=== PATIENT | male | born 1940 | race Caucasian/White ===

== ENCOUNTER 2018-03-23 16:49 | Observation (INO) | payer OTHER ==
--- OUTSIDE RECORDS SUMMARY | 2018-03-23 16:51 | XMS REPORT | Clinical Summary ---
:1940 Author Organization [facility] Address [address] [place] [address] Care Team Providers Name Role Phone Edmund Phillips MD Primary Care Provider Unavailable Allergies Active Allergy Reactions Severity Noted Date Comments Clopidogrel Itching 03/02/2017 Sulfa (Sulfonamide Antibiotics) Swelling 08/25/2017 Current Medications Prescription Sig. Disp. Refills Start Date End Date Status citalopram (CeleXA) TK 1 T PO D IN 0 07/16/2016 Active 20 MG tablet THE MORNING. furosemide (LASIX) TK 1 T PO 90 tablet 3 04/19/2017 Active 80 mg tablet MORNING NITROSTAT 0.[address] 1 tablet 90 tablet 4 04/19/2017 Active tablet (0.3 mg total) under the tongue every 5 (five) minutes as needed for chest pain. spironolactone TK 1 T PO D 90 tablet 3 04/19/2017 Active (ALDACTONE) 25 MG tablet ticagrelor Take 1 tablet 180 tablet 3 04/19/2017 Active (BRILINTA) 90 mg (90 mg total) tablet by mouth 2 (two) times a day. atorvastatin Take 1 tablet 90 tablet 3 04/19/2017 Active (LIPITOR) 80 MG (80 mg total) 8 tablet by mouth daily. insulin GLARGINE Inject 25 10 mL 8 05/04/2017 Active (LANTUS) 100 unit/mL Units under 8 injection (vial) the skin nightly. losartan (COZAAR) TK 1 T PO QD 1 08/02/2017 Active 100 MG tablet amIODarone Take 100 mg by Active (PACERONE) 200 MG mouth daily. tablet gabapentin Take 100 mg by Active (NEURONTIN) 100 mg mouth 3 capsule (three) times a day. furosemide (LASIX) TK 1 T PO 3 05/19/2016 Discontinued 80 mg tablet MORNING 7 NITROSTAT 0.3 mg SL 4 06/04/2016 Discontinued tablet 7 spironolactone TK 1 T PO D 0 01/09/2017 Discontinued (ALDACTONE) 25 MG 7 tablet aspirin 81 mg Chew 1 tablet 30 tablet 0 03/08/2017 chewable tablet (81 mg total) 7 daily for 30 days. atorvastatin Take 1 tablet 30 tablet 0 03/08/2017 (LIPITOR) 80 MG (80 mg total) 7 tablet by mouth nightly for 30 days. metFORMIN Take 1 tablet 60 tablet 0 03/08/2017 (GLUCOPHAGE) 500 mg (500 mg total) 7 tablet by mouth 2 (two) times a day with meals for 30 days. ticagrelor Take 1 tablet 60 tablet 0 03/08/2017 (BRILINTA) 90 mg (90 mg total) 7 tablet by mouth 2 (two) times a day for 30 days. insulin GLARGINE Inject 25 7.5 mL 0 03/08/2017 (LANTUS) 100 unit/mL Units under 7 injection (vial) the skin nightly for 30 days. carvedilol (COREG) Take 1 tablet 60 tablet 11 03/16/2017 Discontinued 6.25 MG tablet (6.25 mg 7 total) by mouth 2 (two) times a day. metoprolol tartrate Take 1 tablet 180 tablet 3 03/17/2017 Discontinued (LOPRESSOR) 100 mg (100 mg total) 7 tablet by mouth 2 (two) times a day. carvedilol (COREG) Take 1 tablet 180 tablet 3 04/19/2017 Discontinued 6.25 MG tablet (6.25 mg 7 total) by mouth 2 (two) times a day. metoprolol tartrate Take 1 tablet 180 tablet 3 04/19/2017 Discontinued (LOPRESSOR) 100 mg (100 mg total) 8 tablet by mouth 2 (two) times a day. carvedilol (COREG) Take 12.5 mg Discontinued 12.5 MG tablet by mouth 2 7 (two) times a day with meals. traMADol (ULTRAM) 50 Take 1 tablet 60 tablet 0 08/19/2017 mg tablet (50 mg total) 8 by mouth every 8 (eight) hours as needed for moderate pain for up to 30 days. Active Problems Problem Noted Date Bilateral carotid artery disease 10/26/2017 CAD in [place] artery 03/23/2017 ST elevation myocardial infarction involving left circumflex coronary 2016 artery NSTEMI (non-ST elevated myocardial infarction) 03/02/2017 Coronary artery disease involving mus[place]ogee coronary artery of [place] heart 02/09 without angina pectoris Diastolic congestive heart failure 02/09/2017 Carotid bruit 02/09/2017 History of coronary artery bypass graft 08/07/2016 Stented coronary artery 08/07/2016 SOB (shortness of breath) 08/07/2016 Systolic congestive heart failure 08/07/2016 Encounters Date Type Specialty Care Team Description 11/03/2017 Orders Only Cardiology Flaquito Ann MA Coronary artery disease involving muscogee coronary artery of mus[place]ogee heart without angina pectoris (Primary Dx) 11/03/2017 Telephone Cardiology Flaquito Ann MA Results (ultrasound of the carotid) 10/26/2017 Office Visit Cardiology Gabriela Enriquez MD Systolic congestive heart failure, unspecified congestive heart failure chronicity (Primary Dx); Bilateral carotid artery disease; History of coronary artery bypass graft 08/25/2017 Office Visit Internal Medicine Edmund Phillips, Chest wall pain (Primary Dx); Uncontrolled diabetes mellitus type 2 without complications, unspecified physician insulin use status; Systolic congestive heart failure, unspecified congestive heart failure chronicity; Coronary artery disease involving muscogee coronary artery of mus[place] heart without angina pectoris 08/20/2017 Telephone Family Medicine Edmund Phillips MD 08/19/2017 Lab Lab Edmund Phillips, Dizziness; Essential hypertension 08/19/2017 Office Visit Internal Medicine Edmund Phillips, Chest wall pain (Primary Dx); Arthralgia of hip, unspecified laterality; Uncontrolled diabetes mellitus type 2 without complications, unspecified senior care insulin use status; Essential hypertension; Dizziness; Systolic congestive heart failure, unspecified congestive heart failure chronicity 08/18/2017 Telephone Family Medicine Michael AbelRIKI richardson 08/17/2017 Office Visit Cardiology Gabriela Enriquez MD Systolic congestive heart failure, unspecified congestive heart failure chronicity (Primary Dx); Pain of right hip joint; Stented coronary artery; Coronary artery disease involving muscogee coronary artery of mus[place]ogee heart without angina pectoris; History of coronary artery bypass graft 05/07/2017 Orders Only Cardiology Flaquito Ann MA 05/04/2017 Refill Cardiology Flaquito Ann MA Med Refill 05/03/2017 Refill Cardiology Flaquito Ann MA Med Refill 04/27/2017 Office Visit Cardiology Gabriela Enriquez MD CAD in mus[place]ogee artery (Primary Dx); Stented coronary artery; Systolic congestive heart failure, unspecified congestive heart failure chronicity 04/19/2017 Refill Cardiology Gabriela Enriquez MD Med Refill 04/19/2017 Refill Cardiology Gabriela Enriquez MD Med Refill 03/31/2017 Telephone Cardiology Sia Guerra MA resutls 03/23/2017 Office Visit Cardiology Gabriela Enriquez MD Systolic congestive heart failure, unspecified congestive heart failure chronicity (Primary Dx); CAD in mus[place]ogee artery; Stented coronary artery; ST elevation myocardial infarction involving left circumflex coronary artery after 03/22/2017 Immunizations Name Dates Previously Given Next Due Influenza Trivalent 05/19/2017 Social History Tobacco Use Types Packs/Day Years Used Date Never Smoker Smokeless Tobacco: Never Used Sex Assigned at Date Recorded Not on file Last Filed Vital Signs Vital Sign Reading Time Taken Blood Pressure 131/67 10/26/2017 3:49 PM CDT Pulse 84 10/26/2017 3:49 PM CDT Temperature 36.8 C (98.2 F) 08/25/2017 10:42 AM [employer] Respiratory Rate 16 08/25/2017 10:42 AM [employer]IST Oxygen Saturation 97% 08/25/2017 10:42 AM [employer]IST Inhaled Oxygen Concentration - - Weight 96.2 kg (212 lb) 10/26/2017 3:49 PM CDT Height 180.3 cm (5' 11") 08/25/2017 10:42 AM [employer] Body Mass Index 29.57 10/26/2017 3:49 PM CDT Plan of Treatment Date Type Specialty Care Team Description 04/26/2018 Office Visit Cardiology Gabriela Enriquez MD [address] [place], [place] [id number] Health Maintenance Due Date Last Done Comments DIABETIC FOOT EXAM 1949 DIABETIC RETINAL EYE EXAM 1949 URINE MICROALBUMIN 1949 SHINGRIX VACCINE (#1) 1989 ZOSTER VACCINE 1999 PNEUMOCOCCAL POLYSACCHARIDE VACCINE AGE 65 AND OVER 2004 PNEUMOCOCCAL-13 2004 INFLUENZA VACCINE 02/02/2018 05/19/2017 Implants Implanted Type Area Tooling Engineer Device Expiration Model / Identifier Date Serial / Lot Stent Catheter Synergy (Otw) 3.50mm X 16mm - [id number] Coronary N/A: N/A [facility] [id number] / Implanted: Qty: 1 on 03/03/2017 by Gabriela Enriquez MD Stents INTERVENTIONAL / CARDIOLOGY Procedures Procedure Name Priority Date/Time Associated Diagnosis Comments US CAROTID DUPLEX Routine 10/28/2017 11:25 Systolic congestive Results for this BILATERAL AM CDT heart failure, procedure are in unspecified the results congestive heart section. failure chronicity Bilateral carotid artery disease XR RIBS W PA CHEST Routine 08/19/2017 3:29 Chest wall pain Results for this RIGHT PM [employer]IST procedure are in the results section. SPECIMEN STATUS REPORT Routine 08/19/2017 1:47 Results for this PM [employer]IST procedure are in the results section. HEMOGLOBIN A1C Routine 08/19/2017 1:47 Results for this PM [employer]IST procedure are in the results section. SPECIMEN STATUS REPORT Routine 08/19/2017 1:47 Results for this PM [employer]IST procedure are in the results section. BASIC METABOLIC PANEL Routine 08/19/2017 1:47 Essential Results for this PM [employer]IST hypertension procedure are in the results section. CBC WITH PLATELET AND Routine 08/19/2017 1:47 Dizziness Results for this DIFFERENTIAL PM [employer] SPECIALIST procedure are in the results section. XR HIP 2-3 VIEWS RIGHT Routine 08/17/2017 12:08 Pain of right hip Results for this PM [employer]IST joint procedure are in the results section. ECHOCARDIOGRAM 2D Routine 07/28/2017 11:02 CAD in mus[place]ogee artery Results for this COMPLETE W MMODE AM [employer] SK[employer] SPECIALIST procedure are in SPECTRAL COLOR DOPPLER the results (52827) section. US CAROTID DUPLEX Routine 03/23/2017 10:40 Coronary artery Results for this BILATERAL AM CDT disease involving procedure are in muscogee coronary the results artery of muscogee section. heart without angina pectoris Diastolic congestive heart failure, unspecified congestive heart failure chronicity after 03/22/2017 Results Pv carotid duplex (10/28/2017 11:25 AM)Only the most recent of2 resultswithin the time period is included. Narrative Performed At [facility] Carotid Artery Ultrasound Report Pat.Name:TITUS NANCE Pat.ID:[id number] .Date: 10/28/2017 Refer.MD:GABRIELA ENRIQUEZ MD Exam Time: 11:52:00 AM Study Type:Carotid DOBAge:1940,77Y Sex: MALE Sonogrphr: Tiffanie Ross RDMS, RDCS, RVT Pat. Stat.:Outpatient Room:[place] [address]: [address] Echo Event ID:[id number] Order ID:[id number] Reason for Study:Carotid artery disease Race:C SUMMARY: PHYSICAL ASSESSMENT BloodPulsesCarotid Pressure Carotid TemporalBruit Right 131/67 ++0 Left ___ ++0 CAROTID ARTERY SCAN RIGHT:There is scattered hard plaquein the common carotid artery. Colorflow is mildly disturbed. There is hard and calcified plaque noted in the bulb extending into the internal and external carotid artery.Colorflow is disturbed with elevated velocities noted in the internal carotid artery. There is monophasic antegrade flow in the vertebral artery. LEFT:There is scattered hard plaquein the common carotid artery. Colorflow is mildly disturbed.The lumen of the internal carotidis filled with mixed soft and bright echogenic material occluding the artery. PRELIMINARY FINDINGS 50- 69% stenosis in the right internal carotid artery. Occlusion of the left internal carotid artery PHYSICIAN INTERPRETATION The left internal carotid artery is occluded. 50-69% right internal carotid artery stenosis, this has changed from the previous 2017 study Carotid Findings:RightLeft Verteb.Flw AntegradeAntegrade Subclavian Biphasic Triphasic MEASUREMENTS: DOPPLER Right SCA Prox SCA Prox PSV67.5 cm/sSCA Prox EDV11.7 cm/s Right CCA Dist CCA Dist PSV52.6 cm/sCCA Dist EDV13.9 cm/s Right CCA Mid CCA Mid PSV 57.2 cm/sCCA Mid EDV 15.1 cm/s Right CCA Prox CCA Prox PSV62.2 cm/sCCA Prox EDV14.1 cm/s Right Bulb Bulb PSV32.1 cm/sBulb EDV10.6 cm/s Right ECA Prox ECA Prox PSV51.5 cm/s Right ECA ECA PSV 50.8 cm/s Right ICA Dist ICA Dist PSV 117 cm/Isaiah Dist EDV39.9 cm/s Right ICA Mid ICA Mid LVK583 cm/Isaiah Mid EDV 42.5 cm/s Right ICA Prox ICA Prox PSV 213 cm/Isaiah Prox EDV71.2 cm/s Right Vertebral Vertebral PSV 17.4 cm/s Left SCA Prox SCA Prox PSV 117 cm/s Left CCA Dist CCA Dist PSV42.7 cm/sCCA Dist EDV 0 cm/s Left CCA Mid CCA Mid PSV 50.1 cm/sCCA Mid EDV0 cm/s Left CCA Prox CCA Prox PSV56.5 cm/sCCA Prox EDV 0 cm/s Left Bulb Bulb PSV60.9 cm/sBulb EDV 0 cm/s Left ECA Prox ECA Prox PSV58.5 cm/sECA Prox EDV 0 cm/s Left Vertebral Vertebral PSV 31.8 cm/sVertebral EDV 10.6 cm/s Right ICA/CCA Ratio ICA/CCA PSV 3.72 Signed 10/29/2017 04:53 PM Gabriela Enriquez MD Procedure Note Interface, Radiology Results In - 10/29/2017 4:53 PM CDT [facility] Carotid Artery Ultrasound Report Pat.Name: TITUS NANCE Ghislaine.ID: [id number] .Date: 10/28/2017 Refer.MD: GABRIELA ENRIQUEZ MD Exam Time: 11:52:00 AM Study Type:Carotid Age: 11 1940,77Y Sex: MALE Sonogrphr: Tiffanie Ross, JOSÉ, RDCS, RVT Pat. Stat.:Outpatient Room: [facility] 4: [address] Echo Event ID:[id number] Order ID: [id number] Reason for Study:Carotid artery disease Race: C SUMMARY: PHYSICAL ASSESSMENT Blood Pulses Carotid Pressure Carotid Temporal Bruit Right 131/67 + + 0 Left ___ + + 0 CAROTID ARTERY SCAN RIGHT: There is scattered hard plaque in the common carotid artery. Colorflow is mildly disturbed. There is hard and calcified plaque noted in the bulb extending into the internal and external carotid artery. Colorflow is disturbed with elevated velocities noted in the internal carotid artery. There is monophasic antegrade flow in the vertebral artery. LEFT: There is scattered hard plaque in the common carotid artery. Colorflow is mildly disturbed. The lumen of the internal carotid is filled with mixed soft and bright echogenic material occluding the artery. PRELIMINARY FINDINGS 50- 69% stenosis in the right internal carotid artery. Occlusion of the left internal carotid artery PHYSICIAN INTERPRETATION The left internal carotid artery is occluded. 50-69% right internal carotid artery stenosis, this has changed from the previous 2017 study Carotid Findings: Right Left Verteb.Flw Antegrade Antegrade Subclavian Biphasic Triphasic MEASUREMENTS: DOPPLER Right SCA Prox SCA Prox PSV 67.5 cm/s SCA Prox EDV 11.7 cm/s Right CCA Dist CCA Dist PSV 52.6 cm/s CCA Dist EDV 13.9 cm/s Right CCA Mid CCA Mid PSV 57.2 cm/s CCA Mid EDV 15.1 cm/s Right CCA Prox CCA Prox PSV 62.2 cm/s CCA Prox EDV 14.1 cm/s Right Bulb Bulb PSV 32.1 cm/s Bulb EDV 10.6 cm/s Right ECA Prox ECA Prox PSV 51.5 cm/s Right ECA ECA PSV 50.8 cm/s Right ICA Dist ICA Dist PSV 117 cm/s ICA Dist EDV 39.9 cm/s Right ICA Mid ICA Mid PSV 146 cm/s ICA Mid EDV 42.5 cm/s Right ICA Prox ICA Prox PSV 213 cm/s ICA Prox EDV 71.2 cm/s Right Vertebral Vertebral PSV 17.4 cm/s Left SCA Prox SCA Prox PSV 117 cm/s Left CCA Dist CCA Dist PSV 42.7 cm/s CCA Dist EDV 0 cm/s Left CCA Mid CCA Mid PSV 50.1 cm/s CCA Mid EDV 0 cm/s Left CCA Prox CCA Prox PSV 56.5 cm/s CCA Prox EDV 0 cm/s Left Bulb Bulb PSV 60.9 cm/s Bulb EDV 0 cm/s Left ECA Prox ECA Prox PSV 58.5 cm/s ECA Prox EDV 0 cm/s Left Vertebral Vertebral PSV 31.8 cm/s Vertebral EDV 10.6 cm/s Right ICA/CCA Ratio ICA/CCA PSV 3.72 Signed 10/29/2017 04:53 PM Gabriela Enriquez MD Performing Organization Address City/State/Zipcode Phone Number [facility] [address] [place] [address] XR Ribs W Pa Chest Right (08/19/2017 3:29 PM) Narrative Performed At EXAMINATION:XR RIBSW PA CHEST RIGHT [facility] CLINICAL HISTORY:R07.89 Other chest pain, CHEST WALL PAIN COMPARISON:None. IMPRESSION: The lungs are clear Heart is slightly enlarged, unchanged from prior Diffuse calcified atherosclerotic vascular disease throughout the arterial structures. [facility]-[id number] Procedure Note Interface, Radiology Results Incoming - 08/19/2017 4:22 PM [employer] SPECIALIST EXAMINATION: XR RIBS W PA CHEST RIGHT CLINICAL HISTORY: R07.89 Other chest pain, CHEST WALL PAIN COMPARISON: None. IMPRESSION: The lungs are clear Heart is slightly enlarged, unchanged from prior Diffuse calcified atherosclerotic vascular disease throughout the arterial structures. [facility]-[id number] Performing Organization Address City/State/Zipcode Phone Number [facility] [address] [place] [address] Specimen Status Report (08/19/2017 1:47 PM)Only the most recent of2 resultswithin the time period is included. Specimen Status Report COMMENT [facility] Comment: Written Authorization Written Authorization No Written Authorization Received. Narrative Performed At Performed at:01 - [facility] [address], [id number] Air Hoist Operator: Ministerio Clemens MD, Phone:[phone] Performing Organization Address City/[facility] Phone Number [facility] CBC with platelet and differential (08/19/2017 1:47 PM) WBC 8.1 3.4 - 10.8 x10E3/uL [facility] RBC 4.04 (L) 4.14 - 5.80 x10E6/uL [facility] HGB 13.1 13.0 - 17.7 g/dL [facility] HCT 37.1 (L) 37.5 - 51.0 % [facility] MCV 92 79 - 97 fL [facility] MCH 32.4 26.6 - 33.0 pg [facility] MCHC 35.3 31.5 - 35.7 g/dL [facility] RDW 13.9 12.3 - 15.4 % [facility] Platelet count 151 150 - 379 x10E3/uL [facility] Neutrophils 68 Not Estab. % [facility] Lymphocytes 15 Not Estab. % [facility] Monocytes 12 Not Estab. % [facility] Eosinophils 5 Not Estab. % [facility] Basophils 0 Not Estab. % [facility] Neutrophils, absolute 5.5 1.4 - 7.0 x10E3/uL [facility] Lymphocytes, absolute 1.2 0.7 - 3.1 x10E3/uL [facility] Monocytes, absolute 0.9 0.1 - 0.9 x10E3/uL [facility] Eosinophils, absolute 0.4 0.0 - 0.4 x10E3/uL [facility] Basophils, absolute 0.0 0.0 - 0.2 x10E3/uL [facility] Immature granulocytes 0 Not Estab. % [facility] Immature grans (abs) 0.0 0.0 - 0.1 x10E3/uL [facility] Specimen Blood Narrative Performed At Performed at: [id number] Air Hoist Operator: Ministerio Clemens MD, Phone:[phone] Performing Organization Address [facility] Phone Number [facility] Hemoglobin A1c (08/19/2017 1:47 PM) Hemoglobin A1C 11.8 (H) 4.8 - 5.6 % [facility] Comment: Pre-diabetes: 5.7 - 6.4 Diabetes: >6.4 Glycemic control for adults with diabetes: <7.0 Narrative Performed At Performed at: [id number] Air Hoist Operator: Ministerio Clemens MD, Phone:[phone] Performing Organization Address [facility] Phone Number [facility] Basic metabolic panel (08/19/2017 1:47 PM) Glucose 467 (H) 65 - 99 mg/dL [facility] BUN, whole blood 36 (H) 8 - 27 mg/dL [facility] Creatinine 1.55 (H) 0.76 - 1.27 mg/dL [facility] EGFR Non-Afr. Egyptian 42 (L) >59 mL/min/1.73 [facility] EGFR 49 (L) >59 mL/min/1.73 [facility] BUN/creatinine ratio 23 10 - 24 [facility] Sodium 127 (L) 134 - 144 mmol/L [facility] Potassium 5.2 3.5 - 5.2 mmol/L [facility] Chloride 85 (L) 96 - 106 mmol/L [facility] CO2 26 18 - 29 mmol/L [facility] Calcium 9.2 8.6 - 10.2 mg/dL [facility] Specimen Blood Narrative Performed At Performed at: [id number] Air Hoist Operator: Ministerio Clemens MD, Phone:[phone] Performing Organization Address [facility] Phone Number [facility] XR Hip 2-3 View Right (08/17/2017 12:08 PM) Narrative Performed At EXAMINATION:XR HIP 2-3 VIEWS RIGHT [facility] CLINICAL HISTORY:M25.551 Pain in right hip, hip pain fall COMPARISON:none. IMPRESSION: 1.No displaced fractures or dislocations. Pelvic vascular calcifications are noted. [facility]-[id number] Procedure Note Interface, Radiology Results Incoming - 08/17/2017 2:08 PM [employer]IST EXAMINATION: XR HIP 2-3 VIEWS RIGHT CLINICAL HISTORY: M25.551 Pain in right hip, hip pain fall COMPARISON: none. IMPRESSION: 1. No displaced fractures or dislocations. Pelvic vascular calcifications are noted. [facility]-[id number] Performing Organization Address City/State/Zipcode Phone Number [facility] [address] [place] [address] Echocardiogram complete w contrast and 3D if needed (07/28/2017 11:02 AM) Narrative Performed At [facility] Echocardiography Report Pat.Name:TITUS NANCE Pat.ID:[id number] St.Date: 07/28/2017 Refer.MD:GABRIELA ENRIQUEZ MD Exam Time: 10:02:00 AM Study Type:Routine Echo Height:71inWeight: 220lb BSA: 2.2 k8WVONzt:1940,77Y Sex: MALEBP:108/65 Sonogrphr: Tiffanie Ross RDCS, RVTPat. Stat.:Outpatient Study Status:Final Echo Event ID:[id number] Order ID:[id number] Reason for Study:Coronary Artery Disease History / Clinical:CAD Aotologous Vein Bypass, Congestive Heart Failure-Systolic Procedures:2D Echo, Colorflow Doppler Race:C SUMMARY: LV EF is severely depressed. Diastolic dysfunction Grade II (Moderate): Impaired relaxation with elevated LV filling pressures. Mild to moderate mitral regurgitation. Moderate tricuspid regurgitation FINDINGS: LV: LV size is mildly enlarged. There is severe eccentric LV hypertrophy.LV EF is severely depressed. Overall wall motionis hypokinetic. Estimated EF is 25-29%. RV: RV size is enlarged. A catheter or pacemaker wire is seen in theRV. RV systolic function is depressed. LA: LA volume is moderately enlarged. RA: RA size is normal. AO: Aortic root diameter is normal. NAIN: No pericardial effusion. There is an anterior space consistentwith a prominent epicardial fat pad. AV: Mild calcification of AV leaflets. MV: Mild thickening and calcification of mitral leaflets. Mild tomoderate mitral regurgitation. Etiology of MR is secondaryto LV dysfunction and remodeling. PV: No structural PV abnormalities noted. A trace of pulmonic regurgitation. TV: No structural TV abnormalities noted. Moderate tricuspid regurgitation Mcdonald: Diastolic dysfunction Grade II (Moderate): Impaired relaxationwith elevated LV filling pressures. Other:Estimated PA systolic pressure is 31 mmHg, assuming a mean RAPof 10 mmHg. MEASUREMENTS: 2D Parasternal [place] LVOT 2.2 cmLA Ds4.7 cm LVIDd6.2 cmIndex2.8 cm/m Ao An2.5 cm LVIDs5.6 cmAo Rtd 3 cm Index1.4 cm/m LV%fs9.7 % LV Ytif965.3 g(122-174) IVSd 1.3 cmRWT0.4 LVPWd1.3 cm LA Sng Plane LA Area 26.4 cm2(8.8-23.4) LA Vol99.7 ml Index45.3 ml/m LA LngAx 5.8 cm RA Sng Plane RA Area 17.4 cm2(8.3-19.5) RA Vol47.9 ml Index21.8 ml/m RA LngAx 5.5 cm Signed 07/29/2017 02:56 PM Tano Granados M.D. Procedure Note Interface, Radiology Results In - 07/29/2017 2:56 PM [employer] SPECIALIST [facility] Echocardiography Report Pat.Name: TITUS NANCE Pat.ID: [id number] .Date: 07/28/2017 Refer.MD: GABRIELA ENRIQUEZ MD Exam Time: 10:02:00 AM Study Type:Routine Echo Height: 71in Weight: 220lb BSA: 2.2 m2 Age: 11 1940,77Y Sex: MALE BP: 108/65 Sonogrphr: Tiffanie Ross RDCS, RVT Pat. Stat.:Outpatient Study Status:Final Echo Event ID:[id number] Order ID: [id number] Reason for Study:Coronary Artery Disease History / Clinical:CAD Aotologous Vein Bypass, Congestive Heart Failure-Systolic Procedures:2D Echo, Colorflow Doppler Race: C SUMMARY: LV EF is severely depressed. Diastolic dysfunction Grade II (Moderate): Impaired relaxation with elevated LV filling pressures. Mild to moderate mitral regurgitation. Moderate tricuspid regurgitation FINDINGS: LV: LV size is mildly enlarged. There is severe eccentric LV hypertrophy. LV EF is severely depressed. Overall wall motion is hypokinetic. Estimated EF is 25-29%. RV: RV size is enlarged. A catheter or pacemaker wire is seen in the RV. RV systolic function is depressed. LA: LA volume is moderately enlarged. RA: RA size is normal. AO: Aortic root diameter is normal. NAIN: No pericardial effusion. There is an anterior space consistent with a prominent epicardial fat pad. AV: Mild calcification of AV leaflets. MV: Mild thickening and calcification of mitral leaflets. Mild to moderate mitral regurgitation. Etiology of MR is secondary to LV dysfunction and remodeling. PV: No structural PV abnormalities noted. A trace of pulmonic regurgitation. TV: No structural TV abnormalities noted. Moderate tricuspid regurgitation Mcdonald: Diastolic dysfunction Grade II (Moderate): Impaired relaxation with elevated LV filling pressures. Other: Estimated PA systolic pressure is 31 mmHg, assuming a mean RAP of 10 mmHg. MEASUREMENTS: 2D Parasternal [place] LVOT 2.2 cm LA Ds 4.7 cm LVIDd 6.2 cm Index 2.8 cm/m Ao An 2.5 cm LVIDs 5.6 cm Ao Rtd 3 cm Index 1.4 cm/m LV%fs 9.7 % LV Mass 369.3 g (122-174) IVSd 1.3 cm RWT 0.4 LVPWd 1.3 cm LA Sng Plane LA Area 26.4 cm2 (8.8-23.4) LA Vol 99.7 ml Index 45.3 ml/m LA LngAx 5.8 cm RA Sng Plane RA Area 17.4 cm2 (8.3-19.5) RA Vol 47.9 ml Index 21.8 ml/m RA LngAx 5.5 cm Signed 07/29/2017 02:56 PM Tano Granados M.D. Performing Organization Address City/State/Zipcode Phone Number [phone] [place] [address] after 03/22/2017 Insurance Payer Benefit Plan / Group Subscriber ID Type Phone Address AETNA MEDICARE AETNA MEDICARE HMO/PPO MCR xxxxxxxx HMO MEDICAID MEDICAID xxxxxxxxx Medicaid Home: [id number] [phone] [place] [phone]
[2018-03-23] MEDS ORDERED: LEVALBUTEROL 1.25 MG/3 ML NEB ONE (17:28)
[2018-03-23] MEDS ORDERED: NA CHLORIDE 0.9% 500 ML ONE (17:29)
[2018-03-23 17:47] LABS: Absolute Lymphocytes (CBC) 0.5 K/uL (0.7-4.9); Absolute Monocytes 0.7 K/uL (0.1-1.3); Absolute Neutrophil 4.3 K/uL (1.8-8.0); Basophils % 0.4 % (0-1.3); Eosinophils % 4.5 % (0-4.4); Hematocrit 37.1 % (39.6-49.0); Lymphocytes % 8.2 % (15.3-44.8); MCH 33.5 pg (27.0-35.0); MCV 96.2 fL (80-100); MPV 7.7 fL (7.6-11.3); Monocytes % 11.6 % (3.3-12.3); RBC Red Blood Cell Count 3.85 M/uL (4.33-5.43)
[2018-03-23 17:57] LABS: BUN Blood Urea Nitrogen 32 mg/dL (7-18); Bicarbonate 29 mmol/L (21-32); Glucose Level 394 mg/dL (74-106); Potassium 3.5 mmol/L (3.5-5.1); Sodium Level 134 mmol/L (136-145)
--- NOTE | 2018-03-23 18:03 | RAD REPORT ---
EXAM DESCRIPTION: RAD - Chest Single View - 03/23/2018 5:53 pm CLINICAL HISTORY: cough Chest pain. COMPARISON: Chest Single View dated 09/13/2017; Chest Single View dated 08/25/2017; Chest Single View dated 03/02/2017; Chest Single View dated 10/31/2015 FINDINGS: Portable technique limits examination quality. The lungs are grossly clear. The heart is normal in size. No displaced fractures.Dual lead pacer/ def ibrillator device noted. IMPRESSION: No acute intrathoracic process suspected.
[2018-03-23 18:31] LABS: Urine Blood TRACE (NEG); Urine Glucose 2+ (NEG); Urine Protein NEGATIVE (NEG); Urine pH 5.5 (5.0-7.0)
--- NOTE | 2018-03-23 18:40 | EDPHYS ---
Physician Documentation [facility] Name: Titus Holloway Age: 77 yrs Sex: Male : 1940 Arrival Date: 03/23/2018 Time: 16:54 Bed 18 Private MD: ED Physician Parish Tariq HPI: 03/23 17:22 This 77 yrs old Male presents to ER via EMS with complaints of General rn Weakness. 17:22 Reports generalized weakness, tried to get out of bed today and legs gave out, no LOC, rn reports lightheaded, reports has not been taking insulin for unknown reason, sleeping a lot, seen by PCP yesterday but didn't bring it up, also cough and congestion.. Onset: The symptoms/episode began/occurred today. Severity of symptoms: At their worst the symptoms were moderate in the emergency department the symptoms have improved. It is unknown whether or not the patient has had similar symptoms in the past. The patient has been recently seen by a physician:. Historical: - Allergies: 17:04 Plavix; hj 17:04 Tetanus Vaccines \T\ Toxoid; hj - Home Meds: 17:04 gabapentin 100 mg oral cap 1 caps 3 times per day [Active]; furosemide 80 mg Oral tab 1 hj tab once daily for Peripheral Edema due to Chronic Heart Failure [Active]; metoprolol tartrate 50 mg Oral tab 1 tab 2 times per day for Hypertension [Active]; furosemide 40 mg Oral tab 1 tab once daily [Active]; amiodarone 200 mg Oral tab 0.5 tab once daily [Active]; spironolactone 25 mg oral tab 1 tab once daily [Active]; citalopram 20 mg tab 1 tab once daily for Anxiety with Depression [Active]; BRILINTA 90 mg oral tab 1 tab 2 times per day [Active]; atorvastatin 40 mg oral tab 1 tab once daily [Active]; - PMHx: 17:04 COPD; Hyperlipidemia; Diabetes - IDDM; Hypertension; Pneumonia; weakness; hj - PSHx: 17:04 CABG; pacemaker; hj - Immunization history:: Adult Immunizations up to date. - Social history:: Smoking status: Patient/guardian denies using tobacco, Patient/guardian denies using alcohol. - Ebola Screening: : Patient negative for fever greater than or equal to 101.5 degrees Fahrenheit, and additional compatible Ebola Virus Disease symptoms Patient denies exposure to infectious person Patient denies travel to an Ebola-affected area in the 21 days before illness onset. - Family history:: not pertinent. - Hospitalizations: : No recent hospitalization is reported. ROS: 17:22 Constitutional: Negative for fever, chills, and weight loss, Eyes: Negative for injury, rn pain, redness, and discharge, Cardiovascular: Negative for chest pain, palpitations, and edema, Respiratory: Negative for pleuritic chest pain Abdomen/GI: Negative for abdominal pain, nausea, vomiting, diarrhea, and constipation, Back: Negative for injury and pain, MS/Extremity: Negative for injury and deformity, Skin: Negative for injury, rash, and discoloration, Neuro: Negative for headache, numbness, tingling, and seizure. Exam: 17:22 Constitutional: Overweight male, no acute distress Head/Face: Normocephalic, rn atraumatic. Eyes: Pupils equal round and reactive to light, extra-ocular motions intact. Lids and lashes normal. Conjunctiva and sclera are non-icteric and not injected. Cornea within normal limits. Periorbital areas with no swelling, redness, or edema. ENT: dry MM, no stridor Cardiovascular: Regular rate and rhythm with a normal S1 and S2. No gallops, murmurs, or rubs. Normal PMI, no JVD. No pulse deficits. Respiratory: mild tachypnea, no retractions, diminished breath sounds bilaterally Abdomen/GI: soft, non-tender Skin: Warm, dry, no evidence of cellulitis. MS/ Extremity: Pulses equal, no cyanosis. Neurovascular intact. Full, normal range of motion. Equal circumference. Neuro: Awake and alert, GCS 15, oriented to person, place, time, and situation. Cranial nerves II-XII grossly intact. Motor strength 4/5 in all extremities. Sensory grossly intact. Vital Signs: 16:57 BP 115 / 58; Pulse 61; Resp 18; Temp 97.9(TE); Pulse Ox 91% on R/A; Weight 90.72 kg; hj Height 5 ft. 11 in. (180.34 cm); Pain 0/10; 17:05 Pulse Ox 96% on 2 lpm NC; hj 18:15 BP 116 / 70; Pulse 60; Resp 18; Pulse Ox 96% on R/A; hj 18:25 BP 112 / 61; Pulse 69; Resp 18; Pulse Ox 96% on 2 lpm NC; hj 19:25 BP 129 / 94; Pulse 64; Resp 18 S; Pulse Ox 96% on 2 lpm NC; jd3 16:57 Body Mass Index 27.89 (90.72 kg, 180.34 cm) MDM: 17:05 Patient medically screened. rn 18:35 Differential Diagnosis Weakness, UTI, hyperglycemia, acute kidney injury, pneumonia, rn viral syndrome. Data reviewed: vital signs, nurses notes, lab test result(s), EKG, radiologic studies, and as a result, I will admit patient. Counseling: I had a detailed discussion with the patient and/or guardian regarding: the historical points, exam findings, and any diagnostic results supporting the discharge/admit diagnosis, lab results, radiology results, the need for further work-up and treatment in the hospital. Response to treatment: the patient's symptoms have mildly improved after treatment, and as a result, I will admit patient. Admission orders: after a detailed discussion of the patient's condition and case, the admit orders are written by me. ED course: Pt with dehydration and hyperglycemia, will obs overnight for hydration and glucose management, admitted to Dr. Huston. . 03/23 17:19 Order name: CBC with Diff 03/23 17:19 Order name: Basic Metabolic Panel 03/23 17:19 Order name: Procalcitonin 03/23 17:19 Order name: Urine Culture 03/23 17:19 Order name: Ketone, Serum 03/23 17:19 Order name: Blood Culture Adult (2) 03/23 17:42 Order name: Blood Culture [facility] 03/23 17:42 Order name: Blood Culture [facility] 03/23 17:48 Order name: Blood Culture [facility] 03/23 17:50 Order name: CBC with Automated Diff; Complete Time: 18:23 [facility] 03/23 17:57 Order name: Basic Metabolic Panel; Complete Time: 18:23 [facility] 03/23 18:07 Order name: Acetone Level; Complete Time: 18:23 [facility] 03/23 18:21 Order name: Urine Dipstick--Ancillary (enter results) 03/23 18:31 Order name: Urine Dipstick-Ancillary; Complete Time: 18:33 [facility] 03/23 17:19 Order name: IV Start; Complete Time: 17:20 rn 03/23 17:19 Order name: EKG; Complete Time: 17:45 rn 03/23 17:19 Order name: EKG - Nurse/Tech; Complete Time: 17:20 rn 03/23 17:19 Order name: XRAY Chest (1 view) rn 03/23 17:19 Order name: Urine Dipstick-Ancillary (obtain specimen); Complete Time: 18:13 rn 03/23 17:19 Order name: Glucose Level; Complete Time: 17:20 rn 03/23 18:04 Order name: RAD; Complete Time: 18:23 EDMS 03/23 18:46 Order name: Procalcitonin; Complete Time: 18:49 EDMS Administered Medications: 17:20 Drug: Xopenex 1.25 mg Route: Inhalation; 18:52 Follow up: Response: No adverse reaction; Wheezing diminished hj 17:20 Drug: NS 0.9% 500 ml Route: IV; Rate: bolus; Site: left hand; hj 18:52 Follow up: IV Status: Completed infusion 18:50 Drug: Insulin Regular Human 5 units {Co-Signature: karl (Demar Castellano RN).} Route: hj Sub-Q; Site: right lower abdomen; 19:36 Follow up: Response: No adverse reaction jd3 Point of Care Testing: Blood Glucose: 17:05 Blood Glucose: 359 mg/dL; hj 18:51 Blood Glucose: 332 mg/dL; hj 19:35 Blood Glucose: 369 mg/dL; jd3 Ranges: Critical Glucose Levels:Adult <50 mg/dl or >400 mg/dl <40 mg/dl or >180 mg/dl Disposition: 03/23/18 18:45 Hospitalization ordered by Luis Fernando Huston for Observation. Preliminary diagnosis are Dehydration, Hyperglycemia, unspecified, Weakness. - Bed requested for Telemetry/MedSurg (observation). - Status is Observation. jd3 - Condition is Stable. - Problem is new. - Symptoms have improved. UTI on Admission? No Signatures: Dispatcher [employer] EDMS Thi Jason RN RN kl Nieto, Roman, MD MD rn Joaquin, Henry, RN RN hj Davies, Jonathon, RN RN jd3 Jonathon Davies RN jd3 Corrections: (The following items were deleted from the chart) 18:42 18:39 03/23/2018 18:39 Discharged to Home. Impression: Hyperglycemia, unspecified; rn Weakness; Dehydration. Condition is Stable. Forms are Medication Reconciliation Form, Thank You Letter, Antibiotic Education, Prescription Opioid Use. Follow up: Private Physician; When: As needed; Reason: Recheck today's complaints, Re-evaluation by your physician. Problem is new. Symptoms have improved. rn 19:27 18:45 Hospitalization Ordered by Luis Fernando Huston MD for Observation. Preliminary diagnosis kl is Dehydration; Hyperglycemia, unspecified; Weakness. Bed requested for Telemetry/MedSurg (observation). Status is Observation. Condition is Stable. Problem is new. Symptoms have improved. UTI on Admission? No. rn 20:22 19:27 03/23/2018 18:45 Hospitalization Ordered by Luis Fernando Huston MD for Observation. jd3 Preliminary diagnosis is Dehydration; Hyperglycemia, unspecified; Weakness. Bed requested for Telemetry/MedSurg (observation). Status is Observation. Condition is Stable. Problem is new. Symptoms have improved. UTI on Admission? No. kl
--- NOTE | 2018-03-23 18:40 | ER ---
Nurse's Notes [facility] Name: Titus Holloway Age: 77 yrs Sex: Male : 1940 Arrival Date: 03/23/2018 Time: 16:54 Bed 18 Private MD: Diagnosis: Dehydration;Hyperglycemia, unspecified;Weakness Presentation: 03/23 16:54 Presenting complaint: EMS states: per family, pt fell at home, family unable to pick hj up, called EMS; per pt, states "idid hit my head a little bit" been complaining of generalized weakness for days, been to PCP for a viral infection yesterday; A\\T\\O x4, BGL- 415; BP- 110/56; HR- 88; RR-18; 20 g L hand; 600 ml NS;. Transition of care: patient was not received from another setting of care. Onset of symptoms was March 23, 2018. Risk Assessment: Do you want to hurt yourself or someone else? Patient reports no desire to harm self or others. Initial Sepsis Screen: Does the patient meet any 2 criteria? No. Patient's initial sepsis screen is negative. Does the patient have a suspected source of infection? No. Patient's initial sepsis screen is negative. Care prior to arrival: None. 16:54 Method Of Arrival: EMS: [facility] 16:54 Acuity: PAYAM 3 hj Triage Assessment: 17:04 General: Appears in no apparent distress. uncomfortable, Behavior is calm, cooperative, hj appropriate for age. Pain: Denies pain. Historical: - Allergies: 17:04 Plavix; hj 17:04 Tetanus Vaccines \\T\\ Toxoid; hj - Home Meds: 17:04 gabapentin 100 mg oral cap 1 caps 3 times per day [Active]; furosemide 80 mg Oral tab 1 hj tab once daily for Peripheral Edema due to Chronic Heart Failure [Active]; metoprolol tartrate 50 mg Oral tab 1 tab 2 times per day for Hypertension [Active]; furosemide 40 mg Oral tab 1 tab once daily [Active]; amiodarone 200 mg Oral tab 0.5 tab once daily [Active]; spironolactone 25 mg oral tab 1 tab once daily [Active]; citalopram 20 mg tab 1 tab once daily for Anxiety with Depression [Active]; BRILINTA 90 mg oral tab 1 tab 2 times per day [Active]; atorvastatin 40 mg oral tab 1 tab once daily [Active]; - PMHx: 17:04 COPD; Hyperlipidemia; Diabetes - IDDM; Hypertension; Pneumonia; weakness; hj - PSHx: 17:04 CABG; pacemaker; hj - Immunization history:: Adult Immunizations up to date. - Social history:: Smoking status: Patient/guardian denies using tobacco, Patient/guardian denies using alcohol. - Ebola Screening: : Patient negative for fever greater than or equal to 101.5 degrees Fahrenheit, and additional compatible Ebola Virus Disease symptoms Patient denies exposure to infectious person Patient denies travel to an Ebola-affected area in the 21 days before illness onset. - Family history:: not pertinent. - Hospitalizations: : No recent hospitalization is reported. Screenin:04 Abuse screen: Denies threats or abuse. Denies injuries from another. Nutritional hj screening: No deficits noted. Tuberculosis screening: No symptoms or risk factors identified. Fall Risk Fall in past 12 months (25 points). Assessment: 17:05 General: Appears in no apparent distress. uncomfortable, Behavior is calm, cooperative, hj appropriate for age. Pain: Denies pain. Neuro: Level of Consciousness is awake, alert, obeys commands, Oriented to person, place, time, situation, Appropriate for age. Cardiovascular: Reports presence of pacmeker Capillary refill < 3 seconds Patient's skin is warm and dry. Respiratory: Reports cough that is Airway is patent Respiratory effort is even, unlabored, Respiratory pattern is regular, symmetrical, Breath sounds are clear. GI: No signs and/or symptoms were reported involving the gastrointestinal system. : No signs and/or symptoms were reported regarding the genitourinary system. EENT: No signs and/or symptoms were reported regarding the EENT system. Derm: No signs and/or symptoms reported regarding the dermatologic system. Musculoskeletal: Reports weakness in body. 18:14 Reassessment: Patient and/or family updated on plan of care and expected duration. Pain hj level reassessed. Patient is alert, oriented x 3, equal unlabored respirations, skin warm/dry/pink. family in room; awaiting results and POC;. 18:26 Reassessment: pt changed to disposable brief;. hj 19:04 Reassessment: Patient appears in no apparent distress at this time. No changes from jd3 previously documented assessment. Patient and/or family updated on plan of care and expected duration. Pain level reassessed. Patient is alert, oriented x 3, equal unlabored respirations, skin warm/dry/pink. waiting pt room assignment. 19:25 Reassessment: Patient appears in no apparent distress at this time. No changes from jd3 previously documented assessment. Patient and/or family updated on plan of care and expected duration. Pain level reassessed. Patient is alert, oriented x 3, equal unlabored respirations, skin warm/dry/pink. 19:58 Reassessment: Report called to Ledy TAYLOR on second floor. ea 20:22 Reassessment: Patient appears in no apparent distress at this time. No changes from jd3 previously documented assessment. Patient and/or family updated on plan of care and expected duration. Pain level reassessed. Patient is alert, oriented x 3, equal unlabored respirations, skin warm/dry/pink. Vital Signs: 16:57 BP 115 / 58; Pulse 61; Resp 18; Temp 97.9(TE); Pulse Ox 91% on R/A; Weight 90.72 kg; hj Height 5 ft. 11 in. (180.34 cm); Pain 0/10; 17:05 Pulse Ox 96% on 2 lpm NC; hj 18:15 BP 116 / 70; Pulse 60; Resp 18; Pulse Ox 96% on R/A; hj 18:25 BP 112 / 61; Pulse 69; Resp 18; Pulse Ox 96% on 2 lpm NC; hj 19:25 BP 129 / 94; Pulse 64; Resp 18 S; Pulse Ox 96% on 2 lpm NC; jd3 16:57 Body Mass Index 27.89 (90.72 kg, 180.34 cm) ED Course: 16:54 Patient arrived in ED. hj 16:57 Triage completed. hj 17:05 Parish Tariq MD is Attending Physician. rn 17:05 Arm band placed on right wrist. hj 17:05 Patient has correct armband on for positive identification. Placed in gown. Bed in low hj position. Call light in reach. Side rails up X2. Adult w/ patient. 17:06 Maintain EMS IV. Dressing intact. Good blood return noted. Site clean \\T\\ dry. Gauge \\T\\ hj site: 20 g L hand. 17:07 EKG done, by technology teacher. reviewed by Parish Tariq MD. sm3 17:09 Jace Rdz, RN is Primary Nurse. hj 17:45 First set of blood cultures drawn by ED staff, Second set of blood cultures drawn by ED hj staff. 17:45 Initial lab(s) drawn, by pr, sent to lab. First set of blood cultures drawn Second set mh5 of blood cultures drawn. Inserted saline lock: 22 gauge in right antecubital area, using aseptic technique. Blood collected. 18:15 Inserted saline lock: 22 gauge in right antecubital area, using aseptic technique. Blood collected. 18:27 Blood Culture Sent. mh5 18:27 Blood Culture Sent. mh5 18:27 Blood Culture Sent. mh5 18:27 Blood Culture Adult (2) Sent. mh5 18:27 Basic Metabolic Panel Sent. mh5 18:27 CBC with Diff Sent. mh5 18:27 Ketone, Serum Sent. mh5 18:27 Urine Culture Sent. 5 18:45 Luis Fernando Huston MD is Hospitalizing Provider. rn 19:05 Primary Nurse role handed off by Jace Rdz, CLAUDIA j 19:05 Demar Castellano, CLAUDIA is Primary Nurse. jd3 20:00 No provider procedures requiring assistance completed. Patient admitted, IV remains in ea place. Administered Medications: 17:20 Drug: Xopenex 1.25 mg Route: Inhalation; hj 18:52 Follow up: Response: No adverse reaction; Wheezing diminished hj 17:20 Drug: NS 0.9% 500 ml Route: IV; Rate: bolus; Site: left hand; hj 18:52 Follow up: IV Status: Completed infusion 18:50 Drug: Insulin Regular Human 5 units {Co-Signature: jd3 (Demar Castellano RN).} Route: hj Sub-Q; Site: right lower abdomen; 19:36 Follow up: Response: No adverse reaction jd3 Point of Care Testing: Blood Glucose: 17:05 Blood Glucose: 359 mg/dL; hj 18:51 Blood Glucose: 332 mg/dL; hj 19:35 Blood Glucose: 369 mg/dL; jd3 Ranges: Outcome: 18:39 Discharge ordered by . rn 18:45 Decision to Hospitalize by Provider. rn 19:10 Admitted to Med/surg accompanied by tech, room 201, Report called to Ledy TAYLOR ea 19:10 Instructed on the need for admit. 20:21 Admitted to Med/surg accompanied by tech, room 201, with oxygen, with chart. karl 20:21 Condition: stable 20:22 Patient left the ED. jvijaya Signatures: Parish Tariq MD MD rn Joaquin, Henry, RN RN hj Martinez, Maria [facility] Mary Grace Gillespie RN RN ea Davies, CLAUDIA Benz RN, Shakira [facility] Demar barajas
[2018-03-23] MEDS ORDERED: INSULIN -REGULAR HUMAN 50 UNIT/0.5 ML ML ONE (19:00)
[2018-03-23] MEDS ORDERED: ACETAMINOPHEN 500 MG TAB PO PRN (19:59)
[2018-03-23] MEDS ORDERED: GLUCAGON 1 MG/VIAL IM PRN (19:59)
[2018-03-23] MEDS ORDERED: D50W 25 GM/50 ML SYRINGE IV PRN (19:59)
[2018-03-23] MEDS ORDERED: ONDANSETRON 4 MG/2 ML VIAL IV PRN (19:59)
[2018-03-23 21:13] VITALS: BMI 29.9
[2018-03-23] MEDS: INSULIN -REGULAR HUMAN 50 UNIT/0.5 ML ML SQ SCH (22:41)
[2018-03-23] MEDS: NA CHLORIDE 0.9% 1,000 ML IV SCH (22:42)
[2018-03-24 05:21] LABS: Absolute Lymphocytes (CBC) 0.9 K/uL (0.7-4.9); Absolute Monocytes 0.7 K/uL (0.1-1.3); Absolute Neutrophil 4.4 K/uL (1.8-8.0); Basophils % 0.5 % (0-1.3); Eosinophils % 4.9 % (0-4.4); Hematocrit 35.9 % (39.6-49.0); Lymphocytes % 14.6 % (15.3-44.8); MCH 33.8 pg (27.0-35.0); MCV 96.8 fL (80-100); MPV 7.7 fL (7.6-11.3); Monocytes % 10.8 % (3.3-12.3); RBC Red Blood Cell Count 3.71 M/uL (4.33-5.43)
[2018-03-24 05:35] LABS: Urine Appearance CLEAR; Urine Bilirubin NEGATIVE (NEG); Urine Blood NEGATIVE (NEG); Urine Color YELLOW; Urine Glucose 3+ (NEG); Urine Protein NEGATIVE (NEG); Urine Specific Gravity 1.025 (1.005-1.030); Urine Urobilinogen 0.2 mg/dL (0.2-1.0); Urine pH 5.5 (5.0-7.0)
[2018-03-24 05:38] LABS: Urine Microscopic Reflex NO UMIC
[2018-03-24 05:41] LABS: Potassium 3.5 mmol/L (3.5-5.1)
[2018-03-24] MEDS: NA CHLORIDE 0.9% 1,000 ML IV SCH ×2 (05:59→09:32)
[2018-03-24 07:40] VITALS: O2SAT 98
[2018-03-24] MEDS: INSULIN -REGULAR HUMAN 50 UNIT/0.5 ML ML SQ SCH ×2 (08:30→12:39)
[2018-03-24] MEDS ORDERED: SPIRONOLACTONE 25 MG TABLET PO SCH (09:00)
[2018-03-24] MEDS ORDERED: AMIODARONE HCL 200 MG TAB PO SCH (09:00)
[2018-03-24] MEDS ORDERED: INSULIN GLARGINE 100 UNITS/ML SQ SCH (09:00)
[2018-03-24] MEDS ORDERED: CITALOPRAM 10 MG TABLET PO SCH (09:00)
[2018-03-24] MEDS ORDERED: METOPROLOL TAR 50 MG TAB PO SCH (09:00)
[2018-03-24] MEDS ORDERED: FUROSEMIDE 40 MG TABLET PO SCH (09:00)
[2018-03-24] MEDS ORDERED: TICAGRELOR 90 MG TABLET PO SCH (09:00)
[2018-03-24] MEDS: GABAPENTIN 100 MG CAP PO SCH ×2 (09:35→14:00)
[2018-03-24 17:32] VITALS: BP 118/63; TEMP 97.9
[2018-03-24] MEDS ORDERED: ATORVASTATIN 80 MG TAB PO SCH (21:00)
--- NOTE | 2018-03-25 04:41 | HP ---
Date of Admission: 03/23/2018 Chief Complaint: Leg weakness. History Of Present Illness: The patient is a 77-year-old deconditioned gentleman who is diabetic and has quit taking insulin, I am not sure why. They might not be able to afford insulin, but they are too proud to tell me about that, and according to , he has not taken insulin for a few days. His sugar was 369 on admission and clinically somewhat dehydrated with a BUN/creatinine increased at 32/ 2.0. Mr. Holloway is a known cardiac patient, has had multiple stents in the past, had coronary sten osis in the past taken care by Dr. Olivares. Gradually, he has decline in his condition at 77 years of a ge. He is trying to forget what he is doing. His family is trying to help them by trying to take ca re over the home, but they do not want anyone interfering. Now, the and both are not ab le to take care of themselves according to daughter. They are hoping for halfway, but again, th ey cannot possibly afford halfway. Past Medical History: Includes diabetes mellitus, high blood pressure, coronary artery disease, cerv ical radiculopathy, high cholesterol, sleep apnea. Surgical History: Coronary artery bypass graft; history of PTCA in the past; laminectomy; cardiac st ents, multiple in the past; cholecystectomy. Family History: Mother and father with coronary artery disease. Social History: Former smoker. Medications: He is on amiodarone 200 mg once a day, Brilinta 90 mg once a day, Celexa 20 mg once a d ay, clonidine 0.2 mg p.o. b.i.d., Lasix 40 mg once a day by Dr. Olivares, gabapentin 100 mg p.o. t.i.d., Levemir 56 units once a day, metoprolol 50 mg p.o. b.i.d., spironolactone 25 mg once a day, Symbicort , and Ventolin inhaler. Physical Examination: Vital Signs: Mr. White blood pressure is 118/58, pulse 61, temperature 97.4, glucose 394. HEENT: No JVD. No carotid bruits. GENERAL: He is at his baseline, does not have any new symptoms I can see. He is obese. He is slowl y deconditioning. Chest: Clear. Heart: Irregular. Abdomen: No guarding, no rebound, no rigidity. Diagnostic Data: On investigations, chest x-ray negative. White count 5.7, hemoglobin 12, hematocri t 37, platelets of 197,000. Sodium 134, potassium 3.5, chloride 96, bicarb 29. BUN 32, creatinine 2 .0, down to 29 now over 1.6 overnight. Assessment And Plan: 1.Generalized deconditioning. Both and needs halfway at this point. They may ref use to do so. So far, I will get home health care to take care of him. He needs to take insulin. I have written prescription for Humulin or Novolin 70/30, which will be cheaper for him with the help of home health they can manage if he cannot afford Levemir. 2.Coronary artery disease. Atherosclerotic disease generalized diffuse. Medical management by Dr. Olivares. 3.Dehydration. He is on Lasix by Dr. Olivares, and I would like to reduce the dose on outpatient basis. Will follow up in 1 week or so. Compliance to the office is poor. At times, he cannot afford the co-pay and does not show up because of that. In any case, prognosis is guarded. NORMA/JATINDER Voice ID: [id number]
--- NOTE | 2018-03-25 06:59 | EKG ---
Test Date: 2018-03-23 Test Time: 17:01:42 Energy Systems Engineer: BEENA MEASUREMENT RESULTS: Intervals: Rate: 60 ME: 224 QRSD: 110 QT: 476 QTc: 476 Harrington: P: 42 ME: 224 QRS: -14 T: -23 INTERPRETIVE STATEMENTS: Atrial-paced rhythm with prolonged AV conduction Nonspecific T wave abnormality Abnormal ECG Compared to ECG 09/13/2017 14:47:56 T-wave abnormality now present Ventricular premature complex(es) no longer present Electronically Signed On 03-25-18 06:55:18 CDT by Pastor Cordoba
--- NOTE | 2018-03-26 23:27 | DS ---
Date of Discharge: 03/24/2018 Final Diagnosis: Generalized debility. Secondary Diagnoses: Diabetes, uncontrolled, with poor compliance with the medication; high blood pr essure; coronary artery disease, with history of stent in the past. Hospital Course: The patient is a 77 years old. He is generally in a poor shape now because he is g etting older and has chronic issues, noncompliance with diabetes for long duration. He is felt not a ble to afford medications. Him and his had refused to get care from his daughter according to sarah clifton. We will try to help them, but in long run I think they should be in residential, which they possibly cannot afford but may need to work with nurse clinical nursing coordinator to get them situat ed. Prognosis fair, overall guarded. Discharged in stable condition. I have given him Novolin 70/3 0 prescription, if they cannot afford Lantus; and I will discuss with them on next office at the [facility]. NORMA/JATINDER Voice ID: [id number] Report ID: [id number]
== END 2018-03-24 17:09 | disposition home or self-care (01) ==
LOC: ER 16:49 → ERHOLD 18:46 → 2ND 19:39
PROVIDERS: ADMIT Internal Medicine; ATTEND Internal Medicine
DX: R53.81 Other malaise (principal); E11.65 Type 2 diabetes mellitus with hyperglycemia; E86.0 Dehydration; I25.10 Atherosclerotic heart disease of native coronary artery without angina pectoris; G47.30 Sleep apnea, unspecified; I10 Essential (primary) hypertension; Z91.14 Patient's other noncompliance with medication regimen; Z95.5 Presence of coronary angioplasty implant and graft; Z95.1 Presence of aortocoronary bypass graft
CPT/HCPCS: 36415 ×2; 71045; 80048 ×2; 81003 ×2; 82010; 82962 ×7; 84145; 85025 ×2; 87040 ×2; 87077; 87086; 87088; 87186; 93005; 96360; 96361; 96372; 99285; G0378 ×2; J7030

== ENCOUNTER 2018-04-01 14:13 | Emergency (ER) | payer OTHER ==
--- OUTSIDE RECORDS SUMMARY | 2018-04-01 14:15 | XMS REPORT | Clinical Summary ---
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 artery 03/23/2017 ST elevation myocardial infarction involving left circumflex coronary 2016 artery NSTEMI (non-ST elevated myocardial infarction) 03/02/2017 Coronary artery disease involving mcgrath coronary artery of mcgrath heart 02/09 without angina pectoris Diastolic congestive heart failure 02/09/2017 Carotid bruit 02/09/2017 History of coronary artery bypass graft 08/07/2016 Stented coronary artery 08/07/2016 SOB (shortness of breath) 08/07/2016 Systolic congestive heart failure 08/07/2016 Encounters Date Type Specialty Care Team Description 11/03/2017 Orders Only Cardiology Flaquito Ann MA Coronary artery disease involving mcgrath coronary artery of mcgrath heart without angina pectoris (Primary Dx) 11/03/2017 [...] diabetes mellitus type 2 without complications, unspecified intermediate teacher insulin use status; Systolic congestive heart failure, unspecified congestive heart failure chronicity; Coronary artery disease involving mcgrath coronary artery of mcgrath heart without angina pectoris 08/20/2017 Telephone Family Medicine Edmund Phillips MD 08/19/2017 Lab Lab Edmund Phillips, Dizziness; Essential hypertension 08/19/2017 Office Visit Internal Medicine Edmund Phillips, Chest wall pain (Primary Dx); Arthralgia of hip, unspecified laterality; Uncontrolled diabetes mellitus type 2 without complications, unspecified detention insulin use status; Essential hypertension; Dizziness; Systolic congestive heart failure, unspecified congestive heart failure chronicity 08/18/2017 Telephone Family Medicine Michael Abel BENEFITS REPRESENTATIVE 08/17/2017 Office Visit Cardiology Gabriela Enriquez MD Systolic congestive heart failure, unspecified congestive heart failure chronicity (Primary Dx); Pain of right hip joint; Stented coronary artery; Coronary artery disease involving mcgrath coronary artery of mcgrath heart without angina pectoris; History of coronary artery bypass graft 05/07/2017 Orders Only Cardiology Flaquito Ann MA 05/04/2017 Refill Cardiology Flaquito Ann MA Med Refill 05/03/2017 Refill Cardiology Flaquito Ann MA Med Refill 04/27/2017 Office Visit Cardiology Gabriela Enriquez MD CAD in mcgrath artery (Primary Dx); Stented coronary artery; Systolic congestive heart failure, unspecified congestive heart failure chronicity 04/19/2017 Refill Cardiology Gabriela Enriquez MD Med Refill 04/19/2017 Refill Cardiology Gabreila Enriquez MD Med Refill 03/31/2017 Telephone Cardiology Sia Guerra MA resutls after 03/31/2017 Immunizations Name Dates Previously Given Next Due Influenza Trivalent 05/19/2017 Social History Tobacco Use Types Packs/Day Years Used Date Never Smoker Smokeless Tobacco: Never Used Sex Assigned at Date Recorded Not on file Last Filed Vital Signs Vital Sign Reading Time Taken Blood Pressure 131/67 10/26/2017 3:49 PM CDT Pulse 84 10/26/2017 3:49 PM CDT Temperature 36.8 C (98.2 F) 08/25/2017 10:42 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 Respiratory Rate 16 08/25/2017 10:42 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 Oxygen Saturation 97% 08/25/2017 10:42 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 Inhaled Oxygen Concentration - - Weight 96.2 kg (212 lb) 10/26/2017 3:49 PM CDT Height 180.3 cm (5' 11") 08/25/2017 10:42 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 Body Mass Index 29.57 10/26/2017 3:49 PM CDT Plan of Treatment Date Type Specialty Care Team Description 04/26/2018 Office Visit Cardiology Gabriela Enriquez MD [address] [facility] [address] [place] [address] Health Maintenance Due Date Last Done Comments DIABETIC FOOT EXAM 1949 DIABETIC RETINAL EYE EXAM 1950 URINE MICROALBUMIN 1949 SHINGRIX VACCINE (#1) 1989 ZOSTER VACCINE 1999 PNEUMOCOCCAL POLYSACCHARIDE VACCINE AGE 65 AND OVER 2004 PNEUMOCOCCAL-13 2004 INFLUENZA VACCINE 02/02/2018 05/19/2017 Implants Implanted Type Area Armored Transport Service Manager Device Expiration Model / Identifier Date Serial / Lot Stent Catheter Synergy (Otw) 3.50mm X 16mm - [id number] Coronary N/A: N/A [facility] [id number] / Implanted: Qty: 1 on 03/03/2017 by [...] wall pain Results for this RIGHT PM [employer]CRETE TRUCK DRIVER procedure are in the results section. SPECIMEN STATUS REPORT Routine 08/19/2017 1:47 Results for this PM [employer]CRETE TRUCK DRIVER procedure are in the results section. HEMOGLOBIN A1C Routine 08/19/2017 1:47 Results for this PM [employer]E [employer] DRIVER procedure are in the results section. SPECIMEN STATUS REPORT Routine 08/19/2017 1:47 Results for this PM [employer]ETE TRUCK DRIVER procedure are in the results section. BASIC METABOLIC PANEL Routine 08/19/2017 1:47 Essential Results for this PM [employer]E TR[employer] DRIVER hypertension procedure are in the results section. CBC WITH PLATELET AND Routine 08/19/2017 1:47 Dizziness Results for this DIFFERENTIAL PM [employer]E [employer] DRIVER procedure are in the results section. XR HIP 2-3 VIEWS RIGHT Routine 08/17/2017 12:08 Pain of right hip Results for this PM [employer]E TR[employer] DRIVER joint procedure are in the results section. ECHOCARDIOGRAM 2D Routine 07/28/2017 11:02 CAD in mcgrath artery Results for this COMPLETE W MMODE 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 procedure are in SPECTRAL COLOR DOPPLER the results (98629) section. after 03/31/2017 Results Pv carotid duplex (10/28/2017 11:25 AM) Narrative Performed At [facility] Carotid Artery Ultrasound Report Pat.Name:TITUS NANCE Pat.ID:[id number] .Date: 10/28/2017 Refer.MD:GABRIELA ENRIQUEZ MD Exam Time: 11:52:00 AM Study Type:Carotid DOBAge:1940,77Y Sex: MALE Sonogrphr: Tiffanie Ross RDMS, RDCS, RVT Pat. Stat.:Outpatient Room:[place] [address]: [id number] Echo Event ID:[id number] Order ID:[id number] Reason for Study:Carotid artery disease Race:C SUMMARY: [...] Right ICA Dist ICA Dist PSV 117 cm/Iasiah Dist EDV39.9 cm/s Right ICA Mid ICA Mid [id number] cm/Isaiah Mid EDV 42.5 cm/s Right ICA [...] Results In - 10/29/2017 4:53 PM CDT [facility] Carotid Artery Ultrasound Report Pat.Name: TITUS NANCE Pat.ID: [id number] .Date: 10/28/2017 Refer.MD: GABRIELA ENRIQUEZ MD Exam Time: 11:52:00 AM Study Type:Carotid Age: 11 1940,77Y Sex: MALE Sonogrphr: Tiffanie Ross RDMS, RDCS, RVT Pat. Stat.:Outpatient Room: [place] CPT - 4: 03199 Echo Event ID:[id number] Order ID: [id number] Reason for Study:Carotid artery disease Race: C [...] PM Gabriela Enriquez MD Performing Organization Address [facility] Phone [place] [facility] [address] [place] [address] XR Ribs W Pa Chest Right (08/19/2017 3:29 PM) Narrative Performed At EXAMINATION:XR RIBSW PA CHEST RIGHT [facility] CLINICAL HISTORY:R07.89 Other chest pain, CHEST WALL PAIN COMPARISON:None. IMPRESSION: The lungs are clear Heart is slightly enlarged, unchanged from prior Diffuse calcified atherosclerotic vascular disease throughout the arterial structures. [facility]-[id number] Procedure Note Interface, Radiology Results Incoming - 08/19/2017 4:22 PM CONCRETE TRUCK DRIVER EXAMINATION: XR RIBS W PA CHEST RIGHT CLINICAL HISTORY: R07.89 Other chest pain, CHEST WALL PAIN COMPARISON: None. IMPRESSION: The lungs are clear Heart is slightly enlarged, unchanged from prior Diffuse calcified atherosclerotic vascular disease throughout the arterial structures. [facility]-[id number] Performing Organization Address [facility] Phone Number [facility] [address] [place] [address] Specimen Status Report (08/19/2017 1:47 PM)Only the most recent of2 resultswithin the time period is included. Specimen Status Report COMMENT [facility] Comment: Written Authorization Written Authorization No Written Authorization Received. Narrative Performed At Performed at: [facility] [address] [place], [id number] Grain Farmworker: Ministerio Clemens MD, Phone:[phone] Performing Organization Address [facility] Phone Number [facility] CBC with platelet and [...] [facility] Specimen Blood Narrative Performed At Performed at:01 - [facility] [address] [place], [id number] Grain Farmworker: Ministerio Clemens MD, Phone:[phone] Performing Organization Address [facility] Phone Number [facility] Hemoglobin A1c (08/19/2017 1:47 PM) Hemoglobin A1C 11.8 (H) 4.8 - 5.6 % [facility] Comment: Pre-diabetes: 5.7 - 6.4 Diabetes: >6.4 Glycemic control for adults with diabetes: <7.0 Narrative Performed At Performed at:[address] [place] [address] [id number] Grain Farmworker: Ministerio Clemens MD, Phone:[phone] Performing Organization Address [facility] Phone Number [facility] Basic metabolic panel (08/19/2017 1:47 PM) Glucose 467 (H) 65 - 99 mg/dL [facility] BUN, whole blood 36 (H) 8 - 27 mg/dL [facility] Creatinine 1.55 (H) 0.76 - 1.27 mg/dL [facility] EGFR Non-Afr. Tajik 42 (L) >59 mL/min/1.73 [facility] EGFR 49 (L) >59 mL/min/1.73 [facility] BUN/creatinine ratio 23 10 - 24 [facility] Sodium 127 (L) 134 - 144 mmol/L [facility] Potassium 5.2 3.5 - 5.2 mmol/L [facility] Chloride 85 (L) 96 - 106 mmol/L [facility] CO2 26 18 - 29 mmol/L [facility] Calcium 9.2 8.6 - 10.2 mg/dL [facility] Specimen Blood Narrative Performed At Performed at:[address] [place] [address] [id number] Grain Farmworker: Ministerio Clemens MD, Phone:[phone] Performing Organization Address [facility] Phone Number [facility] XR Hip 2-3 View Right (08/17/2017 12:08 PM) Narrative Performed At EXAMINATION:XR HIP 2-3 VIEWS RIGHT [facility] CLINICAL HISTORY:M25.551 Pain in right hip, hip pain fall COMPARISON:none. IMPRESSION: 1.No displaced fractures or dislocations. Pelvic vascular calcifications are noted. [id number] Procedure Note Hm Interface, Radiology Results Incoming - 08/17/2017 2:08 PM CONCRETE TRUCK DRIVER EXAMINATION: XR HIP 2-3 VIEWS RIGHT CLINICAL HISTORY: M25.551 Pain in right hip, hip pain fall COMPARISON: none. IMPRESSION: 1. No displaced fractures or dislocations. Pelvic vascular calcifications are noted. [id number] Performing Organization Address City/State/Zipcode Phone Number [facility] [address] [place] [address] Echocardiogram complete w contrast and 3D if needed (07/28/2017 11:02 AM) Narrative Performed At [facility] Echocardiography Report Pat.Name:TITUS NANCE Pat.ID:[id number] St.Date: 07/28/2017 Refer.MD:GABRIELA ENRIQUEZ MD Exam Time: 10:02:00 AM Study Type:Routine Echo Height:71inWeight: 220lb BSA: 2.2 c1YHWUdc:1940,77Y Sex: MALEBP:108/65 Sonogrphr: Tiffanie Ross CS, RVTPat. Stat.:Outpatient Study Status:Final Echo Event ID:[id number] Order ID:[id number] Reason for Study:Coronary Artery Disease History / [...] RAPof 10 mmHg. MEASUREMENTS: 2D Parasternal Long Wheeler LVOT 2.2 cmLA Ds4.7 cm LVIDd6.2 cmIndex2.8 cm/m Ao An2.5 cm LVIDs5.6 cmAo Rtd 3 cm Index1.4 cm/m LV%fs9.7 % LV Gkai937.3 g(122-174) IVSd 1.3 cmRWT0.4 LVPWd1.3 cm LA Sng Plane LA Area 26.4 cm2(8.8-23.4) LA Vol99.7 ml Index45.3 ml/m LA LngAx 5.8 cm RA Sng Plane RA Area 17.4 cm2(8.3-19.5) RA Vol47.9 ml Index21.8 ml/m RA LngAx 5.5 cm Signed 07/29/2017 02:56 PM Tano Granados M.D. Procedure Note Interface, Radiology Results In - 07/29/2017 2:56 PM CONCRETE TRUCK DRIVER [facility] Echocardiography Report Pat.Name: TITUS NANCE.ID: [id number] .Date: 07/28/2017 Refer.MD: GABRIELA ENRIQUEZ MD Exam Time: 10:02:00 AM Study Type:Routine Echo Height: 71in Weight: 220lb BSA: 2.2 m2 Age: 11 1940,77Y Sex: MALE BP: 108/65 Sonogrphr: Tiffanie Ross RDCS, RVT Pat. Stat.:Outpatient Study Status:Final Echo Event ID:[id number] Order ID: [id number] Reason for Study:Coronary Artery Disease History / [...] of 10 mmHg. MEASUREMENTS: 2D Parasternal Long Wheeler LVOT 2.2 cm LA Ds 4.7 cm [...] Organization Address City/State/Zipcode Phone Number [facility] [address] [place] [address] after 03/31/2017 Insurance Payer Benefit Plan / Group Subscriber ID Type Phone Address AETNA MEDICARE AETNA MEDICARE HMO/PPO [facility] xxxxxxxx HMO MEDICAID MEDICAID xxxxxxxxx Medicaid 886 [phone] [place] [phone]
--- NOTE | 2018-04-01 15:01 | EKG ---
Test Date: 2018-04-01 Test Time: 14:52:20 Hide Grader: BEENA MEASUREMENT RESULTS: Intervals: Rate: 60 WA: 240 QRSD: 120 QT: 444 QTc: 444 Ayer: P: 60 WA: 240 QRS: -9 T: 153 INTERPRETIVE STATEMENTS: Electronic atrial pacemaker Cannot rule out Anterior infarct, age undetermined ST & T wave abnormality, consider lateral ischemia Abnormal ECG Compared to ECG 03/23/2018 17:01:42 questionable change in anterior lead R waves Electronically Signed On 04-01-18 15:01:05 CDT by David Clark
[2018-04-01] MEDS ORDERED: NA CHLORIDE 0.9% 500 ML ONE (15:08)
[2018-04-01 15:15] LABS: Absolute Lymphocytes (CBC) 1.2 K/uL (0.7-4.9); Absolute Monocytes 0.6 K/uL (0.1-1.3); Absolute Neutrophil 6.6 K/uL (1.8-8.0); Basophils % 0.4 % (0-1.3); Eosinophils % 3.6 % (0-4.4); Hematocrit 37.4 % (39.6-49.0); Lymphocytes % 13.4 % (15.3-44.8); MCH 33.5 pg (27.0-35.0); MCV 96.1 fL (80-100); MPV 8.2 fL (7.6-11.3); Monocytes % 7.3 % (3.3-12.3); RBC Red Blood Cell Count 3.89 M/uL (4.33-5.43)
[2018-04-01 15:30] LABS: BUN Blood Urea Nitrogen 26 mg/dL (7-18); Bicarbonate 28 mmol/L (21-32); Sodium Level 128 mmol/L (136-145)
[2018-04-01 15:40] LABS: Blood Morphology Comment NOT SEEN (NOT SEEN); Glucose Level 483 mg/dL (74-106); Platelet Estimate ADEQ; Urine White Blood Cell Casts OK
[2018-04-01] MEDS ORDERED: INSULIN -REGULAR HUMAN 50 UNIT/0.5 ML ML ONE ×2 (15:55→17:07)
--- NOTE | 2018-04-01 17:36 | ER ---
Nurse's Notes [facility] Name: Titus Holloway Age: 77 yrs Sex: Male : 1940 Arrival Date: 04/01/2018 Time: 14:16 Bed 8 Private MD: Luis Fernando Huston V Diagnosis: Hyperglycemia, unspecified;Dehydration;Patient's unintentional underdosing of medication regimen Presentation: 04/01 14:21 Presenting complaint: Patient states: "my knees have been giving out lately and I've aa5 been falling a lot". Pt also reports FSBG at home was 555. Transition of care: patient was not received from another setting of care. Onset of symptoms was February 2018. Risk Assessment: Do you want to hurt yourself or someone else? Patient reports no desire to harm self or others. Initial Sepsis Screen: Does the patient meet any 2 criteria? No. Patient's initial sepsis screen is negative. Does the patient have a suspected source of infection? No. Patient's initial sepsis screen is negative. Care prior to arrival: None. 14:21 Method Of Arrival: Wheelchair aa5 14:21 Acuity: PAYAM 2 aa5 Historical: - Allergies: 14:22 Plavix; aa5 14:22 Tetanus Vaccines \\T\\ Toxoid; aa5 - PMHx: 14:22 COPD; Diabetes - IDDM; Hyperlipidemia; Hypertension; Pneumonia; weakness; aa5 - PSHx: 14:22 CABG; pacemaker; aa5 - Immunization history:: Pneumococcal vaccine is up to date, Flu vaccine is up to date. - Social history:: Smoking status: Patient/guardian denies using tobacco. - Ebola Screening: : No symptoms or risks identified at this time. - Family history:: not pertinent. - Hospitalizations: : No recent hospitalization is reported. Screenin:00 Abuse screen: Denies threats or abuse. Denies injuries from another. Nutritional jl7 screening: No deficits noted. Tuberculosis screening: No symptoms or risk factors identified. Fall Risk IV access (20 points). Assessment: 15:00 General: Appears in no apparent distress. uncomfortable, Behavior is calm, cooperative, jl7 appropriate for age. Pain: Denies pain. Neuro: Level of Consciousness is awake, alert, obeys commands, Oriented to person, place, time, situation. Cardiovascular: Heart tones present Patient's skin is warm and dry. Respiratory: Airway is patent Respiratory effort is even, unlabored, Respiratory pattern is regular, symmetrical. GI: No signs and/or symptoms were reported involving the gastrointestinal system. Patient currently denies diarrhea, nausea, vomiting. : No signs and/or symptoms were reported regarding the genitourinary system. EENT: No signs and/or symptoms were reported regarding the EENT system. Derm: Skin is pink, warm \\T\\ dry. Musculoskeletal: No signs and/or symptoms reported regarding the musculoskeletal system. 16:00 Reassessment: No changes from previously documented assessment. Patient and/or family jl7 updated on plan of care and expected duration. Pain level reassessed. Patient is alert, oriented x 3, equal unlabored respirations, skin warm/dry/pink. 16:57 Reassessment: No changes from previously documented assessment. Patient and/or family jl7 updated on plan of care and expected duration. Pain level reassessed. Patient is alert, oriented x 3, equal unlabored respirations, skin warm/dry/pink. Vital Signs: 14:23 BP 118 / 75; Pulse 60; Resp 18 S; Temp 98.0(TE); Pulse Ox 97% ; Weight 90.72 kg (R); aa5 Height 5 ft. 11 in. (180.34 cm) (R); Pain 0/10; 15:00 BP 110 / 60; Pulse 60; Resp 16 S; Pulse Ox 96% on R/A; jl7 15:54 BP 104 / 65; Pulse 60; Resp 16 S; Pulse Ox 96% on R/A; Pain 0/10; jl7 16:57 BP 104 / 78; Pulse 61; Resp 16 S; Pulse Ox 96% on R/A; jl7 17:59 BP 104 / 86; Pulse 60; Resp 15; Pulse Ox 98% on R/A; Pain 0/10; ch 14:23 Body Mass Index 27.89 (90.72 kg, 180.34 cm) aa5 ED Course: 14:16 Patient arrived in ED. mr 14:16 Luis Fernando Huston MD is Private Physician. mr 14:22 Arm band placed on. aa5 14:25 Parish Tariq MD is Attending Physician. rn 14:29 Triage completed. aa5 14:59 Cervantes, Jahala, RN is Primary Nurse. jl7 15:00 Patient has correct armband on for positive identification. Placed in gown. Bed in low jl7 position. Call light in reach. Side rails up X 1. classroom monitor on. Pulse ox on. NIBP on. 15:00 EKG done, by hvac/r service technician. reviewed by Parish Tariq MD. sm3 15:03 Initial lab(s) drawn, by oh, sent to lab. Inserted saline lock: 22 gauge in right jb1 antecubital area, using aseptic technique. Blood collected. 17:35 Luis Fernando Huston MD is Referral Physician. rn 18:10 No provider procedures requiring assistance completed. IV discontinued, intact, jl7 bleeding controlled, No redness/swelling at site. Pressure dressing applied. Administered Medications: 15:09 Drug: NS 0.9% 500 ml Route: IV; Rate: bolus; Site: right antecubital; jl7 15:45 Follow up: Response: No adverse reaction; IV Status: Completed infusion jl7 15:50 Drug: Insulin Regular Human 5 units {Co-Signature: sandra (Radha Rock RN).} Route: jl7 IVP; Site: right antecubital; 16:50 Follow up: Response: Blood sugar is lowered jl7 15:50 Drug: Insulin Regular Human 10 units {Co-Signature: sandra (Radha Rock RN).} Route: jl7 Sub-Q; Site: left upper arm; 16:51 Follow up: Response: Blood sugar is lowered jl7 17:01 Drug: Insulin Regular Human 10 units {Co-Signature: sandra (Radha Rock RN).} Route: jl7 Sub-Q; Site: left upper arm; 18:05 Follow up: Response: Blood sugar is lowered jl7 Point of Care Testing: Blood Glucose: 14:28 Blood Glucose: 426 mg/dL; aa5 15:04 Blood Glucose: High (>450 mg/dL); jb1 16:51 Blood Glucose: 374 mg/dL; jl7 17:58 Blood Glucose: 316 mg/dL; Ranges: Outcome: 17:35 Discharge ordered by . rn 18:09 Discharged to home ambulatory, with family. jl7 18:09 Condition: stable 18:09 Discharge instructions given to patient, family, Instructed on discharge instructions, follow up and referral plans. Demonstrated understanding of instructions, follow-up care. 18:10 Patient left the ED. jl7 Signatures: Mingo Lenz jb1 Radha Rock, CLAUDIA RN ch Ketty Duarte, MD MD claudia Lugo Audri, RN RN aa5 Jany Cervantes RN RN jl7 Yeny Magallanes 3 Radha Rock RN
--- NOTE | 2018-04-01 17:36 | EDPHYS ---
Physician Documentation [facility] Name: Titus Holloway Age: 77 yrs Sex: Male : 1940 Arrival Date: 04/01/2018 Time: 14:16 Bed 8 Private MD: Luis Fernando Huston V ED Physician Parish Tariq HPI: 04/01 15:52 This 77 yrs old Male presents to ER via Wheelchair with complaints of High rn Blood Sugar. 15:52 The patient or guardian reports hyperglycemia. Onset: The symptoms/episode rn began/occurred at an unknown time. Associated signs and symptoms: Pertinent negatives: anorexia. Current symptoms: In the emergency department the patient's symptoms are unchanged from the initial presentation. The patient has experienced similar episodes in the past. The patient has been recently been admitted at [facility]. Recently admitted last week for same problem of high blood sugar and weakness, got better, went home, has home health help, here because weak again but not as bad, nearly fell, sugar high. States taking 40 u lantus in AM and compliant. No chest pain/sob. . Historical: - Allergies: 14:22 Plavix; aa5 14:22 Tetanus Vaccines \T\ Toxoid; aa5 - PMHx: 14:22 COPD; Diabetes - IDDM; Hyperlipidemia; Hypertension; Pneumonia; weakness; aa5 - PSHx: 14:22 CABG; pacemaker; aa5 - Immunization history:: Pneumococcal vaccine is up to date, Flu vaccine is up to date. - Social history:: Smoking status: Patient/guardian denies using tobacco. - Ebola Screening: : No symptoms or risks identified at this time. - Family history:: not pertinent. - Hospitalizations: : No recent hospitalization is reported. ROS: 15:52 Constitutional: Negative for fever, chills, and weight loss, Eyes: Negative for injury, rn pain, redness, and discharge, Neck: Negative for injury, pain, and swelling, Cardiovascular: Negative for chest pain, palpitations, and edema, Respiratory: Negative for shortness of breath, cough, wheezing, and pleuritic chest pain, Abdomen/GI: Negative for abdominal pain, nausea, vomiting, diarrhea, and constipation, MS/Extremity: Negative for injury and deformity, Skin: Negative for injury, rash, and discoloration, Neuro: Negative for headache, numbness, tingling, and seizure. Exam: 15:52 Constitutional: This is a well developed, well nourished patient who is awake, alert, rn and in no acute distress. Head/Face: Normocephalic, atraumatic. Eyes: Pupils equal round and reactive to light, extra-ocular motions intact. Lids and lashes normal. Conjunctiva and sclera are non-icteric and not injected. Cornea within normal limits. Periorbital areas with no swelling, redness, or edema. ENT: MMM Cardiovascular: Regular rate and rhythm with a normal S1 and S2. No gallops, murmurs, or rubs. Normal PMI, no JVD. No pulse deficits. Respiratory: Lungs have equal breath sounds bilaterally, clear to auscultation and percussion. No rales, rhonchi or wheezes noted. No increased work of breathing, no retractions or nasal flaring. Abdomen/GI: Soft, non-tender, with normal bowel sounds. No distension or tympany. No guarding or rebound. No evidence of tenderness throughout. Skin: Warm, dry, no evidence of cellulitis. MS/ Extremity: Pulses equal, no cyanosis. Neurovascular intact. Full, normal range of motion. Equal circumference. Neuro: Awake and alert, GCS 15, oriented to person, place, time, and situation. Cranial nerves II-XII grossly intact. Motor strength 5/5 in all extremities. Sensory grossly intact. Cerebellar exam normal. Vital Signs: 14:23 BP 118 / 75; Pulse 60; Resp 18 S; Temp 98.0(TE); Pulse Ox 97% ; Weight 90.72 kg (R); aa5 Height 5 ft. 11 in. (180.34 cm) (R); Pain 0/10; 15:00 BP 110 / 60; Pulse 60; Resp 16 S; Pulse Ox 96% on R/A; jl7 15:54 BP 104 / 65; Pulse 60; Resp 16 S; Pulse Ox 96% on R/A; Pain 0/10; jl7 16:57 BP 104 / 78; Pulse 61; Resp 16 S; Pulse Ox 96% on R/A; jl7 17:59 BP 104 / 86; Pulse 60; Resp 15; Pulse Ox 98% on R/A; Pain 0/10; ch 14:23 Body Mass Index 27.89 (90.72 kg, 180.34 cm) aa5 MDM: 14:25 Patient medically screened. rn 17:31 Differential diagnosis: hyperglycemia. Data reviewed: vital signs, nurses notes, labor conciliator test result(s), and as a result, I will discharge patient. Counseling: I had a detailed discussion with the patient and/or guardian regarding: the historical points, exam findings, and any diagnostic results supporting the discharge/admit diagnosis, lab results, the need for outpatient follow up, to return to the emergency department if symptoms worsen or persist or if there are any questions or concerns that arise at home. Response to treatment: the patient's symptoms have markedly improved after treatment, and as a result, I will discharge patient. Special discussion: I discussed with the patient/guardian in detail that at this point there is no indication for admission to the hospital. It is understood, however, that if the symptoms persist or worsen the patient needs to return immediately for re-evaluation. Based on the history and exam findings, there is no indication for further emergent testing or inpatient evaluation. I discussed with the patient/guardian the need to see the primary care provider for further evaluation of the symptoms. ED course: After review of medication, turns out patient is supposed to be taking 56 u lantus daily, has been taking 40u daily, just admitted to hospital for same reason, better today, 5/5 strength, neg ketones, + hyperglycemia with mild dehydration, simply medication administration error. Had long discussion with patient and about this, they understand and are comfortable with dc home. . 04/01 14:39 Order name: CBC with Diff; Complete Time: 15:42 rn 04/01 14:39 Order name: Basic Metabolic Panel; Complete Time: 15:42 rn 04/01 14:39 Order name: Ketone, Serum; Complete Time: 15:42 rn 04/01 15:17 Order name: Glucose Level EDNV 04/01 15:24 Order name: CBC Smear Scan; Complete Time: 15:42 EDNV 04/01 14:39 Order name: EKG; Complete Time: 14:39 rn 04/01 16:55 Order name: Glucose, Ancillary Testing EDNV 04/01 16:55 Order name: Glucose, Ancillary Testing EDNV 04/01 16:55 Order name: Glucose, Ancillary Testing EDNV 04/01 14:39 Order name: IV Start; Complete Time: 15:10 rn 04/01 14:39 Order name: Glucose Level; Complete Time: 15:10 rn 04/01 14:39 Order name: EKG - Nurse/Tech; Complete Time: 14:48 rn Administered Medications: 15:09 Drug: NS 0.9% 500 ml Route: IV; Rate: bolus; Site: right antecubital; jl7 15:45 Follow up: Response: No adverse reaction; IV Status: Completed infusion 15:50 Drug: Insulin Regular Human 5 units {Co-Signature: sandra (Radha Rock RN).} Route: jl7 IVP; Site: right antecubital; 16:50 Follow up: Response: Blood sugar is lowered 15:50 Drug: Insulin Regular Human 10 units {Co-Signature: sandra (Radha Rock RN).} Route: jl7 Sub-Q; Site: left upper arm; 16:51 Follow up: Response: Blood sugar is lowered 17:01 Drug: Insulin Regular Human 10 units {Co-Signature: sandra (Radha Rock RN).} Route: jl7 Sub-Q; Site: left upper arm; 18:05 Follow up: Response: Blood sugar is lowered 7 Point of Care Testing: Blood Glucose: 14:28 Blood Glucose: 426 mg/dL; aa5 15:04 Blood Glucose: High (>450 mg/dL); jb1 16:51 Blood Glucose: 374 mg/dL; jl7 17:58 Blood Glucose: 316 mg/dL; Ranges: Critical Glucose Levels:Adult <50 mg/dl or >400 mg/dl <40 mg/dl or >180 mg/dl Disposition: 04/01/18 17:35 Discharged to Home. Impression: Hyperglycemia, unspecified, Dehydration, Patient's unintentional underdosing of medication regimen. - Condition is Stable. - Discharge Instructions: Dehydration, Adult, Hyperglycemia, Blood Glucose Monitoring, Adult. - Medication Reconciliation Form, Thank You Letter, Antibiotic Education, Prescription Opioid Use form. - Follow up: Luis Fernando Huston MD; When: As needed; Reason: Recheck today's complaints, Re-evaluation by your physician. - Problem is an ongoing problem. - Symptoms have improved. Signatures: Dispatcher [employer] EDMS Parish Tariq MD MD rn Calderon, Audri, RN RN aa5 Jany Cervantes RN RN jl7 Radha Rock RN Corrections: (The following items were deleted from the chart) 18:06 15:15 GLUCOSE+C.LAB.BRZ ordered. EDNV EDMS 18:10 17:35 04/01/2018 17:35 Discharged to Home. Impression: Hyperglycemia, unspecified; jl7 Dehydration; Patient's unintentional underdosing of medication regimen. Condition is Stable. Forms are Medication Reconciliation Form, Thank You Letter, Antibiotic Education, Prescription Opioid Use. Follow up: Luis Fernando Huston; When: As needed; Reason: Recheck today's complaints, Re-evaluation by your physician. Problem is an ongoing problem. Symptoms have improved. rn
[2018-04-01 18:47] VITALS: TEMP 98
[2018-04-01 18:53] VITALS: BP 104/86; O2SAT 98
== END 2018-04-01 18:10 | disposition home or self-care (01) ==
LOC: ER 14:13
DX: E86.0 Dehydration (principal); Z91.128 Patient's intentional underdosing of medication regimen for other reason; I10 Essential (primary) hypertension; Z95.1 Presence of aortocoronary bypass graft; Z95.0 Presence of cardiac pacemaker; Z88.7 Allergy status to serum and vaccine; Z88.8 Allergy status to other drugs, medicaments and biological substances
CPT/HCPCS: 36415; 80048; 82010; 82947; 82962; 85025; 93005; 96361; 96372; 96374; 99284

== ENCOUNTER 2018-04-26 03:50 | Observation (INO) | payer OTHER ==
--- OUTSIDE RECORDS SUMMARY | 2018-04-26 03:53 | XMS REPORT | Clinical Summary ---
:1940 Author Organization [facility] Address [address] [place] [address] Care Team Providers Name Role Phone Edmund Phillips MD Primary Care Provider Unavailable Allergies Active Allergy Reactions Severity Noted Date Comments Clopidogrel Itching 03/02/2017 Sulfa (Sulfonamide Antibiotics) Swelling 08/25/2017 Current Medications Prescription Sig. Disp. Refills Start Date End Date Status citalopram (CeleXA) TK 1 T PO D IN 0 07/16/2016 Active 20 MG tablet THE MORNING. NITROSTAT 0.[address] 1 tablet [...] by mouth 2 (two) times a day. insulin GLARGINE Inject 25 10 mL 8 05/04/2017 Active (LANTUS) 100 unit/mL Units under 8 injection (vial) the skin nightly. losartan (COZAAR) TK 1 T PO QD 1 08/02/2017 Active 100 MG tablet amIODarone Take 100 mg by Active (PACERONE) 200 MG mouth daily. tablet gabapentin Take 100 mg by Active (NEURONTIN) 100 mg mouth 3 capsule (three) times a day. furosemide (LASIX) TAKE 1 TABLET 90 tablet 0 04/20/2018 Active 80 mg tablet BY MOUTH EVERY MORNING carvedilol (COREG) Take 1 tablet 180 tablet 3 04/19/2017 Discontinued 6.25 MG tablet (6.25 mg 7 total) by mouth 2 (two) times a day. furosemide (LASIX) TK 1 T PO 90 tablet 3 04/19/2017 Discontinued 80 mg tablet MORNING 8 metoprolol tartrate Take 1 tablet 180 tablet 3 04/19/2017 Discontinued (LOPRESSOR) 100 mg (100 mg total) 8 tablet by mouth 2 (two) times a day. atorvastatin Take 1 tablet 90 tablet 3 04/19/2017 (LIPITOR) 80 MG (80 mg total) 8 tablet by mouth daily. carvedilol (COREG) Take 12.5 mg Discontinued 12.5 MG tablet by mouth 2 7 (two) times a day with meals. traMADol (ULTRAM) 50 Take 1 tablet 60 tablet 0 08/19/2017 mg tablet (50 mg total) 8 by mouth every 8 (eight) hours as needed for moderate pain for up to 30 days. Active Problems Problem Noted Date Bilateral carotid artery disease (HCC) 10/26/2017 CAD in [place] artery 03/23/2017 ST elevation myocardial infarction involving left circumflex coronary 2016 artery ([facility]) NSTEMI (non-ST elevated myocardial infarction) ([facility]) 03/02/2017 Coronary artery disease involving [place] coronary artery of [place] heart 02/09 without angina pectoris Diastolic congestive heart failure (HCC) 02/09/2017 Carotid bruit 02/09/2017 History of coronary artery bypass graft 08/07/2016 Stented coronary artery 08/07/2016 SOB (shortness of breath) 08/07/2016 Systolic congestive heart failure (HCC) 08/07/2016 Encounters Date Type Specialty Care Team Description 04/20/2018 Refill Cardiology Gabriela Enriquez MD Med Refill 11/03/2017 Orders Only Cardiology [place] MA Coronary artery disease involving [place] coronary artery of [place] heart without angina pectoris (Primary Dx) 11/03/2017 [...] diabetes mellitus type 2 without complications, unspecified rn long term care insulin use status; Systolic congestive heart failure, unspecified congestive heart failure chronicity; Coronary artery disease involving [place] coronary artery of [place] heart without angina pectoris 08/20/2017 Telephone Family Medicine Edmund Phillips MD 08/19/2017 Lab Lab Edmund Phillips, Dizziness; Essential hypertension 08/19/2017 Office Visit Internal Medicine Edmund Phillips, Chest wall pain (Primary Dx); Arthralgia of hip, unspecified laterality; Uncontrolled diabetes mellitus type 2 without complications, unspecified rn long term care insulin use status; Essential hypertension; Dizziness; Systolic congestive heart failure, unspecified congestive heart failure chronicity 08/18/2017 Telephone Family Medicine Abel Rodriguez LVN 08/17/2017 Office Visit Cardiology Gabriela Enriquez MD Systolic congestive heart failure, unspecified congestive heart failure chronicity (Primary Dx); Pain of right hip joint; Stented coronary artery; Coronary artery disease involving [place] coronary artery of [place] heart without angina pectoris; History of coronary artery bypass graft 05/07/2017 Orders Only Cardiology [place] MA 05/04/2017 Refill Cardiology [place] MA Med Refill 05/03/2017 Refill Cardiology [place] MA Med Refill 04/27/2017 Office Visit Cardiology Gabriela Enriquez MD CAD in [place] artery (Primary Dx); Stented coronary artery; Systolic congestive heart failure, unspecified congestive heart failure chronicity after 04/25/2017 Immunizations Name Dates Previously Given Next Due Influenza Trivalent 05/19/2017 Social History Tobacco Use Types Packs/Day Years Used Date Never Smoker Smokeless Tobacco: Never Used Sex Assigned at Date Recorded Not on file Last Filed Vital Signs Vital Sign Reading Time Taken Blood Pressure 131/67 10/26/2017 3:49 PM CDT Pulse 84 10/26/2017 3:49 PM CDT Temperature 36.8 C (98.2 F) 08/25/2017 10:42 AM [employer] Respiratory Rate 16 08/25/2017 10:42 AM [employer] Oxygen Saturation 97% 08/25/2017 10:42 AM [employer] Inhaled Oxygen Concentration - - Weight 96.2 kg (212 lb) 10/26/2017 3:49 PM CDT Height 180.3 cm (5' 11") 08/25/2017 10:42 AM [employer] Body Mass Index 29.57 10/26/2017 3:49 PM CDT Plan of Treatment Date Type Specialty Care Team Description 04/26/2018 Office Visit Cardiology Gabriela Enriquez MD [address] [address] Health Maintenance Due Date Last Done Comments DIABETIC FOOT EXAM 1949 DIABETIC RETINAL EYE EXAM 1950 URINE MICROALBUMIN 1949 SHINGRIX VACCINE (#1) 1989 ZOSTER VACCINE 1999 PNEUMOCOCCAL POLYSACCHARIDE VACCINE AGE 65 AND OVER 2004 PNEUMOCOCCAL-13 2004 INFLUENZA VACCINE 02/02/2018 05/19/2017 Implants Implanted Type Area Injection Molding Machine Operator Device Expiration Model / Identifier Date Serial / Lot Stent Catheter Synergy (Otw) 3.50mm X 16mm - [id number] Coronary N/A: N/A [facility] [id number] / Implanted: Qty: 1 on 03/03/2017 by [...] wall pain Results for this RIGHT PM [employer] procedure are in the results section. SPECIMEN STATUS REPORT Routine 08/19/2017 1:47 Results for this PM [employer] procedure are in the results section. HEMOGLOBIN A1C Routine 08/19/2017 1:47 Results for this PM [employer] procedure are in the results section. SPECIMEN STATUS REPORT Routine 08/19/2017 1:47 Results for this PM [employer] procedure are in the results section. BASIC METABOLIC PANEL Routine 08/19/2017 1:47 Essential Results for this PM [employer] hypertension procedure are in the results section. CBC WITH PLATELET AND Routine 08/19/2017 1:47 Dizziness Results for this DIFFERENTIAL PM [employer] procedure are in the results section. XR HIP 2-3 VIEWS RIGHT Routine 08/17/2017 12:08 Pain of right hip Results for this PM [employer] joint procedure are in the results section. ECHOCARDIOGRAM 2D Routine 07/28/2017 11:02 CAD in [place] artery Results for this COMPLETE W MMODE AM [employer]RESS procedure are in SPECTRAL COLOR DOPPLER the results (99987) section. after 04/25/2017 Results Pv carotid duplex (10/28/2017 11:25 AM) Narrative Performed At [facility] Carotid Artery Ultrasound Report Pat.Name:TITUS NANCE Pat.ID:[id number] .Date: 10/28/2017 Refer.MD:GABRIELA ENRIQUEZ MD Exam Time: 11:52:00 AM Study Type:Carotid DOBAge:1940,77Y Sex: MALE Sonogrphr: Tiffanie Ross RDMS, RDCS, RVT Pat. Stat.:Outpatient Room:[place] [address]: [id number] Echo Event ID:[id number] Order ID:[id number] Reason for Study:Carotid artery disease Race:C SUMMARY: [...] EDV39.9 cm/s Right ICA Mid ICA Mid [id number] cm/Isaiah Mid EDV 42.5 cm/s Right ICA [...] Results In - 10/29/2017 4:53 PM CDT [facility] Carotid Artery Ultrasound Report Pat.Name: TITUS NANCE Ghislaine.ID: [id number] .Date: 10/28/2017 Refer.MD: GABRIELA ENRIQUEZ MD Exam Time: 11:52:00 AM Study Type:Carotid Age: 11 1940,77Y Sex: MALE Sonogrphr: Tiffanie Ross, JOSÉ, RDCS, RVT Pat. Stat.:Outpatient Room: [facility] 4: 39744 Echo Event ID:[id number] Order ID: [id number] Reason for Study:Carotid artery disease Race: C [...] Organization Address City/State/Zipcode Phone Number [facility] [address] [place] [address] XR Ribs W Pa Chest Right (08/19/2017 3:29 PM) Narrative Performed At EXAMINATION:XR RIBSW PA CHEST RIGHT [facility] CLINICAL HISTORY:R07.89 Other chest pain, CHEST WALL PAIN COMPARISON:None. IMPRESSION: The lungs are clear Heart is slightly enlarged, unchanged from prior Diffuse calcified atherosclerotic vascular disease throughout the arterial structures. [facility]-[id number] Procedure Note Hm Interface, Radiology Results Incoming - 08/19/2017 4:22 PM [employer]ING [employer] WA[employer]RESS EXAMINATION: XR RIBS W PA CHEST RIGHT CLINICAL HISTORY: R07.89 Other chest pain, CHEST WALL PAIN COMPARISON: None. IMPRESSION: The lungs are clear Heart is slightly enlarged, unchanged from prior Diffuse calcified atherosclerotic vascular disease throughout the arterial structures. [facility]-[id number] Performing Organization Address City/State/Zipcode Phone Number JOL[facility] [address] [place] [address] Specimen Status Report (08/19/2017 1:47 PM)Only the most recent of2 resultswithin the time period is included. Specimen Status Report COMMENT [facility] Comment: Written Authorization Written Authorization No Written Authorization Received. Narrative Performed At Performed at:01 - [facility] [address], [id number] Senior Core Java Developer: Ministerio Clemens MD, Phone:[phone] Performing Organization Address City/[facility] Phone Number [facility] CBC with platelet [...] Specimen Blood Narrative Performed At Performed at: [id number] Senior Core Java Developer: Ministerio Clemens MD, Phone:[phone] Performing Organization Address [facility] Phone Number [facility] Hemoglobin A1c (08/19/2017 1:47 PM) Hemoglobin A1C 11.8 (H) 4.8 - 5.6 % [facility] Comment: Pre-diabetes: 5.7 - 6.4 Diabetes: >6.4 Glycemic control for adults with diabetes: <7.0 Narrative Performed At Performed at: [id number] Senior Core Java Developer: Ministerio Clemens MD, Phone:[phone] Performing Organization Address [facility] Phone Number [facility] Basic metabolic panel (08/19/2017 1:47 PM) Glucose 467 (H) 65 - 99 mg/dL [facility] BUN, whole blood 36 (H) 8 - 27 mg/dL [facility] Creatinine 1.55 (H) 0.76 - 1.27 mg/dL [facility] EGFR Non-Afr. Portuguese 42 (L) >59 mL/min/1.73 [facility] EGFR 49 (L) >59 mL/min/1.73 [facility] BUN/creatinine ratio 23 10 - 24 [facility] Sodium 127 (L) 134 - 144 mmol/L [facility] Potassium 5.2 3.5 - 5.2 mmol/L [facility] Chloride 85 (L) 96 - 106 mmol/L [facility] CO2 26 18 - 29 mmol/L [facility] Calcium 9.2 8.6 - 10.2 mg/dL [facility] Specimen Blood Narrative Performed At Performed at: [id number] Senior Core Java Developer: Ministerio Clemens MD, Phone:[phone] Performing Organization Address [facility] Phone Number [facility] XR Hip 2-3 View Right (08/17/2017 12:08 PM) Narrative Performed At EXAMINATION:XR HIP 2-3 VIEWS RIGHT [facility] CLINICAL HISTORY:M25.551 Pain in right hip, hip pain fall COMPARISON:none. IMPRESSION: 1.No displaced fractures or dislocations. Pelvic vascular calcifications are noted. [facility]-[id number] Procedure Note Interface, Radiology Results Incoming - 08/17/2017 2:08 PM [employer]ING [employer] WAITER/WAITRESS EXAMINATION: XR HIP 2-3 VIEWS RIGHT CLINICAL HISTORY: M25.551 Pain in right hip, hip pain fall COMPARISON: none. IMPRESSION: 1. No displaced fractures or dislocations. Pelvic vascular calcifications are noted. [facility]-[id number] Performing Organization Address City/State/Zipcode Phone Number [facility] [address] [place] [address] Echocardiogram complete w contrast and 3D if needed (07/28/2017 11:02 AM) Narrative Performed At [facility] Echocardiography Report Pat.Name:TITUS NANCE Pat.ID:[id number] St.Date: 07/28/2017 Refer.MD:GABRIELA ENRIQUEZ MD Exam Time: 10:02:00 AM Study Type:Routine Echo Height:71inWeight: 220lb BSA: 2.2 t9UBNQme:1940,77Y Sex: MALEBP:108/65 Sonogrphr: Tiffanie Ross RDCS, RVTPat. Stat.:Outpatient Study Status:Final Echo Event ID:[id number] Order ID:[id number] Reason for Study:Coronary Artery Disease History / [...] RAPof 10 mmHg. MEASUREMENTS: 2D Parasternal [place] LVOT 2.2 cmLA Ds4.7 cm LVIDd6.2 cmIndex2.8 cm/m Ao An2.5 cm LVIDs5.6 cmAo Rtd 3 cm Index1.4 cm/m LV%fs9.7 % LV Yngh809.3 g(122-174) IVSd 1.3 cmRWT0.4 LVPWd1.3 cm LA Sng Plane LA Area 26.4 cm2(8.8-23.4) LA Vol99.7 ml Index45.3 ml/m LA LngAx 5.8 cm RA Sng Plane RA Area 17.4 cm2(8.3-19.5) RA Vol47.9 ml Index21.8 ml/m RA LngAx 5.5 cm Signed 07/29/2017 02:56 PM Tano Granados M.D. Procedure Note Interface, Radiology Results In - 07/29/2017 2:56 PM [employer]ING [employer] [facility] Echocardiography Report Pat.Name: TITUS NANCE Pat.ID: [id number] .Date: 07/28/2017 Refer.MD: GABRIELA ENRIQUEZ MD Exam Time: 10:02:00 AM Study Type:Routine Echo Height: 71in Weight: 220lb BSA: 2.2 m2 Age: 11 1940,77Y Sex: MALE BP: 108/65 Sonogrphr: Tiffanie Ross RDCS, RVT Pat. Stat.:Outpatient Study Status:Final Echo Event ID:[id number] Order ID: [id number] Reason for Study:Coronary Artery Disease History / [...] of 10 mmHg. MEASUREMENTS: 2D Parasternal [place] LVOT 2.2 cm LA Ds 4.7 cm [...] Organization Address City/State/Zipcode Phone Number [facility] [address] [place] [address] after 04/25/2017 Insurance Payer Benefit Plan / Group Subscriber ID Type Phone Address [employer]ETNA MEDICARE AETNA MEDICARE HMO/PPO MCR xxxxxxxx HMO MEDICAID MEDICAID xxxxxxxxx Medicaid Home: [phone] [place] [phone]
[2018-04-26 05:11] LABS: Absolute Lymphocytes (CBC) 0.8 K/uL (0.7-4.9); Absolute Monocytes 1.1 K/uL (0.1-1.3); Absolute Neutrophil 7.3 K/uL (1.8-8.0); Basophils % 0.3 % (0-1.3); Eosinophils % 3.2 % (0-4.4); Hematocrit 38.7 % (39.6-49.0); Lymphocytes % 8.8 % (15.3-44.8); MCH 33.3 pg (27.0-35.0); MCV 96.8 fL (80-100); MPV 7.4 fL (7.6-11.3); Monocytes % 11.1 % (3.3-12.3)
[2018-04-26 05:19] LABS: Protime INR 1.08
[2018-04-26 05:41] LABS: ALT/SGPT 34 U/L (12-78); AST/SGOT 25 U/L (15-37); Alkaline Phosphatase 88 U/L (45-117); BUN Blood Urea Nitrogen 34 mg/dL (7-18); Bicarbonate 26 mmol/L (21-32); Bilirubin Direct 0.2 mg/dL (0-0.2); Bilirubin Total 0.6 mg/dL (0.2-1.0); Glucose Level 95 mg/dL (74-106); Magnesium 2.3 mg/dL (1.8-2.4); NT PRO-BNP 1125 pg/mL (<450); Protein, Total 7.5 g/dL (6.4-8.2); Sodium Level 136 mmol/L (136-145); Troponin (Emerg Dept Use Only) < 0.02 ng/mL (0.0-0.045)
--- NOTE | 2018-04-26 05:52 | ER ---
Nurse's Notes [facility] Name: Titus Holloway Age: 77 yrs Sex: Male : 1940 Arrival Date: 04/26/2018 Time: 03:53 Bed 15 Private MD: Luis Fernando Huston V Diagnosis: Angina pectoris, unspecified Presentation: 04/26 03:53 Presenting complaint: EMS states: they were toned out for report of pt having chest bb pain which woke him up from sleeping. Transition of care: patient was not received from another setting of care. Onset of symptoms was April 26, 2018. Risk Assessment: Do you want to hurt yourself or someone else? Patient reports no desire to harm self or others. Initial Sepsis Screen: Does the patient meet any 2 criteria? No. Patient's initial sepsis screen is negative. Does the patient have a suspected source of infection? No. Patient's initial sepsis screen is negative. Care prior to arrival: IV initiated. 20 GA, in the right hand, Glucose check: 105. 03:53 Method Of Arrival: EMS: [facility] bb 03:53 Acuity: PAYAM 2 bb 04:02 Note pt took nitro at home and states he felt better afterwards. bb Historical: - Allergies: 04:01 Plavix; bb 04:01 Tetanus Vaccines \T\ Toxoid; bb - Home Meds: 04:01 amiodarone 200 mg Oral tab 0.5 tab once daily [Active]; atorvastatin 80 mg oral tab 1 bb tab once daily [Active]; clonidine HCl 0.2 mg Oral tab 1 tab 2 times per day [Active]; spironolactone 25 mg Oral tab 1 tab once daily [Active]; BRILINTA 90 mg Oral tab 1 tab 2 times per day [Active]; citalopram 20 mg tab 1 tab once daily for Anxiety with Depression [Active]; metoprolol tartrate 50 mg Oral tab 1 tab 2 times per day for Hypertension [Active]; furosemide 80 mg Oral tab 1 tab once daily for Peripheral Edema due to Chronic Heart Failure [Active]; furosemide 40 mg Oral tab 1 tab once daily [Active]; aspirin 81 mg Oral chew 1 tab once daily [Active]; - PMHx: 04:01 COPD; Diabetes - IDDM; Hyperlipidemia; Hypertension; Pneumonia; weakness; CAD; CVA; bb - Immunization history:: Adult Immunizations up to date. - Social history:: Smoking status: Patient/guardian denies using tobacco. - Ebola Screening: : No symptoms or risks identified at this time. Screenin:50 Abuse screen: Denies threats or abuse. Denies injuries from another. Nutritional cc3 screening: No deficits noted. Tuberculosis screening: No symptoms or risk factors identified. Fall Risk Ambulatory Aid- None/Bed Rest/Nurse Assist (0 pts). Gait- Normal/Bed Rest/Wheelchair (0 pts) Mental Status- Oriented to own ability (0 pts). Assessment: 03:50 General: Appears in no apparent distress. comfortable, Behavior is calm, cooperative, cc3 appropriate for age. Pain: Complains of pain in chest pain Quality of pain is described as aching, Pain began suddenly. Neuro: Level of Consciousness is awake, alert, obeys commands, Oriented to person, place, time, situation, Appropriate for age. Cardiovascular: Reports chest pain, since this morning which woke him up from sleep. Respiratory: Airway is patent Respiratory effort is even, unlabored, Respiratory pattern is regular, symmetrical. GI: Abdomen is round distended. : No signs and/or symptoms were reported regarding the genitourinary system. EENT: No signs and/or symptoms were reported regarding the EENT system. Derm: Bruising that is dark purple, on bilateral upper extremities. Musculoskeletal: Circulation, motion, and sensation intact. Range of motion: intact in all extremities. 05:42 Reassessment: Patient appears in no apparent distress at this time. Patient and/or cc3 family updated on plan of care and expected duration. Pain level reassessed. Patient is alert, oriented x 3, equal unlabored respirations, skin warm/dry/pink. 06:35 Reassessment: Patient appears in no apparent distress at this time. Patient and/or cc3 family updated on plan of care and expected duration. Pain level reassessed. Patient is alert, oriented x 3, equal unlabored respirations, skin warm/dry/pink. Patient for admission, room available in 219 handed over the report to CLAUDIA Nava. 06:45 Reassessment: Patient left ER for admission vitally stable by wheelchair with family. cc3 Vital Signs: 04:01 BP 118 / 85; Pulse 73; Resp 16 S; Temp 97.7(O); Pulse Ox 96% on R/A; Weight 90.72 kg bb (R); Height 5 ft. 10 in. (177.80 cm) (R); Pain 0/10; 05:09 BP 112 / 71; Pulse 61; Resp 20 S; Pulse Ox 100% on R/A; cc3 06:15 BP 117 / 72; Pulse 63; Resp 18 S; Pulse Ox 98% on R/A; cc3 04:01 Body Mass Index 28.70 (90.72 kg, 177.80 cm) bb ED Course: 03:45 Maintain EMS IV. Dressing intact. Good blood return noted. Site clean \T\ dry. Gauge \T\ cc 3 site: right hand gauge 20. IV is patent, is intact, with good blood return, Flushed right hand with 5 ml normal saline. 03:50 Patient has correct armband on for positive identification. Bed in low position. Call cc3 light in reach. Side rails up X2. front desk monitor on. Pulse ox on. NIBP on. 03:53 Patient arrived in ED. ds1 03:55 Triage completed. bb 04:01 Arm band placed on Patient placed in an exam room, on a stretcher, on ekg monitor tech, bb on pulse oximetry. EKG completed in triage. Results shown to MD. 04:04 Luis Fernando Huston MD is Private Physician. ds1 04:10 Anil Alcaraz MD is Attending Physician. tw4 04:12 Malgorzata Gamez is Primary Nurse. cc3 05:36 X-ray completed. Portable x-ray completed in exam room. Patient tolerated procedure kw well. 05:37 XRAY Chest (1 view) In Process Unspecified. EDAL 05:51 Luis Fernando Huston MD is Hospitalizing Provider. tw4 06:35 No provider procedures requiring assistance completed. Patient admitted, IV remains in cc3 place. Administered Medications: No medications were administered Outcome: 05:51 Decision to Hospitalize by Provider. tw4 06:35 Admitted to Med/surg accompanied by nurse, family with patient, via wheelchair, room cc3 219, with chart, Report called to CLAUDIA Nava 06:35 Condition: stable 06:35 Instructed on the need for admit. 06:56 Patient left the ED. cc3 Signatures: Dispatcher [facility] Dee Zamora ds1 Susana Leach, CLAUDIA RN bb Rachele Mattson Terrence, MD MD tw4 Malgorzata Gamez cc3
--- NOTE | 2018-04-26 05:53 | EDPHYS ---
Physician Documentation [facility] Name: Titus Holloway Age: 77 yrs Sex: Male : 1940 Arrival Date: 04/26/2018 Time: 03:53 Bed 15 Private MD: Luis Fernando Huston V ED Physician Anil Alcaraz HPI: 04/26 04:13 This 77 yrs old Male presents to ER via EMS with complaints of Chest Pain. tw4 04:13 The patient or guardian reports chest pain that is located primarily in the anterior tw4 chest wall. Onset: today. The pain does not radiate. Associated signs and symptoms: The patient has no apparent associated signs or symptoms. The chest pain is described as dull. Duration: The patient or guardian reports a single episode. Severity of pain: At its worst the pain was moderate in the emergency department the pain is unchanged. Historical: - Allergies: 04:01 Plavix; bb 04:01 Tetanus Vaccines \T\ Toxoid; bb - Home Meds: 04:01 amiodarone 200 mg Oral tab 0.5 tab once daily [Active]; atorvastatin 80 mg oral tab 1 bb tab once daily [Active]; clonidine HCl 0.2 mg Oral tab 1 tab 2 times per day [Active]; spironolactone 25 mg Oral tab 1 tab once daily [Active]; BRILINTA 90 mg Oral tab 1 tab 2 times per day [Active]; citalopram 20 mg tab 1 tab once daily for Anxiety with Depression [Active]; metoprolol tartrate 50 mg Oral tab 1 tab 2 times per day for Hypertension [Active]; furosemide 80 mg Oral tab 1 tab once daily for Peripheral Edema due to Chronic Heart Failure [Active]; furosemide 40 mg Oral tab 1 tab once daily [Active]; aspirin 81 mg Oral chew 1 tab once daily [Active]; - PMHx: 04:01 COPD; Diabetes - IDDM; Hyperlipidemia; Hypertension; Pneumonia; weakness; CAD; CVA; bb - Immunization history:: Adult Immunizations up to date. - Social history:: Smoking status: Patient/guardian denies using tobacco. - Ebola Screening: : No symptoms or risks identified at this time. ROS: 04:13 Constitutional: Negative for fever, chills, and weight loss, Respiratory: Negative for tw4 shortness of breath, cough, wheezing, and pleuritic chest pain, Abdomen/GI: Negative for abdominal pain, nausea, vomiting, diarrhea, and constipation, Back: Negative for injury and pain, MS/Extremity: Negative for injury and deformity, Skin: Negative for injury, rash, and discoloration. 04:13 Cardiovascular: Positive for chest pain, Negative for edema, orthopnea, palpitations, paroxysmal nocturnal dyspnea. Exam: 04:13 Constitutional: This is a well developed, well nourished patient who is awake, alert, tw4 and in no acute distress. Eyes: Pupils equal round and reactive to light, extra-ocular motions intact. Lids and lashes normal. Conjunctiva and sclera are non-icteric and not injected. Cornea within normal limits. Periorbital areas with no swelling, redness, or edema. Chest/axilla: Normal chest wall appearance and motion. Nontender with no deformity. No lesions are appreciated. Cardiovascular: Regular rate and rhythm with a normal S1 and S2. No gallops, murmurs, or rubs. Normal PMI, no JVD. No pulse deficits. Respiratory: Lungs have equal breath sounds bilaterally, clear to auscultation and percussion. No rales, rhonchi or wheezes noted. No increased work of breathing, no retractions or nasal flaring. Abdomen/GI: Soft, non-tender, with normal bowel sounds. No distension or tympany. No guarding or rebound. No evidence of tenderness throughout. Back: No spinal tenderness. No costovertebral tenderness. Full range of motion. MS/ Extremity: Pulses equal, no cyanosis. Neurovascular intact. Full, normal range of motion. Neuro: Awake and alert, GCS 15, oriented to person, place, time, and situation. Cranial nerves II-XII grossly intact. Motor strength 5/5 in all extremities. Sensory grossly intact. Cerebellar exam normal. Normal gait. 06:21 ECG was reviewed by the Attending Physician. tw4 Vital Signs: 04:01 BP 118 / 85; Pulse 73; Resp 16 S; Temp 97.7(O); Pulse Ox 96% on R/A; Weight 90.72 kg bb (R); Height 5 ft. 10 in. (177.80 cm) (R); Pain 0/10; 05:09 BP 112 / 71; Pulse 61; Resp 20 S; Pulse Ox 100% on R/A; cc3 06:15 BP 117 / 72; Pulse 63; Resp 18 S; Pulse Ox 98% on R/A; cc3 04:01 Body Mass Index 28.70 (90.72 kg, 177.80 cm) bb MDM: 04:10 Patient medically screened. tw4 04:47 Differential diagnosis: acute myocardial infarction, pulmonary embolus. Data reviewed: tw4 vital signs, nurses notes. Data interpreted: Pulse oximetry: Interpretation: normal. 05:28 Counseling: I had a detailed discussion with the patient and/or guardian regarding: the tw4 historical points, exam findings, and any diagnostic results supporting the discharge/admit diagnosis, lab results. 04/26 04:39 Order name: Basic Metabolic Panel; Complete Time: 05:47 tw4 04/26 05:47 Interpretation: BUN 34; CRE 1.50; GFR 45. tw04/26 04:39 Order name: CBC with Diff; Complete Time: 05:47 tw4 04/26 05:48 Interpretation: MPV 7.4; LYM% 8.8; MARICRUZ% 76.6; HCT 38.7; HGB 13.3; RBC 4.00. tw4 04/26 04:39 Order name: LFT's; Complete Time: 05:47 tw4 04/26 04:39 Order name: Magnesium; Complete Time: 05:47 tw4 04/26 05:49 Interpretation: Within normal limits: MG 2.3. 04/26 04:39 Order name: NT PRO-BNP; Complete Time: 05:47 tw4 04/26 05:48 Interpretation: Normal except: NT PRO-BNP 1125. 04/26 04:39 Order name: PT-INR; Complete Time: 05:47 tw4 04/26 05:48 Interpretation: PT 12.7. 04/26 04:39 Order name: Troponin (emerg Dept Use Only); Complete Time: 05:47 tw4 04/26 05:51 Interpretation: Normal except: TROPED < 0.02. tw4 04/26 06:21 Order name: Basic Metabolic Panel EDMS 04/26 06:21 Order name: Basic Metabolic Panel EDMS 04/26 06:21 Order name: CBC with Automated Diff EDMS 04/26 06:21 Order name: CBC with Automated Diff EDMS 04/26 06:21 Order name: Troponin I EDNC 04/26 06:21 Order name: Troponin I EDNC 04/26 06:21 Order name: Troponin I EDNC 04/26 04:39 Order name: XRAY Chest (1 view) tw4 04/26 04:39 Order name: EKG; Complete Time: 04:40 tw4 04/26 04:39 Order name: Cardiac monitoring; Complete Time: 04:41 4 04/26 04:39 Order name: EKG - Nurse/Tech; Complete Time: 04:41 tw4 04/26 04:39 Order name: IV Saline Lock; Complete Time: 04:41 tw4 04/26 04:39 Order name: Labs collected and sent; Complete Time: 05:39 tw4 04/26 04:39 Order name: O2 Per Protocol; Complete Time: 04:41 tw4 04/26 04:39 Order name: O2 Sat Monitoring; Complete Time: 04:41 tw4 04/26 06:21 Order name: EKG Electrocardiogram [facility] 04/26 06:21 Order name: EKG Electrocardiogram [facility] 04/26 06:21 Order name: EKG Electrocardiogram [facility] 04/26 06:21 Order name: EKG Electrocardiogram [facility] EC:21 Rate is 61 beats/min. Rhythm is regular. QRS [place] is Normal. [place] interval is normal. QRS tw4 interval is normal. QT interval is normal. No Q waves. T waves are Normal. No ST changes noted. Clinical impression: Abnormal EKG without significant change. Interpreted by me. Reviewed by me. Administered Medications: No medications were administered Disposition: 04/26/18 05:51 Hospitalization ordered by Luis Fernando Huston for Observation. Preliminary diagnosis is Angina pectoris, unspecified. - Bed requested for Telemetry/MedSurg (observation). - Status is Observation. cc3 - Condition is Stable. - Problem is an ongoing problem. - Symptoms have improved. UTI on Admission? No Signatures: Dispatcher [employer] EDMS hTi Jason RN RN kl Ballard, Brenda, RN RN bb Wadley, Terrence, MD MD tw4 Malgorzata Gamez cc3 Corrections: (The following items were deleted from the chart) 05:51 Hospitalization Ordered by Luis Fernando Huston MD for Observation. Preliminary diagnosis kl is Angina pectoris, unspecified. Bed requested for Telemetry/MedSurg (observation). Status is Observation. Condition is Stable. Problem is an ongoing problem. Symptoms have improved. UTI on Admission? No. tw4 06:56 06:23 04/26/2018 05:51 Hospitalization Ordered by Luis Fernando Huston MD for Observation. cc3 Preliminary diagnosis is Angina pectoris, unspecified. Bed requested for Telemetry/MedSurg (observation). Status is Observation. Condition is Stable. Problem is an ongoing problem. Symptoms have improved. UTI on Admission? No. kl
[2018-04-26] MEDS ORDERED: ACETAMINOPHEN 500 MG TAB PO PRN (06:18)
[2018-04-26 07:02] VITALS: TEMP 97.7
[2018-04-26 07:03] VITALS: BP 112/71
--- NOTE | 2018-04-26 08:44 | RAD REPORT ---
EXAM DESCRIPTION: RAD - Chest Single View - 04/26/2018 5:37 am CLINICAL HISTORY: CHEST PAIN Chest pain. COMPARISON: Chest Single View dated 03/23/2018; Chest Single View dated 09/13/2017; Chest Single View dated 08/25/2017; Chest Single View dated 03/02/2017 FINDINGS: Portable technique limits examination quality. The lungs are grossly clear. The heart is mildly prominent size with changes of a prior CABG. No disp laced fractures. IMPRESSION: No acute intrathoracic process suspected.
[2018-04-26] MEDS ORDERED: ASPIRIN EC 81 MG TAB PO SCH (09:00)
[2018-04-26 09:18] VITALS: O2SAT 94
--- NOTE | 2018-04-26 12:11 | EKG ---
Test Date: 2018-04-26 Test Time: 03:55:32 [employer] Supervisor: KADY MEASUREMENT RESULTS: Intervals: Rate: 61 CO: 256 QRSD: 114 QT: 464 QTc: 467 [place]: P: 44 CO: 256 QRS: -10 T: 99 INTERPRETIVE STATEMENTS: Atrial-paced rhythm with prolonged AV conduction Abnormal QRS-T angle, consider primary T wave abnormality Abnormal ECG Compared to ECG 04/01/2018 14:52:20 T-wave abnormality now present Myocardial infarct finding no longer present ST (T wave) deviation no longer present Possible ischemia no longer present Electronically Signed On 04-26-18 12:09:56 CDT by Pastor Cordoba
--- NOTE | 2018-04-26 13:06 | P.SSS ---
Patient History Date of Service: 04/26/18 Reason for admission: FALLING OFTEN. History of Present Illness: MR. NANCE IS A DIABETIC, WITH CAD AND PAD. HE HAS NEUROPATHY IN FEET. HE FALLS WHEN HE DOES NOT HAVE WALKER. I ASKED HIM 3 TIMES IF HE HAD CHEST PAIN OR NOT. HE SAYS HE DID NOT COME TO ER FOR CHEST PAIN. HE HAD NONE. HE CAME FOR FALLING OFTEN. DR. SILVER CALLED ME AND TOLD HE HAD CHEST PAIN SO WE ADMITTED HIM. MR COLE DOES NOT FALL IF HE HAS WALKER. HE IS STABLE TO GO HOME AND MUST USE WALKER ALL THE TIME. HE HAS NO ACUTE SYMPTOMS. Allergies clopidogrel bisulfate [From Plavix] Allergy (Verified 03/23/18 22:26) Itching/Hives/Rash Tetanus Vaccines Allergy (Unknown, Uncoded 03/24/18 01:26) Itching/Hives/Rash Home Medications: Amiodarone HCl [Cordarone*] 0.5 tab PO DAILY 03/24/18 Amoxicillin/Potassium Clav [Amox Tr-K Clv 875-125 mg Tab] 1 tab PO Q12HR Atorvastatin Calcium [Lipitor] 80 mg PO BEDTIME 03/24/18 Citalopram [Celexa*] 20 mg PO DAILY 03/24/18 Furosemide [Lasix*] 40 mg PO DAILY 03/24/18 Gabapentin [Neurontin*] 100 mg PO TID 03/24/18 Insulin -Regular Human [Novolin -R*] See Protocol SQ ACHS ml 03/24/18 Insulin 70/30 NPH/Reg Human [Novolin 70/30*] 15 unit SQ BID #20 ml 03/24/18 Metoprolol Tartrate [Lopressor*] 50 mg PO BID 03/24/18 Spironolactone [Aldactone*] 25 mg PO DAILY 03/24/18 Ticagrelor [Brilinta*] 1 tab PO BID 03/24/18 - Past Medical/Surgical History Diabetic: Yes -: COPD -: CHF -: HTN -: HYPERLIPIDEMIA -: IDDM -: CARDIAC STENTS -: CARDIAC BYPASS SX - Family History Father -: Heart disease Mother -: Heart disease - Social History Alcohol use: No CD- Drugs: No Caffeine use: Yes Review of Systems 10-point ROS is otherwise unremarkable Physical Examination - Vital Signs Temperature: 97.7 F Blood Pressure: 112/71 Pulse: 61 Respirations: 20 - Physical Exam General: Alert, In no apparent distress HEENT: Atraumatic, PERRLA, Mucous membr. moist/pink, EOMI, Sclerae nonicteric Neck: Supple, 2+ carotid pulse no bruit, No LAD, Without JVD or thyroid abnormality Respiratory: Clear to auscultation bilaterally, Normal air movement Cardiovascular: Regular rate/rhythm, Normal S1 S2 Gastrointestinal: Normal bowel sounds, No tenderness Musculoskeletal: No tenderness Integumentary: No rashes Neurological: Normal speech, Abnormal gait (HE HAS SOME UNSTEADY GAIT FROM NEUROPATHY.) Lymphatics: No axilla or inguinal lymphadenopathy - Studies Laboratory Data (last 24 hrs) 04/26/18 04:30: PT 12.7 H, INR 1.08 04/26/18 04:30: WBC 9.5, Hgb 13.3 L, Hct 38.7 L, Plt Count 183 04/26/18 04:30: Sodium 136, Potassium 4.0, BUN 34 H, Creatinine 1.50 H, Glucose 95, Magnesium 2.3, Total Bilirubin 0.6, AST 25, ALT 34, Alkaline Phosphatase 88 - Diagnosis (Problem(s)) (1) Frequent falls Current Visit: Yes Status: Chronic Plan: NOT A NEW ISSUE I EXPLAINED HIM NOT TO COME TO ER FOR ISSUES THAT ARE CHRONIC. ER IS FOR EMERGENCIES ONLY LIKE CHEST PAIN, SEVERE DYSPNEA ETC. HE HAS NOT HAD CHEST PAIN. I WILL TALK TO ER DOCTOR TO FIRST TALK TO PATIENT AND GET HISTORY BEFORE COMING UP WITH WRONG ADMISSION DIAGNOSIS. (2) Diabetes Onset Date: 10/31/15 Current Visit: No Status: Chronic - Disposition Disposition: ROUTINE DISCHARGE Condition: FAIR Patient Discharge Instructions: WALK WITH WALKER ONLY. YOU HAVE NEUROPATHY AND SO WITHOUT WALKER YOU FALL DOWN. YOU HAVE NO CHEST PAIN. IN ER PUT YOU IN THE HOSPITAL FOR CHEST PAIN. IN FUTURE REPORT TO ER ONLY IF YOU HAVE REAL EMERGENCY LIKE CHEST PAIN OR NEW SHORTNESS OF BREATH. ETC. I WILL SEE YOU IN OFFICE IN ONE WEEK. Diet: ADA
[2018-04-26 15:40] VITALS: BMI 28.7
== END 2018-04-26 15:32 | disposition home or self-care (01) ==
LOC: ER 03:50 → ERHOLD 06:24 → 2ND 06:38
PROVIDERS: ADMIT Internal Medicine; ATTEND Internal Medicine
DX: I25.10 Atherosclerotic heart disease of native coronary artery without angina pectoris (principal); E11.51 Type 2 diabetes mellitus with diabetic peripheral angiopathy without gangrene; J44.9 Chronic obstructive pulmonary disease, unspecified; Z95.1 Presence of aortocoronary bypass graft; Z91.81 History of falling; Z95.5 Presence of coronary angioplasty implant and graft; Z88.7 Allergy status to serum and vaccine
CPT/HCPCS: 36415; 71045; 80048; 80076; 83735; 83880; 84484 ×3; 85025; 85610; 93005; 99285; G0378 ×2

== ENCOUNTER 2018-05-19 15:49 | Emergency (ER) | payer OTHER ==
--- OUTSIDE RECORDS SUMMARY | 2018-05-19 15:52 | XMS REPORT | Clinical Summary ---
:1940 Author Organization [facility] Address [address] [place] [address] Care Team Providers Name Role Phone Edmund Phillips MD Primary Care Provider Unavailable Allergies Active Allergy Reactions Severity Noted Date Comments Clopidogrel Itching 03/02/2017 Sulfa (Sulfonamide Antibiotics) Swelling 08/25/2017 Medications Medication Sig Dispensed Refills Start Date End Date Status citalopram [...] by mouth 2 (two) times a day. losartan (COZAAR) TK 1 T PO QD 1 08/02/2017 Active 100 MG tablet amIODarone Take 100 mg by 0 Active (PACERONE) 200 MG mouth daily. tablet gabapentin Take 100 mg by 0 Active (NEURONTIN) 100 mg mouth 3 capsule (three) times a day. furosemide (LASIX) TAKE 1 TABLET 90 tablet 0 04/20/2018 Active 80 mg tablet BY MOUTH EVERY MORNING atorvastatin Take 1 tablet 90 tablet 0 05/12/2018 Active (LIPITOR) 80 MG (80 mg total) 9 tablet by mouth daily. furosemide (LASIX) TK 1 T PO 90 [...] GLARGINE Inject 25 10 mL 8 05/04/2017 (LANTUS) 100 unit/mL Units under 8 injection (vial) the skin nightly. traMADol (ULTRAM) 50 Take 1 tablet 60 tablet 0 08/19/2017 mg tablet (50 mg total) 8 by mouth every 8 (eight) hours as needed for moderate pain for up to 30 days. atorvastatin Take 1 tablet 90 tablet 3 05/11/2018 Discontinued (LIPITOR) 80 MG (80 mg total) 8 tablet by mouth daily. Active Problems Problem Noted Date Bilateral carotid artery disease 10/26/2017 CAD in [place] artery 03/23/2017 ST elevation myocardial infarction involving left circumflex coronary 2016 artery NSTEMI (non-ST elevated myocardial infarction) 03/02/2017 Coronary artery disease involving [place] coronary artery of [place] heart 02/09 without angina pectoris Diastolic congestive heart failure 02/09/2017 Carotid bruit 02/09/2017 History of coronary artery bypass graft 08/07/2016 Stented coronary artery 08/07/2016 SOB (shortness of breath) 08/07/2016 Systolic congestive heart failure 08/07/2016 Encounters Date Type Specialty Care Team Description 05/12/2018 Orders Only Cardiology Flaquito Ann MA 05/11/2018 Orders Only Cardiology Daphne Kraft MA 05/09/2018 Refill Cardiology Sia Guerra MA Med Refill 04/20/2018 Refill Cardiology Gabriela Enriquez MD Med Refill 11/03/2017 Orders Only Cardiology Flaquito Ann MA Coronary artery disease involving [place] coronary artery of [place] heart without angina pectoris (Primary Dx) 11/03/2017 [...] diabetes mellitus type 2 without complications, unspecified ferry terminal agent insulin use status; Systolic congestive heart failure, unspecified congestive heart failure chronicity; Coronary artery disease involving [place] coronary artery of [place] heart without angina pectoris 08/20/2017 Telephone Family Medicine Edmund Phillips MD 08/19/2017 Lab Lab Edmund Phillips, Dizziness; Essential hypertension 08/19/2017 Office Visit Internal Medicine Edmund Phillips, Chest wall pain (Primary Dx); Arthralgia of hip, unspecified laterality; Uncontrolled diabetes mellitus type 2 without complications, unspecified senior living insulin use status; Essential hypertension; Dizziness; Systolic congestive heart failure, unspecified congestive heart failure chronicity 08/18/2017 Telephone Family Medicine Abel Rodriguez LVN 08/17/2017 Office Visit Cardiology Gabriela Enriquez MD Systolic congestive heart failure, unspecified congestive heart failure chronicity (Primary Dx); Pain of right hip joint; Stented coronary artery; Coronary artery disease involving [place] coronary artery of [place] heart without angina pectoris; History of coronary artery bypass graft after 05/18/2017 Immunizations Name Dates Previously Given Next Due Influenza Trivalent 05/19/2017 Social History Tobacco Use Types Packs/Day Years Used Date Never Smoker Smokeless Tobacco: Never Used Sex Assigned at Date Recorded Not on file Job Start Date Occupation Industry Not on file Not on file Not on file Travel History Travel Start Travel End No recent travel history available. Last Filed Vital Signs Vital Sign Reading Time Taken Blood Pressure 131/67 10/26/2017 3:49 PM CDT Pulse 84 10/26/2017 3:49 PM CDT Temperature 36.8 C (98.2 F) 08/25/2017 10:42 AM PRESS CLEANER Respiratory Rate 16 08/25/2017 10:42 AM PRESS CLEANER Oxygen Saturation 97% 08/25/2017 10:42 AM PRESS CLEANER Inhaled Oxygen Concentration - - Weight 96.2 kg (212 lb) 10/26/2017 3:49 PM CDT Height 180.3 cm (5' 11") 08/25/2017 10:42 AM PRESS CLEANER Body Mass Index 29.57 10/26/2017 3:49 PM CDT Plan of Treatment Health Maintenance Due Date Last Done Comments DIABETIC RETINAL EYE EXAM 1940 DIABETIC FOOT EXAM 1949 URINE MICROALBUMIN 1949 SHINGRIX VACCINE (1 of 2) 1989 ZOSTER VACCINE 1999 PNEUMOCOCCAL POLYSACCHARIDE VACCINE AGE 65 AND OVER 2004 PNEUMOCOCCAL-13 2004 INFLUENZA VACCINE 02/02/2018 05/19/2017 Implants Implanted Type Area Drum Filler Device Shelf Model / Identifier Expiration Serial / Date Lot Stent Catheter Synergy (Otw) 3.50mm X 16mm - [id number] Coronary N/A: N/A [facility] [id number] / Implanted: Qty: 1 on 03/03/2017 by [...] wall pain Results for this RIGHT PM PRESS CLEANER procedure are in the results section. SPECIMEN STATUS REPORT Routine 08/19/2017 1:47 Results for this PM PRESS CLEANER procedure are in the results section. HEMOGLOBIN A1C Routine 08/19/2017 1:47 Results for this PM PRESS CLEANER procedure are in the results section. SPECIMEN STATUS REPORT Routine 08/19/2017 1:47 Results for this PM PRESS CLEANER procedure are in the results section. BASIC METABOLIC PANEL Routine 08/19/2017 1:47 Essential Results for this PM PRESS CLEANER hypertension procedure are in the results section. CBC WITH PLATELET AND Routine 08/19/2017 1:47 Dizziness Results for this DIFFERENTIAL PM PRESS CLEANER procedure are in the results section. XR HIP 2-3 VIEWS RIGHT Routine 08/17/2017 12:08 Pain of right hip Results for this PM PRESS CLEANER joint procedure are in the results section. ECHOCARDIOGRAM 2D Routine 07/28/2017 11:02 CAD in [place] artery Results for this COMPLETE W MMODE AM PRESS CLEANER procedure are in SPECTRAL COLOR DOPPLER the results (43426) section. after 05/18/2017 Results Pv carotid duplex (10/28/2017 11:25 AM CDT) Narrative Performed At [facility] Carotid Artery Ultrasound Report Pat.Name:TITUS NANCE Pat.ID:[id number] .Date: 10/28/2017 Refer.MD:GABRIELA ENRIQUEZ MD Exam Time: 11:52:00 AM Study Type:Carotid DOBAge:1940,77Y Sex: MALE Sonogrphr: Tiffanie Ross, JOSÉ, RDCS, RVT Pat. Stat.:Outpatient Room:[place] [address]: [facility] Echo Event ID:[id number] Order ID:[id number] Reason for Study:Carotid artery disease Race:C SUMMARY: [...] EDV39.9 cm/s Right ICA Mid ICA Mid [id number] cm/Isaiah Mid EDV 42.5 cm/s Right ICA [...] Results In - 10/29/2017 4:53 PM CDT [facility] Carotid Artery Ultrasound Report Pat.Name: TITUS NANCE Pat.ID: [id number] St.Date: 10/28/2017 Refer.MD: GABRIELA ENRIQUEZ MD Exam Time: 11:52:00 AM Study Type:Carotid Age: 11 1940,77Y Sex: MALE Sonogrphr: Tiffanie Ross, RDMS, RDCS, RVT Pat. Stat.:Outpatient Room: [facility] CPT - 4: 32949 Echo Event ID:[id number] Order ID: [id number] Reason for Study:Carotid artery disease Race: C [...] PM Gabriela Enriquez MD Performing Organization Address [facility] Phone Number [facility] [address] [place] [address] XR Ribs W Pa Chest Right (08/19/2017 3:29 PM PRESS CLEANER) Narrative Performed At EXAMINATION:XR RIBSW PA CHEST RIGHT RADIANT CLINICAL HISTORY:R07.89 Other chest pain, CHEST WALL PAIN COMPARISON:None. IMPRESSION: The lungs are clear Heart is slightly enlarged, unchanged from prior Diffuse calcified atherosclerotic vascular disease throughout the arterial structures. [facility]-[id number] Procedure Note Interface, Radiology Results Incoming - 08/19/2017 4:22 PM PRESS CLEANER EXAMINATION: XR RIBS W PA CHEST RIGHT CLINICAL HISTORY: R07.89 Other chest pain, CHEST WALL PAIN COMPARISON: None. IMPRESSION: The lungs are clear Heart is slightly enlarged, unchanged from prior Diffuse calcified atherosclerotic vascular disease throughout the arterial structures. [facility]-[id number] Performing Organization Address [facility] Phone Number [facility] [address] [place] [address] Specimen Status Report (08/19/2017 1:47 PM PRESS CLEANER)Only the most recent of2 resultswithin the time period is included. Specimen Status Report COMMENT [facility] Comment: Written Authorization Written Authorization No Written Authorization Received. Narrative Performed At Performed at: - [facility] [place], [id number] Plastic Molding Operator: Ministerio Clemens MD, Phone:[phone] Performing Organization Address [facility] Phone Number [facility] CBC with platelet and differential (08/19/2017 1:47 PM PRESS CLEANER) WBC 8.1 3.4 - 10.8 x10E3/uL [facility] [...] Specimen Blood Narrative Performed At Performed at: - [facility] [address] [place], [id number] Plastic Molding Operator: Ministerio Clemens MD, Phone:[phone] Performing Organization Address [facility] Phone Number [facility] Hemoglobin A1c (08/19/2017 1:47 PM PRESS CLEANER) Hemoglobin A1C 11.8 (H) 4.8 - 5.6 % [facility] Comment: Pre-diabetes: 5.7 - 6.4 Diabetes: >6.4 Glycemic control for adults with diabetes: <7.0 Narrative Performed At Performed at:[address] [place] [address] [id number] Plastic Molding Operator: Ministerio Clemens MD, Phone:[phone] Performing Organization Address [facility] Phone Number [facility] Basic metabolic panel (08/19/2017 1:47 PM PRESS CLEANER) Glucose 467 (H) 65 - 99 mg/dL [facility] BUN, whole blood 36 (H) 8 - 27 mg/dL [facility] Creatinine 1.55 (H) 0.76 - 1.27 mg/dL [facility] EGFR Non-Afr. Citizen Of [place] 42 (L) >59 mL/min/1.73 [facility] EGFR 49 (L) >59 mL/min/1.73 [facility] BUN/creatinine ratio 23 10 - 24 [facility] Sodium 127 (L) 134 - 144 mmol/L [facility] Potassium 5.2 3.5 - 5.2 mmol/L [facility] Chloride 85 (L) 96 - 106 mmol/L [facility] CO2 26 18 - 29 mmol/L [facility] Calcium 9.2 8.6 - 10.2 mg/dL [facility] Specimen Blood Narrative Performed At [facility]formed at: [id number] Plastic Molding Operator: Ministerio Clemens MD, Phone:[phone] Performing Organization Address [facility] Phone Number [facility] XR Hip 2-3 View Right (08/17/2017 12:08 PM PRESS CLEANER) Narrative Performed At EXAMINATION:XR HIP 2-3 VIEWS RIGHT HM RADIANT CLINICAL HISTORY:M25.551 Pain in right hip, hip pain fall COMPARISON:none. IMPRESSION: 1.No displaced fractures or dislocations. Pelvic vascular calcifications are noted. [id number] Procedure Note Hm Interface, Radiology Results Incoming - 08/17/2017 2:08 PM PRESS CLEANER EXAMINATION: XR HIP 2-3 VIEWS RIGHT CLINICAL HISTORY: M25.551 Pain in right hip, hip pain fall COMPARISON: none. IMPRESSION: 1. No displaced fractures or dislocations. Pelvic vascular calcifications are noted. [id number] Performing Organization Address City/State/Zipcode Phone Number [facility] [address] [place] [address] Echocardiogram complete w contrast and 3D if needed (07/28/2017 11:02 AM PRESS CLEANER) Narrative Performed At [facility] Echocardiography Report Pat.Name:TITUS NANCE Pat.ID:[id number] .Date: 07/28/2017 Refer.MD:GABRIELA ENRIQUEZ MD Exam Time: 10:02:00 AM Study Type:Routine Echo Height:71inWeight: 220lb BSA: 2.2 a0OVIMim:1940,77Y Sex: MALEBP:108/65 Sonogrphr: Tiffanie Ross RDCS, RVTPat. Stat.:Outpatient Study Status:Final Echo Event ID:[id number] Order ID:[id number] Reason for Study:Coronary Artery Disease History / [...] RAPof 10 mmHg. MEASUREMENTS: 2D Parasternal Long [place] LVOT 2.2 cmLA Ds4.7 cm LVIDd6.2 cmIndex2.8 cm/m Ao An2.5 cm LVIDs5.6 cmAo Rtd 3 cm Index1.4 cm/m LV%fs9.7 % LV Pazh761.3 g(122-174) IVSd 1.3 cmRWT0.4 LVPWd1.3 cm LA Sng Plane LA Area 26.4 cm2(8.8-23.4) LA Vol99.7 ml Index45.3 ml/m LA LngAx 5.8 cm RA Sng Plane RA Area 17.4 cm2(8.3-19.5) RA Vol47.9 ml Index21.8 ml/m RA LngAx 5.5 cm Signed 07/29/2017 02:56 PM Tano Granados M.D. Procedure Note Interface, Radiology Results In - 07/29/2017 2:56 PM PRESS CLEANER [facility] Echocardiography Report Pat.Name: TITUS NANCE.ID: [id number] St.Date: 07/28/2017 Refer.MD: GABRIELA ENRIQUEZ MD Exam Time: 10:02:00 AM Study Type:Routine Echo Height: 71in Weight: 220lb BSA: 2.2 m2 Age: 11 1940,77Y Sex: MALE BP: 108/65 Sonogrphr: Tiffanie Ross RDCS, RVT Pat. Stat.:Outpatient Study Status:Final Echo Event ID:[id number] Order ID: [id number] Reason for Study:Coronary Artery Disease History / [...] of 10 mmHg. MEASUREMENTS: 2D Parasternal Long [place] LVOT 2.2 cm LA Ds 4.7 cm [...] Performing Organization Address City/State/Zipcode Phone Number [facility] [address] [place] [address] after 05/18/2017 Insurance Payer Benefit Plan / Group Subscriber ID Type Phone Address AETNA MEDICARE AETNA MEDICARE HMO[facility] x[facility] HMO MEDICAID MEDICAID xxxxxxxxx Medicaid (Home) [place] [address] Advance Directives Patient has advance care planning documents on file. For more information, please contact:[id number] [place] [address]
[2018-05-19 16:41] LABS: Protime INR 1.03
--- NOTE | 2018-05-19 16:48 | RAD REPORT ---
EXAM DESCRIPTION: CT - Head Brain Wo Cont - 05/19/2018 4:40 pm CLINICAL HISTORY: Slurred speech COMPARISON: August 2017 TECHNIQUE: Computed axial tomography of the head was obtained. IV contrast was not requested. All CT scans are performed using dose optimization technique as appropriate and may include automated exposure control or mA/KV adjustment according to patient size. FINDINGS: An intracranial bleed is not seen . The ventricles are normal in caliber. No extra-axial fluid collection is noted. Mild to moderate low-density areas within periventricular, deep and subcortical white matter likely represent ischemic changes secondary to small vessel disease . Fluid within the sinuses/ mastoids is not seen. Mucus retention cyst present within the right maxilla ry sinus IMPRESSION: No acute intracranial abnormality is seen. If patient's symptoms persist MRI of the bra in would be recommended.
[2018-05-19 17:00] LABS: ALT/SGPT 33 U/L (12-78); AST/SGOT 31 U/L (15-37); Albumin 3.8 g/dL (3.4-5.0); Alkaline Phosphatase 56 U/L (45-117); BUN Blood Urea Nitrogen 29 mg/dL (7-18); Bicarbonate 28 mmol/L (21-32); Bilirubin Direct 0.2 mg/dL (0-0.2); Bilirubin Total 0.6 mg/dL (0.2-1.0); Glucose Level 110 mg/dL (74-106); Magnesium 2.3 mg/dL (1.8-2.4); NT PRO-BNP 969 pg/mL (<450); Protein, Total 7.3 g/dL (6.4-8.2); Sodium Level 139 mmol/L (136-145); Troponin (Emerg Dept Use Only) < 0.02 ng/mL (0.0-0.045)
--- NOTE | 2018-05-19 17:09 | EKG ---
Test Date: 2018-05-19 Test Time: 16:47:14 Construction Laborer: BEENA MEASUREMENT RESULTS: Intervals: Rate: 62 AR: 222 QRSD: 106 QT: 480 QTc: 487 [place]: P: 38 AR: 222 QRS: 3 T: 105 INTERPRETIVE STATEMENTS: Sinus rhythm with 1st degree AV block Abnormal ECG Compared to ECG 04/26/2018 03:55:32 First degree AV block now present Atrial-paced complex(es) or rhythm no longer present T-wave abnormality no longer present Electronically Signed On 05-19-18 17:08:46 [employer] by David Clark
[2018-05-19 17:17] LABS: Absolute Neutrophil 6.6 K/uL (1.8-8.0); Basophils % 0.4 % (0-1.3); Eosinophils % 4.1 % (0-4.4); Hematocrit 37.9 % (39.6-49.0); Lymphocytes % 11.2 % (15.3-44.8); MCH 33.5 pg (27.0-35.0); MCV 96.3 fL (80-100); MPV 7.5 fL (7.6-11.3); RBC Red Blood Cell Count 3.93 M/uL (4.33-5.43)
--- NOTE | 2018-05-19 17:54 | ER ---
Nurse's Notes [facility] Name: Titus Holloway Age: 78 yrs Sex: Male : 1940 Arrival Date: 05/19/2018 Time: 15:59 Bed 24 Private MD: Diagnosis: Generalized Weakness, Sedation Side Effect of Medication, Non-productive cough;Unspecified adverse effect of drug or medicament Presentation: 05/19 16:00 Presenting complaint: EMS states: pt awoke this am at 6 am, unable to ambulate at that tl3 time, did not fall just went back onto the bed. BGL 125 at that time, weakness in bilateral arms and legs, slurred speech, c/o cough and dry mouth. Transition of care: patient was not received from another setting of care. No acute neurological deficit is noted. Onset of symptoms was May 19, 2018 at 06:00. Risk Assessment: Do you want to hurt yourself or someone else? Patient reports no desire to harm self or others. Initial Sepsis Screen: Does the patient meet any 2 criteria? RR > 20 per min. No. Patient's initial sepsis screen is negative. Does the patient have a suspected source of infection? Yes: Productive cough/pneumonia. Care prior to arrival: None. 16:00 Method Of Arrival: EMS: [facility] tl3 16:00 Acuity: PAYAM 2 tl3 Triage Assessment: 16:07 The onset of the patients symptoms was May 19, 2018 at 06:00. General: Appears tl3 uncomfortable, well developed, well nourished, Behavior is calm, cooperative, appropriate for age. Pain: Denies pain. Neuro: Level of Consciousness is awake, alert, obeys commands, Oriented to person, place, time, situation, Appropriate for age Gait is ataxic, Speech is slurred, Facial symmetry appears normal, Reports weakness. Cardiovascular: Heart tones S1 S2 present Patient's skin is warm and dry. Respiratory: Airway is patent Respiratory effort is even, labored, Respiratory pattern is tachypnea Breath sounds are diminished bilaterally. in left lower lobe, right lower lobe, left posterior lower lobe and right posterior lower lobe. GI: No signs and/or symptoms were reported involving the gastrointestinal system. : No signs and/or symptoms were reported regarding the genitourinary system. Derm: No signs and/or symptoms reported regarding the dermatologic system. Musculoskeletal: Reports weakness in right leg and left leg. Stroke Activation: Symptom onset > 6 hours Physician: Stroke Attending; Name: ; Notified At: ; Arrived At: Physician: Chief Stroke Resident; Name: ; Notified At: ; Arrived At: Physician: Stroke Resident; Name: ; Notified At: ; Arrived At: Physician: ED Attending; Name: ; Notified At: ; Arrived At: Physician: ED Resident; Name: ; Notified At: ; Arrived At: Historical: - Allergies: 16:07 Plavix; tl3 16:07 Tetanus Vaccines \T\ Toxoid; tl3 - Home Meds: 16:07 amiodarone 200 mg Oral tab 0.5 tab once daily [Active]; aspirin 81 mg Oral chew 1 tab tl3 once daily [Active]; atorvastatin 80 mg Oral tab 1 tab once daily [Active]; BRILINTA 90 mg Oral tab 1 tab 2 times per day [Active]; citalopram 20 mg tab 1 tab once daily for Anxiety with Depression [Active]; clonidine HCl 0.2 mg Oral tab 1 tab 2 times per day [Active]; furosemide 80 mg Oral tab 1 tab once daily for Peripheral Edema due to Chronic Heart Failure [Active]; furosemide 40 mg Oral tab 1 tab once daily [Active]; metoprolol tartrate 50 mg Oral tab 1 tab 2 times per day for Hypertension [Active]; spironolactone 25 mg Oral tab 1 tab once daily [Active]; - PMHx: 16:07 CAD; COPD; CVA; Diabetes - IDDM; Hyperlipidemia; Pneumonia; Hypertension; weakness; tl3 - Immunization history:: Adult Immunizations up to date. - Social history:: Smoking status: unknown. - Ebola Screening: : No symptoms or risks identified at this time. - Family history:: not pertinent. - Hospitalizations: : No recent hospitalization is reported. - History obtained from: . Screenin:11 Abuse screen: Denies threats or abuse. Nutritional screening: No deficits noted. tl3 Tuberculosis screening: No symptoms or risk factors identified. Fall Risk Fall in past 12 months (25 points). Assessment: 16:11 Reassessment: No changes from previously documented assessment. tl3 18:00 Reassessment: No changes from previously documented assessment. Patient and/or family tl3 updated on plan of care and expected duration. Pain level reassessed. Patient is alert, oriented x 3, equal unlabored respirations, skin warm/dry/pink. pt sat up on the side of the bed and assisted to ambulate with the use of a walker, was able to make small steps with assistance. 18:24 Reassessment: Patient appears in no apparent distress at this time. No changes from tl3 previously documented assessment. Patient and/or family updated on plan of care and expected duration. Pain level reassessed. Patient is alert, oriented x 3, equal unlabored respirations, skin warm/dry/pink. Vital Signs: 16:07 BP 103 / 57; Pulse 62; Resp 20; Temp 98.0(O); Pulse Ox 98% on 2 lpm NC; Weight 99.79 kg;tl3 16:47 BP 107 / 67; Pulse 60; Resp 18; Pulse Ox 100% on 2 lpm NC; tl3 17:30 BP 125 / 83; Pulse 61; Resp 18; Pulse Ox 100% on 2 lpm NC; tl3 18:06 BP 101 / 66; Pulse 62; Resp 18; Pulse Ox 99% on R/A; tl3 ED Course: 15:59 Patient arrived in ED. tl3 16:03 Jenni Ruiz FNP is PHCP. kav 16:04 Parish Tariq MD is Attending Physician. kav 16:04 Triage completed. tl3 16:11 Patient has correct armband on for positive identification. Bed in low position. Call tl3 light in reach. Side rails up X2. Adult w/ patient. industrial hygienist on. Pulse ox on. NIBP on. 16:11 No provider procedures requiring assistance completed. tl3 16:19 Initial lab(s) drawn, by in, sent to lab. Inserted saline lock: 20 gauge in left wrist, tl3 using aseptic technique. Blood collected. 16:[address] jg6 16:39 CT Head Brain wo Cont In Process Unspecified. EDMS 17:14 XRAY Chest (1 view) In Process Unspecified. EDMS 17:31 EKG done, by spd tech. reviewed by Jenni ROBLES. sm3 17:48 Magda Romero, RN is Primary Nurse. tl3 18:24 IV discontinued, intact, bleeding controlled, No redness/swelling at site. Pressure tl3 dressing applied. 18:26 Arm band placed on right wrist. tl3 Administered Medications: 18:00 Drug: DuoNeb (3:1) (2.5 mg - 0.5 mg) 3 ml Route: Nebulizer; tl3 18:25 Follow up: Response: No adverse reaction tl3 Point of Care Testing: Blood Glucose: 16:07 Blood Glucose: 122 mg/dL; tl3 Ranges: Outcome: 17:54 Discharge ordered by MD. burgos 18:24 Discharged to home via wheelchair. tl3 18:24 Condition: stable 18:24 Discharge instructions given to patient, family, Instructed on discharge instructions, follow up and referral plans. medication usage, Demonstrated understanding of instructions, follow-up care, medications. 18:27 Patient left the ED. tl3 Signatures: Dispatcher [employer] Jenni Estrella, AUTOMATION ENGINEERING MANAGER AUTOMATION ENGINEERING MANAGER Magda Senior, RN RN tl3 Yeny Magallanes 3 Stacy [id number]
--- NOTE | 2018-05-19 17:55 | EDPHYS ---
Physician Documentation [facility] Name: Titus Holloway Age: 78 yrs Sex: Male : 1940 Arrival Date: 05/19/2018 Time: 15:59 Bed 24 Private MD: ED Physician Parish Tariq HPI: 05/19 16:26 This 78 yrs old Male presents to ER via EMS with complaints of Weakness. kav 16:26 The patient presents to the emergency department with a speech or higher order brain kav function problem, "...slurred speech since 0600 this morning " per of patient. Onset: The symptoms/episode began/occurred acutely, this morning, at 06:00. Context: occurred at home, occurred while the patient was at rest. Associated signs and symptoms: Pertinent positives: This patient does not have any pertinent positives. weakness, bilateral lower extremities, Pertinent negatives: altered mental status. Severity of symptoms: At their worst the symptoms were moderate this morning. Patient's baseline: Neuro: alert and fully oriented, Motor: no deficits, Ambulation: walks without assistance, Speech: normal for age, slow, The patient has a previous history of TIA. 16:28 Patient's baseline: The patient has a previous history of CVA. Patient's baseline: The kav patient has a previous history of CVA, TIA. Current symptoms: slurred speech. The patient has not recently seen a physician. patient is sob at rest and with exertion. patient reports "...blockage in bilateral carotid arteries". dietetic technician is Dr. Bowers. CVA 1978. Primary Care Physician Dr. Huston. Historical: - Allergies: 16:07 Plavix; tl3 16:07 Tetanus Vaccines \\T\\ Toxoid; tl3 - Home Meds: 16:07 amiodarone 200 mg Oral tab 0.5 tab once daily [Active]; aspirin 81 mg Oral chew 1 tab tl3 once daily [Active]; atorvastatin 80 mg Oral tab 1 tab once daily [Active]; BRILINTA 90 mg Oral tab 1 tab 2 times per day [Active]; citalopram 20 mg tab 1 tab once daily for Anxiety with Depression [Active]; clonidine HCl 0.2 mg Oral tab 1 tab 2 times per day [Active]; furosemide 80 mg Oral tab 1 tab once daily for Peripheral Edema due to Chronic Heart Failure [Active]; furosemide 40 mg Oral tab 1 tab once daily [Active]; metoprolol tartrate 50 mg Oral tab 1 tab 2 times per day for Hypertension [Active]; spironolactone 25 mg Oral tab 1 tab once daily [Active]; - PMHx: 16:07 CAD; COPD; CVA; Diabetes - IDDM; Hyperlipidemia; Pneumonia; Hypertension; weakness; tl3 - Immunization history:: Adult Immunizations up to date. - Social history:: Smoking status: unknown. - Ebola Screening: : No symptoms or risks identified at this time. - Family history:: not pertinent. - Hospitalizations: : No recent hospitalization is reported. - History obtained from: . ROS: 16:28 Constitutional: Negative for fever, chills, and weight loss, Eyes: Negative for injury, kav pain, redness, and discharge, ENT: Negative for injury, pain, and discharge, Neck: Negative for injury, pain, and swelling, Cardiovascular: Negative for chest pain, palpitations, and edema, Abdomen/GI: Negative for abdominal pain, nausea, vomiting, diarrhea, and constipation, Back: Negative for injury and pain, : Negative for injury, bleeding, discharge, and swelling, MS/Extremity: Negative for injury and deformity, Skin: Negative for injury, rash, and discoloration, Psych: Negative for depression, anxiety, suicide ideation, homicidal ideation, and hallucinations, Allergy/Immunology: Negative for hives, rash, and allergies, Endocrine: Negative for neck swelling, polydipsia, polyuria, polyphagia, and marked weight changes, Hematologic/Lymphatic: Negative for swollen nodes, abnormal bleeding, and unusual bruising. 16:28 Respiratory: Positive for orthopnea, shortness of breath, at rest. wheezing. 16:28 Neuro: Positive for gait disturbance, speech changes, Slurred speech, Negative for altered mental status, dizziness, headache, hearing loss, loss of consciousness, numbness, seizure activity, syncope, near syncope, tingling, tinnitus, tremor, visual changes. Exam: 16:28 Constitutional: This is a well developed, well nourished patient who is awake, alert, kav and in no acute distress. Head/Face: Normocephalic, atraumatic. Eyes: Pupils equal round and reactive to light, extra-ocular motions intact. Lids and lashes normal. Conjunctiva and sclera are non-icteric and not injected. Cornea within normal limits. Periorbital areas with no swelling, redness, or edema. ENT: Nares patent. No nasal discharge, no septal abnormalities noted. Tympanic membranes are normal and external auditory canals are clear. Oropharynx with no redness, swelling, or masses, exudates, or evidence of obstruction, uvula midline. Mucous membranes moist. Neck: Trachea midline, no thyromegaly or masses palpated, and no cervical lymphadenopathy. Supple, full range of motion without nuchal rigidity, or vertebral point tenderness. No Meningismus. Chest/axilla: Normal chest wall appearance and motion. Nontender with no deformity. No lesions are appreciated. Respiratory: Lungs have equal breath sounds bilaterally, clear to auscultation and percussion. No rales, rhonchi or wheezes noted. No increased work of breathing, no retractions or nasal flaring. Abdomen/GI: Soft, non-tender, with normal bowel sounds. No distension or tympany. No guarding or rebound. No evidence of tenderness throughout. Back: No spinal tenderness. No costovertebral tenderness. Full range of motion. Skin: Warm, dry with normal turgor. Normal color with no rashes, no lesions, and no evidence of cellulitis. MS/ Extremity: Pulses equal, no cyanosis. Neurovascular intact. Full, normal range of motion. Neuro: Awake and alert, GCS 15, oriented to person, place, time, and situation. Cranial nerves II-XII grossly intact. Motor strength 5/5 in all extremities. Sensory grossly intact. Cerebellar exam normal. Normal gait. 16:28 Cardiovascular: Rate: normal, Rhythm: regular, Pulses: Pulses are 1+ in bilateral radial, brachial, femoral, popliteal, posterior tibial and and dorsalis pedis arteries.. Heart sounds: normal, Edema: 1+ edema to level of left midcalf, left ankle, left foot, left toes, right midcalf, right ankle, right foot and right toes, JVD: is noted on the right, to 2 cm. 16:48 Cardiovascular: Rate: actual rate is 62 bpm, Rhythm: regular, sinus rhythm w/ 1st kav degree av block, Pulses: 16:48 ECG was reviewed by the Attending Physician. Vital Signs: 16:07 BP 103 / 57; Pulse 62; Resp 20; Temp 98.0(O); Pulse Ox 98% on 2 lpm NC; Weight 99.79 kg;tl3 16:47 BP 107 / 67; Pulse 60; Resp 18; Pulse Ox 100% on 2 lpm NC; tl3 17:30 BP 125 / 83; Pulse 61; Resp 18; Pulse Ox 100% on 2 lpm NC; tl3 18:06 BP 101 / 66; Pulse 62; Resp 18; Pulse Ox 99% on R/A; tl3 MDM: 16:04 Medical screening is not applicable. kav 16:28 Data reviewed: vital signs, nurses notes. kav 17:38 Physician consultation: Luis Fernando Huston MD was called at 17:38, was contacted at 17:38, ka regarding patient's condition, requests to get patient up out of bed and let him walk. patient has home health care for rehabilitation.. 17:48 Counseling: I had a detailed discussion with the patient and/or guardian regarding: the ka historical points, exam findings, and any diagnostic results supporting the discharge/admit diagnosis, lab results, radiology results, the need for outpatient follow up, PCP/Dr. Huston, Advised patient to take No more cough syrup (Promethazine DM - cough medication verified with patient's pharmacy). . ED course: patient ambulated with walker assisted by nursing staff. patient's son reports that the patient has been taking cough syrup. patients reports that the cough syrup has codeine and phenergan in it and that he took "...two swigs of it this morning". patient reports that he has been receiving home health rehabilitation.. 17:58 ED course: patient status reviewed with attending, . 05/19 16:25 Order name: Basic Metabolic Panel; Complete Time: 17:02 v 05/19 16:25 Order name: CBC with Diff; Complete Time: 17:26 v 05/19 16:25 Order name: LFT's; Complete Time: 17:02 v 05/19 16:25 Order name: Magnesium; Complete Time: 17:02 05/19 16:25 Order name: NT PRO-BNP; Complete Time: 17:02 [facility] 05/19 16:25 Order name: PT-INR; Complete Time: 16:59 v 05/19 16:25 Order name: Troponin (emerg Dept Use Only); Complete Time: 17:02 kav 05/19 16:25 Order name: XRAY Chest (1 view); Complete Time: 18:19 kav 05/19 16:25 Order name: EKG; Complete Time: 16:26 kav 05/19 16:25 Order name: Cardiac monitoring; Complete Time: 17:48 kav 05/19 16:25 Order name: EKG - Nurse/Tech; Complete Time: 17:48 kav 05/19 16:25 Order name: IV Saline Lock; Complete Time: 17:48 kav 05/19 16:25 Order name: CT Head Brain wo Cont; Complete Time: 16:59 kav 05/19 16:25 Order name: Labs collected and sent; Complete Time: 17:49 kav 05/19 16:25 Order name: O2 Per Protocol; Complete Time: 17:49 kav 05/19 16:25 Order name: O2 Sat Monitoring; Complete Time: 17:49 kav Administered Medications: 18:00 Drug: DuoNeb (3:1) (2.5 mg - 0.5 mg) 3 ml Route: Nebulizer; tl3 18:25 Follow up: Response: No adverse reaction tl3 Point of Care Testing: Blood Glucose: 16:07 Blood Glucose: 122 mg/dL; tl3 Ranges: Critical Glucose Levels:Adult <50 mg/dl or >400 mg/dl <40 mg/dl or >180 mg/dl Disposition: 05/19/18 17:54 Discharged to Home. Impression: Generalized Weakness, Sedation Side Effect of Medication, Non-productive cough, Unspecified adverse effect of drug or medicament. - Condition is Stable. - Discharge Instructions: Weakness, [id number]. - Medication Reconciliation Form, Thank You Letter form. - Follow up: Private Physician; When: 5 - 6 days; Reason: Recheck today's complaints, Continuance of care, Re-evaluation by your physician. - Problem is new. - Symptoms have improved. - Notes: Do not take anymore of Promethazine DM cough syrup Signatures: Dispatcher [employer] EDJenni Valdez, BIT SETTER BIT SETTER Parish Lindsey MD MD rn Lowrey, Tammy, RN RN tl3 Corrections: (The following items were deleted from the chart) 17:58 17:54 05/19/2018 17:54 Discharged to Home. Impression: Generalized Weakness, Sedation kav Side Effect of Medication, Non-productive cough. Condition is Stable. Forms are Medication Reconciliation Form, Thank You Letter, Antibiotic Education, Prescription Opioid Use. Follow up: Private Physician; When: 5 - 6 days; Reason: Recheck today's complaints, Continuance of care, Re-evaluation by your physician. Problem is new. Symptoms have improved. kav 18:27 17:58 05/19/2018 17:54 Discharged to Home. Impression: Generalized Weakness, Sedation tl3 Side Effect of Medication, Non-productive cough; Unspecified adverse effect of drug or medicament. Condition is Stable. Discharge Instructions: Weakness, [id number]. Forms are Medication Reconciliation Form, Thank You Letter. Follow up: Private Physician; When: 5 - 6 days; Reason: Recheck today's complaints, Continuance of care, Re-evaluation by your physician. Problem is new. Symptoms have improved. kav
[2018-05-19] MEDS ORDERED: ALBUTEROL 2.5 MG/3 ML NEB SOL ONE (18:00)
[2018-05-19] MEDS ORDERED: IPRATROPIUM BROM 0.5MG/2.5ML ONE (18:00)
--- NOTE | 2018-05-19 18:18 | RAD REPORT ---
EXAM DESCRIPTION: RAD - Chest Single View - 05/19/2018 5:14 pm CLINICAL HISTORY: chf;Congestion;Cough Chest pain. COMPARISON: Chest Single View dated 04/26/2018; Chest Single View dated 03/23/2018; Chest Single View dated 09/13/2017; Chest Single View dated 08/25/2017 FINDINGS: Portable technique limits examination quality. The lungs are grossly clear. The heart is mildly enlarged in size with multilead pacer/defibrillator device present. No displaced fractures.Sternotomy wires present. IMPRESSION: No acute intrathoracic process suspected.
[2018-05-19 19:11] VITALS: TEMP 98
[2018-05-19 19:15] VITALS: BP 101/66; O2SAT 99
== END 2018-05-19 18:27 | disposition home or self-care (01) ==
LOC: ER 15:49
DX: T50.995A Adverse effect of other drugs, medicaments and biological substances, initial encounter (principal); R05 Cough; I10 Essential (primary) hypertension; E11.9 Type 2 diabetes mellitus without complications; Z79.82 Long term (current) use of aspirin; Z88.7 Allergy status to serum and vaccine; Z88.8 Allergy status to other drugs, medicaments and biological substances; Z86.73 Personal history of transient ischemic attack (TIA), and cerebral infarction without residual deficits
CPT/HCPCS: 36415; 70450; 71045; 80048; 80076; 82962; 83735; 83880; 84484; 85025; 85610; 93005; 94640; 99285

== ENCOUNTER 2018-05-23 14:06 | Observation (INO) | payer OTHER ==
--- OUTSIDE RECORDS SUMMARY | 2018-05-23 14:09 | XMS REPORT | Clinical Summary ---
:1940 Author Organization [facility] Address [address] [place] [address] Care Team Providers Name Role Phone Edmund [...] Bilateral carotid artery disease 10/26/2017 CAD in eek artery 03/23/2017 ST elevation myocardial infarction involving left circumflex coronary 2016 artery NSTEMI (non-ST elevated myocardial infarction) 03/02/2017 Coronary artery disease involving eek coronary artery of eek heart 02/09 without angina pectoris Diastolic congestive heart failure 02/09/2017 Carotid bruit 02/09/2017 History of coronary artery bypass graft 08/07/2016 Stented coronary artery 08/07/2016 SOB (shortness of breath) 08/07/2016 Systolic congestive heart failure 08/07/2016 Encounters Date Type Specialty Care Team Description 05/12/2018 Orders Only Cardiology Flaquito Ann MA 05/11/2018 Orders Only Cardiology Daphne Kraft MA 05/09/2018 Refill Cardiology Sai Guerra MA Med Refill 04/20/2018 Refill Cardiology Gabriela Enriquez MD Med Refill 11/03/2017 Orders Only Cardiology Flaquito Ann MA Coronary artery disease involving eek coronary artery of eek heart without angina pectoris (Primary Dx) 11/03/2017 [...] mellitus type 2 without complications, unspecified intermediate school teacher insulin use status; Systolic congestive heart failure, unspecified congestive heart failure chronicity; Coronary artery disease involving eek coronary artery of eek heart without angina pectoris 08/20/2017 Telephone Family Medicine Edmund Phillips MD 08/19/2017 Lab Lab Edmund Phillips, Dizziness; Essential hypertension 08/19/2017 Office Visit Internal Medicine Edmund Phillips, Chest wall pain (Primary Dx); Arthralgia of hip, unspecified laterality; Uncontrolled diabetes mellitus type 2 without complications, unspecified penitentiary insulin use status; Essential hypertension; Dizziness; Systolic congestive heart failure, unspecified congestive heart failure chronicity 08/18/2017 Telephone Family Medicine Abel Rodriguez LVN 08/17/2017 Office Visit Cardiology Gabriela Enriquez MD Systolic congestive heart failure, unspecified congestive heart failure chronicity (Primary Dx); Pain of right hip joint; Stented coronary artery; Coronary artery disease involving eek coronary artery of eek heart without angina pectoris; History of coronary artery bypass graft after 05/22/2017 Immunizations Name Dates Previously Given Next Due [...] 36.8 C (98.2 F) 08/25/2017 10:42 AM AUDIO VIDEO TECHNICIAN Respiratory Rate 16 08/25/2017 10:42 AM AUDIO VIDEO TECHNICIAN Oxygen Saturation 97% 08/25/2017 10:42 AM AUDIO VIDEO TECHNICIAN Inhaled Oxygen Concentration - - Weight 96.2 kg (212 lb) 10/26/2017 3:49 PM CDT Height 180.3 cm (5' 11") 08/25/2017 10:42 AM AUDIO VIDEO TECHNICIAN Body Mass Index 29.57 10/26/2017 3:49 PM CDT Plan of Treatment Health Maintenance Due Date Last Done Comments DIABETIC RETINAL EYE EXAM 1940 DIABETIC FOOT EXAM 1949 URINE MICROALBUMIN 1949 SHINGRIX VACCINE (1 of 2) 1989 ZOSTER VACCINE 1999 PNEUMOCOCCAL POLYSACCHARIDE VACCINE AGE 65 AND OVER 2004 PNEUMOCOCCAL-13 2004 INFLUENZA VACCINE 02/02/2018 05/19/2017 Implants Implanted Type Area Window Glazier Device Shelf Model / Identifier Expiration Serial / Date Lot Stent Catheter Synergy (Otw) 3.50mm X 16mm - [id number] Coronary N/A: N/A [facility] [place] [id number] / Implanted: Qty: 1 on 03/03/2017 by [...] wall pain Results for this RIGHT PM AUDIO VIDEO TECHNICIAN procedure are in the results section. SPECIMEN STATUS REPORT Routine 08/19/2017 1:47 Results for this PM AUDIO VIDEO TECHNICIAN procedure are in the results section. HEMOGLOBIN A1C Routine 08/19/2017 1:47 Results for this PM AUDIO VIDEO TECHNICIAN procedure are in the results section. SPECIMEN STATUS REPORT Routine 08/19/2017 1:47 Results for this PM AUDIO VIDEO TECHNICIAN procedure are in the results section. BASIC METABOLIC PANEL Routine 08/19/2017 1:47 Essential Results for this PM AUDIO VIDEO TECHNICIAN hypertension procedure are in the results section. CBC WITH PLATELET AND Routine 08/19/2017 1:47 Dizziness Results for this DIFFERENTIAL PM AUDIO VIDEO TECHNICIAN procedure are in the results section. XR HIP 2-3 VIEWS RIGHT Routine 08/17/2017 12:08 Pain of right hip Results for this PM AUDIO VIDEO TECHNICIAN joint procedure are in the results section. ECHOCARDIOGRAM 2D Routine 07/28/2017 11:02 CAD in eek artery Results for this COMPLETE W MMODE AM AUDIO VIDEO TECHNICIAN procedure are in SPECTRAL COLOR DOPPLER the results (09056) section. after 05/22/2017 Results Pv carotid duplex (10/28/2017 11:25 AM CDT) Narrative Performed At [facility] Carotid Artery Ultrasound Report Pat.Name:TITUS NANCE Pat.ID:[id number] .Date: 10/28/2017 Refer.MD:GABRIELA ENRIQUEZ MD Exam Time: 11:52:00 AM Study Type:Carotid DOBAge:1940,77Y Sex: MALE Sonogrphr: Tiffanie Ross, JOSÉ, RDCS, RVT Pat. Stat.:Outpatient Room:[place] [address]: [facility] Echo Event ID:[id number] Order ID:[id number] Reason for Study:Carotid artery disease Race:C SUMMARY: [...] EDV39.9 cm/s Right ICA Mid ICA Mid [id number] cm/Isaiah Mid EDV 42.5 cm/s Right ICA [...] Results In - 10/29/2017 4:53 PM CDT [facility] Carotid Artery Ultrasound Report Pat.Name: TITUS NANCE Pat.ID: [id number] St.Date: 10/28/2017 Refer.MD: GABRIELA ENRIQUEZ MD Exam Time: 11:52:00 AM Study Type:Carotid Age: 11 1940,77Y Sex: MALE Sonogrphr: Tiffanie Ross, RDMS, RDCS, RVT Pat. Stat.:Outpatient Room: [place] CPT - 4: 53144 Echo Event ID:[id number] Order ID: [id number] Reason for Study:Carotid artery disease Race: C [...] PM Gabriela Enriquez MD Performing Organization Address City[facility] Phone Number [facility] [address] [place] [address] XR Ribs W Pa Chest Right (08/19/2017 3:29 PM AUDIO VIDEO TECHNICIAN) Narrative Performed At EXAMINATION:XR RIBSW PA CHEST RIGHT [facility] CLINICAL HISTORY:R07.89 Other chest pain, CHEST WALL PAIN COMPARISON:None. IMPRESSION: The lungs are clear Heart is slightly enlarged, unchanged from prior Diffuse calcified atherosclerotic vascular disease throughout the arterial structures. [facility]-[id number] Procedure Note Interface, Radiology Results Incoming - 08/19/2017 4:22 PM AUDIO VIDEO TECHNICIAN EXAMINATION: XR RIBS W PA CHEST RIGHT CLINICAL HISTORY: R07.89 Other chest pain, CHEST WALL PAIN COMPARISON: None. IMPRESSION: The lungs are clear Heart is slightly enlarged, unchanged from prior Diffuse calcified atherosclerotic vascular disease throughout the arterial structures. [facility]-[id number] Performing Organization Address [facility] Phone Number [facility] [address] [place] [address] Specimen Status Report (08/19/2017 1:47 PM AUDIO VIDEO TECHNICIAN)Only the most recent of2 resultswithin the time period is included. Specimen Status Report COMMENT [facility] Comment: Written Authorization Written Authorization No Written Authorization Received. Narrative Performed At Performed at: - [facility] [place], [id number] Amusement Ride Inspector: Ministerio Clemens MD, Phone:[phone] Performing Organization Address [facility] Phone Number [facility] CBC with platelet and differential (08/19/2017 1:47 PM AUDIO VIDEO TECHNICIAN) WBC 8.1 3.4 - 10.8 x10E3/uL [facility] [...] Narrative Performed At Performed at: - [facility] [place] [facility] [address] [place], [id number] Amusement Ride Inspector: Minsiterio Clemens MD, Phone:[phone] Performing Organization Address [facility] Phone Number [facility] Hemoglobin A1c (08/19/2017 1:47 PM AUDIO VIDEO TECHNICIAN) Hemoglobin A1C 11.8 (H) 4.8 - 5.6 % [facility] Comment: Pre-diabetes: 5.7 - 6.4 Diabetes: >6.4 Glycemic control for adults with diabetes: <7.0 Narrative Performed At Performed at:[address] [place] [address] [id number] Amusement Ride Inspector: Ministerio Clemens MD, Phone:[phone] Performing Organization Address [facility] Phone Number [facility] Basic metabolic panel (08/19/2017 1:47 PM AUDIO VIDEO TECHNICIAN) Glucose 467 (H) 65 - 99 mg/dL [facility] BUN, whole blood 36 (H) 8 - 27 mg/dL [facility] Creatinine 1.55 (H) 0.76 - 1.27 mg/dL [facility] EGFR Non-Afr. Uruguayan 42 (L) >59 mL/min/1.73 [facility] EGFR 49 (L) >59 mL/min/1.73 [facility] BUN/creatinine ratio 23 10 - 24 [facility] Sodium 127 (L) 134 - 144 mmol/L [facility] Potassium 5.2 3.5 - 5.2 mmol/L [facility] Chloride 85 (L) 96 - 106 mmol/L [facility] CO2 26 18 - 29 mmol/L [facility] Calcium 9.2 8.6 - 10.2 mg/dL [facility] Specimen Blood Narrative Performed At [facility]formed at: [facility] [id number] Amusement Ride Inspector: Ministerio Clemens MD, Phone:[phone] Performing Organization Address [facility] Phone Number [facility] XR Hip 2-3 View Right (08/17/2017 12:08 PM AUDIO VIDEO TECHNICIAN) Narrative Performed At EXAMINATION:XR HIP 2-3 VIEWS RIGHT HM [facility] CLINICAL HISTORY:M25.551 Pain in right hip, hip pain fall COMPARISON:none. IMPRESSION: 1.No displaced fractures or dislocations. Pelvic vascular calcifications are noted. [id number] Procedure Note Hm Interface, Radiology Results Incoming - 08/17/2017 2:08 PM AUDIO VIDEO TECHNICIAN EXAMINATION: XR HIP 2-3 VIEWS RIGHT CLINICAL HISTORY: M25.551 Pain in right hip, hip pain fall COMPARISON: none. IMPRESSION: 1. No displaced fractures or dislocations. Pelvic vascular calcifications are noted. [id number] Performing Organization Address City/State/Zipcode Phone Number [facility] [address] [place] [address] Echocardiogram complete w contrast and 3D if needed (07/28/2017 11:02 AM AUDIO VIDEO TECHNICIAN) Narrative Performed At [facility] Echocardiography Report Pat.Name:TITUS NANCE Pat.ID:[id number] .Date: 07/28/2017 Refer.MD:GABRIELA ENRIQUEZ MD Exam Time: 10:02:00 AM Study Type:Routine Echo Height:71inWeight: 220lb BSA: 2.2 f1GMFYmz:1940,77Y Sex: MALEBP:108/65 Sonogrphr: Tiffanie Ross RDCS, RVTPat. Stat.:Outpatient Study Status:Final Echo Event ID:[id number] Order ID:[id number] Reason for Study:Coronary Artery Disease History / [...] RAPof 10 mmHg. MEASUREMENTS: 2D Parasternal [place] LVOT 2.2 cmLA Ds4.7 cm LVIDd6.2 cmIndex2.8 cm/m Ao An2.5 cm LVIDs5.6 cmAo Rtd 3 cm Index1.4 cm/m LV%fs9.7 % LV Fpvg053.3 g(122-174) IVSd 1.3 cmRWT0.4 LVPWd1.3 cm LA Sng Plane LA Area 26.4 cm2(8.8-23.4) LA Vol99.7 ml Index45.3 ml/m LA LngAx 5.8 cm RA Sng Plane RA Area 17.4 cm2(8.3-19.5) RA Vol47.9 ml Index21.8 ml/m RA LngAx 5.5 cm Signed 07/29/2017 02:56 PM Tano Granados M.D. Procedure Note Interface, Radiology Results In - 07/29/2017 2:56 PM AUDIO VIDEO TECHNICIAN [facility] Echocardiography Report Pat.Name: TITUS NANCE.ID: [id number] St.Date: 07/28/2017 Refer.MD: GABRIELA ENRIQUEZ MD Exam Time: 10:02:00 AM Study Type:Routine Echo Height: 71in Weight: 220lb BSA: 2.2 m2 Age: 11 1940,77Y Sex: MALE BP: 108/65 Sonogrphr: Tiffanie Ross RDCS, RVT Pat. Stat.:Outpatient Study Status:Final Echo Event ID:[id number] Order ID: [id number] Reason for Study:Coronary Artery Disease History / [...] of 10 mmHg. MEASUREMENTS: 2D Parasternal [place] LVOT 2.2 cm LA Ds 4.7 cm [...] Performing Organization Address City/State/Zipcode Phone Number [facility] [address] [place] [address] after 05/22/2017 Insurance Payer Benefit Plan / Group Subscriber ID Type Phone Address AETNA MEDICARE AETNA MEDICARE HMO/PPO [facility] xxxxxxxx HMO MEDICAID MEDICAID xxxxxxxxx Medicaid (Home) [place] [address] Advance Directives Patient has advance care planning documents on file. For more information, please contact:[facility] [id number] [place] [address]
[2018-05-23] MEDS ORDERED: NA CHLORIDE 0.9% 1,000 ML ONE (14:57)
--- NOTE | 2018-05-23 15:04 | RAD REPORT ---
EXAM DESCRIPTION: RAD - Chest Single View - 05/23/2018 2:58 pm CLINICAL HISTORY: COUGH Chest pain. COMPARISON: Chest Single View dated 05/19/2018; Chest Single View dated 04/26/2018; Chest Single Vie w dated 03/23/2018; Chest Single View dated 09/13/2017 FINDINGS: Portable technique limits examination quality. Mild interstitial pulmonary edema is seen. The heart is moderately prominent in size with a dual lead pacer/ defibrillator device. No displaced fractures.Sternotomy wires noted. IMPRESSION: Mild CHF versus volume overload pattern.
[2018-05-23 15:22] LABS: Absolute Lymphocytes (CBC) 2.7 K/uL (0.7-4.9); Absolute Monocytes 1.3 K/uL (0.1-1.3); Absolute Neutrophil 6.5 K/uL (1.8-8.0); Basophils % 0.5 % (0-1.3); Eosinophils % 5.2 % (0-4.4); Hematocrit 40.4 % (39.6-49.0); MCH 32.8 pg (27.0-35.0); MCV 97.1 fL (80-100); MPV 7.3 fL (7.6-11.3); Monocytes % 11.9 % (3.3-12.3); RBC Red Blood Cell Count 4.16 M/uL (4.33-5.43)
[2018-05-23 15:23] LABS: Protime INR 1.06
[2018-05-23 15:44] LABS: ALT/SGPT 48 U/L (12-78); AST/SGOT 34 U/L (15-37); Albumin 4.1 g/dL (3.4-5.0); Alkaline Phosphatase 70 U/L (45-117); BUN Blood Urea Nitrogen 27 mg/dL (7-18); Bicarbonate 30 mmol/L (21-32); Bilirubin Direct 0.2 mg/dL (0-0.2); Glucose Level 58 mg/dL (74-106); Lipase 186 U/L (73-393); Magnesium 2.4 mg/dL (1.8-2.4); NT PRO-BNP 870 pg/mL (<450); Potassium 3.8 mmol/L (3.5-5.1); Protein, Total 7.9 g/dL (6.4-8.2); Sodium Level 138 mmol/L (136-145); Troponin (Emerg Dept Use Only) < 0.02 ng/mL (0.0-0.045)
[2018-05-23] MEDS ORDERED: FUROSEMIDE 20 MG/ 2ML VIAL ONE (15:56)
[2018-05-23] MEDS ORDERED: METHYLPREDNISOLONE 125 MG INJ ONE (16:02)
[2018-05-23] MEDS ORDERED: IPRATROPIUM BROM 0.5MG/2.5ML ONE (16:02)
[2018-05-23] MEDS ORDERED: D50W 25 GM/50 ML SYRINGE IV ONE (16:02)
[2018-05-23] MEDS ORDERED: LEVALBUTEROL 1.25 MG/3 ML NEB ONE (16:02)
[2018-05-23] MEDS ORDERED: FAMOTIDINE 20 MG/2 ML VIAL IV ONE (16:03)
--- NOTE | 2018-05-23 16:37 | EDPHYS ---
Physician Documentation [facility] Emergency Department Name: Titus Holloway Age: 78 yrs Sex: Male : 1940 Arrival Date: 05/23/2018 Time: 14:09 Bed 15 Private MD: ED Physician Mu Lewis HPI: 05/23 15:48 This 78 yrs old Male presents to ER via Wheelchair with complaints of tez Shortness Of Breath. 15:48 The patient has shortness of breath at rest, with light activity. Onset: The tez symptoms/episode began/occurred 2 day(s) ago. Duration: The symptoms are continuous, and are steadily getting worse. The patient's shortness of breath is aggravated by coughing, supine position, talking, walking. Associated signs and symptoms: Pertinent positives: non-productive cough. Severity of symptoms: At their worst the symptoms were moderate in the emergency department the symptoms are unchanged. Unable to obtain HPI due to. The patient has experienced similar episodes in the past. Historical: - Allergies: 14:12 Plavix; sv 14:12 Tetanus Vaccines \T\ Toxoid; sv - Home Meds: 14:19 amiodarone 200 mg Oral tab 0.5 tab once daily [Active]; aspirin 81 mg Oral chew 1 tab hj once daily [Active]; atorvastatin 80 mg Oral tab 1 tab once daily [Active]; BRILINTA 90 mg Oral tab 1 tab 2 times per day [Active]; citalopram 20 mg tab 1 tab once daily for Anxiety with Depression [Active]; clonidine HCl 0.2 mg Oral tab 1 tab 2 times per day [Active]; furosemide 80 mg Oral tab 1 tab once daily for Peripheral Edema due to Chronic Heart Failure [Active]; furosemide 40 mg Oral tab 1 tab once daily [Active]; metoprolol tartrate 50 mg Oral tab 1 tab 2 times per day for Hypertension [Active]; spironolactone 25 mg Oral tab 1 tab once daily [Active]; - PMHx: 14:12 CAD; COPD; CVA; Diabetes - IDDM; Hyperlipidemia; Hypertension; Pneumonia; weakness; CHF;sv - PSHx: 14:12 Bypass; Heart stents; back; sv - Immunization history:: Adult Immunizations up to date. - Ebola Screening: : No symptoms or risks identified at this time. - Social history:: Smoking status: Patient/guardian denies using tobacco, Patient/guardian denies using alcohol. ROS: 15:49 Constitutional: Negative for fever, chills, and weight loss, Eyes: Negative for injury, tez pain, redness, and discharge, ENT: Negative for injury, pain, and discharge, Neck: Negative for injury, pain, and swelling, Cardiovascular: Negative for chest pain, palpitations, and edema, Abdomen/GI: Negative for abdominal pain, nausea, vomiting, diarrhea, and constipation, Back: Negative for injury and pain, : Negative for injury, bleeding, discharge, and swelling, MS/Extremity: Negative for injury and deformity, Skin: Negative for injury, rash, and discoloration, Neuro: Negative for headache, weakness, numbness, tingling, and seizure. 15:49 Respiratory: Positive for cough, wheezing, expiratory. Exam: 15:49 Constitutional: This is a well developed, well nourished patient who is awake, alert, tez and in no acute distress. Head/Face: Normocephalic, atraumatic. Eyes: Pupils equal round and reactive to light, extra-ocular motions intact. Lids and lashes normal. Conjunctiva and sclera are non-icteric and not injected. Cornea within normal limits. Periorbital areas with no swelling, redness, or edema. ENT: Nares patent. No nasal discharge, no septal abnormalities noted. Tympanic membranes are normal and external auditory canals are clear. Oropharynx with no redness, swelling, or masses, exudates, or evidence of obstruction, uvula midline. Mucous membranes moist. Neck: Trachea midline, no thyromegaly or masses palpated, and no cervical lymphadenopathy. Supple, full range of motion without nuchal rigidity, or vertebral point tenderness. No Meningismus. Cardiovascular: Regular rate and rhythm with a normal S1 and S2. No gallops, murmurs, or rubs. Normal PMI, no JVD. No pulse deficits. Abdomen/GI: Soft, non-tender, with normal bowel sounds. No distension or tympany. No guarding or rebound. No evidence of tenderness throughout. Back: No spinal tenderness. No costovertebral tenderness. Full range of motion. Male : Normal genitalia with no discharge or lesions. 15:49 Chest/axilla: Inspection: normal, no acute changes. 15:52 Cardiovascular: Rate: normal, Rhythm: regular, Pulses: Pulses are 4+ in bilateral tez radial, brachial, femoral, popliteal, posterior tibial and and dorsalis pedis arteries.. thready. Vital Signs: 14:12 BP 107 / 63; Pulse 66; Resp 20; Temp 97; Pulse Ox 97% ; Weight 90.72 kg; Height 5 ft. sv 11 in. (180.34 cm); Pain 0/10; 14:29 BP 133 / 60; Pulse 67; Resp 18; Pulse Ox 98% on R/A; hj 15:30 BP 125 / 78; Pulse 62; Resp 18; Pulse Ox 100% on 2 lpm NC; hj 16:30 BP 122 / 73; Pulse 61; Resp 18; Pulse Ox 100% on 2% Nebulizer Mask; mg2 17:49 BP 133 / 78; Pulse 60; Resp 18; Pulse Ox 100% on 2 lpm NC; hj 18:38 BP 130 / 70; Pulse 60; Resp 18; Pulse Ox 100% on 2 lpm NC; hj 19:30 BP 120 / 68; Pulse 64; Resp 20; Pulse Ox 93% on 2 lpm NC; jb4 20:15 BP 106 / 75; Pulse 61; Resp 20; Pulse Ox 100% on 2 lpm NC; jb4 14:12 Body Mass Index 27.89 (90.72 kg, 180.34 cm) sv MDM: 14:41 Patient medically screened. [facility] 16:16 Data reviewed: vital signs, nurses notes, lab test result(s), EKG, radiologic studies, [facility] CT scan, plain films. 05/23 14:42 Order name: Basic Metabolic Panel [facility] 05/23 14:42 Order name: CBC with Diff [facility] 05/23 14:42 Order name: LFT's [facility] 05/23 14:42 Order name: Magnesium [facility] 05/23 14:42 Order name: NT PRO-BNP [facility] 05/23 14:42 Order name: PT-INR [facility] 05/23 14:42 Order name: Troponin (emerg Dept Use Only) [facility] 05/23 14:42 Order name: Blood Culture Adult (2) [facility] 05/23 14:42 Order name: Influenza Screen (a \T\ B) [facility] 05/23 14:42 Order name: Lipase [facility] 05/23 14:42 Order name: Procalcitonin [facility] 05/23 14:43 Order name: Urine Culture [facility] 05/23 15:32 Order name: Protime (+INR); Complete Time: 15:44 [facility] 05/23 15:32 Order name: Influenza Screen (A ; Complete Time: 15:44 [facility] 05/23 14:42 Order name: XRAY Chest (1 view) [facility] 05/23 15:05 Order name: RAD; Complete Time: 15:44 [facility] 05/23 15:33 Order name: CBC with Automated Diff; Complete Time: 15:44 [facility] 05/23 15:45 Order name: Basic Metabolic Panel; Complete Time: 15:45 [facility] 05/23 15:45 Order name: Liver (Hepatic) Function; Complete Time: 15:45 [facility] 05/23 15:45 Order name: Troponin (Emerg Dept Use Only); Complete Time: 15:45 [facility] 05/23 15:45 Order name: NT PRO-BNP; Complete Time: 15:45 [facility] 05/23 15:45 Order name: Magnesium; Complete Time: 15:45 [facility] 05/23 15:45 Order name: Lipase; Complete Time: 15:45 [facility] 05/23 16:13 Order name: Procalcitonin; Complete Time: 16:33 [facility] 05/23 18:46 Order name: Urine Dipstick--Ancillary (enter results) 05/23 19:12 Order name: Urine Dipstick-Ancillary [facility] 05/23 19:48 Order name: Troponin I [facility] 05/23 19:48 Order name: Glucose, Ancillary Testing [facility] 05/23 14:30 Order name: EKG - Nurse/Tech; Complete Time: 14:30 05/23 14:42 Order name: EKG; Complete Time: 14:43 [facility] 05/23 14:42 Order name: Cardiac monitoring; Complete Time: 14:44 [facility] 05/23 14:42 Order name: IV Saline Lock; Complete Time: 15:10 [facility] 05/23 14:42 Order name: Labs collected and sent; Complete Time: 15:10 [facility] 05/23 14:42 Order name: O2 Per Protocol; Complete Time: 14:44 [facility] 05/23 14:42 Order name: O2 Sat Monitoring; Complete Time: 14:44 [facility] 05/23 14:43 Order name: Urine Dipstick-Ancillary (obtain specimen); Complete Time: 18:57 [facility] Administered Medications: Discontinued: NS 0.9% 1000 ml IV at 75 ml/hr continuous 15:00 Drug: NS 0.9% 1000 ml Route: IV; Rate: 75 ml/hr; Site: right antecubital; hj 17:50 Follow up: IV Status: Order to discontinue infusion; IV Intake: 450ml hj 15:46 Drug: Lasix 40 mg Route: IVP; Site: right antecubital; hj 15:50 Follow up: Response: No adverse reaction hj 15:48 Drug: D50W 25 ml Route: IVP; Site: right antecubital; hj 16:02 Follow up: Response: Blood sugar is elevated hj 16:00 Drug: Pepcid 20 mg Route: IVP; Site: right antecubital; hj 16:04 Follow up: Response: No adverse reaction hj 16:00 Drug: SOLU-Medrol 125 mg Route: IVP; Site: right antecubital; hj 16:04 Follow up: Response: No adverse reaction; Wheezing diminished hj 16:04 Follow up: Response: No adverse reaction hj 16:00 Drug: Xopenex 2.5 mg Route: Inhalation; hj 16:00 Drug: AtroVENT Aerosol 0.5 mg Route: Inhalation; hj 16:03 Follow up: Response: No adverse reaction; Wheezing diminished hj 17:08 Drug: Rocephin - (cefTRIAXone) 1 grams Route: IVPB; Infused Over: 30 mins; Site: right mg2 antecubital; 17:08 Follow up: IV Status: Completed infusion mg2 Point of Care Testing: Blood Glucose: 17:03 Blood Glucose: 86 mg/dL; mg2 Ranges: Critical Glucose Levels:Adult <50 mg/dl or >400 mg/dl <40 mg/dl or >180 mg/dl Disposition: 05/23/18 16:36 Hospitalization ordered by Luis Fernando Huston for Inpatient Admission. Preliminary diagnosis are Dyspnea, Unspecified combined systolic (congestive) and diastolic (congestive) heart failure, Chronic obstructive pulmonary disease with (acute) exacerbation, Type 1 diabetes mellitus, Hypoglycemia, unspecified. - Bed requested for Telemetry/MedSurg (Inpatient). - Status is Inpatient Admission. jb4 - Condition is Fair. - Problem is new. - Symptoms have improved. UTI on Admission? No Signatures: Dispatcher [employer] Patsy Sigala RN RN sv Anderson, Corey, MD MD cha Joaquin, Henry, RN RN Bob Centeno RN RN jb4 Bozena Arrington, RN RN df Phan Benton, RN RN mg2 Corrections: (The following items were deleted from the chart) 15:53 15:49 Cardiovascular: Rate: tachycardic, Rhythm: Heart sounds: normal, murmur, not tez appreciated, rub, not appreciated, gallop, tez 17:59 16:36 Hospitalization Ordered by Luis Fernando Huston MD for Inpatient Admission. Preliminary df diagnosis is Dyspnea; Unspecified combined systolic (congestive) and diastolic (congestive) heart failure; Chronic obstructive pulmonary disease with (acute) exacerbation; Type 1 diabetes mellitus; Hypoglycemia, unspecified. Bed requested for Telemetry/MedSurg (Inpatient). Status is Inpatient Admission. Condition is Fair. Problem is new. Symptoms have improved. UTI on Admission? No. tez 20:36 17:59 05/23/2018 16:36 Hospitalization Ordered by Luis Fernando Huston MD for Inpatient jb4 Admission. Preliminary diagnosis is Dyspnea; Unspecified combined systolic (congestive) and diastolic (congestive) heart failure; Chronic obstructive pulmonary disease with (acute) exacerbation; Type 1 diabetes mellitus; Hypoglycemia, unspecified. Bed requested for Telemetry/MedSurg (Inpatient). Status is Inpatient Admission. Condition is Fair. Problem is new. Symptoms have improved. UTI on Admission? No. df
--- NOTE | 2018-05-23 16:37 | ER ---
Nurse's Notes [facility] Name: Titus Holloway Age: 78 yrs Sex: Male : 1940 Arrival Date: 05/23/2018 Time: 14:09 Bed 15 Private MD: Diagnosis: Dyspnea;Unspecified combined systolic (congestive) and diastolic (congestive) heart failure;Chronic obstructive pulmonary disease with (acute) exacerbation;Type 1 diabetes mellitus;Hypoglycemia, unspecified Presentation: 05/23 14:10 Presenting complaint: Patient states: SOB x 1 day. Transition of care: patient was not sv received from another setting of care. Onset of symptoms was May 22, 2018. Care prior to arrival: None. 14:10 Method Of Arrival: Wheelchair sv 14:10 Acuity: PAYAM 3 sv 14:18 Risk Assessment: Do you want to hurt yourself or someone else? Patient reports no hj desire to harm self or others. Initial Sepsis Screen: Does the patient meet any 2 criteria? No. Patient's initial sepsis screen is negative. Does the patient have a suspected source of infection? No. Patient's initial sepsis screen is negative. Triage Assessment: 14:13 General: Appears in no apparent distress. comfortable, Behavior is calm, cooperative, sv appropriate for age. Pain: Denies pain. Neuro: Level of Consciousness is awake, alert, obeys commands, Oriented to person, place, time, situation, Moves all extremities. Full function. Respiratory: Reports shortness of breath on exertion Respiratory effort is even, unlabored, Respiratory pattern is regular, symmetrical, Onset: The symptoms/episode began/occurred yesterday. 14:19 Respiratory: the patient has mild shortness of breath. hj Historical: - Allergies: 14:12 Plavix; sv 14:12 Tetanus Vaccines \T\ Toxoid; sv - Home Meds: 14:19 amiodarone 200 mg Oral tab 0.5 tab once daily [Active]; aspirin 81 mg Oral chew 1 tab hj once daily [Active]; atorvastatin 80 mg Oral tab 1 tab once daily [Active]; BRILINTA 90 mg Oral tab 1 tab 2 times per day [Active]; citalopram 20 mg tab 1 tab once daily for Anxiety with Depression [Active]; clonidine HCl 0.2 mg Oral tab 1 tab 2 times per day [Active]; furosemide 80 mg Oral tab 1 tab once daily for Peripheral Edema due to Chronic Heart Failure [Active]; furosemide 40 mg Oral tab 1 tab once daily [Active]; metoprolol tartrate 50 mg Oral tab 1 tab 2 times per day for Hypertension [Active]; spironolactone 25 mg Oral tab 1 tab once daily [Active]; - PMHx: 14:12 CAD; COPD; CVA; Diabetes - IDDM; Hyperlipidemia; Hypertension; Pneumonia; weakness; CHF;sv - PSHx: 14:12 Bypass; Heart stents; back; sv - Immunization history:: Adult Immunizations up to date. - Ebola Screening: : No symptoms or risks identified at this time. - Social history:: Smoking status: Patient/guardian denies using tobacco, Patient/guardian denies using alcohol. Screenin:18 Abuse screen: Denies threats or abuse. Denies injuries from another. Nutritional hj screening: No deficits noted. Tuberculosis screening: No symptoms or risk factors identified. Fall Risk None identified. Assessment: 14:18 Cardiovascular: Rhythm is. Respiratory: Airway is patent Respiratory effort is even, hj labored, Respiratory pattern is regular, symmetrical, 14:18 General: Appears in no apparent distress. uncomfortable, Behavior is calm, cooperative, hj appropriate for age. Pain: Denies pain. Neuro: Level of Consciousness is awake, alert, obeys commands, Oriented to person, place, time, situation, Appropriate for age. Respiratory: Breath sounds with wheezes. GI: No signs and/or symptoms were reported involving the gastrointestinal system. : No signs and/or symptoms were reported regarding the genitourinary system. EENT: No signs and/or symptoms were reported regarding the EENT system. Derm: No signs and/or symptoms reported regarding the dermatologic system. Musculoskeletal: No deficits noted. 15:30 Reassessment: awaiting results and POC;. hj 16:30 Reassessment: Patient and/or family updated on plan of care and expected duration. Pain hj level reassessed. Patient is alert, oriented x 3, equal unlabored respirations, skin warm/dry/pink. for admit;. 17:25 Reassessment: Patient and/or family updated on plan of care and expected duration. Pain hj level reassessed. Patient is alert, oriented x 3, equal unlabored respirations, skin warm/dry/pink. awaiting orders;. 18:16 Reassessment: Patient and/or family updated on plan of care and expected duration. Pain hj level reassessed. Patient is alert, oriented x 3, equal unlabored respirations, skin warm/dry/pink. will go to room 212; nurse unable to get report;. 18:38 Reassessment: no nurse assigned to accept pt on 2nd floor per day spa manager;. hj 19:30 Reassessment: Patient appears in no apparent distress at this time. Patient and/or jb4 family updated on plan of care and expected duration. Pain level reassessed. Patient is alert, oriented x 3, equal unlabored respirations, skin warm/dry/pink. Cardiovascular: Patient's skin is warm and dry. Rhythm is sinus rhythm. Respiratory: Airway is patent Respiratory effort is even, unlabored, Respiratory pattern is regular, symmetrical. 20:30 Reassessment: Patient appears in no apparent distress at this time. Patient and/or jb4 family updated on plan of care and expected duration. Pain level reassessed. Patient is alert, oriented x 3, equal unlabored respirations, skin warm/dry/pink. Vital Signs: 14:12 BP 107 / 63; Pulse 66; Resp 20; Temp 97; Pulse Ox 97% ; Weight 90.72 kg; Height 5 ft. sv 11 in. (180.34 cm); Pain 0/10; 14:29 BP 133 / 60; Pulse 67; Resp 18; Pulse Ox 98% on R/A; hj 15:30 BP 125 / 78; Pulse 62; Resp 18; Pulse Ox 100% on 2 lpm NC; hj 16:30 BP 122 / 73; Pulse 61; Resp 18; Pulse Ox 100% on 2% Nebulizer Mask; mg2 17:49 BP 133 / 78; Pulse 60; Resp 18; Pulse Ox 100% on 2 lpm NC; hj 18:38 BP 130 / 70; Pulse 60; Resp 18; Pulse Ox 100% on 2 lpm NC; hj 19:30 BP 120 / 68; Pulse 64; Resp 20; Pulse Ox 93% on 2 lpm NC; jb4 20:15 BP 106 / 75; Pulse 61; Resp 20; Pulse Ox 100% on 2 lpm NC; jb4 14:12 Body Mass Index 27.89 (90.72 kg, 180.34 cm) sv ED Course: 14:09 Patient arrived in ED. sv 14:11 Triage completed. sv 14:13 Arm band placed on. sv 14:17 Jace Rdz, CLAUDIA is Primary Nurse. hj 14:18 Patient has correct armband on for positive identification. Placed in gown. Bed in low hj position. Call light in reach. Side rails up X 1. 14:35 EKG done, by care administrative tech. reviewed by Mu Lewis MD. at1 14:41 Mu Lewis MD is Attending Physician. tez 15:00 Initial lab(s) drawn, by me, sent to lab. First set of blood cultures drawn by me. hj 15:00 Flu and/or RSV swab sent to lab. hj 15:10 Inserted saline lock: 22 gauge in right antecubital area, using aseptic technique. hj Blood collected. 15:15 Second set of blood cultures drawn by ED staff. hj 16:34 Luis Fernando Huston MD is Hospitalizing Provider. tez 20:32 No provider procedures requiring assistance completed. jb4 20:32 Patient admitted, IV remains in place. jb4 Administered Medications: Discontinued: NS 0.9% 1000 ml IV at 75 ml/hr continuous 15:00 Drug: NS 0.9% 1000 ml Route: IV; Rate: 75 ml/hr; Site: right antecubital; hj 17:50 Follow up: IV Status: Order to discontinue infusion; IV Intake: 450ml hj 15:46 Drug: Lasix 40 mg Route: IVP; Site: right antecubital; hj 15:50 Follow up: Response: No adverse reaction hj 15:48 Drug: D50W 25 ml Route: IVP; Site: right antecubital; hj 16:02 Follow up: Response: Blood sugar is elevated hj 16:00 Drug: Pepcid 20 mg Route: IVP; Site: right antecubital; hj 16:04 Follow up: Response: No adverse reaction hj 16:00 Drug: SOLU-Medrol 125 mg Route: IVP; Site: right antecubital; hj 16:04 Follow up: Response: No adverse reaction; Wheezing diminished hj 16:04 Follow up: Response: No adverse reaction hj 16:00 Drug: Xopenex 2.5 mg Route: Inhalation; hj 16:00 Drug: AtroVENT Aerosol 0.5 mg Route: Inhalation; hj 16:03 Follow up: Response: No adverse reaction; Wheezing diminished hj 17:08 Drug: Rocephin - (cefTRIAXone) 1 grams Route: IVPB; Infused Over: 30 mins; Site: right mg2 antecubital; 17:08 Follow up: IV Status: Completed infusion mg2 Point of Care Testing: Blood Glucose: 17:03 Blood Glucose: 86 mg/dL; mg2 Ranges: Intake: 17:50 IV: 450ml; Total: 450ml. Outcome: 16:36 Decision to Hospitalize by Provider. tez 20:32 Admitted to Med/surg accompanied by tech, via wheelchair, room 212, with oxygen, with jb4 chart, Report called to CLAUDIA Gonzalez 20:32 Condition: stable 20:32 Discharge instructions given to patient, Instructed on the need for admit, Demonstrated understanding of instructions. 20:36 Patient left the ED. 4 Signatures: Patsy Whitten, RN Mu Sullivan MD MD cha Gonzales, Amanda, vice president fixed income EKG Tat1 Jace Rdz RN RN hj Bryson, James, RN RN jb4 Gardose, Michele, RN RN mg2 Corrections: (The following items were deleted from the chart) 20:35 20:32 IV discontinued, intact, bleeding controlled, jb4 jb4
[2018-05-23] MEDS ORDERED: IPRATROPIUM BROM 0.5MG/2.5ML NEB PRN (16:38)
[2018-05-23] MEDS ORDERED: MORPHINE 4 MG/ML SYR IV PRN (16:38)
[2018-05-23] MEDS ORDERED: ACETAMINOPHEN 500 MG TAB PO PRN (16:38)
[2018-05-23] MEDS ORDERED: ONDANSETRON 4 MG/2 ML VIAL IV PRN (16:38)
[2018-05-23] MEDS ORDERED: ALBUTEROL 2.5 MG/3 ML NEB SOL NEB PRN (16:38)
[2018-05-23] MEDS ORDERED: METHYLPREDNISOLONE 40 MG INJ IV SCH (17:00)
[2018-05-23] MEDS ORDERED: CEFTRIAXONE/SWI 1gm 1 GM/10 ML SYR ONE (17:14)
[2018-05-23 19:12] LABS: Urine Blood TRACE (NEG); Urine Glucose NEGATIVE (NEG); Urine Protein NEGATIVE (NEG); Urine pH 6.5 (5.0-7.0)
[2018-05-23] MEDS: FAMOTIDINE 20 MG/2 ML VIAL IV SCH (21:00)
--- NOTE | 2018-05-23 21:28 | P.HP ---
Certification for Inpatient Patient admitted to: Inpatient With expected LOS: >2 Midnights Practitioner: I am a practitioner with admitting privileges, knowledge of patient current condition, hospital course, and medical plan of care. 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 HE COMES WITH DYSPNEA. HE DOES NOT EAT WELL FOR BEING A DIABETIC AOR CARDIAC PATIENT. FAMILY'S UNDERSTANDING IS POOR FOR ANY KIND OF DIET. YESTERDAY HE ATE [facility] AND [facility] AND NOW ENDS [facility] WITH DYPSNEA, PND, ORTHOPNEA AND CHF ON X RAY. Allergies clopidogrel bisulfate [From Plavix] Allergy (Verified 05/23/18 20:49) Itching/Hives/Rash Tetanus Vaccines Allergy (Unknown, Uncoded 03/24/18 01:26) Itching/Hives/Rash Home Medications: Amiodarone HCl [Cordarone*] 0.5 tab PO DAILY 03/24/18 Atorvastatin Calcium [Lipitor] 80 mg PO BEDTIME 03/24/18 Citalopram [Celexa*] 20 mg PO DAILY 03/24/18 Furosemide [Lasix*] 80 mg PO DAILY 03/24/18 Gabapentin [Neurontin*] 100 mg PO TID 03/24/18 Insulin 70/30 NPH/Reg Human [Novolin 70/30*] 15 unit SQ BID #20 ml 03/24/18 Metoprolol Tartrate [Lopressor*] 50 mg PO BID 03/24/18 Spironolactone [Aldactone*] 25 mg PO DAILY 03/24/18 Ticagrelor [Brilinta*] 1 tab PO BID 03/24/18 Aspirin [Aspirin EC 81 MG] 81 mg PO DAILY 04/26/18 Clonidine HCl [Catapres*] 0.2 mg PO BID 04/26/18 - Past Medical/Surgical History Has patient received pneumonia vaccine in the past: Yes Diabetic: Yes -: COPD -: CHF -: HTN -: HYPERLIPIDEMIA -: IDDM -: CARDIAC STENTS -: CARDIAC BYPASS SX - Family History Father -: Heart disease Mother -: Heart disease - Social History Smoking Status: Former smoker Alcohol use: No CD- Drugs: No Caffeine use: No Place of Residence: Home Review of Systems 10-point ROS is otherwise unremarkable Respiratory: Shortness of Breath, SOB with Excertion Physical Examination - Vital Signs Temperature: 96.5 F Blood Pressure: 135/77 Pulse: 64 Respirations: 16 Pulse Ox (%): 96 - Physical Exam General: Alert, Mild distress, Obese HEENT: Atraumatic, PERRLA, Mucous membr. moist/pink, EOMI, Sclerae nonicteric Neck: Supple, 2+ carotid pulse no bruit, No LAD, Without JVD or thyroid abnormality Respiratory: Clear to auscultation bilaterally, Normal air movement Cardiovascular: Regular rate/rhythm, Normal S1 S2 Gastrointestinal: Normal bowel sounds, No tenderness Musculoskeletal: No tenderness Integumentary: No rashes Neurological: Normal gait, Normal speech, Normal strength at 5/5 x4 extr, Normal tone, Normal affect Lymphatics: No axilla or inguinal lymphadenopathy - Studies Laboratory Data (last 24 hrs) 05/23/18 15:00: PT 12.5, INR 1.06 05/23/18 15:00: WBC 11.1 H D, Hgb 13.7, Hct 40.4, Plt Count 224 05/23/18 15:00: Sodium 138, Potassium 3.8, BUN 27 H, Creatinine 1.50 H, Glucose 58 L, Magnesium 2.4, Total Bilirubin 1.0, AST 34, ALT 48, Alkaline Phosphatase 70, Lipase 186 Microbiology Data (last 24 hrs): 05/23/18 15:00 Nasopharnyx Influenza Type A Antigen Screen - Final 05/23/18 15:00 Nasopharnyx Influenza Type B Antigen Screen - Final Assessment and Plan - Problems (Diagnosis) (1) Acute systolic (congestive) heart failure Current Visit: Yes Status: Acute Plan: ACUTE ON CHRONIC ONCE AGAIN I ADVISED STRICT DIET CONTROL. DESPITE EXPLANATION THE IMPLEMNTATION AT HOME IS POOR. NO MATTER WHAT WE TALKED ABOUT THEY END UP EATING IF HE IS YOUNG AND HEALTHY AND CAN EAT BURGERS AND FRIES. I EXPLAIND TO HOW SHE SHOULD MAKE SIMPLE MICROWAVE -COOKED FRESH FOOD. FOR NOW DIURESIS., ENTRESTO AND STOP OTHER ARBS. (2) NYHA class 4 acute on chronic systolic heart failure Current Visit: Yes Status: Chronic Plan: ABOVE (3) Coronary arteriosclerosis Current Visit: No Status: Chronic (4) Diabetes Onset Date: 10/31/15 Current Visit: No Status: Chronic (5) Hypertension Current Visit: No Status: Chronic - Advance Directives Does patient have a Living Will: No Does patient have a Durable POA for Healthcare: No
--- NOTE | 2018-05-23 22:04 | EKG ---
Test Date: 2018-05-23 Test Time: 14:33:18 Inspector Balance Wheel Motion: OMER MEASUREMENT RESULTS: Intervals: Rate: 62 OH: 200 QRSD: 108 QT: 480 QTc: 487 Driggs: P: 46 OH: 200 QRS: 0 T: 70 INTERPRETIVE STATEMENTS: Normal sinus rhythm Nonspecific T wave abnormality Prolonged QT Abnormal ECG Compared to ECG 05/19/2018 16:47:14 T-wave abnormality now present Prolonged QT interval now present First degree AV block no longer present Electronically Signed On 05-23-18 22:04:04 STUDENT SERVICES COUNSELOR by David Clark
[2018-05-23] MEDS: FUROSEMIDE 20 MG/ 2ML VIAL IV SCH (22:19)
[2018-05-24 06:22] LABS: Absolute Lymphocytes (CBC) 0.7 K/uL (0.7-4.9); Absolute Monocytes 0.3 K/uL (0.1-1.3); Absolute Neutrophil 13.9 K/uL (1.8-8.0); Basophils % 0.5 % (0-1.3); Eosinophils % 0.3 % (0-4.4); Hematocrit 38.1 % (39.6-49.0); Lymphocytes % 4.9 % (15.3-44.8); MCH 33.2 pg (27.0-35.0); MCV 96.2 fL (80-100); MPV 7.8 fL (7.6-11.3); Monocytes % 2.1 % (3.3-12.3); RBC Red Blood Cell Count 3.96 M/uL (4.33-5.43)
[2018-05-24 06:41] LABS: Potassium 4.2 mmol/L (3.5-5.1)
[2018-05-24 06:52] LABS: Blood Morphology Comment NOTED (NOT SEEN); Platelet Estimate ADEQ; Poikilocytosis SLIGHT; Urine White Blood Cell Casts OK
[2018-05-24 06:53] LABS: Burr Cells FEW
[2018-05-24] MEDS: INSULIN 70/30 100 UNITS/ML SQ SCH ×2 (07:30→17:03)
[2018-05-24] MEDS: SACUBITRIL/VALSARTAN 24/26 MG TAB PO SCH ×2 (09:00→21:53)
[2018-05-24] MEDS ORDERED: AMIODARONE HCL 200 MG TAB PO SCH (09:00)
[2018-05-24] MEDS ORDERED: CEFTRIAXONE 1 GM/NS 50 ML 1 GM/50 ML BAG IV SCH ×2 (09:00→16:30)
--- NOTE | 2018-05-24 09:04 | RAD REPORT ---
EXAM DESCRIPTION: RAD - Chest Single View - 05/24/2018 6:26 am CLINICAL HISTORY: Chest Pain Chest pain. COMPARISON: Chest Single View dated 05/23/2018; Chest Single View dated 05/19/2018; Chest Single Vie w dated 04/26/2018; Chest Single View dated 03/23/2018 FINDINGS: Portable technique limits examination quality. The lungs are emphysematous but grossly clear. The heart is normal in size. Multi lead pacer/defibril lator device noted. Changes of a prior CABG are seen. IMPRESSION: No acute intrathoracic process suspected.
--- NOTE | 2018-05-24 09:36 | EKG ---
Test Date: 2018-05-24 Test Time: 08:54:19 Vacuum Spindle Sander: RUBI MEASUREMENT RESULTS: Intervals: Rate: 75 TN: 190 QRSD: 108 QT: 436 QTc: 486 [place]: P: 59 TN: 190 QRS: 22 T: 54 INTERPRETIVE STATEMENTS: Normal sinus rhythm Nonspecific T wave abnormality Prolonged QT Abnormal ECG Compared to ECG 05/23/2018 14:33:18 No significant changes Electronically Signed On 05-24-18 09:35:12 ESTIMATION MANAGER by Pastor Cordoba
[2018-05-24] MEDS: CITALOPRAM 10 MG TABLET PO SCH (09:56)
[2018-05-24] MEDS: ASPIRIN EC 81 MG TAB PO SCH (09:57)
[2018-05-24] MEDS: TICAGRELOR 90 MG TABLET PO SCH ×2 (09:57→21:53)
[2018-05-24] MEDS: METOPROLOL TAR 50 MG TAB PO SCH ×2 (09:58→21:53)
[2018-05-24] MEDS: GABAPENTIN 100 MG CAP PO SCH ×3 (09:59→21:53)
[2018-05-24] MEDS: FUROSEMIDE 20 MG/ 2ML VIAL IV SCH ×3 (10:00→21:54)
[2018-05-24] MEDS ORDERED: CEFTRIAXONE/SWI 1gm 1 GM/10 ML SYR IV SCH ×2 (17:00)
[2018-05-24] MEDS: PROMETHAZINE-DM 5 ML OSYR PO PRN ×2 (17:05→23:23)
--- NOTE | 2018-05-24 19:47 | P.PN ---
Subjective Date of Service: 05/24/18 Chief Complaint: DYSPNEA Subjective: No new changes COUGH CONTINUES, DYSPNEA WITH EXERSION. Review of Systems 10-point ROS is otherwise unremarkable General: Weakness, Malaise Respiratory: Cough, Shortness of Breath Physical Examination - Vital Signs Temperature: 96.9 F Blood Pressure: 139/69 Pulse: 61 Respirations: 18 Pulse Ox (%): 95 - Physical Exam General: Alert, In no apparent distress, Obese HEENT: Atraumatic, PERRLA, EOMI Neck: Supple, JVD not distended Respiratory: Diminished Cardiovascular: Regular rate/rhythm, Normal S1 S2 Gastrointestinal: Normal bowel sounds, No tenderness Musculoskeletal: No tenderness Integumentary: No rashes Neurological: Normal speech, Normal tone, Normal affect Lymphatics: No axilla or inguinal lymphadenopathy - Studies Microbiology Data (last 24 hrs): 05/23/18 15:00 Nasopharnyx Influenza Type A Antigen Screen - Final 05/23/18 15:00 Nasopharnyx Influenza Type B Antigen Screen - Final Medications List Reviewed: Yes Assessment And Plan - Current Problems (Diagnosis) (1) Acute systolic (congestive) heart failure Onset Date: 05/24/18 Current Visit: Yes Status: Acute Plan: ACUTE ON CHRONIC ONCE AGAIN I ADVISED STRICT DIET CONTROL. DESPITE EXPLANATION THE IMPLEMNTATION AT HOME IS POOR. NO MATTER WHAT WE TALKED ABOUT THEY END UP EATING IF HE IS YOUNG AND HEALTHY AND CAN EAT BURGERS AND FRIES. I EXPLAIND TO HOW SHE SHOULD MAKE SIMPLE MICROWAVE -COOKED FRESH FOOD. FOR NOW DIURESIS., ENTRESTO AND STOP OTHER ARBS. IV DIURESIS ORAL ENTRESTO. STABLE FOR NOW. STILL VERY SYMPTOMATIC. 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 CT ANGIOGRAM IF CAN AND ECHO
[2018-05-24] MEDS ORDERED: ATORVASTATIN 80 MG TAB PO SCH (21:00)
[2018-05-24] MEDS: FAMOTIDINE 20 MG/2 ML VIAL IV SCH (21:53)
[2018-05-25 04:11] VITALS: BMI 29.7
[2018-05-25 04:14] VITALS: O2SAT 95
[2018-05-25] MEDS: INSULIN 70/30 100 UNITS/ML SQ SCH (07:30)
--- NOTE | 2018-05-25 08:00 | ECHO ---
HEIGHT: 5 ft 11 in WEIGHT: 213 lb 6.4 oz DATE OF STUDY: 05/24/[address]: Mu Lewis MD 2-DIMENSIONAL: YES M.MODE: YES DOPPLER: YES COLOR FLOW: YES TDS: YES PORTABLE: NO DEFINITY: NO BUBBLE STUDY: NO DIAGNOSIS: CONGESTIVE HEART FAILURE, CHRONIC OBSTRUCTIVE PULMONARY DISEASE CARDIAC HISTORY: CATHERIZATION: YES SURGERY: YES PROSTHETIC VALVE: NO PACEMAKER: YES MEASUREMENTS (cm) DIASTOLIC (NORMALS) SYSTOLIC (NORMALS) IVSd 1.3 (0.6-1.2) LA Diam 4.8 (1.9-4.0) LVEF 37% LVIDd 4.9 (3.5-5.7) LVIDs 4.0 (2.0-3.5) %FS 18% LVPWd 1.4 (0.6-1.2) Ao Diam 2.9 (2.0-3.7) 2 DIMENSIONAL ASSESSMENT: RIGHT ATRIUM: NORMAL LEFT ATRIUM: DILATED RIGHT VENTRICLE: PACER LEFT VENTRICLE: LEFT VENTRICULAR HYPERTROPHY TRICUSPID VALVE: NORMAL MITRAL VALVE: MITRAL ANNULAR CALCIFICATION PULMONIC VALVE: NORMAL AORTIC VALVE: SCLEROSIS PERICARDIAL EFFUSION: NONE AORTIC ROOT: NORMAL LEFT VENTRICULAR WALL MOTION: DOPPLER/COLOR FLOW: MODERATE GLOBAL HYPOKINESIS. MILD TRICUSPID REGURGITATION. COMMENTS: MODERATE GLOBAL HYPOKINESIS. EJECTION FRACTION 37%. INCREASED SINCE 2016. LEFT ATRIAL ENLARGEMENT. LEFT VENTRICULAR HYPERTROPHY. MITRAL ANNULAR CALCIFICATION. AORTIC SCLEROSIS. TECHNOLOGIST: SPENCER MILLER RDCS
[2018-05-25] MEDS: CITALOPRAM 10 MG TABLET PO SCH (09:48)
[2018-05-25] MEDS: ASPIRIN EC 81 MG TAB PO SCH (09:49)
[2018-05-25] MEDS: METOPROLOL TAR 50 MG TAB PO SCH (09:49)
[2018-05-25] MEDS: FUROSEMIDE 20 MG/ 2ML VIAL IV SCH ×2 (09:49→14:24)
[2018-05-25] MEDS: GABAPENTIN 100 MG CAP PO SCH ×2 (09:49→14:25)
[2018-05-25] MEDS: SACUBITRIL/VALSARTAN 24/26 MG TAB PO SCH (09:49)
[2018-05-25] MEDS: TICAGRELOR 90 MG TABLET PO SCH (09:49)
[2018-05-25 09:50] VITALS: BP 112/63
--- NOTE | 2018-05-25 13:48 | P.DS ---
Admission Date: 05/23/18 Discharge Date: 05/25/18 Disposition: ROUTINE DISCHARGE Discharge Condition: SERIOUS Reason for Admission: DYSPNEA - Problems (1) Acute systolic (congestive) heart failure Onset Date: 05/24/18 Current Visit: Yes Status: Acute (2) NYHA class 4 acute on chronic systolic heart failure Onset Date: 05/24/18 Current Visit: Yes Status: Chronic (3) Coronary arteriosclerosis Current Visit: No Status: Chronic (4) Diabetes Onset Date: 10/31/15 Current Visit: No Status: Chronic (5) Hypertension Current Visit: No Status: Chronic (6) Acute dyspnea Onset Date: 10/31/15 Current Visit: No Status: Acute Brief History of Present Illness: MR NANCE HAS MANY MEDICAL ISSUES, DM, CAD, SP STENTS, CAROTID STENOSIS, CHF WITH CONGESTIVE CARDIOMYOPATHY WITH EF OF 25%. HE COMES WITH DYSPNEA. HE DOES NOT EAT WELL FOR BEING A DIABETIC AOR CARDIAC PATIENT. FAMILY'S UNDERSTANDING IS POOR FOR ANY KIND OF DIET. YESTERDAY HE ATE [facility] AND [facility] AND NOW ENDS [facility] WITH DYPSNEA, PND, ORTHOPNEA AND CHF ON X RAY. MR. NANCE HAS CHF, SYSTOLIC HEART FAILURE, CAD, DM, CRF- HE IS BETTER. CONTINUES TO COUGH. HE WILL TAKE ROBITUSSIN. HE KNOWS HIS CARDIAC CONDITION IS VERY POOR. HE WILL START ENTRESTO. MAY NOT BE ABLE TO AFFORD IT. WILL GIVE HIM SAMPLES IF HE CAN'T Vital Signs/Physical Exam: Temp Pulse Resp BP Pulse Ox 99 F 65 20 112/63 96 05/25/18 08:00 05/25/18 09:49 05/25/18 08:00 05/25/18 09:49 05/25/18 08:00 Laboratory Data at Discharge: WBC 15.0 K/uL (4.3-10.9) H D 05/24/18 06:09 Hgb 13.2 g/dL (13.6-17.9) L 05/24/18 06:09 Hct 38.1 % (39.6-49.0) L 05/24/18 06:09 Plt Count 204 K/uL (152-406) 05/24/18 06:09 PT 12.5 SECONDS (9.5-12.5) 05/23/18 15:00 INR 1.06 05/23/18 15:00 Sodium 133 mmol/L (136-145) L 05/24/18 06:09 Potassium 4.2 mmol/L (3.5-5.1) 05/24/18 06:09 BUN 45 mg/dL (7-18) H 05/24/18 06:09 Creatinine 2.00 mg/dL (0.55-1.3) H 05/24/18 06:09 Glucose 232 mg/dL (74-106) H 05/24/18 06:09 Magnesium 2.4 mg/dL (1.8-2.4) 05/23/18 15:00 Total Bilirubin 1.0 mg/dL (0.2-1.0) 05/23/18 15:00 AST 34 U/L (15-37) 05/23/18 15:00 ALT 48 U/L (12-78) 05/23/18 15:00 Alkaline Phosphatase 70 U/L (45-117) 05/23/18 15:00 Troponin I < 0.02 ng/mL (0.0-0.045) 05/23/18 22:56 Lipase 186 U/L (73-393) 05/23/18 15:00 Home Medications: Amiodarone HCl [Cordarone*] 0.5 tab PO DAILY 03/24/18 Atorvastatin Calcium [Lipitor] 80 mg PO BEDTIME 03/24/18 Citalopram [Celexa*] 20 mg PO DAILY 03/24/18 Furosemide [Lasix*] 80 mg PO DAILY 03/24/18 Gabapentin [Neurontin*] 100 mg PO TID 03/24/18 Insulin 70/30 NPH/Reg Human [Novolin 70/30*] 15 unit SQ BID #20 ml 03/24/18 Metoprolol Tartrate [Lopressor*] 50 mg PO BID 03/24/18 Ticagrelor [Brilinta*] 1 tab PO BID 03/24/18 Aspirin [Aspirin EC 81 MG] 81 mg PO DAILY 04/26/18 Clonidine HCl [Catapres*] 0.2 mg PO BID 04/26/18 Sacubitril/Valsartan [Entresto 24 mg-26 mg Tablet] 1 tab PO BID #60 tab New Medications: Sacubitril/Valsartan [Entresto 24 mg-26 mg Tablet] 1 tab PO BID #60 tab
[2018-05-25] MEDS: PROMETHAZINE-DM 5 ML OSYR PO PRN (14:33)
[2018-05-25 15:52] VITALS: TEMP 97.3
== END 2018-05-25 15:39 | disposition home or self-care (01) ==
LOC: ER 14:06 → INTOOBSV 16:37 → ERHOLD 16:37 → 2ND 20:07
PROVIDERS: ADMIT Internal Medicine; ATTEND Internal Medicine
DX: I11.0 Hypertensive heart disease with heart failure (principal); I50.23 Acute on chronic systolic (congestive) heart failure; E11.9 Type 2 diabetes mellitus without complications; I25.10 Atherosclerotic heart disease of native coronary artery without angina pectoris; Z95.5 Presence of coronary angioplasty implant and graft; Z88.7 Allergy status to serum and vaccine; E78.5 Hyperlipidemia, unspecified; Z95.1 Presence of aortocoronary bypass graft
CPT/HCPCS: 36415; 71045 ×2; 80048 ×2; 80076; 81003; 82962 ×8; 83690; 83735; 83880 ×2; 84145; 84484 ×3; 85025 ×2; 85610; 87040 ×2; 87086; 87088; 87804 ×2; 93005 ×2; 93306; 94640; 96361; 96374; 96375; 99285; J0696 ×2; J1940 ×7; J2930; J7030; G0378

== ENCOUNTER 2018-07-14 15:24 | Observation (INO) | payer OTHER ==
--- OUTSIDE RECORDS SUMMARY | 2018-07-14 15:26 | XMS REPORT | Clinical Summary ---
:1940 Author Organization [facility] Address [address] [place] [address] Care Team Providers Name Role Phone Edmund [...] 3 04/19/2017 Active (ALDACTONE) 25 MG tablet losartan (COZAAR) TK 1 T PO QD [...] mg total) 9 tablet by mouth daily. BRILINTA 90 mg TAKE 1 TABLET 180 tablet 0 06/15/2018 Active tablet BY MOUTH TWICE DAILY furosemide (LASIX) TK 1 T PO 90 tablet 3 04/19/2017 Discontinued 80 mg tablet MORNING 8 metoprolol tartrate Take 1 tablet 180 tablet 3 04/19/2017 Discontinued (LOPRESSOR) 100 mg (100 mg total) 8 tablet by mouth 2 (two) times a day. ticagrelor Take 1 tablet 180 tablet 3 04/19/2017 Discontinued (BRILINTA) 90 mg (90 mg total) 8 tablet by mouth 2 [...] Bilateral carotid artery disease 10/26/2017 CAD in [place] artery 03/23/2017 ST elevation myocardial infarction involving left circumflex coronary 2016 artery NSTEMI (non-ST elevated myocardial infarction) 03/02/2017 Coronary artery disease involving [place] coronary artery of [place] heart 02/09 without angina pectoris Diastolic congestive heart failure 02/09/2017 Carotid bruit 02/09/2017 History of coronary artery bypass graft 08/07/2016 Stented coronary artery 08/07/2016 SOB (shortness of breath) 08/07/2016 Systolic congestive heart failure 08/07/2016 Encounters Date Type Specialty Care Team Description 06/14/2018 Refill Cardiology Gabriela Enriquez MD Med Refill 05/12/2018 Orders Only Cardiology Flaquito Ann MA 05/11/2018 Orders Only Cardiology Daphne Kraft MA 05/09/2018 Refill Cardiology Sia Guerra MA Med Refill 04/20/2018 Refill Cardiology Gabriela Enriquez MD Med Refill 11/03/2017 Orders Only Cardiology Flaquito Ann MA Coronary artery disease involving [place] coronary artery of [place] heart without angina pectoris (Primary Dx) 11/03/2017 [...] diabetes mellitus type 2 without complications, unspecified keno terminal operator insulin use status; Systolic congestive heart failure, unspecified congestive heart failure chronicity; Coronary artery disease involving [place] coronary artery of [place] heart without angina pectoris 08/20/2017 Telephone Family [...] Stented coronary artery; Coronary artery disease involving [place] coronary artery of [place] heart without angina pectoris; History of coronary artery bypass graft after 07/13/2017 Immunizations Name Dates Previously Given Next Due [...] 36.8 C (98.2 F) 08/25/2017 10:42 AM LEVELMAN Respiratory Rate 16 08/25/2017 10:42 AM LEVELMAN Oxygen Saturation 97% 08/25/2017 10:42 AM LEVELMAN Inhaled Oxygen Concentration - - Weight 96.2 kg (212 lb) 10/26/2017 3:49 PM CDT Height 180.3 cm (5' 11") 08/25/2017 10:42 AM LEVELMAN Body Mass Index 29.57 10/26/2017 3:49 PM CDT Plan of Treatment Health Maintenance Due Date Last Done Comments DIABETIC RETINAL EYE EXAM 1940 DIABETIC FOOT EXAM 1949 URINE MICROALBUMIN 1949 SHINGLES VACCINES (1 of 2) 1989 PNEUMOCOCCAL POLYSACCHARIDE VACCINE AGE 65 AND OVER 2004 PNEUMOCOCCAL-13 2004 INFLUENZA VACCINE 02/02/2018 05/19/2017 Implants Implanted Type Area Plater Helper Device Shelf Model / Identifier Expiration Serial / Date Lot Stent Catheter Synergy (Otw) 3.50mm X 16mm - [id number] Coronary N/A: N/A [facility] [id number] / Implanted: Qty: 1 on 03/03/2017 by [...] wall pain Results for this RIGHT PM LEVELMAN procedure are in the results section. SPECIMEN STATUS REPORT Routine 08/19/2017 1:47 Results for this PM LEVELMAN procedure are in the results section. HEMOGLOBIN A1C Routine 08/19/2017 1:47 Results for this PM LEVELMAN procedure are in the results section. SPECIMEN STATUS REPORT Routine 08/19/2017 1:47 Results for this PM LEVELMAN procedure are in the results section. BASIC METABOLIC PANEL Routine 08/19/2017 1:47 Essential Results for this PM LEVELMAN hypertension procedure are in the results section. CBC WITH PLATELET AND Routine 08/19/2017 1:47 Dizziness Results for this DIFFERENTIAL PM LEVELMAN procedure are in the results section. XR HIP 2-3 VIEWS RIGHT Routine 08/17/2017 12:08 Pain of right hip Results for this PM LEVELMAN joint procedure are in the results section. ECHOCARDIOGRAM 2D Routine 07/28/2017 11:02 CAD in [place] artery Results for this COMPLETE W MMODE AM LEVELMAN procedure are in SPECTRAL COLOR DOPPLER the results (02344) section. after 07/13/2017 Results Pv carotid duplex (10/28/2017 11:25 AM CDT) Narrative Performed At [facility] Carotid Artery Ultrasound Report Pat.Name:TITUS NANCE Pat.ID:[id number] .Date: 10/28/2017 Refer.MD:GABRIELA ENRIQUEZ MD Exam Time: 11:52:00 AM Study Type:Carotid DOBAge:1940,77Y Sex: MALE Sonogrphr: Tiffanie Ross RDMS, RDCS, RVT Pat. Stat.:Outpatient Room:[facility] 4: [id number] Echo Event ID:[id number] Order ID:[id number] Reason for Study:Carotid artery disease Race:C SUMMARY: [...] EDV39.9 cm/s Right ICA Mid ICA Mid [id number] cm/Isaiah Mid EDV 42.5 cm/s Right ICA [...] Results In - 10/29/2017 4:53 PM CDT [facility] Carotid Artery Ultrasound Report Pat.Name: TITUS NANCE Pat.ID: [id number] .Date: 10/28/2017 Refer.MD: GABRIELA ENRIQUEZ MD Exam Time: 11:52:00 AM Study Type:Carotid Age: 11 1940,77Y Sex: MALE Sonogrphr: Tiffanie Buswell, RDMS, RDCS, RVT Pat. Stat.:Outpatient Room: [facility] - 4: 39912 Echo Event ID:[id number] Order ID: [id number] Reason for Study:Carotid artery disease Race: C [...] PM Gabriela Enriquez MD Performing Organization Address [facility] Phone Number [facility] [address] [place] [address] XR Ribs W Pa Chest Right (08/19/2017 3:29 PM LEVELMAN) Narrative Performed At EXAMINATION:XR RIBSW PA CHEST RIGHT [facility] CLINICAL HISTORY:R07.89 Other chest pain, CHEST WALL PAIN COMPARISON:None. IMPRESSION: The lungs are clear Heart is slightly enlarged, unchanged from prior Diffuse calcified atherosclerotic vascular disease throughout the arterial structures. [facility]-[id number] Procedure Note Hm Interface, Radiology Results Incoming - 08/19/2017 4:22 PM LEVELMAN EXAMINATION: XR RIBS W PA CHEST RIGHT CLINICAL HISTORY: R07.89 Other chest pain, CHEST WALL PAIN COMPARISON: None. IMPRESSION: The lungs are clear Heart is slightly enlarged, unchanged from prior Diffuse calcified atherosclerotic vascular disease throughout the arterial structures. [facility]-[id number] Performing Organization Address [facility] Phone Number [facility] [address] [place] [address] Specimen Status Report (08/19/2017 1:47 PM LEVELMAN)Only the most recent of2 resultswithin the time period is included. Specimen Status Report COMMENT [facility] Comment: Written Authorization Written Authorization No Written Authorization Received. Narrative Performed At Performed at: - [facility] [address] [place], [id number] Openstack Developer: Ministerio Clemens MD, Phone:[phone] Performing Organization Address City/State/Zipcode Phone Number [facility] CBC with platelet and differential (08/19/2017 1:47 PM LEVELMAN) WBC 8.1 3.4 - 10.8 x10E3/uL [facility] [...] Narrative Performed At Performed at:01 - [facility] [address] [place], [id number] Openstack Developer: Ministerio Clemens MD, Phone:[phone] Performing Organization Address [facility] Phone Number [facility] Hemoglobin A1c (08/19/2017 1:47 PM LEVELMAN) Hemoglobin A1C 11.8 (H) 4.8 - 5.6 % [facility] Comment: Pre-diabetes: 5.7 - 6.4 Diabetes: >6.4 Glycemic control for adults with diabetes: <7.0 Narrative Performed At Performed at: [facility] [place], [id number] Openstack Developer: Ministerio Clemens MD, Phone:[phone] Performing Organization Address [facility] Phone Number [facility] Basic metabolic panel (08/19/2017 1:47 PM LEVELMAN) Glucose 467 (H) 65 - 99 mg/dL [facility] BUN, whole blood 36 (H) 8 - 27 mg/dL [facility] Creatinine 1.55 (H) 0.76 - 1.27 mg/dL [facility] EGFR Non-Afr. Croatian 42 (L) >59 mL/min/1.73 [facility] EGFR 49 (L) >59 mL/min/1.73 [facility] BUN/creatinine ratio 23 10 - 24 [facility] Sodium 127 (L) 134 - 144 mmol/L [facility] Potassium 5.2 3.5 - 5.2 mmol/L [facility] Chloride 85 (L) 96 - 106 mmol/L [facility] CO2 26 18 - 29 mmol/L [facility] Calcium 9.2 8.6 - 10.2 mg/dL [facility] Specimen Blood Narrative Performed At Performed at: [facility] [place], [id number] Openstack Developer: Ministerio Clemens MD, Phone:[phone] Performing Organization Address [facility] Phone Number [facility] XR Hip 2-3 View Right (08/17/2017 12:08 PM LEVELMAN) Narrative Performed At EXAMINATION:XR HIP 2-3 VIEWS RIGHT HM [facility] CLINICAL HISTORY:M25.551 Pain in right hip, hip pain fall COMPARISON:none. IMPRESSION: 1.No displaced fractures or dislocations. Pelvic vascular calcifications are noted. [id number] Procedure Note Interface, Radiology Results Incoming - 08/17/2017 2:08 PM LEVELMAN EXAMINATION: XR HIP 2-3 VIEWS RIGHT CLINICAL HISTORY: M25.551 Pain in right hip, hip pain fall COMPARISON: none. IMPRESSION: 1. No displaced fractures or dislocations. Pelvic vascular calcifications are noted. [facility]-[id number] Performing Organization Address City/State/Zipcode Phone Number [facility] [address] [place] [address] Echocardiogram complete w contrast and 3D if needed (07/28/2017 11:02 AM LEVELMAN) Narrative Performed At [facility] Echocardiography Report Pat.Name:TITUS NANCE Pat.ID:[id number] .Date: 07/28/2017 Refer.MD:GABRIELA ENRIQUEZ MD Exam Time: 10:02:00 AM Study Type:Routine Echo Height:71inWeight: 220lb BSA: 2.2 h7CALIcx:1940,77Y Sex: MALEBP:108/65 Sonogrphr: Tiffanie Ross RDCS, RVTPat. Stat.:Outpatient Study Status:Final Echo Event ID:[id number] Order ID:[id number] Reason for Study:Coronary Artery Disease History / [...] RAPof 10 mmHg. MEASUREMENTS: 2D Parasternal [place] LVOT 2.2 cmLA Ds4.7 cm LVIDd6.2 cmIndex2.8 cm/m Ao An2.5 cm LVIDs5.6 cmAo Rtd 3 cm Index1.4 cm/m LV%fs9.7 % LV Gnur316.3 g(122-174) IVSd 1.3 cmRWT0.4 LVPWd1.3 cm LA Sng Plane LA Area 26.4 cm2(8.8-23.4) LA Vol99.7 ml Index45.3 ml/m LA LngAx 5.8 cm RA Sng Plane RA Area 17.4 cm2(8.3-19.5) RA Vol47.9 ml Index21.8 ml/m RA LngAx 5.5 cm Signed 07/29/2017 02:56 PM Tano Granados M.D. Procedure Note Interface, Radiology Results In - 07/29/2017 2:56 PM LEVELMAN [facility] Echocardiography Report Pat.Name: TITUS NANCE Pat.ID: [id number] .Date: 07/28/2017 Refer.MD: GABRIELA ENRIQUEZ MD Exam Time: 10:02:00 AM Study Type:Routine Echo Height: 71in Weight: 220lb BSA: 2.2 m2 Age: 11 1940,77Y Sex: MALE BP: 108/65 Sonogrphr: Tiffanie Ross RDCS, RVT Pat. Stat.:Outpatient Study Status:Final Echo Event ID:[id number] Order ID: [id number] Reason for Study:Coronary Artery Disease History / [...] of 10 mmHg. MEASUREMENTS: 2D Parasternal [place] LVOT 2.2 cm LA Ds 4.7 cm [...] Organization Address City/State/Zipcode Phone Number [facility] [address] [place] [address] after 07/13/2017 Insurance Payer Benefit Plan / Group Subscriber ID Type Phone Address AETNA MEDICARE AETNA MEDICARE HMO/PPO [facility] xxxxxxxx O MEDICAID MEDICAID xxxxxxxxx Medicaid Advance Directives Patient has advance care planning documents on file. For more information, please contact:[facility] [id number] [place] [address]
--- NOTE | 2018-07-14 16:23 | RAD REPORT ---
EXAM DESCRIPTION: RAD - Chest Single View - 07/14/2018 4:02 pm CLINICAL HISTORY: Cough, dyspnea, shortness of breath COMPARISON: May 24, 2018 TECHNIQUE: AP portable chest image was obtained 1555 hours . FINDINGS: No peripheral consolidation. Small focus of spiculated parenchyma left suprahilar region i s probably scarring or some other form of summation. Patient has prominent interstitial lung markings not substantially different from comparison. Mild cardiomegaly is present as a baseline. Upper lobe vasculature not outside of normal range. Defibrillator is in place. No measurable pleural effusion an d no pneumothorax. No acute bony abnormality seen. No acute aortic findings suspected. IMPRESSION: Mild cardiomegaly and chronic interstitial lung disease. Mild failure or volume overload could be masked by the chronic findings. Small focus of spiculated parenchyma left upper lung field is slightly more prominent than on the scotty or study. This is still probably scarring but can be further evaluated with either follow-up two-view chest examination or CT chest imaging.
--- NOTE | 2018-07-14 16:31 | EKG ---
Test Date: 2018-07-14 Test Time: 15:46:15 Signal Maintainer Helper: BEENA MEASUREMENT RESULTS: Intervals: Rate: 71 NM: 248 QRSD: 106 QT: 434 QTc: 471 [place]: P: 53 NM: 248 QRS: 7 T: 36 INTERPRETIVE STATEMENTS: Atrial-paced rhythm with prolonged AV conduction Cannot rule out Anterior infarct, age undetermined Abnormal ECG Compared to ECG 05/24/2018 08:54:19 Myocardial infarct finding now present Sinus rhythm no longer present T-wave abnormality no longer present Prolonged QT interval no longer present Electronically Signed On 07-14-18 16:30:21 GIS ANALYST by Pastor Cordoba
[2018-07-14 16:41] LABS: Absolute Monocytes 0.8 K/uL (0.1-1.3); Absolute Neutrophil 5.1 K/uL (1.8-8.0); Basophils % 0.5 % (0-1.3); Eosinophils % 5.9 % (0-4.4); Hematocrit 37.1 % (39.6-49.0); Lymphocytes % 13.6 % (15.3-44.8); MPV 7.5 fL (7.6-11.3); RBC Red Blood Cell Count 3.88 M/uL (4.33-5.43)
[2018-07-14 16:43] LABS: Protime INR 1.02
[2018-07-14 16:58] LABS: Bilirubin Direct 0.2 mg/dL (0-0.2); Bilirubin Total 0.6 mg/dL (0.2-1.0); Magnesium 2.2 mg/dL (1.8-2.4); Potassium 4.2 mmol/L (3.5-5.1); Protein, Total 7.3 g/dL (6.4-8.2); Troponin (Emerg Dept Use Only) 0.02 ng/mL (0.0-0.045)
[2018-07-14] MEDS ORDERED: FUROSEMIDE 40 MG/4 ML VIAL ONE (17:03)
--- NOTE | 2018-07-14 17:19 | ER ---
Nurse's Notes [facility] Name: Titus Holloway Age: 78 yrs Sex: Male : 1940 Arrival Date: 07/14/2018 Time: 15:30 Bed 18 Private MD: Luis Fernando Huston V Diagnosis: Cardiomegaly;Unspecified combined systolic (congestive) and diastolic (congestive) heart failure;Chronic obstructive pulmonary disease, unspecified;Obesity, unspecified Presentation: 07/14 15:37 Presenting complaint: Presenting complaint: Patient states: Has had cough and shortness sg of breath for 2-3 days, reports having fever off and on for several days as well. Care prior to arrival: None. 15:37 Acuity: PAYAM 3 sg 15:43 Transition of care: patient was not received from another setting of care. Onset of sg symptoms was July 14, 2018. Risk Assessment: Do you want to hurt yourself or someone else? Patient reports no desire to harm self or others. Initial Sepsis Screen: Does the patient meet any 2 criteria? RR > 20 per min. Does the patient have a suspected source of infection? Yes: Productive cough/pneumonia. 15:43 Method Of Arrival: Ambulatory sg Triage Assessment: 15:39 General: Appears in no apparent distress. comfortable, obese, Behavior is calm, bp cooperative, appropriate for age. Pain: Denies pain. Respiratory: Reports shortness of breath cough that is Onset: The symptoms/episode began/occurred gradually, the patient has moderate shortness of breath. Historical: - Allergies: 15:39 Plavix; sg 15:39 Tetanus Vaccines \T\ Toxoid; sg - Home Meds: 17:01 amiodarone 200 mg Oral tab 0.5 tab once daily [Active]; aspirin 81 mg Oral chew 1 tab bp once daily [Active]; atorvastatin 80 mg Oral tab 1 tab once daily [Active]; BRILINTA 90 mg Oral tab 1 tab 2 times per day [Active]; citalopram 20 mg tab 1 tab once daily for Anxiety with Depression [Active]; clonidine HCl 0.2 mg Oral tab 1 tab 2 times per day [Active]; furosemide 80 mg Oral tab 1 tab once daily for Peripheral Edema due to Chronic Heart Failure [Active]; furosemide 40 mg Oral tab 1 tab once daily [Active]; metoprolol tartrate 50 mg Oral tab 1 tab 2 times per day for Hypertension [Active]; spironolactone 25 mg Oral tab 1 tab once daily [Active]; - PMHx: 15:39 CAD; CHF; COPD; CVA; Diabetes - IDDM; Hyperlipidemia; Hypertension; Pneumonia; weakness;sg - PSHx: 15:39 Bypass; Heart stents; back; sg - Immunization history:: Adult Immunizations up to date. - Social history:: Smoking status: Patient/guardian denies using tobacco. - Ebola Screening: : Patient negative for fever greater than or equal to 101.5 degrees Fahrenheit, and additional compatible Ebola Virus Disease symptoms Patient denies exposure to infectious person Patient denies travel to an Ebola-affected area in the 21 days before illness onset No symptoms or risks identified at this time. Screenin:04 Abuse screen: Denies threats or abuse. Denies injuries from another. Nutritional bp screening: No deficits noted. Tuberculosis screening: No symptoms or risk factors identified. Fall Risk None identified. Assessment: 15:45 General: Appears in no apparent distress. comfortable, Behavior is calm, cooperative, bp appropriate for age. Neuro: Level of Consciousness is awake, alert, obeys commands, Oriented to person, place, time, situation, Appropriate for age. Cardiovascular: Rhythm is sinus rhythm. Respiratory: Airway is patent Respiratory effort is even, labored, Respiratory pattern is regular, symmetrical, Breath sounds with crackles. GI: No signs and/or symptoms were reported involving the gastrointestinal system. : No signs and/or symptoms were reported regarding the genitourinary system. EENT: No deficits noted. Derm: No deficits noted. Musculoskeletal: Circulation, motion, and sensation intact. Range of motion: intact in all extremities. Vital Signs: 15:30 BP 127 / 55; Pulse 58; Resp 18; Temp 98; Pulse Ox 98% ; Weight 81.65 kg; bp 17:00 BP 132 / 75; Pulse 37; Resp 17; Pulse Ox 94% ; bp ED Course: 15:30 Patient arrived in ED. mr 15:31 Luis Fernando Huston MD is Private Physician. mr 15:37 Arm band placed on. sg 15:38 Triage completed. sg 15:42 Mu Lewis MD is Attending Physician. tez 15:43 Clyde Lee, CLAUDIA is Primary Nurse. bp 15:53 EKG done, by physical therapist technician. reviewed by Mu Lewis MD. sm3 16:00 Inserted saline lock: 22 gauge in right hand, using aseptic technique. bp 16:03 XRAY Chest (1 view) In Process Unspecified. EDMS 17:04 Patient has correct armband on for positive identification. Bed in low position. Call bp light in reach. Side rails up X2. Adult w/ patient. 17:17 Luis Fernando Huston MD is Hospitalizing Provider. tez 17:21 Urine Culture Sent. [facility] 17:52 No provider procedures requiring assistance completed. Patient admitted, IV remains in bp place. Administered Medications: 15:49 CANCELLED (Duplicate Order): NS 0.9% 1000 ml IV at 75 ml/hr continuous tez 16:45 Drug: Lasix 40 mg Route: IVP; Site: right hand; bp 17:43 Follow up: Response: No adverse reaction bp Outcome: 17:19 Decision to Hospitalize by Provider. tez 18:07 Condition: stable bp 18:14 Admitted to Tele accompanied by tech, family with patient, via wheelchair, room 428, bp with chart, Report called to CONOR TAYLOR 18:14 Instructed on the need for admit. 18:33 Patient left the ED. bp Signatures: Dispatcher [employer] EDMS Ermias Valles, CLAUDIA RN Mu May MD MD cha Rivera, Ketty Rich [facility] Clyde Lee, CLAUDIA RN Yeny Oneal 3 Corrections: (The following items were deleted from the chart) 15:44 15:37 Presenting complaint: sg sg
--- NOTE | 2018-07-14 17:20 | EDPHYS ---
Physician Documentation [facility] Name: Titus Holloway Age: 78 yrs Sex: Male : 1940 Arrival Date: 07/14/2018 Time: 15:30 Bed 18 Private MD: Luis Fernando Huston V ED Physician Mu Lewis HPI: 07/14 15:50 This 78 yrs old Male presents to ER via Ambulatory with complaints of tez Breathing Difficulty. 15:50 The patient has shortness of breath at rest, with light activity. Onset: The tez symptoms/episode began/occurred 3 day(s) ago. Duration: The symptoms are continuous, and are steadily getting worse. The patient's shortness of breath is aggravated by exertion, supine position, is alleviated by elevating head, application of supplemental oxygen. Associated signs and symptoms: The patient has no apparent associated signs or symptoms. Severity of symptoms: At their worst the symptoms were. The patient has experienced similar episodes in the past, multiple times. Historical: - Allergies: 15:39 Plavix; sg 15:39 Tetanus Vaccines \T\ Toxoid; sg - Home Meds: 17:01 amiodarone 200 mg Oral tab 0.5 tab once daily [Active]; aspirin 81 mg Oral chew 1 tab bp once daily [Active]; atorvastatin 80 mg Oral tab 1 tab once daily [Active]; BRILINTA 90 mg Oral tab 1 tab 2 times per day [Active]; citalopram 20 mg tab 1 tab once daily for Anxiety with Depression [Active]; clonidine HCl 0.2 mg Oral tab 1 tab 2 times per day [Active]; furosemide 80 mg Oral tab 1 tab once daily for Peripheral Edema due to Chronic Heart Failure [Active]; furosemide 40 mg Oral tab 1 tab once daily [Active]; metoprolol tartrate 50 mg Oral tab 1 tab 2 times per day for Hypertension [Active]; spironolactone 25 mg Oral tab 1 tab once daily [Active]; - PMHx: 15:39 CAD; CHF; COPD; CVA; Diabetes - IDDM; Hyperlipidemia; Hypertension; Pneumonia; weakness;sg - PSHx: 15:39 Bypass; Heart stents; back; sg - Immunization history:: Adult Immunizations up to date. - Social history:: Smoking status: Patient/guardian denies using tobacco. - Ebola Screening: : Patient negative for fever greater than or equal to 101.5 degrees Fahrenheit, and additional compatible Ebola Virus Disease symptoms Patient denies exposure to infectious person Patient denies travel to an Ebola-affected area in the 21 days before illness onset No symptoms or risks identified at this time. ROS: 15:51 Constitutional: Negative for fever, chills, and weight loss, Eyes: Negative for injury, tez pain, redness, and discharge, ENT: Negative for injury, pain, and discharge, Neck: Negative for injury, pain, and swelling, Cardiovascular: Negative for chest pain, palpitations, and edema, Abdomen/GI: Negative for abdominal pain, nausea, vomiting, diarrhea, and constipation, Back: Negative for injury and pain, : Negative for injury, bleeding, discharge, and swelling, Skin: Negative for injury, rash, and discoloration, Neuro: Negative for headache, weakness, numbness, tingling, and seizure, Psych: Negative for depression, anxiety, suicide ideation, homicidal ideation, and hallucinations, Allergy/Immunology: Negative for hives, rash, and allergies, Endocrine: Negative for neck swelling, polydipsia, polyuria, polyphagia, and marked weight changes, Hematologic/Lymphatic: Negative for swollen nodes, abnormal bleeding, and unusual bruising. 15:51 Abdomen/GI: Positive for abdominal distension. 15:51 MS/extremity: Positive for swelling, of the right leg and left leg. Exam: 15:51 Constitutional: This is a well developed, well nourished patient who is awake, alert, tez and in no acute distress. Head/Face: Normocephalic, atraumatic. Eyes: Pupils equal round and reactive to light, extra-ocular motions intact. Lids and lashes normal. Conjunctiva and sclera are non-icteric and not injected. Cornea within normal limits. Periorbital areas with no swelling, redness, or edema. ENT: Nares patent. No nasal discharge, no septal abnormalities noted. Tympanic membranes are normal and external auditory canals are clear. Oropharynx with no redness, swelling, or masses, exudates, or evidence of obstruction, uvula midline. Mucous membranes moist. Neck: Trachea midline, no thyromegaly or masses palpated, and no cervical lymphadenopathy. Supple, full range of motion without nuchal rigidity, or vertebral point tenderness. No Meningismus. Chest/axilla: Normal chest wall appearance and motion. Nontender with no deformity. No lesions are appreciated. Cardiovascular: Regular rate and rhythm with a normal S1 and S2. No gallops, murmurs, or rubs. Normal PMI, no JVD. No pulse deficits. Respiratory: Lungs have equal breath sounds bilaterally, clear to auscultation and percussion. No rales, rhonchi or wheezes noted. No increased work of breathing, no retractions or nasal flaring. Abdomen/GI: Soft, non-tender, with normal bowel sounds. No distension or tympany. No guarding or rebound. No evidence of tenderness throughout. Back: No spinal tenderness. No costovertebral tenderness. Full range of motion. Skin: Warm, dry with normal turgor. Normal color with no rashes, no lesions, and no evidence of cellulitis. MS/ Extremity: Pulses equal, no cyanosis. Neurovascular intact. Full, normal range of motion. Neuro: Awake and alert, GCS 15, oriented to person, place, time, and situation. Cranial nerves II-XII grossly intact. Motor strength 5/5 in all extremities. Sensory grossly intact. Cerebellar exam normal. Normal gait. Psych: Awake, alert, with orientation to person, place and time. Behavior, mood, and affect are within normal limits. Vital Signs: 15:30 BP 127 / 55; Pulse 58; Resp 18; Temp 98; Pulse Ox 98% ; Weight 81.65 kg; bp 17:00 BP 132 / 75; Pulse 37; Resp 17; Pulse Ox 94% ; bp MDM: 15:42 Patient medically screened. [facility] 15:52 Data reviewed: vital signs, nurses notes, lab test result(s), EKG, radiologic studies, tez plain films. 07/14 15:43 Order name: Basic Metabolic Panel; Complete Time: 17: [facility] 07/14 15:43 Order name: CBC with Diff; Complete Time: 17: [facility] 07/14 15:43 Order name: LFT's; Complete Time: : [facility] 07/14 15:43 Order name: Magnesium; Complete Time: 17: [facility] 07/14 15:43 Order name: NT PRO-BNP; Complete Time: 17: [facility] 07/14 15:43 Order name: PT-INR; Complete Time: 17: [facility] 07/14 15:43 Order name: Troponin (emerg Dept Use Only); Complete Time: 17:08 [facility] 07/14 15:43 Order name: XRAY Chest (1 view); Complete Time: 16:33 [facility] 07/14 15:43 Order name: EKG; Complete Time: 15:45 [facility] 07/14 15:43 Order name: Urine Culture [facility] 07/14 15:43 Order name: Blood Culture Adult (2) [facility] 07/14 17:21 Order name: Urine Dipstick--Ancillary (enter results) em1 07/14 15:43 Order name: Cardiac monitoring; Complete Time: 16:28 [facility] 07/14 15:43 Order name: EKG - Nurse/Tech; Complete Time: 15:59 [facility] 07/14 15:43 Order name: IV Saline Lock; Complete Time: 16:28 [facility] 07/14 15:43 Order name: Labs collected and sent; Complete Time: 16:28 [facility] 07/14 15:43 Order name: O2 Per Protocol; Complete Time: 16:27 [facility] 07/14 15:43 Order name: O2 Sat Monitoring; Complete Time: 16:27 [facility] 07/14 15:43 Order name: Urine Dipstick-Ancillary (obtain specimen); Complete Time: 17:14 [facility] 07/14 17:22 Order name: CONS Physician Consult EDMS Administered Medications: 15:49 CANCELLED (Duplicate Order): NS 0.9% 1000 ml IV at 75 ml/hr continuous [facility] 16:45 Drug: Lasix 40 mg Route: IVP; Site: right hand; bp 17:43 Follow up: Response: No adverse reaction bp Disposition: 07/14/18 17:19 Hospitalization ordered by Luis Fernando Huston for Observation. Preliminary diagnosis are Cardiomegaly, Unspecified combined systolic (congestive) and diastolic (congestive) heart failure, Chronic obstructive pulmonary disease, unspecified, Obesity, unspecified. - Bed requested for Telemetry/MedSurg (observation). - Status is Observation. bp - Condition is Fair. - Problem is new. - Symptoms have improved. UTI on Admission? No Signatures: Dispatcher [employer] EDMS Ermias Valles RN RN sg Anderson, Corey, MD MD cha Fitzgerald, Diane, RN RN df Peltier, Brian, RN RN bp Corrections: (The following items were deleted from the chart) 15:49 15:43 NS 0.9% 1000 ml IV at 75 ml/hr continuous ordered. tez tez 17:28 17:19 Hospitalization Ordered by Luis Fernando Huston MD for Inpatient Admission. Preliminary tez diagnosis is Cardiomegaly; Unspecified combined systolic (congestive) and diastolic (congestive) heart failure; Chronic obstructive pulmonary disease, unspecified; Obesity, unspecified. Bed requested for Telemetry/MedSurg (Inpatient). Status is Inpatient Admission. Condition is Fair. Problem is new. Symptoms have improved. UTI on Admission? No. tez 17:37 17:28 07/14/2018 17:19 Hospitalization Ordered by Luis Fernando Huston MD for Observation. df Preliminary diagnosis is Cardiomegaly; Unspecified combined systolic (congestive) and diastolic (congestive) heart failure; Chronic obstructive pulmonary disease, unspecified; Obesity, unspecified. Bed requested for Telemetry/MedSurg (observation). Status is Observation. Condition is Fair. Problem is new. Symptoms have improved. UTI on Admission? No. tez 18:33 17:37 07/14/2018 17:19 Hospitalization Ordered by Luis Fernando Huston MD for Observation. bp Preliminary diagnosis is Cardiomegaly; Unspecified combined systolic (congestive) and diastolic (congestive) heart failure; Chronic obstructive pulmonary disease, unspecified; Obesity, unspecified. Bed requested for Telemetry/MedSurg (observation). Status is Observation. Condition is Fair. Problem is new. Symptoms have improved. UTI on Admission? No. df
[2018-07-14 19:00] VITALS: BMI 29.2
[2018-07-14] MEDS ORDERED: IPRATROPIUM BROM 0.5MG/2.5ML NEB PRN (19:00)
[2018-07-14] MEDS ORDERED: ONDANSETRON 4 MG/2 ML VIAL IV PRN (19:00)
[2018-07-14] MEDS ORDERED: ACETAMINOPHEN 500 MG TAB PO PRN (19:00)
[2018-07-14] MEDS ORDERED: ALBUTEROL 2.5 MG/3 ML NEB SOL NEB PRN (19:00)
[2018-07-14 19:02] LABS: Urine Blood NEGATIVE (NEG); Urine Glucose NEGATIVE (NEG); Urine Protein NEGATIVE (NEG); Urine Specific Gravity <1.005 (1.005-1.030); Urine pH 5.5 (5.0-7.0)
--- NOTE | 2018-07-14 21:01 | P.SSS ---
Patient History Date of Service: 07/14/18 Reason for admission: DYSPNEA History of Present Illness: MR. NANCE ONCE AGAIN ATE WRONG FOOD AND ENDS UP IN HOSPITAL WITH CHF. HE ATE LAST SOUP WITH ONION RINGS AND BURGER. I LAST FEW TIMES HAVE EXPLAINED THAT EVEN A SLICE OF PIZZA WILL GIVE RISE TO DYSPNEA FOR HIM. UNDERSTANDING LEVEL OF BOTH AND IS VERY POOR DESPITE MULTIPLE ADVISES. Allergies clopidogrel bisulfate [From Plavix] Allergy (Verified 05/23/18 20:49) Itching/Hives/Rash Tetanus Vaccines Allergy (Unknown, Uncoded 03/24/18 01:26) Itching/Hives/Rash Home Medications: Amiodarone HCl [Cordarone*] 0.5 tab PO DAILY 03/24/18 Atorvastatin Calcium [Lipitor] 80 mg PO BEDTIME 03/24/18 Citalopram [Celexa*] 20 mg PO DAILY 03/24/18 Furosemide [Lasix*] 80 mg PO DAILY 03/24/18 Gabapentin [Neurontin*] 100 mg PO TID 03/24/18 Insulin 70/30 NPH/Reg Human [Novolin 70/30*] 15 unit SQ BID #20 ml 03/24/18 Metoprolol Tartrate [Lopressor*] 50 mg PO BID 03/24/18 Ticagrelor [Brilinta*] 1 tab PO BID 03/24/18 Aspirin [Aspirin EC 81 MG] 81 mg PO DAILY 04/26/18 Clonidine HCl [Catapres*] 0.2 mg PO BID 04/26/18 Sacubitril/Valsartan [Entresto 24 mg-26 mg Tablet] 1 tab PO BID #60 tab - Past Medical/Surgical History Diabetic: Yes -: COPD -: CHF -: HTN -: HYPERLIPIDEMIA -: IDDM -: CARDIAC STENTS -: CARDIAC BYPASS SX - Family History Father -: Heart disease Mother -: Heart disease - Social History Alcohol use: No CD- Drugs: No Caffeine use: No Review of Systems 10-point ROS is otherwise unremarkable Respiratory: Shortness of Breath Physical Examination - Vital Signs Temperature: 98 F Blood Pressure: 132/75 Pulse: 37 Respirations: 17 - Physical Exam General: Alert, Mild distress, Obese HEENT: Atraumatic, PERRLA, Mucous membr. moist/pink, EOMI, Sclerae nonicteric Neck: Supple, 2+ carotid pulse no bruit, No LAD, Without JVD or thyroid abnormality Respiratory: Clear to auscultation bilaterally, Normal air movement Cardiovascular: Regular rate/rhythm, Normal S1 S2 Gastrointestinal: Normal bowel sounds, No tenderness Musculoskeletal: No tenderness Integumentary: No rashes Neurological: Normal gait, Normal speech, Normal strength at 5/5 x4 extr, Normal tone, Normal affect Lymphatics: No axilla or inguinal lymphadenopathy - Studies Laboratory Data (last 24 hrs) 07/14/18 16:25: PT 12.0, INR 1.02 07/14/18 16:25: WBC 7.4, Hgb 12.7 L, Hct 37.1 L, Plt Count 198 07/14/18 16:25: Sodium 135 L, Potassium 4.2, BUN 38 H, Creatinine 1.57 H, Glucose 191 H, Magnesium 2.2, Total Bilirubin 0.6, AST 18, ALT 33, Alkaline Phosphatase 97 - Diagnosis (Problem(s)) (1) CHF (congestive heart failure) Onset Date: 10/31/15 Current Visit: No Status: Acute Plan: DIET IS POOR. HE IS ALREADY LOT BETTER WITH IV DIURESIS. I WILL GET A BIOMETRIC SCREENER IN AM BUT I DOUBT HE WILL FOLLOW A GOOD LOW SALT DIET FOR A DIABETIC. Qualifiers: Qualified Code(s): I50.33 - Acute on chronic diastolic (congestive) heart failure - Disposition Disposition: ROUTINE DISCHARGE
[2018-07-14] MEDS: TICAGRELOR 90 MG TABLET PO SCH (22:03)
[2018-07-14] MEDS: MORPHINE 4 MG/ML SYR IV PRN (22:03)
[2018-07-14 23:45] VITALS: O2SAT 97
[2018-07-15] MEDS: MORPHINE 4 MG/ML SYR IV PRN (02:07)
[2018-07-15 07:00] LABS: Absolute Lymphocytes (CBC) 1.3 K/uL (0.7-4.9); Absolute Neutrophil 6.3 K/uL (1.8-8.0); Basophils % 0.3 % (0-1.3); Eosinophils % 4.3 % (0-4.4); Hematocrit 39.2 % (39.6-49.0); Lymphocytes % 14.7 % (15.3-44.8); MPV 7.7 fL (7.6-11.3); Monocytes % 11.4 % (3.3-12.3); RBC Red Blood Cell Count 4.12 M/uL (4.33-5.43)
[2018-07-15 07:10] LABS: Potassium 3.7 mmol/L (3.5-5.1)
--- NOTE | 2018-07-15 08:24 | RAD REPORT ---
EXAM DESCRIPTION: Kamran Single View07/15/2018 6:49 am CLINICAL HISTORY: Chest pain COMPARISON: July 14, 2018 FINDINGS: The lungs appear clear of acute infiltrate. The heart is mildly enlarged. Pacemaker leads are in place. IMPRESSION: No acute abnormalities displayed
[2018-07-15] MEDS ORDERED: SPIRONOLACTONE 25 MG TABLET PO SCH (09:00)
[2018-07-15] MEDS ORDERED: AMIODARONE HCL 200 MG TAB PO SCH (09:00)
[2018-07-15] MEDS ORDERED: FUROSEMIDE 20 MG/ 2ML VIAL IV SCH (09:00)
[2018-07-15] MEDS ORDERED: ASPIRIN 81 MG CHEWABLE TABLET PO SCH (09:00)
--- NOTE | 2018-07-15 09:38 | EKG ---
Test Date: 2018-07-15 Test Time: 08:54:44 Biology Professor: RUBI MEASUREMENT RESULTS: Intervals: Rate: 64 WV: 188 QRSD: 108 QT: 466 QTc: 480 [place]: P: 52 WV: 188 QRS: 20 T: 56 INTERPRETIVE STATEMENTS: Electronic atrial pacemaker Abnormal ECG Compared to ECG 07/14/2018 15:46:15 Ventricular-paced complex(es) or rhythm no longer present Electronically Signed On 07-15-18 09:37:43 CHEESE PROCESSOR by David Clark
[2018-07-15] MEDS: TICAGRELOR 90 MG TABLET PO SCH (09:56)
--- NOTE | 2018-07-15 11:46 | CON ---
CARDIOLOGY CONSULT History Of Present Illness: Mr. Holloway is 78. He has a history of heart disease with bypass surge ry, depressed ejection fraction, many hospital admissions for heart failure. Mr. Holloway understand s very well how to avoid sodium and monitor his weight, but he simply gives up doing it. So, over e last month or so, he has gained a lot of weight, gotten edematous, orthopneic and he came to the [facility] when he was in respiratory distress. He was found to be in pulmonary edema. He feels better now. He has had diuresis and is back to baseline. He has some interstitial lung markings and some n odules that had been worked up before. He has not been found to have cancer in the past. He has a d efibrillator and that is up to date with its monitoring. Medications: His outpatient medications have been amiodarone 100 mg a day, Lipitor 80, Brilinta 90, citalopram 20, clonidine, furosemide 80 once a day, he has instructions to increase if he gets out of breath, metoprolol 50 b.i.d., and spironolactone 25 mg once per day. Past Medical History: He has a history of diabetes, dyslipidemia, coronary bypass surgery, heart darrick lure, defibrillator, and hypertension. Physical Examination: General: He is alert, oriented, pleasant, 5 feet 11 inches, 210 pounds. HEENT: Normal. Lungs: Clear. Heart: Within normal limits, although there is probably an S4 gallop. Abdomen: Soft. Extremities: Mild edema. Plan: I think, the patient could probably be discharged home later today and resume his care. He sh ould refocus his attention on low-sodium diet, calling us frequently when he sees his weight get out of line, make adjustments in his Lasix dose. Sometimes, he does well with that plan, sometimes he simpl y seems to forget. YAMILKA/JATINDER Voice ID: [id number] Report ID: [id number]
[2018-07-15 14:47] VITALS: BP 143/72; TEMP 97
== END 2018-07-15 16:14 | disposition home or self-care (01) ==
LOC: ER 15:24 → ERHOLD 17:20 → INTOOBSV 17:20 → 4TH 18:13
PROVIDERS: ADMIT Internal Medicine; ATTEND Internal Medicine
DX: I11.0 Hypertensive heart disease with heart failure (principal); I50.33 Acute on chronic diastolic (congestive) heart failure; J44.9 Chronic obstructive pulmonary disease, unspecified; E11.9 Type 2 diabetes mellitus without complications; E78.5 Hyperlipidemia, unspecified; I25.10 Atherosclerotic heart disease of native coronary artery without angina pectoris; Z95.5 Presence of coronary angioplasty implant and graft; Z95.1 Presence of aortocoronary bypass graft; Z88.7 Allergy status to serum and vaccine
CPT/HCPCS: 36415; 71045 ×2; 80048 ×2; 80076; 81003; 83735; 83880 ×2; 84484 ×3; 85025 ×2; 85610; 87040 ×2; 87088; 93005 ×2; 96374; 99285; G0378 ×2; J1940 ×2; 87086

== ENCOUNTER 2018-08-08 14:07 | Emergency (ER) | payer OTHER ==
--- OUTSIDE RECORDS SUMMARY | 2018-08-08 14:11 | XMS REPORT | Clinical Summary ---
:1940 Author Organization [facility] Address [address] [place] [address] Care Team Providers Name Role Phone Edmund [...] mouth 3 capsule (three) times a day. atorvastatin Take 1 tablet 90 tablet 0 05/12/2018 Active (LIPITOR) 80 MG (80 mg total) 9 tablet by mouth daily. BRILINTA 90 mg TAKE 1 TABLET 180 tablet 0 06/15/2018 Active tablet BY MOUTH TWICE DAILY furosemide (LASIX) TAKE 1 TABLET 90 tablet 0 07/18/2018 Active 80 mg tablet BY MOUTH EVERY MORNING. furosemide (LASIX) TK 1 T PO [...] moderate pain for up to 30 days. furosemide (LASIX) TAKE 1 TABLET 90 tablet 0 04/20/2018 Discontinued 80 mg tablet BY MOUTH EVERY 9 MORNING atorvastatin Take 1 tablet 90 tablet 3 05/11/2018 Discontinued (LIPITOR) 80 MG (80 mg total) 8 tablet by mouth daily. Active Problems Problem Noted Date Bilateral carotid artery disease 10/26/2017 CAD in [place] artery 03/23/2017 ST elevation myocardial infarction involving left circumflex coronary 2016 artery NSTEMI (non-ST elevated myocardial infarction) 03/02/2017 Coronary artery disease involving [place] coronary artery of [place] heart 02/09 without angina pectoris Diastolic congestive heart failure 02/09/2017 Carotid bruit 02/09/2017 History of coronary artery bypass graft 08/07/2016 Stented coronary artery 08/07/2016 SOB (shortness of breath) 08/07/2016 Systolic congestive heart failure 08/07/2016 Encounters Date Type Specialty Care Team Description 07/16/2018 Refill Cardiology Nahum Enriquez MD Med Refill 06/14/2018 Refill Cardiology Nahum Enriquez MD Med Refill 05/12/2018 Orders Only Cardiology Flaquito Ann MA 05/11/2018 Orders Only Cardiology Daphne Kraft MA 05/09/2018 Refill Cardiology Sia Guerra MA Med Refill 04/20/2018 Refill Cardiology Nahum Enriquez MD Med Refill 11/03/2017 Orders Only Cardiology Flaquito Ann MA Coronary artery disease involving [place] coronary artery of [place] heart without angina pectoris (Primary Dx) 11/03/2017 Telephone Cardiology Flaquito Ann MA Results (ultrasound of the carotid) 10/26/2017 Office Visit Cardiology Nahum Enriquez MD Systolic congestive heart failure, unspecified congestive heart failure chronicity (Primary Dx); Bilateral carotid artery disease; History of coronary artery bypass graft 08/25/2017 Office Visit Internal Medicine Edmund Phillips, Chest wall pain (Primary Dx); Uncontrolled diabetes mellitus type 2 without complications, unspecified intermediate insulin use status; Systolic congestive heart failure, unspecified congestive heart failure chronicity; Coronary artery disease involving [place] coronary artery of [place] heart without angina pectoris 08/20/2017 Telephone Family Medicine Edmund Phillips MD 08/19/2017 Lab Lab Edmund Phillips, Dizziness; Essential hypertension 08/19/2017 Office Visit Internal Medicine Edmund Phillips, Chest wall pain (Primary Dx); Arthralgia of hip, unspecified laterality; Uncontrolled diabetes mellitus type 2 without complications, unspecified intermediate insulin use status; Essential hypertension; Dizziness; Systolic congestive heart failure, unspecified congestive heart failure chronicity 08/18/2017 Telephone Family Medicine Abel Rodriguez LVN 08/17/2017 Office Visit Cardiology Nahum Enriquez MD Systolic congestive heart failure, unspecified congestive heart failure chronicity (Primary Dx); Pain of right hip joint; Stented coronary artery; Coronary artery disease involving [place] coronary artery of [place] heart without angina pectoris; History of coronary artery bypass graft after 08/07/2017 Immunizations Name Dates Previously Given Next Due [...] 36.8 C (98.2 F) 08/25/2017 10:42 AM SEWING SUPERVISOR Respiratory Rate 16 08/25/2017 10:42 AM SEWING SUPERVISOR Oxygen Saturation 97% 08/25/2017 10:42 AM SEWING SUPERVISOR Inhaled Oxygen Concentration - - Weight 96.2 kg (212 lb) 10/26/2017 3:49 PM CDT Height 180.3 cm (5' 11") 08/25/2017 10:42 AM SEWING SUPERVISOR Body Mass Index 29.57 10/26/2017 3:49 PM CDT Plan of Treatment Health Maintenance Due Date Last Done Comments DIABETIC RETINAL EYE EXAM 1940 DIABETIC FOOT EXAM 1949 URINE MICROALBUMIN 1949 SHINGLES VACCINES (1 of 2) 1989 PNEUMOCOCCAL POLYSACCHARIDE VACCINE AGE 65 AND OVER 2004 PNEUMOCOCCAL-13 2004 INFLUENZA VACCINE 02/02/2018 05/19/2017 Implants Implanted Type Area Lace Burn Out Tender Device Shelf Model / Identifier Expiration Serial / Date Lot Stent Catheter Synergy (Otw) 3.50mm X 16mm - [id number] [place]ary N/A: [place] [facility] [id number] Implanted: Qty: 1 on 03/03/2017 by Nahum Enriquez MD Stents INTERVENTIONAL / CARDIOLOGY Procedures Procedure Name Priority Date/Time Associated Diagnosis Comments US CAROTID DUPLEX Routine 10/28/2017 11:25 Systolic congestive Results for this BILATERAL AM CDT heart failure, procedure are in unspecified the results congestive heart section. failure chronicity Bilateral carotid artery disease XR RIBS W PA CHEST Routine 08/19/2017 3:29 Chest wall pain Results for this RIGHT PM SEWING SUPERVISOR procedure are in the results section. SPECIMEN STATUS Routine 08/19/2017 1:47 Results for this REPORT PM SEWING SUPERVISOR procedure are in the results section. HEMOGLOBIN A1C Routine 08/19/2017 1:47 Results for this PM SEWING SUPERVISOR procedure are in the results section. SPECIMEN STATUS Routine 08/19/2017 1:47 Results for this REPORT PM SEWING SUPERVISOR procedure are in the results section. BASIC METABOLIC PANEL Routine 08/19/2017 1:47 Essential Results for this PM SEWING SUPERVISOR hypertension procedure are in the results section. CBC WITH PLATELET AND Routine 08/19/2017 1:47 Dizziness Results for this DIFFERENTIAL PM SEWING SUPERVISOR procedure are in the results section. XR HIP 2-3 VIEWS Routine 08/17/2017 12:08 Pain of right hip Results for this RIGHT PM SEWING SUPERVISOR joint procedure are in the results section. after 08/07/2017 Results Pv carotid duplex (10/28/2017 11:25 AM CDT) Narrative Performed At [facility] Carotid Artery Ultrasound Report Pat.Name:TITUS NANCE Pat.ID:[id number] .Date: 10/28/2017 Refer.MD:NAHUM ENRIQUEZ MD Exam Time: 11:52:00 AM Study Type:Carotid DOBAge:1940,77Y Sex: MALE Sonogrphr: Tiffanie Ross, JOSÉ, RDCS, RVT Pat. Stat.:Outpatient Room:[place] [address]: [facility] Echo Event ID:[id number] Order ID:[id number] Reason for Study:Carotid artery disease Race:C SUMMARY: [...] EDV39.9 cm/s Right ICA Mid ICA Mid [id number] cm/Isaiah Mid EDV 42.5 cm/s Right ICA [...] ICA/CCA PSV 3.72 Signed 10/29/2017 04:53 PM Nahum Enriquez MD Procedure Note Interface, Radiology Results In - 10/29/2017 4:53 PM CDT [facility] Carotid Artery Ultrasound Report Pat.Name: TITUS NANCE Pat.ID: [id number] St.Date: 10/28/2017 Refer.MD: NAHUM ENRIQUEZ MD Exam Time: 11:52:00 AM Study Type:Carotid Age: 11 1940,77Y Sex: MALE Sonogrphr: Tiffanie Ross, RDMS, RDCS, RVT Pat. Stat.:Outpatient Room: [facility] 4: [id number] Echo Event ID:[id number] Order ID: [id number] Reason for Study:Carotid artery disease Race: C [...] ICA/CCA PSV 3.72 Signed 10/29/2017 04:53 PM Nahum Enriquez MD Performing Organization Address [facility] Number [facility] [address] [place] [address] XR Ribs W Pa Chest Right (08/19/2017 3:29 PM SEWING SUPERVISOR) Narrative Performed At EXAMINATION:XR RIBSW PA CHEST RIGHT RADIANT CLINICAL HISTORY:R07.89 Other chest pain, CHEST WALL PAIN COMPARISON:None. IMPRESSION: The lungs are clear Heart is slightly enlarged, unchanged from prior Diffuse calcified atherosclerotic vascular disease throughout the arterial structures. [facility] [id number] Procedure Note Interface, Radiology Results Incoming - 08/19/2017 4:22 PM SEWING SUPERVISOR EXAMINATION: XR RIBS W PA CHEST RIGHT CLINICAL HISTORY: R07.89 Other chest pain, CHEST WALL PAIN COMPARISON: None. IMPRESSION: The lungs are clear Heart is slightly enlarged, unchanged from prior Diffuse calcified atherosclerotic vascular disease throughout the arterial structures. [facility] [id number] Performing Organization Address [facility] Phone Number JARED FERNÁNDEZ [address] [place] [address] Specimen Status Report (08/19/2017 1:47 PM SEWING SUPERVISOR)Only the most recent of2 resultswithin the time period is included. Specimen Status Report COMMENT [facility] Comment: Written Authorization Written Authorization No Written Authorization Received. Narrative Performed At Performed at:[address] [place], [place] [id number] Fire Alarm Installer: Ministerio Clemens MD, Phone:[phone] Performing Organization Address City/State/Zipcode Phone Number [facility] CBC with platelet and differential (08/19/2017 1:47 PM SEWING SUPERVISOR) WBC 8.1 3.4 - 10.8 x10E3/uL [facility] [...] Specimen Blood Narrative Performed At Performed at: [facility] [address] [place], [id number] Fire Alarm Installer: Ministerio Clemens MD, Phone:[phone] Performing Organization Address [facility] Phone Number [facility] Hemoglobin A1c (08/19/2017 1:47 PM SEWING SUPERVISOR) Hemoglobin A1C 11.8 (H) 4.8 - 5.6 % [facility] Comment: Pre-diabetes: 5.7 - 6.4 Diabetes: >6.4 Glycemic control for adults with diabetes: <7.0 Narrative Performed At Performed at: [facility], [id number] Fire Alarm Installer: Ministerio Clemens MD, Phone:[phone] Performing Organization Address [facility] Phone Number [facility] Basic metabolic panel (08/19/2017 1:47 PM SEWING SUPERVISOR) Glucose 467 (H) 65 - 99 mg/dL [facility] BUN, whole blood 36 (H) 8 - 27 mg/dL [facility] Creatinine 1.55 (H) 0.76 - 1.27 mg/dL [facility] EGFR Non-Afr. Trinidadian 42 (L) >59 mL/min/1.73 [facility] EGFR 49 (L) >59 mL/min/1.73 [facility] BUN/creatinine ratio 23 10 - 24 [facility] Sodium 127 (L) 134 - 144 mmol/L [facility] Potassium 5.2 3.5 - 5.2 mmol/L [facility] Chloride 85 (L) 96 - 106 mmol/L [facility] CO2 26 18 - 29 mmol/L [facility] Calcium 9.2 8.6 - 10.2 mg/dL [facility] Specimen Blood Narrative Performed At Performed at: [facility], [id number] Fire Alarm Installer: Ministerio Clemens MD, Phone:[phone] Performing Organization Address [facility] Phone Number [facility] XR Hip 2-3 View Right (08/17/2017 12:08 PM SEWING SUPERVISOR) Narrative Performed At EXAMINATION:XR HIP 2-3 VIEWS RIGHT HM RADIANT CLINICAL HISTORY:M25.551 Pain in right hip, hip pain fall COMPARISON:none. IMPRESSION: 1.No displaced fractures or dislocations. Pelvic vascular calcifications are noted. [id number] Procedure Note Hm Interface, Radiology Results Incoming - 08/17/2017 2:08 PM SEWING SUPERVISOR EXAMINATION: XR HIP 2-3 VIEWS RIGHT CLINICAL HISTORY: M25.551 Pain in right hip, hip pain fall COMPARISON: none. IMPRESSION: 1. No displaced fractures or dislocations. Pelvic vascular calcifications are noted. [facility]-[id number] Performing Organization Address City/State/Zipcode Phone Number [facility] [address] [place] [address] after 08/07/2017 Insurance Payer Benefit Plan / Group Subscriber ID Type Phone Address AETNA MEDICARE AETNA MEDICARE HMO/PPO MCR xxxxxxxx HMO MEDICAID MEDICAID xxxxxxxxx Medicaid Advance Directives Patient has advance care planning documents on file. For more information, please contact:Ludin Westfall[address] [place] [address]
--- NOTE | 2018-08-08 14:56 | RAD REPORT ---
EXAM DESCRIPTION: CT - Head Brain Wo Cont - 08/08/2018 2:47 pm CLINICAL HISTORY: AMS Headache, drowsiness COMPARISON: Head Brain Wo Cont dated 05/19/2018; Head Brain Wo Cont dated 08/25/2017 TECHNIQUE: All CT scans are performed using dose optimization technique as appropriate and may inclu de automated exposure control or mA/KV adjustment according to patient size. FINDINGS: No intracranial hemorrhage, hydrocephalus or extra-axial fluid collection.Moderate general ized brain atrophy is present with moderate periventricular and deep white matter chronic microvascul ar ischemic changes.No areas of brain edema or evidence of midline shift. Mild mucosal thickening involves the inferior right maxillary antrum. The paranasal sinuses and masto ids are otherwise clear. The calvarium is intact. IMPRESSION: No acute intracranial abnormality.
[2018-08-08 15:21] LABS: Absolute Lymphocytes (CBC) 0.7 K/uL (0.7-4.9); Absolute Monocytes 0.8 K/uL (0.1-1.3); Absolute Neutrophil 5.9 K/uL (1.8-8.0); Basophils % 0.2 % (0-1.3); Eosinophils % 3.5 % (0-4.4); Hematocrit 40.6 % (39.6-49.0); Lymphocytes % 9.6 % (15.3-44.8); MPV 7.8 fL (7.6-11.3); RBC Red Blood Cell Count 4.23 M/uL (4.33-5.43)
--- NOTE | 2018-08-08 15:23 | RAD REPORT ---
EXAM DESCRIPTION: Kamran Single View08/08/2018 3:08 pm CLINICAL HISTORY: Tachypnea COMPARISON: July 2018 FINDINGS: The lungs appear clear of acute infiltrate. The heart is mildly enlarged. Pacemaker leads are in place. Postsurgical changes involve the chest IMPRESSION: No acute abnormalities displayed
[2018-08-08 15:44] LABS: BUN Blood Urea Nitrogen 38 mg/dL (7-18); Bicarbonate 29 mmol/L (21-32); Creatine Phosphokinase 147 U/L (39-308); Glucose Level 143 mg/dL (74-106); NT PRO-BNP 757 pg/mL (<450); Potassium 3.9 mmol/L (3.5-5.1); Sodium Level 136 mmol/L (136-145); Troponin (Emerg Dept Use Only) < 0.02 ng/mL (0.0-0.045)
[2018-08-08 16:23] LABS: Barbiturates NEGATIVE (NEGATIVE); Benzodiazepines NEGATIVE (NEGATIVE); Cocaine NEGATIVE (NEGATIVE); METHAMPHETAM NEGATIVE (NEGATIVE); Methadone NEGATIVE (NEGATIVE); Opiates NEGATIVE (NEGATIVE); Phencyclidine NEGATIVE (NEGATIVE); THC Cannibis NEGATIVE (NEGATIVE)
--- NOTE | 2018-08-08 16:45 | EDPHYS ---
Physician Documentation [facility] Name: Titus Holloway Age: 78 yrs Sex: Male : 1940 Arrival Date: 08/08/2018 Time: 14:11 Bed 2 Private MD: ED Physician Parish Tariq HPI: 08/08 15:28 This 78 yrs old Male presents to ER via EMS with complaints of Altered Mental rn Status. 15:29 The patient presents with decreased responsiveness. Onset: The symptoms/episode rn began/occurred at an unknown time. Possible causes: low blood sugar. Associated signs and symptoms: Pertinent positives: confusion, Pertinent negatives: ataxia, chest pain, combativeness, headache, seizure, vertigo, vomiting. Current symptoms: In the emergency department the patient's symptoms have improved. The patient has experienced similar episodes in the past. Per reports, patient with decreased responsiveness, seemed "Delirious" to family, called 911, blood sugar was 60, had administered insulin, given oral glucose by EMS, with improvement of symptoms but not back to baseline. Patient denies any symptoms. Family reports more sleepy than normal. . Historical: - Allergies: 14:19 Plavix; hb 14:19 Tetanus Vaccines \\T\\ Toxoid; hb - Home Meds: 14:19 amiodarone 200 mg Oral tab 0.5 tab once daily [Active]; aspirin 81 mg Oral chew 1 tab hb once daily [Active]; atorvastatin 80 mg Oral tab 1 tab once daily [Active]; BRILINTA 90 mg Oral tab 1 tab 2 times per day [Active]; citalopram 20 mg tab 1 tab once daily for Anxiety with Depression [Active]; clonidine HCl 0.2 mg Oral tab 1 tab 2 times per day [Active]; furosemide 80 mg Oral tab 1 tab once daily for Peripheral Edema due to Chronic Heart Failure [Active]; furosemide 40 mg Oral tab 1 tab once daily [Active]; metoprolol tartrate 50 mg Oral tab 1 tab 2 times per day for Hypertension [Active]; spironolactone 25 mg Oral tab 1 tab once daily [Active]; - PMHx: 14:19 CAD; COPD; CHF; CVA; Diabetes - IDDM; Hyperlipidemia; Hypertension; Pneumonia; weakness;hb - PSHx: 14:19 Bypass; Heart stents; back; hb - Immunization history:: Adult Immunizations up to date. - Social history:: Smoking status: Patient/guardian denies using tobacco. - Ebola Screening: : No symptoms or risks identified at this time. - Family history:: not pertinent. - Hospitalizations: : No recent hospitalization is reported. ROS: 15:29 Constitutional: Negative for fever, chills, and weight loss, Eyes: Negative for injury, rn pain, redness, and discharge, Neck: Negative for injury, pain, and swelling, Cardiovascular: Negative for chest pain, palpitations, and edema, Respiratory: Negative for shortness of breath, cough, wheezing, and pleuritic chest pain, Abdomen/GI: Negative for abdominal pain, nausea, vomiting, diarrhea, and constipation, MS/Extremity: Negative for injury and deformity, Skin: Negative for injury, rash, and discoloration, Neuro: Negative for headache, numbness, tingling, and seizure. Exam: 15:29 Constitutional: This is a well developed, well nourished patient who is awake, alert, rn and in no acute distress. Head/Face: Normocephalic, atraumatic. Eyes: Pupils equal round and reactive to light, extra-ocular motions intact. Lids and lashes normal. Conjunctiva and sclera are non-icteric and not injected. Cornea within normal limits. Periorbital areas with no swelling, redness, or edema. ENT: dry MM, no stridor Cardiovascular: Regular rate and rhythm, No pulse deficits. Respiratory: Lungs have equal breath sounds bilaterally, clear to auscultation. + mild tachypnea. Abdomen/GI: soft, non-tender Skin: Warm, dry with normal turgor. Normal color with no rashes, no lesions, and no evidence of cellulitis. MS/ Extremity: Pulses equal, no cyanosis. Neurovascular intact. Full, normal range of motion. Equal circumference. Neuro: Awake, slightly somnolent but arousable to voice, follows commands. Moves all 4 extremities. Vital Signs: 14:14 BP 104 / 63; Pulse 62; Resp 19; Temp 98.4; Pulse Ox 96% on R/A; Pain 0/10; hb 15:00 BP 109 / 53; Pulse 60; Resp 8; Pulse Ox 100% ; bp 16:00 BP 115 / 67; Pulse 62; Resp 14; Pulse Ox 98% ; bp 17:00 BP 100 / 66; Pulse 60; Resp 21; Pulse Ox 98% ; bp MDM: 14:16 Patient medically screened. rn 16:43 Differential Diagnosis: electrolyte abnormality, hypoglycemia, intracranial bleed, rn overdose, pneumonia, UTI, volume depletion. Data reviewed: vital signs, nurses notes, lab test result(s), EKG, radiologic studies, CT scan, plain films, and as a result, I will discharge patient. Counseling: I had a detailed discussion with the patient and/or guardian regarding: the historical points, exam findings, and any diagnostic results supporting the discharge/admit diagnosis, lab results, radiology results, the need for outpatient follow up, to return to the emergency department if symptoms worsen or persist or if there are any questions or concerns that arise at home. Response to treatment: the patient's symptoms have markedly improved after treatment, the patient is now symptom free, and as a result, I will discharge patient. Special discussion: I discussed with the patient/guardian in detail that at this point there is no indication for admission to the hospital. It is understood, however, that if the symptoms persist or worsen the patient needs to return immediately for re-evaluation. ED course: NO acute abnormality found, + chronic glucose problems with transient hypoglycemic episode today, now corrected, asymptomatic, neg ct head, neg cxr, neg flu, will dc home with pcp f/u. Family under imporession that they may be migrating toward long term.. 08/08 14:27 Order name: UDS; Complete Time: 16:42 08/08 14:27 Order name: Basic Metabolic Panel; Complete Time: 15:46 08/08 14:27 Order name: CBC with Diff; Complete Time: 15:29 rn 08/08 14:27 Order name: CPK; Complete Time: 15:46 rn 08/08 14:27 Order name: Troponin (emerg Dept Use Only); Complete Time: 15:46 rn 08/08 14:27 Order name: Flu; Complete Time: 16:42 rn 08/08 14:27 Order name: CT Head Brain wo Cont; Complete Time: 15:46 rn 08/08 14:27 Order name: EKG; Complete Time: 14:35 rn 08/08 14:27 Order name: PROBNP; Complete Time: 15:46 rn 08/08 14:27 Order name: XRAY Chest (1 view); Complete Time: 16:13 rn 08/08 14:27 Order name: Blood Culture Adult (2) rn 08/08 14:27 Order name: Procalcitonin; Complete Time: 16:13 rn 08/08 14:27 Order name: ETOH Level; Complete Time: 15:54 rn 08/08 16:04 Order name: Urine Dipstick--Ancillary (enter results) bd 08/08 14:27 Order name: Cardiac monitoring; Complete Time: 15:11 rn 08/08 14:27 Order name: EKG - Nurse/Tech; Complete Time: 15:11 rn 08/08 14:27 Order name: IV Saline Lock; Complete Time: 15:12 rn 08/08 14:27 Order name: Labs collected and sent; Complete Time: 15:12 rn 08/08 14:27 Order name: NPO; Complete Time: 15:11 rn 08/08 14:27 Order name: O2 Per Protocol; Complete Time: 15:12 rn 08/08 14:27 Order name: O2 Sat Monitoring; Complete Time: 15:12 rn 08/08 14:27 Order name: Urine Dipstick-Ancillary (obtain specimen); Complete Time: 15:12 rn Administered Medications: No medications were administered Disposition: 08/08/18 16:45 Discharged to Home. Impression: Hypoglycemia, unspecified, Deconditioning, Weakness. - Condition is Stable. - Discharge Instructions: Hypoglycemia, Weakness, Fatigue, Blood Glucose Monitoring, Adult. - Medication Reconciliation Form, Thank You Letter, Antibiotic Education, Prescription Opioid Use form. - Follow up: Private Physician; When: As needed; Reason: Recheck today's complaints, Re-evaluation by your physician. - Problem is new. - Symptoms have improved. Signatures: Dispatcher [employer] EDNY Parish Tariq MD MD rn Baxter, Heather, RN RN hb Peltier, Brian, RN RN bp Corrections: (The following items were deleted from the chart) 17:27 16:45 08/08/2018 16:45 Discharged to Home. Impression: Hypoglycemia, unspecified; bp Deconditioning; Weakness. Condition is Stable. Forms are Medication Reconciliation Form, Thank You Letter, Antibiotic Education, Prescription Opioid Use. Follow up: Private Physician; When: As needed; Reason: Recheck today's complaints, Re-evaluation by your physician. Problem is new. Symptoms have improved. rn
--- NOTE | 2018-08-08 16:45 | ER ---
Nurse's Notes [facility] Name: Titus Holloway Age: 78 yrs Sex: Male : 1940 Arrival Date: 08/08/2018 Time: 14:11 Bed 2 Private MD: Diagnosis: Hypoglycemia, unspecified;Deconditioning;Weakness Presentation: 08/08 14:11 Presenting complaint: EMS states: Son called for altered mental status. Per family on hb scene pt was up walking and talking, then an hour later was found responsive to verbal stimuli only. Home BGL 67, improved to 167 after 200ml dextrose. Transition of care: patient was not received from another setting of care. Onset of symptoms was August 08, 2018. Risk Assessment: Do you want to hurt yourself or someone else? Patient reports no desire to harm self or others. Care prior to arrival: IV initiated. 20 GA, in the right antecubital area, Glucose check: 167. 14:11 Method Of Arrival: EMS: [facility] 14:11 Acuity: PAYAM 2 hb 17:26 Initial Sepsis Screen: Does the patient meet any 2 criteria? No. Patient's initial bp sepsis screen is negative. Does the patient have a suspected source of infection? No. Patient's initial sepsis screen is negative. Triage Assessment: 15:00 General: Appears in no apparent distress. comfortable, obese, Behavior is cooperative, bp appropriate for age, drowsy. Pain: Denies pain. EENT: No deficits noted. Neuro: Level of Consciousness is obeys commands, lethargic, Oriented to person, place, time, situation, Appropriate for age. Cardiovascular: Rhythm is sinus rhythm. Respiratory: Airway is patent Respiratory effort is even, unlabored, shallow, Respiratory pattern is regular, symmetrical. GI: No signs and/or symptoms were reported involving the gastrointestinal system. : No signs and/or symptoms were reported regarding the genitourinary system. Derm: No deficits noted. Musculoskeletal: Circulation, motion, and sensation intact. Range of motion: intact in all extremities. Historical: - Allergies: 14:19 Plavix; hb 14:19 Tetanus Vaccines \T\ Toxoid; hb - Home Meds: 14:19 amiodarone 200 mg Oral tab 0.5 tab once daily [Active]; aspirin 81 mg Oral chew 1 tab hb once daily [Active]; atorvastatin 80 mg Oral tab 1 tab once daily [Active]; BRILINTA 90 mg Oral tab 1 tab 2 times per day [Active]; citalopram 20 mg tab 1 tab once daily for Anxiety with Depression [Active]; clonidine HCl 0.2 mg Oral tab 1 tab 2 times per day [Active]; furosemide 80 mg Oral tab 1 tab once daily for Peripheral Edema due to Chronic Heart Failure [Active]; furosemide 40 mg Oral tab 1 tab once daily [Active]; metoprolol tartrate 50 mg Oral tab 1 tab 2 times per day for Hypertension [Active]; spironolactone 25 mg Oral tab 1 tab once daily [Active]; - PMHx: 14:19 CAD; COPD; CHF; CVA; Diabetes - IDDM; Hyperlipidemia; Hypertension; Pneumonia; weakness;hb - PSHx: 14:19 Bypass; Heart stents; back; hb - Immunization history:: Adult Immunizations up to date. - Social history:: Smoking status: Patient/guardian denies using tobacco. - Ebola Screening: : No symptoms or risks identified at this time. - Family history:: not pertinent. - Hospitalizations: : No recent hospitalization is reported. Screenin:14 Abuse screen: Denies threats or abuse. Denies injuries from another. Nutritional hb screening: No deficits noted. Tuberculosis screening: No symptoms or risk factors identified. Fall Risk Total [place] Fall Scale indicates High Risk Score (45 or more points). Fall prevention measures have been instituted. Side Rails Up X 2 Frequent Obs/Assessments Occuring Family Present and informed to notify staff if the need to leave the bedside As available patient and family educated on Fall Prevention Program and Strategies. Assessment: 14:30 General: SEE TRIAGE NOTE. bp 17:24 Reassessment: PT D/C HOME VIA W/C WITH FAMILY, DX WITH FATIGUE AND HYPOGLYCEMIA. bp Vital Signs: 14:14 BP 104 / 63; Pulse 62; Resp 19; Temp 98.4; Pulse Ox 96% on R/A; Pain 0/10; hb 15:00 BP 109 / 53; Pulse 60; Resp 8; Pulse Ox 100% ; bp 16:00 BP 115 / 67; Pulse 62; Resp 14; Pulse Ox 98% ; bp 17:00 BP 100 / 66; Pulse 60; Resp 21; Pulse Ox 98% ; bp ED Course: 14:11 Patient arrived in ED. hb 14:13 Triage completed. hb 14:14 Arm band placed on. hb 14:14 Patient has correct armband on for positive identification. Placed in gown. Bed in low hb position. Call light in reach. Side rails up X2. 14:14 Maintain EMS IV. Dressing intact. Good blood return noted. Site clean \T\ dry. Gauge \T\ hb site: 20g RIGHT AC. 14:16 Parish Tariq MD is Attending Physician. rn 14:56 CT Head Brain wo Cont In Process Unspecified. EDMS 14:59 Sunita Medrano, RN is Primary Nurse. hb 15:00 Primary Nurse role handed off by Sunita Medrano RN bp 15:00 Clyde Lee, RN is Primary Nurse. bp 15:05 X-ray completed. Portable x-ray completed in exam room. Patient tolerated procedure sw well. 15:10 XRAY Chest (1 view) In Process Unspecified. EDMS 15:14 EKG done, by ED staff, reviewed by Parish Tariq MD. sm3 17:25 No provider procedures requiring assistance completed. IV discontinued, intact, bp bleeding controlled, No redness/swelling at site. Pressure dressing applied. Administered Medications: No medications were administered Outcome: 16:45 Discharge ordered by . rn 17:25 Discharged to home via wheelchair, with family. bp 17:25 Condition: stable 17:25 Discharge instructions given to patient, family, Instructed on discharge instructions, follow up and referral plans. Demonstrated understanding of instructions, follow-up care. 17:27 Patient left the ED. bp Signatures: Dispatcher [employer] EDTN Parish Tariq MD MD rn Warren, Shannon Sunita Medrano RN RN hb Peltier, Brian, RN Yeny Lopez 3
--- NOTE | 2018-08-08 17:01 | EKG ---
Test Date: 2018-07-08 Test Time: 14:08:41 [employer]ezza Architect: GINI MEASUREMENT RESULTS: Intervals: Rate: 64 MI: 244 QRSD: 116 QT: 470 QTc: 484 [place]: P: MI: 244 QRS: -7 T: 73 INTERPRETIVE STATEMENTS: Electronic atrial pacemaker Cannot rule out Anterior infarct, age undetermined Abnormal ECG Compared to ECG 05/24/2018 08:54:19 Myocardial infarct finding now present Sinus rhythm no longer present T-wave abnormality no longer present Prolonged QT interval no longer present Electronically Signed On 08-08-18 17:00:39 [employer] INSPECTOR by David Clark
[2018-08-08 18:46] VITALS: TEMP 98.4
[2018-08-08 18:49] VITALS: O2SAT 98
[2018-08-08 18:50] VITALS: BP 100/66
[2018-08-08 20:14] LABS: Urine Blood NEGATIVE (NEG); Urine Glucose NEGATIVE (NEG); Urine Protein NEGATIVE (NEG); Urine Specific Gravity 1.015 (1.005-1.030); Urine pH 6.5 (5.0-7.0)
== END 2018-08-08 17:27 | disposition home or self-care (01) ==
LOC: ER 14:07
DX: E11.649 Type 2 diabetes mellitus with hypoglycemia without coma (principal); E78.5 Hyperlipidemia, unspecified; I10 Essential (primary) hypertension; I25.10 Atherosclerotic heart disease of native coronary artery without angina pectoris; J44.9 Chronic obstructive pulmonary disease, unspecified; I11.0 Hypertensive heart disease with heart failure; I50.9 Heart failure, unspecified; Z79.82 Long term (current) use of aspirin; Z79.4 Long term (current) use of insulin; Z79.899 Other long term (current) drug therapy; Z95.1 Presence of aortocoronary bypass graft; Z95.5 Presence of coronary angioplasty implant and graft; Z95.0 Presence of cardiac pacemaker; Z86.73 Personal history of transient ischemic attack (TIA), and cerebral infarction without residual deficits
CPT/HCPCS: 36415; 70450; 71045; 80048; 80307; 80320; 81003; 82550; 83880; 84145; 84484; 85025; 87040; 87804; 93005; 99284

== ENCOUNTER 2018-11-10 20:08 | Observation (INO) | payer OTHER ==
--- OUTSIDE RECORDS SUMMARY | 2018-11-10 20:11 | XMS REPORT | Clinical Summary ---
:1940 Author Organization [facility] Address [address] [place] [address] Care Team Providers Name Role Phone Edmund Phillips MD Primary Care Provider Unavailable Allergies Active Allergy Reactions Severity Noted Date Comments Clopidogrel Itching 03/02/2017 Sulfa (Sulfonamide Antibiotics) Swelling 08/25/2017 Medications Medication Sig Dispensed Refills Start Date End Date Status citalopram (CeleXA) TK 1 T PO D 0 07/16/2016 Active 20 MG tablet IN THE MORNING. NITROSTAT 0.[address] 1 90 tablet 4 04/19/2017 Active tablet tablet (0.3 mg total) under the tongue every 5 (five) minutes as needed for chest pain. spironolactone TK 1 T PO D 90 tablet 3 04/19/2017 Active (ALDACTONE) 25 MG tablet losartan (COZAAR) TK 1 T PO QD 1 08/02/2017 Active 100 MG tablet amIODarone Take 100 mg 0 Active (PACERONE) 200 MG by mouth tablet daily. gabapentin Take 100 mg 0 Active (NEURONTIN) 100 mg by mouth 3 capsule (three) times a day. atorvastatin Take 1 tablet 90 tablet 0 05/12/2018 Active (LIPITOR) 80 MG (80 mg total) 9 tablet by mouth daily. BRILINTA 90 mg TAKE 1 TABLET 180 tablet 0 09/12/2018 Active tablet BY MOUTH TWICE DAILY. furosemide (LASIX) TAKE 1 TABLET 90 tablet 0 10/31/2018 Active 80 mg tablet BY MOUTH EVERY MORNING. furosemide (LASIX) TK 1 T PO 90 tablet 3 04/19/2017 Discontinued 80 mg tablet MORNING 8 ticagrelor Take 1 tablet 180 tablet 3 04/19/2017 Discontinued (BRILINTA) 90 mg (90 mg total) 8 tablet by mouth 2 (two) times a day. atorvastatin Take 1 tablet 90 tablet 3 04/19/2017 (LIPITOR) 80 MG (80 mg total) 8 tablet by mouth daily. insulin GLARGINE Inject 25 10 mL 8 05/04/2017 (LANTUS) 100 unit/mL Units under 8 injection (vial) the skin nightly. furosemide (LASIX) TAKE 1 TABLET 90 tablet 0 04/20/2018 Discontinued 80 mg tablet BY MOUTH 9 EVERY MORNING atorvastatin Take 1 tablet 90 tablet 3 05/11/2018 Discontinued (LIPITOR) 80 MG (80 mg total) 8 tablet by mouth daily. BRILINTA 90 mg TAKE 1 TABLET 180 tablet 0 06/15/2018 Discontinued tablet BY MOUTH 9 TWICE DAILY furosemide (LASIX) TAKE 1 TABLET 90 tablet 0 07/18/2018 Discontinued 80 mg tablet BY MOUTH 9 EVERY MORNING. Active Problems Problem Noted Date Bilateral carotid artery disease 10/26/2017 CAD in ruby artery 03/23/2017 ST elevation myocardial infarction involving left circumflex coronary 2016 artery NSTEMI (non-ST elevated myocardial infarction) 03/02/2017 Coronary artery disease involving ruby coronary artery of ruby heart 02/09 without angina pectoris Diastolic congestive heart failure 02/09/2017 Carotid bruit 02/09/2017 History of coronary artery bypass graft 08/07/2016 Stented coronary artery 08/07/2016 SOB (shortness of breath) 08/07/2016 Systolic congestive heart failure 08/07/2016 Encounters Date Type Specialty Care Team Description 10/30/2018 Refill Cardiology Nahum Olivares MD Med Refill 09/10/2018 Refill Cardiology Nahum Olivares MD Med Refill 07/16/2018 Refill Cardiology Nahum Olivares MD Med Refill 06/14/2018 Refill Cardiology Nahum Olivares MD Med Refill 05/12/2018 Orders Only Cardiology Flaquito Ann MA 05/11/2018 Orders Only Cardiology Daphne Kraft MA 05/09/2018 Refill Cardiology Sia Guerra MA Med Refill 04/20/2018 Refill Cardiology Nahum Olivares MD Med Refill after 11/09/2017 Immunizations Name Dates Previously Given Next Due Influenza Trivalent 05/19/2017 Social History Tobacco Use Types Packs/Day Years Used Date Never Smoker Smokeless Tobacco: Never Used Sex Assigned at Date Recorded Not on file Job Start Date Occupation Industry Not on file Not on file Not on file Travel History Travel Start Travel End No recent travel history available. Last Filed Vital Signs Not on file Plan of Treatment Health Maintenance Due Date Last Done Comments SHINGLES VACCINES (#1) 1989 65+ PNEUMOCOCCAL VACCINE (1 of 2 - PCV13) 2004 PNEUMOCOCCAL POLYSACCHARIDE VACCINE AGE 65 AND OVER 2004 INFLUENZA VACCINE 02/02/2019 05/19/2017 Implants Implanted Type Area Hand Tool Filer Device Shelf Model / Identifier Expiration Serial / Date Lot Stent Catheter Synergy (Otw) 3.50mm X 16mm - [id number] Coronary N/A[place] [facility] [id number] Implanted: Qty: 1 on 03/03/2017 by Nahum Olivares MD Stents INTERVENTIONAL / CARDIOLOGY Results Not on fileafter 11/09/2017 Insurance Payer Benefit Plan / Group Subscriber ID Type Phone Address AETNA MEDICARE AETNA MEDICARE HMO/PPO [facility] xxxxxxxx HMO MEDICAID MEDICAID xxxxxxxxx Medicaid Advance Directives Patient has advance care planning documents on file. For more information, please contact:Ludin Westfall[address] [place] [address]
[2018-11-10 21:23] LABS: Absolute Lymphocytes (CBC) 1.1 K/uL (0.7-4.9); Absolute Monocytes 1.2 K/uL (0.1-1.3); Absolute Neutrophil 11.3 K/uL (1.8-8.0); Basophils % 0.5 % (0-1.3); Eosinophils % 1.9 % (0-4.4); Lymphocytes % 7.9 % (15.3-44.8); MPV 7.6 fL (7.6-11.3); Monocytes % 8.7 % (3.3-12.3); Protime INR 1.1; RBC Red Blood Cell Count 4.04 M/uL (4.33-5.43)
[2018-11-10 21:45] LABS: ALT/SGPT 32 U/L (12-78); AST/SGOT 23 U/L (15-37); Albumin 3.9 g/dL (3.4-5.0); Alkaline Phosphatase 67 U/L (45-117); BUN Blood Urea Nitrogen 28 mg/dL (7-18); Bicarbonate 26 mmol/L (21-32); Bilirubin Direct 0.2 mg/dL (0-0.2); Bilirubin Total 0.8 mg/dL (0.2-1.0); Glucose Level 138 mg/dL (74-106); Magnesium 2.1 mg/dL (1.8-2.4); NT PRO-BNP 1554 pg/mL (<450); Potassium 4.1 mmol/L (3.5-5.1); Protein, Total 7.4 g/dL (6.4-8.2); Sodium Level 134 mmol/L (136-145); Troponin (Emerg Dept Use Only) < 0.02 ng/mL (0.0-0.045)
--- NOTE | 2018-11-10 22:00 | RAD REPORT ---
EXAM DESCRIPTION: RAD - Chest Single View - 11/10/2018 9:47 pm CLINICAL HISTORY: CHEST PAIN Chest pain. COMPARISON: <Comparisons> FINDINGS: Portable technique limits examination quality. Mild interstitial pulmonary edema is seen. The heart is prominent in size with multi lead pacer/defib rillator device. No displaced fractures.Sternotomy wires present. IMPRESSION: Mild CHF.
[2018-11-10] MEDS ORDERED: CEFTRIAXONE/SWI 1gm 1 GM/10 ML SYR ONE (22:15)
[2018-11-10] MEDS ORDERED: IPRATROPIUM BROM 0.5MG/2.5ML ONE (22:15)
[2018-11-10] MEDS ORDERED: LEVALBUTEROL 1.25 MG/3 ML NEB ONE (22:15)
[2018-11-11 00:12] LABS: Urine Blood NEGATIVE (NEG); Urine Glucose NEGATIVE (NEG); Urine Protein NEGATIVE (NEG); Urine pH 5.5 (5.0-7.0)
--- NOTE | 2018-11-11 00:52 | ER ---
Nurse's Notes [facility] Name: Titus Holloway Age: 78 yrs Sex: Male : 1940 Arrival Date: 11/10/2018 Time: 20:11 Bed 17 Private MD: Luis Fernando Huston V Diagnosis: Weakness;Pneumonia due to other specified bacteria;Unspecified combined systolic (congestive) and diastolic (congestive) heart failure;Unspecified kidney failure-INSUFFICENCY;Elevated white blood cell count;Chronic obstructive pulmonary disease with (acute) exacerbation Presentation: 11/10 20:31 Presenting complaint: states: His knees are giving out and he thinks that his ed1 heart is acting up. Transition of care: patient was not received from another setting of care. Onset of symptoms was November 10, 2018. Risk Assessment: Do you want to hurt yourself or someone else? Patient reports no desire to harm self or others. Initial Sepsis Screen: Does the patient meet any 2 criteria? No. Patient's initial sepsis screen is negative. Does the patient have a suspected source of infection? No. Patient's initial sepsis screen is negative. Care prior to arrival: None. 20:31 Method Of Arrival: Wheelchair ed1 20:31 Acuity: PAYAM 3 ed1 Triage Assessment: 20:37 General: Appears in no apparent distress. Behavior is calm, cooperative. Pain: ed1 Complains of pain in chest. Musculoskeletal: Circulation, motion, and sensation intact. Historical: - Allergies: 20:37 Plavix; ed1 20:37 Tetanus Vaccines \T\ Toxoid; ed1 - Home Meds: 20:37 atorvastatin 80 mg Oral tab 1 tab once daily [Active]; aspirin 81 mg Oral chew 1 tab ed1 once daily [Active]; magnesium oxide 400 mg Oral cap [Active]; gabapentin 100 mg oral cap 1 caps 3 times per day [Active]; citalopram 20 mg tab 1 tab once daily for Anxiety with Depression [Active]; amiodarone 200 mg Oral tab 0.5 tab once daily [Active]; BRILINTA 90 mg Oral tab 1 tab 2 times per day [Active]; furosemide 80 mg Oral tab 1 tab once daily for Peripheral Edema due to Chronic Heart Failure [Active]; metoprolol tartrate 50 mg Oral tab 1 tab 2 times per day for Hypertension [Active]; losartan 100 mg oral tab 1 tab once daily [Active]; clonidine HCl 0.2 mg Oral tab 1 tab 2 times per day [Active]; spironolactone 25 mg Oral tab 1 tab once daily [Active]; furosemide 40 mg Oral tab 1 tab once daily [Active]; Entresto 24-26 mg oral tab 1 tab twice a day [Active]; - PMHx: 20:37 CAD; CHF; COPD; CVA; Diabetes - IDDM; Hyperlipidemia; Hypertension; Pneumonia; weakness;ed1 - PSHx: 20:37 Bypass; Heart stents; back; ed1 - Immunization history:: Adult Immunizations up to date. - Social history:: Smoking status: Patient/guardian denies using tobacco. - Ebola Screening: : Patient negative for fever greater than or equal to 101.5 degrees Fahrenheit, and additional compatible Ebola Virus Disease symptoms Patient denies exposure to infectious person Patient denies travel to an Ebola-affected area in the 21 days before illness onset No symptoms or risks identified at this time. Screenin:42 Abuse screen: Denies threats or abuse. Denies injuries from another. Nutritional cc3 screening: No deficits noted. Tuberculosis screening: No symptoms or risk factors identified. Fall Risk Ambulatory Aid- None/Bed Rest/Nurse Assist (0 pts). Gait- Normal/Bed Rest/Wheelchair (0 pts) Mental Status- Oriented to own ability (0 pts). Assessment: 20:42 Reassessment: Patient appears in no apparent distress at this time. Patient and/or cc3 family updated on plan of care and expected duration. Pain level reassessed. Patient is alert, oriented x 3, equal unlabored respirations, skin warm/dry/pink. 20:42 Neuro: Level of Consciousness is awake, alert, obeys commands, Oriented to person, cc3 place, time, situation, Appropriate for age. 21:20 Reassessment: Patient appears in no apparent distress at this time. Patient and/or cc3 family updated on plan of care and expected duration. Pain level reassessed. Patient is alert, oriented x 3, equal unlabored respirations, skin warm/dry/pink. 22:18 Reassessment: Patient appears in no apparent distress at this time. Patient and/or cc3 family updated on plan of care and expected duration. Pain level reassessed. Patient is alert, oriented x 3, equal unlabored respirations, skin warm/dry/pink. 23:16 Reassessment: Patient appears in no apparent distress at this time. Patient and/or cc3 family updated on plan of care and expected duration. Pain level reassessed. Patient is alert, oriented x 3, equal unlabored respirations, skin warm/dry/pink. 11/11 00:17 Reassessment: Patient appears in no apparent distress at this time. Patient and/or cc3 family updated on plan of care and expected duration. Pain level reassessed. Patient is alert, oriented x 3, equal unlabored respirations, skin warm/dry/pink. 01:20 Reassessment: Patient appears in no apparent distress at this time. Patient and/or cc3 family updated on plan of care and expected duration. Pain level reassessed. Patient is alert, oriented x 3, equal unlabored respirations, skin warm/dry/pink. 02:00 Reassessment: Patient appears in no apparent distress at this time. Patient and/or cc3 family updated on plan of care and expected duration. Pain level reassessed. Patient is alert, oriented x 3, equal unlabored respirations, skin warm/dry/pink. Patient for admission, room available in 428, report called and handed over to CLAUDIA Rios for continuity of care and management. Patient denies pain at this time. Patient states feeling better. Patient states symptoms have improved. 02:48 Reassessment: Patient appears in no apparent distress at this time. Patient and/or cc3 family updated on plan of care and expected duration. Pain level reassessed. Patient is alert, oriented x 3, equal unlabored respirations, skin warm/dry/pink. Patient left ER for admission vitally stable by wheelchair escorted by me. Patient denies pain at this time. Patient states feeling better. Patient states symptoms have improved. Vital Signs: 11/10 20:37 BP 130 / 70; Pulse 65; Resp 18; Temp 99.3; Pulse Ox 94% on R/A; Height 5 ft. 11 in. ed1 (180.34 cm); Pain 5/10; 22:00 BP 130 / 81; Pulse 66; Resp 20 S; Pulse Ox 96% ; cc3 23:30 BP 130 / 87; Pulse 66; Resp 21 S; Pulse Ox 96% on R/A; cc3 05/10 00:17 BP 120 / 63; Pulse 60; Resp 18 S; Pulse Ox 95% on R/A; cc3 01:30 BP 112 / 68; Pulse 62; Resp 20 S; Pulse Ox 96% on R/A; cc3 02:15 BP 126 / 53; Pulse 63; Resp 17 S; Pulse Ox 96% on R/A; cc3 ED Course: 11/10 20:11 Patient arrived in ED. es 20:11 Luis Fernando Huston MD is Private Physician. es 20:32 Triage completed. ed1 20:37 Arm band placed on right wrist. ed1 20:42 Malgorzata Gamez is Primary Nurse. cc3 20:42 Patient has correct armband on for positive identification. Placed in gown. Bed in low cc3 position. Call light in reach. Side rails up X2. air sampling and monitoring on. Pulse ox on. NIBP on. 21:05 EKG done, by ED staff, reviewed by Mu Lewis MD. Initial lab(s) drawn, by ky, sent mt to lab. Missed attempt(s): 20 gauge in left antecubital area. 21:22 Mu Lewis MD is Attending Physician. tez 21:45 Inserted saline lock: 20 gauge in left hand, using aseptic technique. cc3 21:47 XRAY Chest (1 view) In Process Unspecified. EDMS 22:40 CT Chest Abdomen Pelvis W/O Contrast In Process Unspecified. EDMS 11/11 00:49 Luis Fernando Huston MD is Hospitalizing Provider. tez 02:00 No provider procedures requiring assistance completed. Patient admitted, IV remains in cc3 place. Administered Medications: 11/10 21:50 Drug: Xopenex 1.25 mg Route: Inhalation; cc3 22:15 Follow up: Response: No adverse reaction; Marked relief of symptoms cc3 21:50 Drug: AtroVENT Aerosol 0.5 mg Route: Inhalation; cc3 22:15 Follow up: Response: No adverse reaction; Marked relief of symptoms cc3 22:20 Drug: Rocephin - (cefTRIAXone) 1 grams Route: IVPB; Infused Over: 30 mins; Site: left cc3 hand; 22:30 Follow up: Response: No adverse reaction; IV Status: Completed infusion; IV Intake: [id number] 11/11 01:50 Drug: Lasix 40 mg Route: IVP; Site: left hand; cc3 02:00 Follow up: Response: No adverse reaction cc3 Point of Care Testing: Blood Glucose: 11/10 21:18 Blood Glucose: 146 mg/dL; cc3 Ranges: Intake: 22:30 IV: 10ml; Total: 10ml. cc3 Output: 11/11 02:30 Urine: 400ml (Voided); Total: 400ml. cc3 Outcome: 00:51 Decision to Hospitalize by Provider. tez 02:45 Admitted to Tele accompanied by nurse, via wheelchair, room 428, with chart, Report cc3 called to CLAUDIA Rios 02:45 Condition: stable 02:45 Instructed on the need for admit, Demonstrated understanding of instructions. 02:48 Patient left the ED. cc3 Signatures: Dispatcher [employer] Mu Cuello MD MD cha Salyer, Nell Pa, RN RN [email or web address] Olinda Tamez mt, Charlene cc3
--- NOTE | 2018-11-11 00:53 | EDPHYS ---
Physician Documentation [facility] Name: Titus Holloway Age: 78 yrs Sex: Male : 1940 Arrival Date: 11/10/2018 Time: 20:11 Bed 17 Private MD: Luis Fernando Huston V ED Physician Mu Lewis HPI: 11/10 21:45 This 78 yrs old Male presents to ER via Wheelchair with complaints of Back tez Pain. 21:45 The patient presents with pain that is acute, with no known mechanism of injury. The tez symptoms are located in the low back. Onset: The symptoms/episode began/occurred 2 day(s) ago. The pain does not radiate. Associated signs and symptoms: The patient has no apparent associated signs or symptoms. The problem was sustained from unknown cause. Severity of symptoms: At their worst the symptoms were mild, in the emergency department the symptoms are unchanged. Historical: - Allergies: 20:37 Plavix; ed1 20:37 Tetanus Vaccines \T\ Toxoid; ed1 - Home Meds: 20:37 atorvastatin 80 mg Oral tab 1 tab once daily [Active]; aspirin 81 mg Oral chew 1 tab ed1 once daily [Active]; magnesium oxide 400 mg Oral cap [Active]; gabapentin 100 mg oral cap 1 caps 3 times per day [Active]; citalopram 20 mg tab 1 tab once daily for Anxiety with Depression [Active]; amiodarone 200 mg Oral tab 0.5 tab once daily [Active]; BRILINTA 90 mg Oral tab 1 tab 2 times per day [Active]; furosemide 80 mg Oral tab 1 tab once daily for Peripheral Edema due to Chronic Heart Failure [Active]; metoprolol tartrate 50 mg Oral tab 1 tab 2 times per day for Hypertension [Active]; losartan 100 mg oral tab 1 tab once daily [Active]; clonidine HCl 0.2 mg Oral tab 1 tab 2 times per day [Active]; spironolactone 25 mg Oral tab 1 tab once daily [Active]; furosemide 40 mg Oral tab 1 tab once daily [Active]; Entresto 24-26 mg oral tab 1 tab twice a day [Active]; - PMHx: 20:37 CAD; CHF; COPD; CVA; Diabetes - IDDM; Hyperlipidemia; Hypertension; Pneumonia; weakness;ed1 - PSHx: 20:37 Bypass; Heart stents; back; ed1 - Immunization history:: Adult Immunizations up to date. - Social history:: Smoking status: Patient/guardian denies using tobacco. - Ebola Screening: : Patient negative for fever greater than or equal to 101.5 degrees Fahrenheit, and additional compatible Ebola Virus Disease symptoms Patient denies exposure to infectious person Patient denies travel to an Ebola-affected area in the 21 days before illness onset No symptoms or risks identified at this time. ROS: 21:46 Constitutional: Negative for fever, chills, and weight loss, Eyes: Negative for injury, tez pain, redness, and discharge, ENT: Negative for injury, pain, and discharge, Neck: Negative for injury, pain, and swelling, Abdomen/GI: Negative for abdominal pain, nausea, vomiting, diarrhea, and constipation, Back: Negative for injury and pain, : Negative for injury, bleeding, discharge, and swelling, MS/Extremity: Negative for injury and deformity, Skin: Negative for injury, rash, and discoloration, Psych: Negative for depression, anxiety, suicide ideation, homicidal ideation, and hallucinations, Allergy/Immunology: Negative for hives, rash, and allergies, Endocrine: Negative for neck swelling, polydipsia, polyuria, polyphagia, and marked weight changes, Hematologic/Lymphatic: Negative for swollen nodes, abnormal bleeding, and unusual bruising. 21:46 Cardiovascular: Positive for chest pain. 21:46 Cardiovascular: Positive for chest pain. 21:46 Respiratory: Positive for cough. 21:46 MS/extremity: Positive for injury or acute deformity, decreased range of motion. 21:46 Neuro: Positive for weakness. Exam: 21:46 Constitutional: This is a well developed, well nourished patient who is awake, alert, tez and in no acute distress. Head/Face: Normocephalic, atraumatic. Eyes: Pupils equal round and reactive to light, extra-ocular motions intact. Lids and lashes normal. Conjunctiva and sclera are non-icteric and not injected. Cornea within normal limits. Periorbital areas with no swelling, redness, or edema. ENT: Nares patent. No nasal discharge, no septal abnormalities noted. Tympanic membranes are normal and external auditory canals are clear. Oropharynx with no redness, swelling, or masses, exudates, or evidence of obstruction, uvula midline. Mucous membranes moist. Neck: Trachea midline, no thyromegaly or masses palpated, and no cervical lymphadenopathy. Supple, full range of motion without nuchal rigidity, or vertebral point tenderness. No Meningismus. Chest/axilla: Normal chest wall appearance and motion. Nontender with no deformity. No lesions are appreciated. Cardiovascular: Regular rate and rhythm with a normal S1 and S2. No gallops, murmurs, or rubs. Normal PMI, no JVD. No pulse deficits. Abdomen/GI: Soft, non-tender, with normal bowel sounds. No distension or tympany. No guarding or rebound. No evidence of tenderness throughout. Back: No spinal tenderness. No costovertebral tenderness. Full range of motion. Male : Normal genitalia with no discharge or lesions. Skin: Warm, dry with normal turgor. Normal color with no rashes, no lesions, and no evidence of cellulitis. MS/ Extremity: Pulses equal, no cyanosis. Neurovascular intact. Full, normal range of motion. Psych: Awake, alert, with orientation to person, place and time. Behavior, mood, and affect are within normal limits. 21:46 Respiratory: the patient does not display signs of respiratory distress, Respirations: normal, Breath sounds: bronchial sounds, rhonchi, that are mild, are scattered, Respiratory rate: 18 Vital Signs: 20:37 BP 130 / 70; Pulse 65; Resp 18; Temp 99.3; Pulse Ox 94% on R/A; Height 5 ft. 11 in. ed1 (180.34 cm); Pain 5/10; 22:00 BP 130 / 81; Pulse 66; Resp 20 S; Pulse Ox 96% ; cc3 23:30 BP 130 / 87; Pulse 66; Resp 21 S; Pulse Ox 96% on R/A; cc3 05/10 00:17 BP 120 / 63; Pulse 60; Resp 18 S; Pulse Ox 95% on R/A; cc3 01:30 BP 112 / 68; Pulse 62; Resp 20 S; Pulse Ox 96% on R/A; cc3 02:15 BP 126 / 53; Pulse 63; Resp 17 S; Pulse Ox 96% on R/A; cc3 MDM: 11/10 21:22 Patient medically screened. [facility] 21:46 Data reviewed: vital signs, nurses notes, lab test result(s), EKG, radiologic studies, [facility] scan, plain films. 11/10 21:06 Order name: Basic Metabolic Panel; Complete Time: 23:42 az 11/10 21:06 Order name: CBC with Diff; Complete Time: 21:45 az 11/10 21:06 Order name: LFT's; Complete Time: 23:42 az 11/10 21:06 Order name: Magnesium; Complete Time: 23:42 az 11/10 21:06 Order name: NT PRO-BNP; Complete Time: 23:42 az 11/10 21:06 Order name: PT-INR; Complete Time: 21:45 az 11/10 21:06 Order name: Troponin (emerg Dept Use Only); Complete Time: 23:42 az 11/10 21:06 Order name: XRAY Chest (1 view); Complete Time: 23:42 az 11/10 21:44 Order name: Lipase; Complete Time: 23:42 [facility] 11/10 21:44 Order name: Urine Culture [facility] 11/10 21:44 Order name: Blood Culture Adult (2) [facility] 11/10 21:44 Order name: Procalcitonin; Complete Time: 23:42 [facility] 11/10 21:44 Order name: Flu; Complete Time: 23:42 [facility] 11/11 00:02 Order name: Urine Dipstick--Ancillary (enter results); Complete Time: 00:47 11/10 21:06 Order name: EKG; Complete Time: 21:07 az 11/10 21:06 Order name: Cardiac monitoring; Complete Time: 21:06 az 11/10 21:06 Order name: EKG - Nurse/Tech; Complete Time: 21:06 az 11/10 21:06 Order name: IV Saline Lock; Complete Time: 22:24 az 11/10 21:06 Order name: Labs collected and sent; Complete Time: 21:06 az 11/10 21:06 Order name: O2 Per Protocol; Complete Time: 21:06 az 11/10 21:06 Order name: O2 Sat Monitoring; Complete Time: 21:06 az 11/10 21:44 Order name: Urine Dipstick-Ancillary (obtain specimen); Complete Time: 00:00 [facility] 11/10 21:44 Order name: CT Chest Abdomen Pelvis W/O Contrast [facility] 11/11 00:59 Order name: CONS Physician Consult EDMS Administered Medications: 21:50 Drug: Xopenex 1.25 mg Route: Inhalation; cc3 22:15 Follow up: Response: No adverse reaction; Marked relief of symptoms cc3 21:50 Drug: AtroVENT Aerosol 0.5 mg Route: Inhalation; cc3 22:15 Follow up: Response: No adverse reaction; Marked relief of symptoms cc3 22:20 Drug: Rocephin - (cefTRIAXone) 1 grams Route: IVPB; Infused Over: 30 mins; Site: left cc3 hand; 22:30 Follow up: Response: No adverse reaction; IV Status: Completed infusion; IV Intake: 50ycmn4 11/11 01:50 Drug: Lasix 40 mg Route: IVP; Site: left hand; cc3 02:00 Follow up: Response: No adverse reaction cc3 Point of Care Testing: Blood Glucose: 11/10 21:18 Blood Glucose: 146 mg/dL; cc3 Ranges: Critical Glucose Levels:Adult <50 mg/dl or >400 mg/dl <40 mg/dl or >180 mg/dl Disposition: 11/11/18 00:51 Hospitalization ordered by Luis Fernando Huston for Inpatient Admission. Preliminary diagnosis are Weakness, Pneumonia due to other specified bacteria, Unspecified combined systolic (congestive) and diastolic (congestive) heart failure, Unspecified kidney failure - INSUFFICENCY, Elevated white blood cell count, Chronic obstructive pulmonary disease with (acute) exacerbation. - Bed requested for Telemetry/MedSurg (Inpatient). - Status is Inpatient Admission. cc3 - Condition is Fair. - Problem is new. - Symptoms have improved. UTI on Admission? No Signatures: Dispatcher [employer] EDCO Melanie York RN RN mw Anderson, Corey, MD MD cha Riggs, Erika, RN RN ed1 [facility] Malgorzata Gamez cc3 Corrections: (The following items were deleted from the chart) 11/11 01:14 00:51 Hospitalization Ordered by Luis Fernando Huston MD for Inpatient Admission. Preliminary diagnosis is Weakness; Pneumonia due to other specified bacteria; Unspecified combined systolic (congestive) and diastolic (congestive) heart failure; Unspecified kidney failure - INSUFFICENCY; Elevated white blood cell count; Chronic obstructive pulmonary disease with (acute) exacerbation. Bed requested for Telemetry/MedSurg (Inpatient). Status is Inpatient Admission. Condition is Fair. Problem is new. Symptoms have improved. UTI on Admission? No. tez 02:48 01:14 11/11/2018 00:51 Hospitalization Ordered by Luis Fernando Huston MD for Inpatient cc3 Admission. Preliminary diagnosis is Weakness; Pneumonia due to other specified bacteria; Unspecified combined systolic (congestive) and diastolic (congestive) heart failure; Unspecified kidney failure - INSUFFICENCY; Elevated white blood cell count; Chronic obstructive pulmonary disease with (acute) exacerbation. Bed requested for Telemetry/MedSurg (Inpatient). Status is Inpatient Admission. Condition is Fair. Problem is new. Symptoms have improved. UTI on Admission? No. mw
[2018-11-11] MEDS ORDERED: FUROSEMIDE 40 MG/4 ML VIAL ONE (02:02)
[2018-11-11] MEDS ORDERED: ALBUTEROL 2.5 MG/3 ML NEB SOL NEB PRN (03:19)
[2018-11-11] MEDS ORDERED: ONDANSETRON 4 MG/2 ML VIAL IV PRN (03:19)
[2018-11-11] MEDS ORDERED: MORPHINE 4 MG/ML SYR IV PRN (03:19)
[2018-11-11] MEDS ORDERED: IPRATROPIUM BROM 0.5MG/2.5ML NEB PRN (03:19)
[2018-11-11] MEDS ORDERED: ACETAMINOPHEN 500 MG TAB PO PRN (03:19)
[2018-11-11 03:36] VITALS: O2SAT 96
[2018-11-11 06:38] VITALS: BMI 33.0
--- NOTE | 2018-11-11 07:12 | EKG ---
Test Date: 2018-11-10 Test Time: 20:47:02 Communications Tech: ERICH MEASUREMENT RESULTS: Intervals: Rate: 62 IL: 194 QRSD: 102 QT: 416 QTc: 422 [place]: P: 22 IL: 194 QRS: -2 T: 113 INTERPRETIVE STATEMENTS: Suspect unspecified pacemaker failure Normal sinus rhythm Possible Anterior infarct, age undetermined Abnormal ECG Compared to ECG 08/08/2018 14:08:41 Atrial-paced complex(es) or rhythm no longer present Myocardial infarct finding still present Electronically Signed On 11-11-18 07:11:20 CDT by Pastor Cordoba
[2018-11-11] MEDS ORDERED: CEFTRIAXONE 1 GM/NS 50 ML 1 GM/50 ML BAG IV SCH (09:00)
[2018-11-11] MEDS ORDERED: FUROSEMIDE 20 MG/ 2ML VIAL IV SCH (09:00)
[2018-11-11] MEDS ORDERED: TICAGRELOR 90 MG TABLET PO SCH (09:00)
[2018-11-11] MEDS ORDERED: ASPIRIN 81 MG CHEWABLE TABLET PO SCH (09:00)
[2018-11-11 12:26] VITALS: BP 125/60; TEMP 97.8
--- NOTE | 2018-11-11 12:59 | RAD REPORT ---
EXAM DESCRIPTION: CT OF THE CHEST, ABDOMEN, AND PELVIS CLINICAL HISTORY: Abdominal distention. COMPARISON: None. TECHNIQUE: CT scan of the chest, abdomen, and pelvis without IV contrast. This exam was performed ac cording to our departmental dose-optimization program, which includes automated exposure control, adj ustment of the mA and/or kV according to patient size and/or use of iterative reconstruction techniqu e. FINDINGS: There is scattered areas of atelectasis with groundglass opacity and nodular opacities pre dominantly in the right upper and lower lobes. There is atelectasis/scarring at the lung bases. No pl eural effusion or pneumothorax. The thyroid gland is normal. No mediastinal or axillary adenopathy. L imited evaluation for hilar adenopathy without IV contrast. The heart size is normal without pericard ial effusion. The descending thoracic aorta measures 3.2 cm and contains atherosclerotic calcificatio ns. There is a small hiatal hernia. There has been a prior cholecystectomy. The liver, spleen, pancreas, and adrenal glands are normal. The kidneys are mildly atrophic. The pelvic organs are normal. There a re scattered colonic diverticula without surrounding inflammatory changes. The appendix is normal. No small bowel obstruction. No intraperitoneal free fluid or free air is seen. There are mild degenerative changes of the spine. Grade 1 anterolisthesis of L4-L5 secondary to facet DJD. The descending abdominal aorta measures 3.2 cm and contains atherosclerotic calcifications. IMPRESSION: 1. Right upper and lower lobe opacities suggestive of small airways disease and/or pne umonia. 2. Diverticulosis without inflammatory changes. 3. Small hiatal hernia. 4. 3.2 cm abdominal aortic aneurysm. Recommend follow-up every 3 years. Reference: J Vasc Surg 2009 Apr;50(4 Suppl):S2-49. Electronically signed by: Andrew Wilson MD 11/10/2018 10:51 PM CDT Due to temporary technical issues with the PACS/Fluency reporting system, reports are being signed by the in house radiologist as a courtesy to ensure prompt reporting. The interpreting radiologist is f ully responsible for the content of the report.
--- NOTE | 2018-11-11 15:06 | P.SSS ---
Patient History Date of Service: 11/11/18 Reason for admission: KNEES GAVE OUT History of Present Illness: MR. NANCE'Birdie KNEES GAVE OUT AT HOME WHEN HE WAS TRYING TO GET TO BATHROOM AT NIGHT, GETTING UP FROM BED. SINCE THEN HE HAS WALKED TO BATHROOM HERE AT HOSPITAL WITHOUT ANY ISSUES. HE HAS NO CHEST PAIN, HEADACHES, COUGH, FEVER ETC. Allergies clopidogrel bisulfate [From Plavix] Allergy (Verified 05/23/18 20:49) Itching/Hives/Rash Tetanus Vaccines and Toxoid Allergy (Verified 11/11/18 03:15) Itching/Hives/Rash Tetanus Vaccines Allergy (Unknown, Uncoded 03/24/18 01:26) Itching/Hives/Rash Home Medications: Amiodarone HCl [Cordarone*] 0.5 tab PO DAILY 03/24/18 Atorvastatin Calcium [Lipitor] 80 mg PO BEDTIME 03/24/18 Citalopram [Celexa*] 20 mg PO DAILY 03/24/18 Furosemide [Lasix*] 80 mg PO DAILY 03/24/18 Gabapentin [Neurontin*] 100 mg PO TID 03/24/18 Ticagrelor [Brilinta*] 1 tab PO BID 03/24/18 Aspirin [Aspirin EC 81 MG] 325 mg PO DAILY 04/26/18 Clonidine HCl [Catapres*] 0.2 mg PO BID 04/26/18 Insulin Detemir [Levemir] 10 units SQ BEDTIME 07/15/18 Magnesium Oxide [Mag-Oxide Magnesium] 400 mg PO BID #100 tablet 07/15/18 Sacubitril/Valsartan [Entresto 24 mg-26 mg Tablet] 1 tab PO BID 07/15/18 Spironolactone 25 mg PO DAILY 07/15/18 Tramadol HCl [Ultram] 1 tab PO BID 07/15/18 Insulin Detemir [Levemir] 40 units SQ DAILY 11/11/18 Losartan Potassium 1 tab PO DAILY 11/11/18 Metoprolol Tartrate [Lopressor*] 1 tab PO BID 11/11/18 levoFLOXacin [Levaquin*] 500 mg PO DAILY #7 tab 11/11/18 - Past Medical/Surgical History Has patient received pneumonia vaccine in the past: Yes Diabetic: Yes -: COPD -: CHF -: HTN -: HYPERLIPIDEMIA -: IDDM -: TIA -: pneumonia -: CARDIAC STENTS x5 -: CARDIAC BYPASS SX 2 vessels - Family History Father -: Heart disease, Hypertension Mother -: Heart disease, Hypertension, Lung disease Brother -: Diabetes Notes: Leukemia - Social History Smoking Status: Former smoker Alcohol use: Yes CD- Drugs: No Caffeine use: No Place of Residence: Home Review of Systems 10-point ROS is otherwise unremarkable Physical Examination - Vital Signs Temperature: 97.8 F Blood Pressure: 125/60 Pulse: 80 Respirations: 18 Pulse Ox (%): 94 - Physical Exam General: Alert, In no apparent distress, Obese HEENT: Atraumatic, PERRLA, Mucous membr. moist/pink, EOMI, Sclerae nonicteric Neck: Supple, 2+ carotid pulse no bruit, No LAD, Without JVD or thyroid abnormality Respiratory: Clear to auscultation bilaterally, Normal air movement Cardiovascular: Regular rate/rhythm, Normal S1 S2 Gastrointestinal: Normal bowel sounds, No tenderness Musculoskeletal: No tenderness Integumentary: No rashes Neurological: Normal gait, Normal speech, Normal strength at 5/5 x4 extr, Normal tone, Normal affect Lymphatics: No axilla or inguinal lymphadenopathy - Studies Laboratory Data (last 24 hrs) 11/10/18 21:03: Lipase 145 11/10/18 21:03: PT 12.9 H, INR 1.10 11/10/18 21:03: WBC 14.0 H, Hgb 13.1 L, Hct 39.0 L, Plt Count 202 11/10/18 21:03: Sodium 134 L, Potassium 4.1, BUN 28 H, Creatinine 1.66 H, Glucose 138 H, Magnesium 2.1, Total Bilirubin 0.8, AST 23, ALT 32, Alkaline Phosphatase 67 Microbiology Data (last 24 hrs): 11/10/18 22:05 Nasopharnyx Influenza Type A Antigen Screen - Final 11/10/18 22:05 Nasopharnyx Influenza Type B Antigen Screen - Final - Diagnosis (Problem(s)) (1) Orthostasis Status: Chronic Plan: I ADVVISE HIM TO BE CAREFUL WHILE GETTING UP. HE HAS CARDIAC HISTORY, HE IS ON MEDS FOR CHF, CAD, PVD , DM. HE WILL GET ORTHOSTASIS. I ALSO ADVISED HIM TO GET REHAB AND THAT MAY HELP . HE HAD HOME HEALTH BUT THEY DID NOT DO MUCH THERAPY PER . (2) Elevated WBC count Status: Acute Plan: HE HAS NO SYMPOTMS OF INFECTION SOURCE. DR. MARTINEZ DID CT SCANS USUAL ER PROVIDERS DO. THERE IS SMALL INFILTERATE AND SO IT IS QUESTIONABLE IF IT IS PNEUMONIA IN ABSENCE OF ANY SYMPTOMS. WE WILL HAVE TO TREAT HE HAS WBC ELEVATION TO 15K AND INFILTERATE. (3) Coronary arteriosclerosis Status: Chronic (4) Diabetes Onset Date: 10/31/15 Status: Chronic (5) Hypertension Status: Chronic - Disposition Disposition: ROUTINE DISCHARGE Condition: FAIR Patient Discharge Instructions: WEDNESDAY GO TO THERAPY WITH YOUR . I WILL SEND ORDER TO THEM. USE WALKER DAILY EVEN IN HOME. WAIT A FEW MINUTES BEFORE YOU GET UP FROM SITTING.
[2018-11-11] MEDS ORDERED: CEFTRIAXONE/SWI 1gm 1 GM/10 ML SYR IV SCH (21:00)
--- NOTE | 2018-11-12 13:07 | CON ---
Date of Consultation: 11/11/2018 Reason For Consultation: Chest pain. History Of Present Illness: Mr. Holloway is a 78-year-old white male. He is known to us from previo us office visits and admissions. He has a very complicated past medical history. He came in with mu ltiple issues, but his main complaint was back pain and weakness in the legs and some atypical chest pain, shortness of breath. Denied any nausea or vomiting or diaphoresis. Denied any palpitations or syncope. Denied any fever or chills. Symptoms have been going on for about a month or so. Past Medical History: Include atrial fibrillation, depression, dyslipidemia, hypertension, diabetes, neuropathy, coronary artery disease, status post CABG and status post stent, chronic systolic conges tive heart failure with EF of 35%. COPD with status post pacemaker and defibrillator. Allergies: HE IS ALLERGIC TO TETANUS, PLAVIX. Review of Systems: Negative. Social History: Negative. Family History: Noncontributory. Medications: At home include amiodarone, clonidine, aspirin, Celexa, Lipitor, insulin, Lasix, Neuron tin, Entresto, aldactone, Brilinta, and ultram. Physical Examination: General: He was in no acute distress and I saw him from a breathing standpoint. He had complained o f back pain and leg pain. He was in a paced rhythm, afebrile. HEENT: Negative. Neck: Supple without any lymphadenopathy, JVD, thyromegaly or bruit. Chest: Reveals expiratory wheezing and rales both bases. Cardiac: Revealed a regular rhythm and rate. No murmurs, gallops or rubs. Abdomen: Benign. Extremities: Revealed 1+ edema. Neurological: He was nonfocal. Skin: Dry and intact. Pulses: Present bilaterally in dorsalis pedis and posterior tibial. Diagnostic Data: His creatinine is 1.66, 14,000. Glucose is 138. Troponin was negative. BNP was 1554. Chest x-ray shows congestive heart failure. EKG showed paced rhythm. Impression And Plan: 1.Chronic systolic congestive heart failure with acute exacerbation. 2.Sudden episode of weakness in the legs and almost falling. Should consider an arrhythmia or sick sinus syndrome. An event monitor is reasonable as an outpatient. 3.Chronic renal insufficiency. 4.Elevated white count. 5.Elevated BNP, secondary to congestive heart failure. 6.Atrial fibrillation that has resolved on amiodarone. 7.Depression. 8.Dyslipidemia, well controlled. 9.Hypertension, well controlled. 10.Diabetes. 11.Neuropathy. 12.Chronic obstructive pulmonary disease. 13.coronary artery disease status post coronary artery bypass graft, stent, pacemaker and defibrilla tor. I do not think we need to repeat another echocardiogram on Mr. Holloway. I think we need to di urese him gently. I think we need to get an event monitor as an outpatient. We may want to consider changing the clonidine as that may be causing some bradycardia or some hypotension along with Entresto and Aldactone. I will discuss the case further with Dr. Huston regarding changing some of hi s medical therapy. MACKENZIE/JATINDER Voice ID: [id number] Report ID: [id number]
== END 2018-11-11 14:55 | disposition home or self-care (01) ==
LOC: ER 20:08 → INTOOBSV 11-11 01:37 → ERHOLD 11-11 01:37 → 4TH 11-11 02:08
PROVIDERS: ADMIT Internal Medicine; ATTEND Internal Medicine
DX: I95.1 Orthostatic hypotension (principal); J44.9 Chronic obstructive pulmonary disease, unspecified; I11.0 Hypertensive heart disease with heart failure; I50.9 Heart failure, unspecified; E78.5 Hyperlipidemia, unspecified; E11.9 Type 2 diabetes mellitus without complications; Z95.5 Presence of coronary angioplasty implant and graft; Z95.1 Presence of aortocoronary bypass graft; D72.829 Elevated white blood cell count, unspecified; I25.10 Atherosclerotic heart disease of native coronary artery without angina pectoris
CPT/HCPCS: 93005; 87040 ×2; 87088; 85025; 87086; 80048; 36415; 83735; 85610; 82962 ×3; 80076; 88305; 87077; 87186; 81003; 84484 ×3; 83690; 84145; 83880; 87804 ×2; 71250; 74176; 71045; 96375; 96374; 99285; J1940 ×2; J0696; G0378 ×2

== ENCOUNTER 2018-12-17 16:20 | Observation (INO) | payer OTHER ==
--- OUTSIDE RECORDS SUMMARY | 2018-12-17 16:23 | XMS REPORT | Clinical Summary ---
:1940 Author Organization [facility] Address [address] [place] [address] Care Team Providers Name Role Phone Edmund [...] Bilateral carotid artery disease 10/26/2017 CAD in [place] artery 03/23/2017 ST elevation myocardial infarction involving left circumflex coronary 2016 artery NSTEMI (non-ST elevated myocardial infarction) 03/02/2017 Coronary artery disease involving [place] coronary artery of [place] heart 02/09 without angina pectoris Diastolic congestive [...] Cardiology Nahum Olivares MD Med Refill after 12/16/2017 Immunizations Name Dates Previously Given Next Due [...] VACCINE (1 of 2 - PCV13) 2004 INFLUENZA VACCINE 02/02/2019 05/19/2017 Implants Implanted Type Area Ethnic Studies Professor Device Shelf Model / Identifier Expiration Serial / Date Lot Stent Catheter Synergy (Otw) 3.50mm X 16mm - [id number] Coronary N/A: N/A [facility] [id number] / Implanted: Qty: 1 on 03/03/2017 by Nahum Olivares MD Stents INTERVENTIONAL / CARDIOLOGY Results Not on fileafter 12/16/2017 Insurance Payer Benefit Plan / Subscriber ID Effective Dates Phone Address Type Group AETNA MEDICARE AETNA MEDICARE xxxxxxxx 2017-Present HMO HMO/PPO [facility] MEDICAID MEDICAID xxxxxxxxx 2017-Present Medicaid Advance Directives Patient has advance care planning documents on file. For more information, please contact:Ludin Westfall[address] [place] [address]
--- NOTE | 2018-12-17 16:59 | RAD REPORT ---
EXAM DESCRIPTION: RAD - Chest Single View - 12/17/2018 4:51 pm CLINICAL HISTORY: TRAUMA Chest pain. COMPARISON: Chest Single View dated 11/10/2018; Chest Single View dated 08/08/2018; Chest Single View da concetta 07/15/2018; Chest Single View dated 07/14/2018 FINDINGS: Portable technique limits examination quality. The lungs are grossly clear. The heart is normal in size. Postoperative changes of a CABG noted with pacer/defibrillator device in place. IMPRESSION: No acute intrathoracic process suspected.
--- NOTE | 2018-12-17 17:11 | RAD REPORT ---
EXAM DESCRIPTION: CT - CTHCSPWOC - 12/17/2018 5:01 pm CLINICAL HISTORY: Trauma, head and neck injury. FALL COMPARISON: No comparisons TECHNIQUE: Axial 5 mm thick images of the head were obtained. Axial 2 mm thick images of the cervical spine were obtained with sagittal and coronal reconstruction images generated and reviewed. All CT scans are performed using dose optimization technique as appropriate and may include automated exposure control or mA/KV adjustment according to patient size. FINDINGS: CT HEAD WITHOUT CONTRAST: No acute hemorrhage, hydrocephalus or extra-axial collection is identified.Mild generalized brain atr ophy is present with mild periventricular and deep white matter chronic microvascular ischemic change s.No areas of brain edema or midline shift. Prominent mucous retention cyst or polyp is seen in the right maxillary antrum. The paranasal sinuses and mastoids are otherwise clear.The calvarium is intact. Vertebral atherosclerosis. CT CERVICAL SPINE WITHOUT CONTRAST: No fracture or subluxation.Mild degenerative anterolisthesis of C3 on 4 and C4 on 5 seen. Disc thinni ng with posterior osteophyte is present involving the lower cervical spine.No prevertebral soft tissu es swelling is identified. IMPRESSION: No acute intracranial or cervical spine findings. Moderate mid and lower cervical degenerative changes.
[2018-12-17] MEDS ORDERED: NA CHLORIDE 0.9% 1,000 ML ONE (17:19)
[2018-12-17 17:51] LABS: Absolute Lymphocytes (CBC) 0.9 K/uL (0.7-4.9); Basophils % 0.7 % (0-1.3); Eosinophils % 5.3 % (0-4.4); Hematocrit 35.6 % (39.6-49.0); Lymphocytes % 14.1 % (15.3-44.8); MPV 7.6 fL (7.6-11.3); Monocytes % 11.9 % (3.3-12.3); RBC Red Blood Cell Count 3.64 M/uL (4.33-5.43)
[2018-12-17 18:00] LABS: Protime INR 1.04
[2018-12-17 18:09] LABS: ALT/SGPT 33 U/L (12-78); AST/SGOT 25 U/L (15-37); Albumin 3.6 g/dL (3.4-5.0); Alkaline Phosphatase 52 U/L (45-117); BUN Blood Urea Nitrogen 22 mg/dL (7-18); Bicarbonate 27 mmol/L (21-32); Bilirubin Direct 0.3 mg/dL (0-0.2); Bilirubin Total 0.7 mg/dL (0.2-1.0); Glucose Level 170 mg/dL (74-106); Magnesium 2.3 mg/dL (1.8-2.4); NT PRO-BNP 1226 pg/mL (<450); Potassium 4.3 mmol/L (3.5-5.1); Protein, Total 6.6 g/dL (6.4-8.2); Sodium Level 136 mmol/L (136-145); Troponin (Emerg Dept Use Only) < 0.02 ng/mL (0.0-0.045)
--- NOTE | 2018-12-17 18:37 | ER ---
Nurse's Notes [facility] Name: Titus Holloway Age: 78 yrs Sex: Male : 1940 Arrival Date: 12/17/2018 Time: 16:24 Bed 7 Private MD: Luis Fernando Huston V Diagnosis: Orthostatic hypotension Presentation: 12/17 16:32 Presenting complaint: Patient states: I am having pain in my neck that is giving me a la1 headache and in to my shoulders, pain started around 11am while I was eating. Pt reports fall this morning from standing position. Denies trauma to head or neck, denies LOC but does take a blood thinner. Transition of care: patient was not received from another setting of care. Acute neurological deficit: none identified. Onset of symptoms was December 17, 2018. Risk Assessment: Do you want to hurt yourself or someone else? Patient reports no desire to harm self or others. Initial Sepsis Screen: Does the patient meet any 2 criteria? No. Patient's initial sepsis screen is negative. Does the patient have a suspected source of infection? No. Patient's initial sepsis screen is negative. Care prior to arrival: None. 16:32 Method Of Arrival: Wheelchair la1 16:32 Acuity: PAYAM 2 la1 20:20 Mechanism of Injury: Fall. ak1 Historical: - Allergies: 16:32 Plavix; la1 16:32 Tetanus Vaccines \T\ Toxoid; la1 - Home Meds: 18:29 amiodarone 200 mg Oral tab 0.5 tab once daily [Active]; BRILINTA 90 mg Oral tab 1 tab 2 iw times per day [Active]; citalopram 20 mg tab 1 tab once daily for Anxiety with Depression [Active]; clonidine HCl 0.2 mg Oral tab 1 tab 2 times per day [Active]; Entresto 24-26 mg Oral tab 1 tab twice a day [Active]; furosemide 80 mg Oral tab 1 tab once daily for Peripheral Edema due to Chronic Heart Failure [Active]; gabapentin 100 mg Oral cap 1 caps 3 times per day [Active]; losartan 100 mg Oral tab 1 tab once daily [Active]; magnesium oxide 400 mg Oral cap [Active]; metoprolol tartrate 50 mg Oral tab 1 tab 2 times per day for Hypertension [Active]; spironolactone 25 mg Oral tab 1 tab once daily [Active]; 20:25 aspirin 325 mg oral tab 1 tab once daily [Active]; atorvastatin 60mg Oral tab 1 tab ak1 once daily [Active]; levemir 50units am / 10 units pm [Active]; - PMHx: 16:32 CAD; CHF; COPD; CVA; Diabetes - IDDM; Hyperlipidemia; Hypertension; Pneumonia; weakness;la1 - Immunization history:: Adult Immunizations up to date. - Social history:: Smoking status: Patient/guardian denies using tobacco. - Immunization history: Last tetanus immunization: unknown. - Ebola Screening: : No symptoms or risks identified at this time. Screenin:52 Abuse screen: Denies threats or abuse. Denies injuries from another. Tuberculosis bp screening: No symptoms or risk factors identified. 20:16 Nutritional screening: No deficits noted. Fall Risk IV access (20 points). Gait- Weak ak1 (10 pts.). Primary Survey: 16:54 NO uncontrolled hemorrhage observed. A: The patient is alert. Airway: patent. bp Breathing/Chest: Respiratory pattern: regular, Respiratory effort: spontaneous, unlabored, Breath sounds: clear, bilaterally. Circulation: Skin color: pink, Skin temperature: warm, dry. Disability Alert. Exposure/Environment: All clothing and personal items were removed. Forensic evidence collection is not deemed to be indicated at this time. Items placed in patient belonging bag. Secondary Survey: 16:54 HEENT: No deficits noted. Gastrointestinal: No deficits noted. : No signs and/or bp symptoms were reported regarding the genitourinary system. Musculoskeletal: Circulation, motion, and sensation intact. Range of motion: intact in all extremities. Assessment: 16:32 General: Appears in no apparent distress. comfortable, obese, Behavior is calm, bp cooperative, appropriate for age. Pain: Complains of pain in back of neck. Neuro: Level of Consciousness is awake, alert, obeys commands, Oriented to person, place, time, situation, Appropriate for age. EENT: No deficits noted. Cardiovascular: Rhythm is sinus bradycardia. Respiratory: Airway is patent Respiratory effort is even, unlabored, Respiratory pattern is regular, symmetrical. GI: No signs and/or symptoms were reported involving the gastrointestinal system. : No signs and/or symptoms were reported regarding the genitourinary system. Derm: No deficits noted. Musculoskeletal: Circulation, motion, and sensation intact. Range of motion: intact in all extremities. 18:00 Reassessment: ALL CURRENT ORDERS COMPLETED, IVF INFUSING. bp 20:26 General: Appears in no apparent distress. comfortable, Behavior is calm, cooperative, ak1 appropriate for age. Pain: Denies pain. Neuro: Level of Consciousness is awake, alert, obeys commands, Oriented to person, place, time, situation, Appropriate for age [employer] are equal bilaterally Moves all extremities. Gait is unsteady, pt hypotensive when standing. . Speech is normal. 20:52 Reassessment: Dr. Richards notified of critical lactate with new orders placed in ak1 [facility]. Arabella TAYLOR for 208 notified. Vital Signs: 16:36 Pulse 59; Resp 16; Temp 97.5; Pulse Ox 98% on R/A; Weight 86.18 kg; Height 5 ft. 11 in. la1 (180.34 cm); 16:38 BP 65 / 39; la1 16:50 BP 144 / 96 Supine; Pulse 60; Pulse Ox 95% ; bp 16:52 BP 76 / 45 Sitting; Pulse 60; Resp 14; bp 17:38 BP 75 / 56; Pulse 59; Resp 16; Pulse Ox 97% ; bp 18:00 BP 87 / 52; Pulse 60; Resp 14; Pulse Ox 95% ; bp 18:37 BP 96 / 70; Pulse 61; Resp 18; Pulse Ox 100% ; bp 16:36 Body Mass Index 26.50 (86.18 kg, 180.34 cm) la1 [place] Coma Score: 16:54 Eye Response: spontaneous(4). Verbal Response: oriented(5). Motor Response: obeys bp commands(6). Total: 15. Trauma Score (Adult): 16:54 Eye Response: spontaneous(1); Verbal Response: oriented(1); Motor Response: obeys bp commands(2); Systolic BP: > 89 mm Hg(4); Respiratory Rate: 10 to 29 per min(4); Eliseo Score: 15; Trauma Score: 12 ED Course: 16:24 Patient arrived in ED. ag5 16:24 Luis Fernando Huston MD is Private Physician. ag5 16:34 Triage completed. la1 16:34 Arm band placed on right wrist. la1 16:40 Clyde Lee, RN is Primary Nurse. bp 16:43 Fernando Laguna MD is Attending Physician. gs 16:52 Patient has correct armband on for positive identification. Bed in low position. Call bp light in reach. Side rails up X2. Adult w/ patient. 16:52 Patient maintains SpO2 saturation greater than 95% on room air. bp 16:53 CXR XRAY In Process Unspecified. EDMS 16:59 CT completed. Patient tolerated procedure well. Patient moved back from CT. mw3 17:03 CT Head C Spine In Process Unspecified. EDMS 17:38 Inserted saline lock: 22 gauge in right wrist, using aseptic technique. Blood collected.bp 18:36 Shanti Mariscal MD is Hospitalizing Provider. gs 20:19 No provider procedures requiring assistance completed. Patient admitted, IV remains in ak1 place. 20:20 Thermoregulation: warm blanket given to patient. ak1 Administered Medications: 17:10 Drug: NS 0.9% 1000 ml Route: IV; Rate: 1 bolus; Site: right wrist; bp 18:36 Follow up: IV Status: Completed infusion; IV Intake: 1000ml bp 18:36 Drug: NS 0.9% 500 ml Route: IV; Rate: bolus; Site: right wrist; bp 20:25 Follow up: IV Status: Completed infusion ak1 Intake: 16:54 PO: 0ml; Total: 0ml. bp 18:36 IV: 1000ml; Total: 1000ml. bp Output: 16:54 Urine: 0ml; Total: 0ml. bp Outcome: 18:36 Decision to Hospitalize by Provider. gs 20:54 Admitted to Tele accompanied by tech, via stretcher, room 208, with chart, Report ak1 called to Arabella TAYLOR 20:54 Condition: stable 20:54 Instructed on the need for admit. 21:08 Patient left the ED. ak1 Signatures: Dispatcher [employer] EDMS Saray Nino RN RN Seth Cervantes RN RN la1 Krenek, Amber, RN RN ak1 Starr, Gregory, MD MD gs Peltier, Brian, RN RN bp Willis, Michelle mw3 Hany Steen ag5 Corrections: (The following items were deleted from the chart) 16:37 16:32 Presenting complaint: Patient states: I am having pain in my neck that is giving la1 me a headache and in to my shoulders, pain started around 11am while I was eating. Pt reports fall this morning from standing position. Denies trauma to head or neck, denies LOC la1 16:37 16:32 Acuity: PAYAM 3 la1 la1 : 18:29 Home Meds: aspirin 81 mg Oral chew 1 tab once daily; iw ak1 : 18:29 Home Meds: atorvastatin 80 mg Oral tab 1 tab once daily; iw ak1 : 18:29 Home Meds: furosemide 40 mg Oral tab 1 tab once daily; iw ak1
--- NOTE | 2018-12-17 18:37 | EDPHYS ---
Physician Documentation [facility] Name: Titus Holloway Age: 78 yrs Sex: Male : 1940 Arrival Date: 12/17/2018 Time: 16:24 Bed 7 Private MD: Luis Fernando Huston V ED Physician Fernando Laguna HPI: 12/17 19:03 This 78 yrs old Male presents to ER via Wheelchair with complaints of Neck gs Pain, >24Hrs Old. 19:03 The patient or guardian complains of an injury. The symptoms are located at the C4 and gs C5. Onset: The symptoms/episode began/occurred this morning. Context: The neck injury/problem resulted from a fall. Associated signs and symptoms: Pertinent positives: headache, Pertinent negatives: bladder incontinence, bowel incontinence. Modifying factors: The symptoms are alleviated by nothing. the symptoms are aggravated by nothing. Severity of symptoms: At their worst the symptoms were moderate, in the emergency department the symptoms are unchanged. The patient has experienced similar episodes in the past, multiple times, many falls lately. Historical: - Allergies: 16:32 Plavix; la1 16:32 Tetanus Vaccines \T\ Toxoid; la1 - Home Meds: 18:29 amiodarone 200 mg Oral tab 0.5 tab once daily [Active]; BRILINTA 90 mg Oral tab 1 tab 2 iw times per day [Active]; citalopram 20 mg tab 1 tab once daily for Anxiety with Depression [Active]; clonidine HCl 0.2 mg Oral tab 1 tab 2 times per day [Active]; Entresto 24-26 mg Oral tab 1 tab twice a day [Active]; furosemide 80 mg Oral tab 1 tab once daily for Peripheral Edema due to Chronic Heart Failure [Active]; gabapentin 100 mg Oral cap 1 caps 3 times per day [Active]; losartan 100 mg Oral tab 1 tab once daily [Active]; magnesium oxide 400 mg Oral cap [Active]; metoprolol tartrate 50 mg Oral tab 1 tab 2 times per day for Hypertension [Active]; spironolactone 25 mg Oral tab 1 tab once daily [Active]; 20:25 aspirin 325 mg oral tab 1 tab once daily [Active]; atorvastatin 60mg Oral tab 1 tab ak1 once daily [Active]; levemir 50units am / 10 units pm [Active]; - PMHx: 16:32 CAD; CHF; COPD; CVA; Diabetes - IDDM; Hyperlipidemia; Hypertension; Pneumonia; weakness;la1 - Immunization history:: Adult Immunizations up to date. - Social history:: Smoking status: Patient/guardian denies using tobacco. - Immunization history: Last tetanus immunization: unknown. - Ebola Screening: : No symptoms or risks identified at this time. ROS: 19:03 All other systems are negative. gs Exam: 19:02 Head/Face: Normocephalic, atraumatic. Eyes: Pupils equal round and reactive to light, gs extra-ocular motions intact. Lids and lashes normal. Conjunctiva and sclera are non-icteric and not injected. Cornea within normal limits. Periorbital areas with no swelling, redness, or edema. ENT: Nares patent. No nasal discharge, no septal abnormalities noted. Tympanic membranes are normal and external auditory canals are clear. Oropharynx with no redness, swelling, or masses, exudates, or evidence of obstruction, uvula midline. Mucous membranes moist. Neck: Trachea midline, no thyromegaly or masses palpated, and no cervical lymphadenopathy. Supple, full range of motion without nuchal rigidity, or vertebral point tenderness. No Meningismus. Chest/axilla: Normal chest wall appearance and motion. Nontender with no deformity. No lesions are appreciated. Cardiovascular: Regular rate and rhythm with a normal S1 and S2. No gallops, murmurs, or rubs. Normal PMI, no JVD. No pulse deficits. Respiratory: Lungs have equal breath sounds bilaterally, clear to auscultation and percussion. No rales, rhonchi or wheezes noted. No increased work of breathing, no retractions or nasal flaring. Abdomen/GI: Soft, non-tender, with normal bowel sounds. No distension or tympany. No guarding or rebound. No evidence of tenderness throughout. Back: No spinal tenderness. No costovertebral tenderness. Full range of motion. Skin: Warm, dry with normal turgor. Normal color with no rashes, no lesions, and no evidence of cellulitis. MS/ Extremity: Pulses equal, no cyanosis. Neurovascular intact. Full, normal range of motion. Neuro: Awake and alert, GCS 15, oriented to person, place, time, and situation. Cranial nerves II-XII grossly intact. Motor strength 5/5 in all extremities. Sensory grossly intact. Cerebellar exam normal. Normal gait. 19:02 Constitutional: The patient appears alert, awake. 19:02 ECG was reviewed by the Attending Physician. Vital Signs: 16:36 Pulse 59; Resp 16; Temp 97.5; Pulse Ox 98% on R/A; Weight 86.18 kg; Height 5 ft. 11 in. la1 (180.34 cm); 16:38 BP 65 / 39; la1 16:50 BP 144 / 96 Supine; Pulse 60; Pulse Ox 95% ; bp 16:52 BP 76 / 45 Sitting; Pulse 60; Resp 14; bp 17:38 BP 75 / 56; Pulse 59; Resp 16; Pulse Ox 97% ; bp 18:00 BP 87 / 52; Pulse 60; Resp 14; Pulse Ox 95% ; bp 18:37 BP 96 / 70; Pulse 61; Resp 18; Pulse Ox 100% ; bp 16:36 Body Mass Index 26.50 (86.18 kg, 180.34 cm) la1 [place] Coma Score: 16:54 Eye Response: spontaneous(4). Verbal Response: oriented(5). Motor Response: obeys bp commands(6). Total: 15. Trauma Score (Adult): 16:54 Eye Response: spontaneous(1); Verbal Response: oriented(1); Motor Response: obeys bp commands(2); Systolic BP: > 89 mm Hg(4); Respiratory Rate: 10 to 29 per min(4); Eliseo Score: 15; Trauma Score: 12 MDM: 16:59 Patient medically screened. 19:03 Differential diagnosis: head injury neck injury hypotension dehydration. Data reviewed: vital signs, nurses notes, lab test result(s), EKG, radiologic studies. Counseling: I had a detailed discussion with the patient and/or guardian regarding: the historical points, exam findings, and any diagnostic results supporting the discharge/admit diagnosis, lab results, radiology results, the need for further work-up and treatment in the hospital. Response to treatment: the patient's symptoms have mildly improved after treatment, and as a result, I will admit patient. 12/17 16:44 Order name: Basic Metabolic Panel; Complete Time: 18:21 12/17 16:44 Order name: CBC with Diff; Complete Time: 18:21 12/17 16:44 Order name: LFT's; Complete Time: 18:21 gs 12/17 16:44 Order name: Magnesium; Complete Time: 18:21 gs 12/17 16:44 Order name: NT PRO-BNP; Complete Time: 18:21 gs 12/17 16:44 Order name: PT-INR; Complete Time: 18:21 gs 12/17 16:43 Order name: CXR XRAY; Complete Time: 18:21 bp 12/17 16:43 Order name: CT Head C Spine; Complete Time: 18:21 bp 12/17 16:44 Order name: Troponin (emerg Dept Use Only); Complete Time: 18:21 gs 12/17 18:57 Order name: Lactate bp 12/17 19:51 Order name: Urine Dipstick--Ancillary (enter results) ar5 12/17 19:52 Order name: Urine Dipstick-Ancillary EDMS 12/17 16:44 Order name: EKG; Complete Time: 16:48 12/17 16:44 Order name: Cardiac monitoring; Complete Time: 17:02 12/17 16:44 Order name: EKG - Nurse/Tech; Complete Time: 17:02 12/17 16:44 Order name: IV Saline Lock; Complete Time: 17:40 12/17 16:44 Order name: Labs collected and sent; Complete Time: 17:40 12/17 16:44 Order name: O2 Per Protocol; Complete Time: 17:02 12/17 16:44 Order name: O2 Sat Monitoring; Complete Time: 17:02 gs EC:02 Rate is 61 beats/min. Rhythm is regular. OH interval is prolonged. QRS interval is gs prolonged. QT interval is prolonged. ST Segment is depressed in leads I, aVL. Clinical impression: NSR w/ Non-specific ST/T Changes and Abnormal EKG without significant change. Interpreted by me. Administered Medications: 17:10 Drug: NS 0.9% 1000 ml Route: IV; Rate: 1 bolus; Site: right wrist; bp 18:36 Follow up: IV Status: Completed infusion; IV Intake: 1000ml bp 18:36 Drug: NS 0.9% 500 ml Route: IV; Rate: bolus; Site: right wrist; bp 20:25 Follow up: IV Status: Completed infusion ak1 Disposition: 12/17/18 18:36 Hospitalization ordered by Shanti Mariscal for Observation. Preliminary diagnosis is Orthostatic hypotension. - Bed requested for Telemetry/MedSurg (observation). - Status is Observation. ak1 - Condition is Stable. - Problem is new. - Symptoms have improved. UTI on Admission? No Signatures: Dispatcher [employer] EDSaray Ribera RN RN Seth Cervantes RN RN laKatlin Rosa RN RN ak1 Chio Black RN RN Fernando Laguna MD MD Clyde Lee RN RN bp Corrections: (The following items were deleted from the chart) 19:53 18:36 Hospitalization Ordered by Shanti Mariscal MD for Observation. Preliminary cg diagnosis is Orthostatic hypotension. Bed requested for Telemetry/MedSurg (observation). Status is Observation. Condition is Stable. Problem is new. Symptoms have improved. UTI on Admission? No. 20:25 18:29 Home Meds: aspirin 81 mg Oral chew 1 tab once daily; [facility] 20:25 18:29 Home Meds: atorvastatin 80 mg Oral tab 1 tab once daily; ak1 20:25 18:29 Home Meds: furosemide 40 mg Oral tab 1 tab once daily; ak1 21:08 19:53 12/17/2018 18:36 Hospitalization Ordered by Shanti Mariscal MD for Observation. ak1 Preliminary diagnosis is Orthostatic hypotension. Bed requested for Telemetry/MedSurg (observation). Status is Observation. Condition is Stable. Problem is new. Symptoms have improved. UTI on Admission? No. cg
[2018-12-17] MEDS ORDERED: NA CHLORIDE 0.9% 500 ML ONE (18:48)
[2018-12-17] MEDS ORDERED: NA CHLORIDE 0.9% 1,000 ML IV ONE (20:53)
[2018-12-17 21:06] LABS: Urine Blood NEGATIVE (NEG); Urine Glucose NEGATIVE (NEG); Urine Protein NEGATIVE (NEG); Urine Specific Gravity 1.015 (1.005-1.030)
[2018-12-17] MEDS ORDERED: VANCOMYCIN 1.25 GM in NA CHLORIDE 0.9% 250 ML IVPB ONE (21:23)
[2018-12-17 21:27] VITALS: BMI 27.1
[2018-12-17] MEDS: INSULIN -REGULAR HUMAN 50 UNIT/0.5 ML ML SQ SCH (21:38)
[2018-12-17] MEDS: TICAGRELOR 90 MG TABLET PO SCH (23:23)
[2018-12-17] MEDS: ATORVASTATIN 80 MG TAB PO SCH (23:24)
[2018-12-17] MEDS: NA CHLORIDE 0.9% 1,000 ML IV SCH (23:24)
[2018-12-18] MEDS ORDERED: VANCOMYCIN 1 GM/VIAL ONE (00:11)
[2018-12-18] MEDS ORDERED: VANCOMYCIN 500 MG/VIAL ONE (00:12)
[2018-12-18 00:22] LABS: CKMB Creatine Kinase MB 1.8 ng/mL (0.3-3.6); Troponin I < 0.02 ng/mL (0.0-0.045)
[2018-12-18] MEDS ORDERED: NA CHLORIDE 0.9% 250 ML ONE (00:32)
[2018-12-18] MEDS ORDERED: PIPERACIL/TAZO 2.25 GM VIAL IV ONE (01:52)
--- NOTE | 2018-12-18 02:26 | HP ---
Date of Admission: 12/17/2018 Chief Complaint: Orthostatic hypotension. 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 As per the patient, he was going to have the lunch and then he felt that his legs were weak and dizzy and he had a fall, but he denied loss of consciousness or head trauma. The patient also denied chest pain before or after the fall. No shortness of breath, palpitation, headache, or blurring of vision. The patient mentioned that he is taking the Brilinta and in the emergency room, head CT and cervical spine CT were done, which were unremarkable for bleeding or acute finding. In the ER, the patient noted to have postural hypotension and his blood pressure was 144/96 in supine position and 76/45 in sitting position. He was given IV fluid and his blood pressure was rechecked again in sitting position and was 75/56. At the time of my assessment, the patient denied chest pain, shortness of breath, palpitation, headache, dizziness, fever, cough, change in urinary or bowel habits. The patient is following Dr. Cordoba and his PCP is Dr. Huston. Allergies: THE PATIENT IS ALLERGIC TO PLAVIX AND TETANUS VACCINE. Review of Systems: Fourteen-point review of systems is otherwise negative except the one mentioned in the HPI. Past Medical History: As above. Past Surgical History: CABG. Family History: Father has heart disease and mother has heart disease. Social History: The patient is a former smoker. He denied alcohol abuse or illicit drug abuse. Physical Examination: Vital Signs: The patient was afebrile, pulse rate of 60, and blood pressure of 140/80. O2 saturation 97% on room air. General: The patient is awake, alert, oriented x3, not in acute distress. Neck: Supple. Head: Normocephalic, atraumatic. Eyes: PERRLA. Cardiovascular: Regular rate and rhythm. No murmur. Lungs: Bilateral air entry. No wheezing or crackles. Clear to auscultation. Abdomen: Soft, nontender. Bowel sounds positive. Extremities: No edema, cyanosis, or clubbing. Skin: No rash. Neurologic: Speech is normal. No focal weakness noted. Laboratory Data: WBC 6.5, hemoglobin 12.2, platelets of 182. Sodium of 136, potassium of 4.3, BUN of 22, creatinine of 1.9. GFR of 34. Lactic acid of 2.3. AST and ALT within normal limits. BNP of 1226. Imaging: Chest x-ray: No acute intrathoracic process. Postoperative changes of CABG noted with pacer defibrillator device in place. Head CT and cervical spine CT: No acute intracranial or cervical spine findings. Moderate mid and lower cervical degenerative changes. Assessment: 1. s/p fall with no loss of consciousness. 2. Postural hypotension. 3. STEFANY 4. elevated lactate with no fever or evidence of infection 5. Chronic systolic congestive heart failure with ejection fraction of 25%. 6. Coronary artery disease, status post coronary artery bypass graft. 7. Diabetes. Plan: 1. Admit for observation. IV fluid hydration. Hold antihypertensive medications. Postural hypotension could be due to volume depletion versus CHF versus other causes. 2. Serial cardiac enzymes and EKGs. 3. Cardiology consult, Dr. Cordoba consulted. 4. Followup echo. 5. For STEFANY, we will start with careful IV fluid hydration. 6. Monitor BUN and creatinine. 7. Avoid nephrotoxic medications. 8. We will consider nephrology consult if BUN and creatinine improves. 9. DVT prophylaxis. KARLA Voice ID: [id number] CALVIN
[2018-12-18] MEDS: HEPARIN 5000 UNIT/ML 1 ML VIAL SQ SCH ×3 (02:49→16:12)
[2018-12-18] MEDS: PIPER/TAZO/NS 2.25gm 2.25 GM/50 ML BAG IVPB SCH ×3 (02:49→17:30)
[2018-12-18] MEDS ORDERED: NA CHLORIDE 0.9% 50 ML ONE (02:53)
[2018-12-18 03:44] LABS: Urine Appearance CLEAR; Urine Bilirubin NEGATIVE (NEG); Urine Blood NEGATIVE (NEG); Urine Color YELLOW; Urine Glucose NEGATIVE (NEG); Urine Protein NEGATIVE (NEG); Urine Specific Gravity <=1.005 (1.005-1.030); Urine pH 6.5 (5.0-7.0)
[2018-12-18 03:46] LABS: Urine Microscopic Reflex NO UMIC
[2018-12-18 06:23] LABS: Absolute Lymphocytes (CBC) 0.8 K/uL (0.7-4.9); Basophils % 0.4 % (0-1.3); Eosinophils % 5.3 % (0-4.4); Hematocrit 35.7 % (39.6-49.0); Lymphocytes % 12.9 % (15.3-44.8); MPV 7.3 fL (7.6-11.3); Monocytes % 11.6 % (3.3-12.3); RBC Red Blood Cell Count 3.65 M/uL (4.33-5.43)
[2018-12-18 06:23] LABS: CKMB Creatine Kinase MB 1.9 ng/mL (0.3-3.6); Troponin I 0.02 ng/mL (0.0-0.045)
[2018-12-18 06:24] LABS: Albumin 3.4 g/dL (3.4-5.0); Bilirubin Total 0.7 mg/dL (0.2-1.0); Magnesium 2.2 mg/dL (1.8-2.4); Phosphorus 3.4 mg/dL (2.5-4.9); Potassium 4.3 mmol/L (3.5-5.1); Protein, Total 6.4 g/dL (6.4-8.2)
[2018-12-18] MEDS: INSULIN -REGULAR HUMAN 50 UNIT/0.5 ML ML SQ SCH ×4 (07:30→21:19)
[2018-12-18] MEDS: NA CHLORIDE 0.9% 1,000 ML IV SCH (07:38)
[2018-12-18] MEDS: TICAGRELOR 90 MG TABLET PO SCH ×2 (09:22→21:19)
[2018-12-18] MEDS: ASPIRIN EC 81 MG TAB PO SCH (09:22)
--- NOTE | 2018-12-18 10:36 | EKG ---
Test Date: 2018-12-17 Test Time: 17:14:01 Calibration Tester: IGNACIO MEASUREMENT RESULTS: Intervals: Rate: 61 OH: 238 QRSD: 102 QT: 502 QTc: 505 [place]: P: 48 OH: 238 QRS: -23 T: 122 INTERPRETIVE STATEMENTS: Atrial-paced rhythm with prolonged AV conduction Low voltage QRS Cannot rule out Anterior infarct, age undetermined T wave abnormality, consider lateral ischemia Prolonged QT Abnormal ECG Compared to ECG 11/10/2018 20:47:02 Low QRS voltage now present T-wave abnormality now present Possible ischemia now present Prolonged QT interval now present Sinus rhythm no longer present Myocardial infarct finding still present Electronically Signed On 12-18-18 10:35:56 CDT by David Clark
--- NOTE | 2018-12-18 11:55 | P.PN ---
Subjective Date of Service: 12/18/18 pt seen and examined pt denied any CP or SOB checked for orthostasis BP lying and supine and standing is 130/70 but pt is off his home meds for chf and HTN pending cardiology recommendations Review of Systems 10-point ROS is otherwise unremarkable Physical Examination - Vital Signs Temperature: 97.5 F Blood Pressure: 124/61 Pulse: 60 Respirations: 17 Pulse Ox (%): 93 - Physical Exam General: Alert, In no apparent distress, Oriented x3 HEENT: Atraumatic, Normocephalic, PERRLA Neck: Supple Respiratory: Clear to auscultation bilaterally Cardiovascular: No edema, Regular rate/rhythm, Normal S1 S2 Gastrointestinal: Normal bowel sounds, Soft and benign, Non-distended Musculoskeletal: No clubbing, No swelling Integumentary: No rashes Neurological: Normal speech, Normal strength at 5/5 x4 extr - Studies Laboratory Data (last 24 hrs) 12/17/18 17:35: PT 12.2, INR 1.04 12/17/18 17:35: WBC 6.5, Hgb 12.2 L, Hct 35.6 L, Plt Count 182 12/17/18 17:35: Sodium 136, Potassium 4.3, BUN 22 H, Creatinine 1.91 H, Glucose 170 H, Magnesium 2.3, Total Bilirubin 0.7, AST 25, ALT 33, Alkaline Phosphatase 52 Assessment And Plan - Plan 1. s/p fall with no loss of consciousness. 2. Postural hypotension. 3. STEFANY 4. elevated lactate with no fever or evidence of infection 5. Chronic systolic congestive heart failure with ejection fraction of 25%. 6. Coronary artery disease, status post coronary artery bypass graft. 7. Diabetes. Plan: 1. IV fluid hydration. Hold antihypertensive medications. Postural hypotension could be due to volume depletion versus CHF versus other causes. 2. Serial cardiac enzymes and EKGs. 3. Cardiology consult, Dr. Cordoba consulted. 4. Followup echo. 5. For STEFANY, we will start with careful IV fluid hydration. 6. Monitor BUN and creatinine. 7. Avoid nephrotoxic medications. 8. We will consider nephrology consult if BUN and creatinine improves. 9. DVT prophylaxis.
[2018-12-18 13:20] LABS: Absolute Lymphocytes (CBC) 0.9 K/uL (0.7-4.9); Basophils % 0.2 % (0-1.3); Eosinophils % 4.7 % (0-4.4); Hematocrit 37.7 % (39.6-49.0); Lymphocytes % 14.2 % (15.3-44.8); MPV 7.7 fL (7.6-11.3); Monocytes % 9.6 % (3.3-12.3); RBC Red Blood Cell Count 3.87 M/uL (4.33-5.43)
[2018-12-18 13:58] LABS: CKMB Creatine Kinase MB 2.2 ng/mL (0.3-3.6); Troponin I 0.02 ng/mL (0.0-0.045)
[2018-12-18 13:59] LABS: Potassium 4.3 mmol/L (3.5-5.1)
[2018-12-18] MEDS ORDERED: ACETAMINOPHEN 325 MG TABLET PO PRN (16:02)
--- NOTE | 2018-12-18 16:46 | CON ---
History Of Present Illness: Mr. Holloway came to the hospital because of near-syncope, low blood pre ssure. Some of his blood pressures have been as low as 80 systolic. Presently, he is doing better. Mr. Holloway has severe heart disease, depressed ejection fraction, coronary heart disease with bypa ss surgery and stents. He has a defibrillator and he has been taking a variety of medications that c an make his blood pressure low. In the past, Mr. Holloway has had a problem following any recommenda tions for sodium or fluid restriction, but I think he may have been taking in much less sodium than u sual and that may have accounted for his drop in blood pressure. He is also listed as taking both lo sartan and Entresto that should not happen. The losartan should be stopped and I would think his ambika nidine could be stopped and he would probably do okay if he continued all of the other medicines. He also has a history of diabetes. He is not having any chest pain or shortness of breath. He does no te when he tried to stand up, he would faint or come close to it and his blood pressure was low. Pre sently, he feels better. His present medications do not include Entresto. He is on 2 antibiotics. I am not sure exactly what infection we are treating with those 2 antibiotics. He is on piperacillin with tazobactam and vancomycin. Physical Examination: Vital Signs: Mr. Holloway is 5 feet 11. He is 195 pounds. HEENT: Unremarkable. Lungs: Clear. Heart: Regular rate and rhythm with no significant murmur. Abdomen: Soft. Extremities: Mild edema. Laboratory Data: His creatinine was 1.91 when he came in. All of his troponins are normal. His cre atinine is 1.41 today. He has had some hydration. I think he was relatively fluid dehydrated when he came in. I think we s hould re-establish Entresto therapy. Stop any further losartan or other similar drugs. Continue met oprolol, spironolactone, aspirin, atorvastatin, insulin. Avoid clonidine. Reduce the amount of furosemide. Continue amiodarone and insulin. SH/MODL Voice ID: [id number] Report ID: [id number]
[2018-12-18] MEDS ORDERED: D50W 25 GM/50 ML SYRINGE IV PRN (18:04)
[2018-12-18] MEDS ORDERED: GLUCAGON 1 MG/VIAL IM PRN (18:04)
[2018-12-18] MEDS: ATORVASTATIN 80 MG TAB PO SCH (21:19)
[2018-12-18] MEDS: FUROSEMIDE 40 MG TABLET PO SCH (23:24)
[2018-12-19] MEDS: HEPARIN 5000 UNIT/ML 1 ML VIAL SQ SCH ×3 (01:54→17:32)
[2018-12-19 06:17] LABS: Absolute Lymphocytes (CBC) 0.8 K/uL (0.7-4.9); Basophils % 0.3 % (0-1.3); Eosinophils % 4.1 % (0-4.4); Hematocrit 39.7 % (39.6-49.0); Lymphocytes % 11.5 % (15.3-44.8); MPV 7.3 fL (7.6-11.3); Monocytes % 10.1 % (3.3-12.3)
[2018-12-19 06:39] LABS: Potassium 4.5 mmol/L (3.5-5.1)
[2018-12-19] MEDS: INSULIN -REGULAR HUMAN 50 UNIT/0.5 ML ML SQ SCH ×3 (07:30→16:30)
[2018-12-19] MEDS ORDERED: INSULIN GLARGINE 100 UNITS/ML SQ SCH ×2 (08:00→17:00)
[2018-12-19] MEDS ORDERED: SACUBITRIL/VALSARTAN 24/26 MG TAB PO SCH (09:00)
[2018-12-19] MEDS ORDERED: METOPROLOL TAR 50 MG TAB PO SCH (09:00)
[2018-12-19] MEDS ORDERED: SPIRONOLACTONE 25 MG TABLET PO SCH (09:00)
[2018-12-19] MEDS ORDERED: AMIODARONE HCL 200 MG TAB PO SCH (09:00)
[2018-12-19] MEDS: FUROSEMIDE 40 MG TABLET PO SCH (09:00)
[2018-12-19] MEDS ORDERED: TICAGRELOR 90 MG TABLET PO SCH (09:00)
[2018-12-19] MEDS ORDERED: MAGNESIUM OXIDE 400 MG TAB PO SCH (09:00)
[2018-12-19] MEDS ORDERED: CITALOPRAM 10 MG TABLET PO SCH (09:00)
[2018-12-19] MEDS: GABAPENTIN 100 MG CAP PO SCH ×2 (09:59→13:25)
[2018-12-19] MEDS: ASPIRIN EC 81 MG TAB PO SCH (10:00)
[2018-12-19 13:33] VITALS: O2SAT 95
--- NOTE | 2018-12-19 13:35 | ECHO ---
HEIGHT: 5 ft 11 in WEIGHT: 225 lb 0 oz DATE OF STUDY: 12/19/[address]: Shanti Mariscal MD 2-DIMENSIONAL: YES M.MODE: YES DOPPLER: YES COLOR FLOW: YES TDS: NO PORTABLE: NO DEFINITY: NO BUBBLE STUDY: NO DIAGNOSIS: ORTHOSTATIC HYPOTENSION CARDIAC HISTORY: CATHERIZATION: YES SURGERY: YES PROSTHETIC VALVE: NO PACEMAKER: YES MEASUREMENTS (cm) DIASTOLIC (NORMALS) SYSTOLIC (NORMALS) IVSd 1.1 (0.6-1.2) LA Diam 4.2 (1.9-4.0) LVEF 35-39% LVIDd 4.5 (3.5-5.7) LVIDs 3.9 (2.0-3.5) %FS 14% LVPWd 1.2 (0.6-1.2) Ao Diam 3.3 (2.0-3.7) 2 DIMENSIONAL ASSESSMENT: RIGHT ATRIUM: DILATED LEFT ATRIUM: DILATED RIGHT VENTRICLE: PACEMAKER WIRE NOTED LEFT VENTRICLE: NORMAL TRICUSPID VALVE: NORMAL MITRAL VALVE: NORMAL PULMONIC VALVE: NORMAL AORTIC VALVE: SCLEROSIS PERICARDIAL EFFUSION: NONE AORTIC ROOT: NORMAL LEFT VENTRICULAR WALL MOTION: ANTERIOR SEPTAL AKINESIS. DOPPLER/COLOR FLOW: NO AORTIC STENOSIS OR AORTIC REGURGITATION. MILD MITRAL REGURGITATION. COMMENTS: DEPRESSED LEFT VENTRICULAR EJECTION FRACTION WITH WALL MOTION ABNORMALITY. DILATED LEFT AND RIGHT ATRIUM. PACEMAKER CATHETER IN RIGHT VENTRICLE. AORTIC SCLEROSIS WITH NO AORTIC STENOSIS OR AORTIC REGURGITATION. MILD MITRAL REGURGITATION. TECHNOLOGIST: Yanira BURROWS
[2018-12-19 16:22] VITALS: BP 165/77; TEMP 97.5
--- NOTE | 2018-12-19 17:58 | PN ---
Mr. Holloway seems to be doing better. He no longer has orthostatics symptoms. In fact, he is a lit tle bit hypertensive, so I think as he is discharged, the medicines I would reduce or eliminate that he had been on are clonidine. I would not give him anymore clonidine. I would recommend resuming th e Entresto. He should not be on losartan and Entresto. He should be on Lasix, amiodarone, a lower d ose of metoprolol, spironolactone, Lipitor, and Brilinta. I think he would do much better with that regimen. YAMILKA/JATINDER Voice ID: [id number] Report ID: [id number]
[2018-12-19] MEDS ORDERED: ATORVASTATIN 20 MG TAB PO SCH (21:00)
--- NOTE | 2018-12-19 21:11 | P.DS ---
Admission Date: 12/17/18 Discharge Date: 12/19/18 Disposition: ROUTINE DISCHARGE Discharge Condition: FAIR Hospital Course: MR. NANCE HAD SYNCOPE EPISODE AT HOME. HE HAD NO CHEST PAIN PRECEDING. HE NOW IS BACK TO BASELINE. I MADE HIM WALK WITH NURSES. HE HAD NO SYNCOPE. HE RULED OUT FOR ME. MR. NANCE HAS ORTHOSTASIS BY HISTORY. HE WILL BE OFF CLONIDINE BUT I AM SURE HE WILL CALL BACK WITH HIGH BP. HE IS NOT ON LOSARTAN AND ENTRESTO AT HOME LIKE DR. PITTS'S NOTES SUGGEST. I CHECKED IN MY NOTES, WHEN I PLACED HIM ON ENTRESTO MONTHS AGO HE WAS TAKEN OFF LOSARTAN. HIS EF IS DOWN TO 35%. HE IS STABLE FOR DISCHARGE. HE WILL RETURN RECURRENTLY TO HOSPITAL HIS MEDICAL, DIEATRY AND MEDICINAL STATUS IS NOT GREAT AT HOME. HE AND HIS BOTH ARE CHRONICALLY ILL AND TRYING TO TAKE CARE OF EACH OTHER WHERE I DON'T KNOW HOW MANY MEDICINE MISTAKES ARE MADE. HOME HEALTH HAS BEEN IN PLACE AND NOT ABLE TO CHANGE MUCH IN THE COMPLIANCE. Vital Signs/Physical Exam: Temp Pulse Resp BP Pulse Ox 97.5 F 60 18 165/77 H 95 12/19/18 16:00 12/19/18 16:00 12/19/18 16:00 12/19/18 16:00 12/19/18 16:00 Laboratory Data at Discharge: WBC 6.7 K/uL (4.3-10.9) 12/19/18 05:47 Hgb 13.6 g/dL (13.6-17.9) 12/19/18 05:47 Hct 39.7 % (39.6-49.0) 12/19/18 05:47 Plt Count 213 K/uL (152-406) 12/19/18 05:47 PT 12.2 SECONDS (9.5-12.5) 12/17/18 17:35 INR 1.04 12/17/18 17:35 Sodium 138 mmol/L (136-145) 12/19/18 05:47 Potassium 4.5 mmol/L (3.5-5.1) 12/19/18 05:47 BUN 15 mg/dL (7-18) 12/19/18 05:47 Creatinine 1.39 mg/dL (0.55-1.3) H 12/19/18 05:47 Glucose 138 mg/dL (74-106) H 12/19/18 05:47 Phosphorus 3.4 mg/dL (2.5-4.9) 12/18/18 05:45 Magnesium 2.2 mg/dL (1.8-2.4) 12/18/18 05:45 Total Bilirubin 0.7 mg/dL (0.2-1.0) 12/18/18 05:45 AST 21 U/L (15-37) 12/18/18 05:45 ALT 28 U/L (12-78) 12/18/18 05:45 Alkaline Phosphatase 52 U/L (45-117) 12/18/18 05:45 Troponin I 0.02 ng/mL (0.0-0.045) 12/18/18 12:47 Home Medications: Amiodarone HCl [Cordarone*] 100 mg PO DAILY 12/17/18 Atorvastatin Calcium [Lipitor*] 60 mg PO BEDTIME 12/17/18 Citalopram [Celexa*] 20 mg PO DAILY 12/17/18 Furosemide [Lasix*] 80 mg PO DAILY 12/17/18 Gabapentin [Neurontin*] 100 mg PO TID 12/17/18 Insulin Detemir [Levemir] 10 units SQ DAILY AT SUPPER 12/17/18 Insulin Detemir [Levemir] 50 units SQ BREAKFAST 12/17/18 Magnesium Oxide [Mag 0X*] 400 mg PO DAILY 12/17/18 Metoprolol Tartrate [Lopressor*] 50 mg PO BID 12/17/18 Sacubitril/Valsartan [Entresto 24 mg-26 mg Tablet] 1 tab PO BID 12/17/18 Ticagrelor [Brilinta*] 90 mg PO BID 12/17/18 Diet: AHA Followup: Luis Fernando Huston MD [Primary Care Provider] - 1 Week
== END 2018-12-19 20:10 | disposition home or self-care (01) ==
LOC: ER 16:20 → 2ND 20:38
PROVIDERS: ADMIT Internal Medicine; ATTEND Internal Medicine
DX: I95.1 Orthostatic hypotension (principal); N17.9 Acute kidney failure, unspecified; I11.0 Hypertensive heart disease with heart failure; I50.22 Chronic systolic (congestive) heart failure; I25.10 Atherosclerotic heart disease of native coronary artery without angina pectoris; E11.9 Type 2 diabetes mellitus without complications; Z95.1 Presence of aortocoronary bypass graft; R55 Syncope and collapse
CPT/HCPCS: 96361; 93005; 93306; 87040; 85025 ×4; 80048 ×3; 36415 ×2; 83735 ×2; 84100; 85610; 82962 ×8; 80076; 83605 ×2; 81003 ×2; 84484 ×4; 82553 ×3; 80053; 83880; 70450; 72125; 71045; 96360; 99285; J1644 ×6; J2543; J7030 ×3; G0378 ×2

== ENCOUNTER 2019-06-27 15:29 | Observation (INO) | payer OTHER ==
[2019-06-27] MEDS ORDERED: IPRATROPIUM BROM 0.5MG/2.5ML ONE (16:36)
[2019-06-27] MEDS ORDERED: NA CHLORIDE 0.9% 0 ML ONE (16:36)
[2019-06-27] MEDS ORDERED: LEVALBUTEROL 1.25 MG/3 ML NEB ONE (16:36)
[2019-06-27] MEDS ORDERED: METHYLPREDNISOLONE 125 MG INJ ONE (16:37)
[2019-06-27 17:16] LABS: Absolute Lymphocytes (CBC) 1.1 K/uL (0.7-4.9); Basophils % 0.2 % (0-1.3); Hematocrit 39.9 % (39.6-49.0); Lymphocytes % 14.3 % (15.3-44.8); MPV 7.5 fL (7.6-11.3); RBC Red Blood Cell Count 4.18 M/uL (4.33-5.43)
[2019-06-27 17:22] LABS: Protime INR 1.02
[2019-06-27 17:43] LABS: ALT/SGPT 46 U/L (12-78); AST/SGOT 27 U/L (15-37); Albumin 3.7 g/dL (3.4-5.0); Alkaline Phosphatase 61 U/L (45-117); BUN Blood Urea Nitrogen 26 mg/dL (7-18); Bicarbonate 29 mmol/L (21-32); Bilirubin Direct 0.2 mg/dL (0-0.2); Bilirubin Total 0.6 mg/dL (0.2-1.0); Glucose Level 305 mg/dL (74-106); Magnesium 2.2 mg/dL (1.8-2.4); NT PRO-BNP 894 pg/mL (<450); Potassium 4.6 mmol/L (3.5-5.1); Sodium Level 133 mmol/L (136-145); Troponin I < 0.02 ng/mL (0.0-0.045)
--- NOTE | 2019-06-27 17:50 | RAD REPORT ---
EXAM DESCRIPTION: RAD - Chest Single View - 06/27/2019 5:35 pm CLINICAL HISTORY: r/o pneumonia Chest pain. COMPARISON: No comparisons FINDINGS: Portable technique limits examination quality. Mild interstitial pulmonary edema. The heart is moderately enlarged in size with multilead pacer/defi brillator device. Sternotomy wires are present. IMPRESSION: Mild to moderate CHF.
--- NOTE | 2019-06-27 17:52 | EDPHYS ---
Physician Documentation [facility] Name: Titus Holloway Age: 79 yrs Sex: Male : 1940 Arrival Date: 06/27/2019 Time: 15:32 Bed 20 Private MD: Luis Fernando Huston V ED Physician Mu Lewis HPI: 06/27 16:30 This 79 yrs old Male presents to ER via Ambulatory with complaints of Cough, tez Congestion. 16:30 The patient or guardian reports airway noise, cough, difficulty breathing. Onset: The tez symptoms/episode began/occurred 3 day(s) ago. Severity of symptoms: At their worst the symptoms were mild, in the emergency department the symptoms are unchanged. Modifying factors: The symptoms are alleviated by nothing, the symptoms are aggravated by nothing. Associated signs and symptoms: The patient has no apparent associated signs or symptoms. The patient has not experienced similar symptoms in the past. Historical: - Allergies: 15:43 Plavix; rv 15:43 Tetanus Vaccines \T\ Toxoid; rv - Home Meds: 17:09 amiodarone 200 mg Oral tab 0.5 tab once daily [Active]; aspirin 325 mg Oral tab 1 tab mg2 once daily [Active]; atorvastatin 60mg Oral tab 1 tab once daily [Active]; BRILINTA 90 mg Oral tab 1 tab 2 times per day [Active]; citalopram 20 mg tab 1 tab once daily for Anxiety with Depression [Active]; clonidine HCl 0.2 mg Oral tab 1 tab 2 times per day [Active]; Entresto 24-26 mg Oral tab 1 tab twice a day [Active]; furosemide 80 mg Oral tab 1 tab once daily for Peripheral Edema due to Chronic Heart Failure [Active]; gabapentin 100 mg Oral cap 1 caps 3 times per day [Active]; levemir 50units am / 10 units pm [Active]; losartan 100 mg Oral tab 1 tab once daily [Active]; magnesium oxide 400 mg Oral cap [Active]; metoprolol tartrate 50 mg Oral tab 1 tab 2 times per day for Hypertension [Active]; spironolactone 25 mg Oral tab 1 tab once daily [Active]; - PMHx: 15:43 CAD; CHF; COPD; Diabetes - IDDM; CVA; Hyperlipidemia; Hypertension; weakness; Pneumonia;rv - PSHx: 15:43 CABG; CARDIAC STENTS; rv - Immunization history:: Adult Immunizations up to date. - Social history:: Smoking status: Patient/guardian denies using tobacco, the patient reports quitting approximately 40 years ago. - Ebola Screening: : No symptoms or risks identified at this time. - Family history:: not pertinent. ROS: 16:30 Constitutional: Negative for fever, chills, and weight loss, Eyes: Negative for injury, tez pain, redness, and discharge, ENT: Negative for injury, pain, and discharge, Neck: Negative for injury, pain, and swelling, Cardiovascular: Negative for chest pain, palpitations, and edema, Abdomen/GI: Negative for abdominal pain, nausea, vomiting, diarrhea, and constipation, Back: Negative for injury and pain, : Negative for injury, bleeding, discharge, and swelling, MS/Extremity: Negative for injury and deformity, Skin: Negative for injury, rash, and discoloration, Neuro: Negative for headache, weakness, numbness, tingling, and seizure, Psych: Negative for depression, anxiety, suicide ideation, homicidal ideation, and hallucinations, Allergy/Immunology: Negative for hives, rash, and allergies, Endocrine: Negative for neck swelling, polydipsia, polyuria, polyphagia, and marked weight changes, Hematologic/Lymphatic: Negative for swollen nodes, abnormal bleeding, and unusual bruising. 16:30 Respiratory: Positive for cough, wheezing, expiratory. Exam: 16:30 Constitutional: This is a well developed, well nourished patient who is awake, alert, tez and in no acute distress. Head/Face: Normocephalic, atraumatic. Eyes: Pupils equal round and reactive to light, extra-ocular motions intact. Lids and lashes normal. Conjunctiva and sclera are non-icteric and not injected. Cornea within normal limits. Periorbital areas with no swelling, redness, or edema. ENT: Nares patent. No nasal discharge, no septal abnormalities noted. Tympanic membranes are normal and external auditory canals are clear. Oropharynx with no redness, swelling, or masses, exudates, or evidence of obstruction, uvula midline. Mucous membranes moist. Neck: Trachea midline, no thyromegaly or masses palpated, and no cervical lymphadenopathy. Supple, full range of motion without nuchal rigidity, or vertebral point tenderness. No Meningismus. Chest/axilla: Normal chest wall appearance and motion. Nontender with no deformity. No lesions are appreciated. Cardiovascular: Regular rate and rhythm with a normal S1 and S2. No gallops, murmurs, or rubs. Normal PMI, no JVD. No pulse deficits. Abdomen/GI: Soft, non-tender, with normal bowel sounds. No distension or tympany. No guarding or rebound. No evidence of tenderness throughout. Back: No spinal tenderness. No costovertebral tenderness. Full range of motion. Male : Normal genitalia with no discharge or lesions. Skin: Warm, dry with normal turgor. Normal color with no rashes, no lesions, and no evidence of cellulitis. MS/ Extremity: Pulses equal, no cyanosis. Neurovascular intact. Full, normal range of motion. Neuro: Awake and alert, GCS 15, oriented to person, place, time, and situation. Cranial nerves II-XII grossly intact. Motor strength 5/5 in all extremities. Sensory grossly intact. Cerebellar exam normal. Normal gait. Psych: Awake, alert, with orientation to person, place and time. Behavior, mood, and affect are within normal limits. 16:30 Respiratory: the patient does not display signs of respiratory distress, Respirations: normal, no acute changes, labored breathing, is not present, Breath sounds: rhonchi, wheezing: expiratory is heard in the right posterior middle lobe and right posterior lower lobe. 16:32 Musculoskeletal/extremity: DVT Exam: No signs of deep vein thrombosis. no pain, no tez swelling, no tenderness, negative Homans' sign noted on exam, no appreciated bluish discoloration, no erythema, no increased warmth. Vital Signs: 15:41 BP 119 / 69; Pulse 64; Resp 23; Temp 97.8; Pulse Ox 100% on R/A; Weight 104.33 kg; rv Height 5 ft. 11 in. (180.34 cm) (R); 17:01 BP 115 / 67; Pulse 60; Resp 18; Pulse Ox 100% on R/A; mg2 18:00 BP 118 / 78; Pulse 70; Resp 18; Pulse Ox 98% on R/A; mg2 18:57 BP 120 / 78; Pulse 68; Resp 18; Temp 98; Pulse Ox 98% on R/A; mg2 19:56 BP 121 / 78; Pulse 70; Resp 20; Temp 97.7; Pulse Ox 98% on R/A; mg2 15:41 Body Mass Index 32.08 (104.33 kg, 180.34 cm) rv MDM: 15:47 Patient medically screened. [facility] 16:32 Data reviewed: vital signs, nurses notes, lab test result(s), EKG, radiologic studies, tez plain films. 06/27 16:30 Order name: Basic Metabolic Panel [facility] 06/27 16:30 Order name: CBC with Diff [facility] 06/27 16:30 Order name: LFT's [facility] 06/27 16:30 Order name: Magnesium [facility] 06/27 16:30 Order name: NT PRO-BNP [facility] 06/27 16:30 Order name: PT-INR [facility] 06/27 16:30 Order name: Troponin (emerg Dept Use Only) [facility] 06/27 16:30 Order name: Blood Culture Adult (2) [facility] 06/27 16:30 Order name: Influenza Screen (a \T\ B) [facility] 06/27 17:01 Order name: Urine Dipstick--Ancillary (enter results) 06/27 17:19 Order name: CBC with Automated Diff; Complete Time: 17:46 [facility] 06/27 17:26 Order name: Protime (+INR); Complete Time: 17:46 [facility] 06/27 17:35 Order name: Influenza Screen (A ; Complete Time: 17:46 [facility] 06/27 17:43 Order name: Basic Metabolic Panel; Complete Time: 17:46 [facility] 06/27 16:30 Order name: XRAY Chest (1 view) [facility] 06/27 17:43 Order name: Liver (Hepatic) Function; Complete Time: 17:46 [facility] 06/27 17:43 Order name: Troponin I; Complete Time: 17:46 [facility] 06/27 17:43 Order name: NT PRO-BNP; Complete Time: 17:46 [facility] 06/27 17:43 Order name: Magnesium; Complete Time: 17:46 [facility] 06/27 17:45 Order name: Chest Single View [facility] 06/27 17:45 Order name: Blood Culture [facility] 06/27 17:45 Order name: Blood Culture [facility] 06/27 18:57 Order name: Urine Dipstick-Ancillary [facility] 06/27 19:00 Order name: Blood Culture [facility] 06/27 19:00 Order name: Influenza Screen (A [facility] 06/27 20:06 Order name: Glucose, Ancillary Testing [facility] 06/27 16:30 Order name: EKG; Complete Time: 18:48 [facility] 06/27 16:30 Order name: Cardiac monitoring; Complete Time: 17:01 [facility] 06/27 16:30 Order name: EKG - Nurse/Tech; Complete Time: 17:01 [facility] 06/27 16:30 Order name: IV Saline Lock; Complete Time: 17: [facility] 06/27 16:30 Order name: Labs collected and sent; Complete Time: 17: [facility] 06/27 16:30 Order name: O2 Per Protocol; Complete Time: 17:01 [facility] 06/27 16:30 Order name: O2 Sat Monitoring; Complete Time: 17: [facility] 06/27 16:30 Order name: Urine Dipstick-Ancillary (obtain specimen); Complete Time: 17:01 [facility] Administered Medications: 17:00 Drug: Xopenex 2.5 mg Route: Inhalation; mg2 18:13 Follow up: Response: No adverse reaction mg2 17:00 Drug: AtroVENT Aerosol 0.5 mg Route: Inhalation; mg2 18:13 Follow up: Response: No adverse reaction; Marked relief of symptoms mg2 17:01 Drug: SOLU-Medrol 125 mg Route: IVP; Site: right antecubital; mg2 18:14 Follow up: Response: No adverse reaction mg2 18:12 Drug: Lasix 40 mg Route: IVP; Site: right antecubital; mg2 18:37 Follow up: Response: No adverse reaction mg2 18:13 Drug: Rocephin 1 grams Route: IV; Rate: per protocol; Site: right antecubital; mg2 19:56 Follow up: Response: No adverse reaction; IV Status: Completed infusion mg2 18:45 Drug: Lasix 20 mg Route: IVP; Site: right antecubital; mg2 19:54 Follow up: Response: No adverse reaction; Marked relief of symptoms mg2 18:46 Drug: Insulin Regular Human 7 units {Co-Signature: rb1 (Natasha Schneider RN).} Route: mg2 IVP; Site: right antecubital; 19:54 Follow up: Response: No adverse reaction; Blood sugar is lowered mg2 Disposition: 06/27/19 19:21 Hospitalization ordered by Jake Solis for Inpatient Admission. Preliminary diagnosis are Unspecified combined systolic (congestive) and diastolic (congestive) heart failure, Type 1 diabetes mellitus, Hypoxemia, Unspecified kidney failure, Dyspnea, Obesity, unspecified. - Bed requested for Telemetry/MedSurg (Inpatient). - Status is Inpatient Admission. mg2 - Condition is Fair. - Problem is new. - Symptoms have improved. UTI on Admission? No Signatures: Dispatcher [employer] EDMS Melanie York RN RN mw Woody, Diana, RN RN dw Anderson, Corey, MD MD cha Gardose, Michele, RN RN [facility] [place] Sonido Marcelino RN RN Natasha Schneider RN rb1 Corrections: (The following items were deleted from the chart) 18:35 17:51 Hospitalization Ordered by Jake Solis for Inpatient Admission. Preliminary diagnosis is Dyspnea; Unspecified combined systolic (congestive) and diastolic (congestive) heart failure; Type 1 diabetes mellitus; Hypoxemia. Bed requested for Telemetry/MedSurg (Inpatient). Status is Inpatient Admission. Condition is Fair. Problem is new. Symptoms have improved. UTI on Admission? No. tez 18:37 18:35 06/27/2019 17:51 Hospitalization Ordered by Jake Solis for Inpatient tez Admission. Preliminary diagnosis is Dyspnea; Unspecified combined systolic (congestive) and diastolic (congestive) heart failure; Type 1 diabetes mellitus; Hypoxemia. Bed requested for Telemetry/MedSurg (Inpatient). Status is Inpatient Admission. Condition is Fair. Problem is new. Symptoms have improved. UTI on Admission? No. natalia 18:40 18:37 06/27/2019 17:51 Hospitalization Ordered by Jake Lee for Inpatient tez Admission. Preliminary diagnosis is Dyspnea; Unspecified combined systolic (congestive) and diastolic (congestive) heart failure; Type 1 diabetes mellitus; Hypoxemia; Unspecified kidney failure. Bed requested for Telemetry/MedSurg (Inpatient). Status is Inpatient Admission. Condition is Fair. Problem is new. Symptoms have improved. UTI on Admission? No. tez 18:42 18:42 06/27/2019 18:42 Patients has left against medical advice. Impression: Dyspnea; tez Unspecified combined systolic (congestive) and diastolic (congestive) heart failure; Hypoxemia; Type 1 diabetes mellitus; Unspecified kidney failure. Patient states they are going to Home. Condition is Fair. Follow up: Luis Fernando Huston; When: Upon discharge from the Emergency Department; Reason: Recheck today's complaints, Continuance of care, Re-evaluation by your physician. Problem is new. Symptoms have improved. tez 19:18 18:42 06/27/2019 18:42 Patients has left against medical advice. Impression: Dyspnea; tez Unspecified combined systolic (congestive) and diastolic (congestive) heart failure; Hypoxemia; Type 1 diabetes mellitus; Unspecified kidney failure. Patient states they are going to Home. Condition is Fair. Follow up: Luis Fernando Huston; When: Upon discharge from the Emergency Department; Reason: Recheck today's complaints, Continuance of care, Re-evaluation by your physician. Follow up: Pastor Cordoba; When: 2 - 3 days; Reason: Recheck today's complaints, Continuance of care, Re-evaluation by your physician. Problem is new. Symptoms have improved. tez 19:35 19:21 Hospitalization Ordered by Jake Solis for Inpatient Admission. Preliminary mw diagnosis is Unspecified combined systolic (congestive) and diastolic (congestive) heart failure; Type 1 diabetes mellitus; Hypoxemia; Unspecified kidney failure; Dyspnea; Obesity, unspecified. Bed requested for Telemetry/MedSurg (Inpatient). Status is Inpatient Admission. Condition is Fair. Problem is new. Symptoms have improved. UTI on Admission? No. tez 20:41 19:35 06/27/2019 19:21 Hospitalization Ordered by Jake Solis for Inpatient mg2 Admission. Preliminary diagnosis is Unspecified combined systolic (congestive) and diastolic (congestive) heart failure; Type 1 diabetes mellitus; Hypoxemia; Unspecified kidney failure; Dyspnea; Obesity, unspecified. Bed requested for Telemetry/MedSurg (Inpatient). Status is Inpatient Admission. Condition is Fair. Problem is new. Symptoms have improved. UTI on Admission? No. mw
--- NOTE | 2019-06-27 17:52 | ER ---
Nurse's Notes [facility] Name: Titus Holloway Age: 79 yrs Sex: Male : 1940 Arrival Date: 06/27/2019 Time: 15:32 Bed 20 Private MD: Luis Fernando Huston V Diagnosis: Unspecified combined systolic (congestive) and diastolic (congestive) heart failure;Type 1 diabetes mellitus;Hypoxemia;Unspecified kidney failure;Dyspnea;Obesity, unspecified Presentation: 06/27 15:39 Presenting complaint: Patient states: COUGH FOR A WEEK OR LESS NOW. HACKING AND rv PERSISTENT COUGH WITH CONGESTION WITH A LITTLE BIT OF NAUSEA. Transition of care: patient was not received from another setting of care. Onset of symptoms was June 27, 2019 at 08:00. Risk Assessment: Do you want to hurt yourself or someone else? Patient reports no desire to harm self or others. Initial Sepsis Screen: Does the patient meet any 2 criteria? No. Patient's initial sepsis screen is negative. Does the patient have a suspected source of infection? No. Patient's initial sepsis screen is negative. Care prior to arrival: None. 15:39 Method Of Arrival: Ambulatory rv 15:39 Acuity: PAYAM 3 rv Historical: - Allergies: 15:43 Plavix; rv 15:43 Tetanus Vaccines \T\ Toxoid; rv - Home Meds: 17:09 amiodarone 200 mg Oral tab 0.5 tab once daily [Active]; aspirin 325 mg Oral tab 1 tab mg2 once daily [Active]; atorvastatin 60mg Oral tab 1 tab once daily [Active]; BRILINTA 90 mg Oral tab 1 tab 2 times per day [Active]; citalopram 20 mg tab 1 tab once daily for Anxiety with Depression [Active]; clonidine HCl 0.2 mg Oral tab 1 tab 2 times per day [Active]; Entresto 24-26 mg Oral tab 1 tab twice a day [Active]; furosemide 80 mg Oral tab 1 tab once daily for Peripheral Edema due to Chronic Heart Failure [Active]; gabapentin 100 mg Oral cap 1 caps 3 times per day [Active]; levemir 50units am / 10 units pm [Active]; losartan 100 mg Oral tab 1 tab once daily [Active]; magnesium oxide 400 mg Oral cap [Active]; metoprolol tartrate 50 mg Oral tab 1 tab 2 times per day for Hypertension [Active]; spironolactone 25 mg Oral tab 1 tab once daily [Active]; - PMHx: 15:43 CAD; CHF; COPD; Diabetes - IDDM; CVA; Hyperlipidemia; Hypertension; weakness; Pneumonia;rv - PSHx: 15:43 CABG; CARDIAC STENTS; rv - Immunization history:: Adult Immunizations up to date. - Social history:: Smoking status: Patient/guardian denies using tobacco, the patient reports quitting approximately 40 years ago. - Ebola Screening: : No symptoms or risks identified at this time. - Family history:: not pertinent. Screenin:06 Abuse screen: Denies threats or abuse. Denies injuries from another. Nutritional mg2 screening: No deficits noted. Tuberculosis screening: No symptoms or risk factors identified. Fall Risk IV access (20 points). Assessment: 17:05 General: Appears in no apparent distress. comfortable, Behavior is calm, cooperative. mg2 Pain: Denies pain. Neuro: Level of Consciousness is awake, alert, obeys commands, Oriented to person, place, time, situation. Cardiovascular: Capillary refill < 3 seconds Patient's skin is warm and dry. Respiratory: Reports cough that is non-productive, Airway is patent Respiratory effort is even, unlabored, Respiratory pattern is regular, symmetrical, Breath sounds with wheezes. GI: No signs and/or symptoms were reported involving the gastrointestinal system. : No signs and/or symptoms were reported regarding the genitourinary system. EENT: No signs and/or symptoms were reported regarding the EENT system. Derm: Skin is intact, is healthy with good turgor, Skin is pink, warm \T\ dry. normal. Musculoskeletal: Circulation, motion, and sensation intact. Capillary refill < 3 seconds. 18:24 Reassessment: Patient appears in no apparent distress at this time. Patient and/or mg2 family updated on plan of care and expected duration. Pain level reassessed. Patient is alert, oriented x 3, equal unlabored respirations, skin warm/dry/pink. 18:55 Reassessment: patient refused admission. AMA form signed by the . said they have mg2 appointment with dr huston on or they will come back in ed whenever he is worse. provider spoke to the patient. 19:35 Reassessment:. mg2 Vital Signs: 15:41 BP 119 / 69; Pulse 64; Resp 23; Temp 97.8; Pulse Ox 100% on R/A; Weight 104.33 kg; rv Height 5 ft. 11 in. (180.34 cm) (R); 17:01 BP 115 / 67; Pulse 60; Resp 18; Pulse Ox 100% on R/A; mg2 18:00 BP 118 / 78; Pulse 70; Resp 18; Pulse Ox 98% on R/A; mg2 18:57 BP 120 / 78; Pulse 68; Resp 18; Temp 98; Pulse Ox 98% on R/A; mg2 19:56 BP 121 / 78; Pulse 70; Resp 20; Temp 97.7; Pulse Ox 98% on R/A; mg2 15:41 Body Mass Index 32.08 (104.33 kg, 180.34 cm) rv ED Course: 15:32 Patient arrived in ED. am2 15:33 Luis Fernando Huston MD is Private Physician. am2 15:37 Mu Lewis MD is Attending Physician. tez 15:41 Triage completed. rv 15:43 Arm band placed on Patient placed in the treatment room, on a stretcher, Patient rv notified of wait time. 15:54 Phan Benton, CLAUDIA is Primary Nurse. mg2 16:50 Inserted saline lock: 20 gauge in right antecubital area, using aseptic technique. mg2 Blood collected. 17:06 No provider procedures requiring assistance completed. mg2 17:10 Patient has correct armband on for positive identification. surveillance system monitor on. Pulse mg2 ox on. NIBP on. Door closed. Warm blanket given. 17:45 Chest Single View In Process Unspecified. EDMS 17:49 Jake Solis is Hospitalizing Provider. tez 18:00 IV discontinued, intact, bleeding controlled, No redness/swelling at site. Pressure mg2 dressing applied. 18:40 Luis Fernando Huston MD is Referral Physician. tez 18:42 Pastor Cordoba MD is Referral Physician. tez 19:18 Jake Solis is Hospitalizing Provider. tez 19:57 Inserted saline lock: 22 gauge in right hand, using aseptic technique. mg2 19:58 Inserted saline lock: 20 gauge in left antecubital area, using aseptic technique. by mg2 NEGRA Singleton Tech. Administered Medications: 17:00 Drug: Xopenex 2.5 mg Route: Inhalation; mg2 18:13 Follow up: Response: No adverse reaction mg2 17:00 Drug: AtroVENT Aerosol 0.5 mg Route: Inhalation; mg2 18:13 Follow up: Response: No adverse reaction; Marked relief of symptoms mg2 17:01 Drug: SOLU-Medrol 125 mg Route: IVP; Site: right antecubital; mg2 18:14 Follow up: Response: No adverse reaction mg2 18:12 Drug: Lasix 40 mg Route: IVP; Site: right antecubital; mg2 18:37 Follow up: Response: No adverse reaction mg2 18:13 Drug: Rocephin 1 grams Route: IV; Rate: per protocol; Site: right antecubital; mg2 19:56 Follow up: Response: No adverse reaction; IV Status: Completed infusion mg2 18:45 Drug: Lasix 20 mg Route: IVP; Site: right antecubital; mg2 19:54 Follow up: Response: No adverse reaction; Marked relief of symptoms mg2 18:46 Drug: Insulin Regular Human 7 units {Co-Signature: rb1 (Natasha Schneider RN).} Route: mg2 IVP; Site: right antecubital; 19:54 Follow up: Response: No adverse reaction; Blood sugar is lowered mg2 Outcome: 17:51 Decision to Hospitalize by Provider. tez 19:21 Decision to Hospitalize by Provider. tez 20:34 Admitted to Med/surg accompanied by tech, via wheelchair, room 215, with chart, Report mg2 called to CLAUDIA Guerra 20:34 Condition: stable 20:34 Instructed on the need for admit, Demonstrated understanding of instructions. 20:41 Patient left the ED. mg2 Signatures: Dispatcher [employer] EDAR Mu Lewis MD MD cha Moreno, Amanda am2 Phan Benton RN RN mg2 Sonido Marcelino RN RN rv Natasha Schneider RN rb1 Corrections: (The following items were deleted from the chart) 16:47 15:39 Acuity: PAYAM 4 rv rv
[2019-06-27] MEDS ORDERED: CEFTRIAXONE/SWI 1gm 1 GM/10 ML SYR ONE (18:06)
[2019-06-27] MEDS ORDERED: FUROSEMIDE 40 MG/4 ML VIAL ONE (18:06)
--- NOTE | 2019-06-27 18:37 | P.HP ---
Certification for Inpatient Patient admitted to: Observation With expected LOS: <2 Midnights Practitioner: I am a practitioner with admitting privileges, knowledge of patient current condition, hospital course, and medical plan of care. Services: Services provided to patient in accordance with Admission requirements found in Title 42 Section 412.3 of the Code of Federal Regulations Patient History Date of Service: 06/27/19 Reason for admission: Shortness of breath History of Present Illness: 79-year-old gentleman with a history of chronic systolic heart failure, EF of 25 %, status post AICD, history of coronary artery disease status post presented to the emergency department with a complaint of progressive shortness of breath of about 3 days duration. He states the symptoms associated with nasal congestion and sneezing. Cough is nonproductive. Patient denied any chest pain , he denied any orthopnea or paroxysmal nocturnal disease. He denied any fever but endorsed generalized malaise. In the ED, chest x-ray demonstrated mild CHF. EKG is paced rhythm and nondiagnostic for ischemia. Initial troponin is negative. Patient is placed under observation for further management of CHF exacerbation. I also suspect his symptoms related to upper respiratory infection. Allergies clopidogrel bisulfate [From Plavix] Allergy (Verified 05/23/18 20:49) Itching/Hives/Rash Tetanus Vaccines and Toxoid Allergy (Verified 11/11/18 03:15) Itching/Hives/Rash Home Medications: Amiodarone HCl [Cordarone*] 100 mg PO DAILY 12/17/18 Atorvastatin Calcium [Lipitor*] 60 mg PO BEDTIME 12/17/18 Citalopram [Celexa*] 20 mg PO DAILY 12/17/18 Furosemide [Lasix*] 80 mg PO DAILY 12/17/18 Gabapentin [Neurontin*] 100 mg PO TID 12/17/18 Insulin Detemir [Levemir] 10 units SQ DAILY AT SUPPER 12/17/18 Insulin Detemir [Levemir] 50 units SQ BREAKFAST 12/17/18 Magnesium Oxide [Mag 0X*] 400 mg PO DAILY 12/17/18 Metoprolol Tartrate [Lopressor*] 50 mg PO BID 12/17/18 Sacubitril/Valsartan [Entresto 24 mg-26 mg Tablet] 1 tab PO BID 12/17/18 Ticagrelor [Brilinta*] 90 mg PO BID 12/17/18 - Past Medical/Surgical History Diabetic: Yes -: COPD -: CHF -: HTN -: HYPERLIPIDEMIA -: IDDM -: TIA -: pneumonia -: CARDIAC STENTS x5 -: CARDIAC BYPASS SX 2 vessels - Family History Father -: Heart disease, Hypertension Mother -: Heart disease, Hypertension, Lung disease Brother -: Diabetes Notes: Leukemia - Social History Smoking Status: Former smoker Alcohol use: Yes CD- Drugs: No Caffeine use: Yes Review of Systems Other: General: No fever, no unintentional weight loss. Eyes: No eye discharge, CVS: No chest pain, no palpitation, no lightheadedness. GI: No abdominal pain, no nausea no vomit, no constipation, no diarrhea. Genitourinary: No dysuria, no urinary frequency, no incontinence, no hematuria. Musculoskeletal: No joint pains, or joint swelling, no gait instability. Neurology: No headache, no asymmetric weakness, no problem with swallowing. Except as documented, all other systems reviewed and negative. Physical Examination - Physical Exam General: Alert, In no apparent distress, Oriented x3, Obese HEENT: Mucous membr. moist/pink, Sclerae nonicteric Neck: Supple, JVD not distended Respiratory: Diminished (Mild bibasilar rales) Cardiovascular: No edema, Regular rate/rhythm, Normal S1 S2 Capillary refill: <2 Seconds Gastrointestinal: Normal bowel sounds, Soft and benign, No tenderness Musculoskeletal: No swelling Integumentary: No rashes Neurological: Normal speech, Normal strength at 5/5 x4 extr - Studies Laboratory Data (last 24 hrs) 06/27/19 16:50: PT 12.0, INR 1.02 06/27/19 16:50: WBC 7.6, Hgb 13.7, Hct 39.9, Plt Count 176 06/27/19 16:50: Sodium 133 L, Potassium 4.6, BUN 26 H, Creatinine 1.60 H, Glucose 305 H, Magnesium 2.2, Total Bilirubin 0.6, AST 27, ALT 46, Alkaline Phosphatase 61, Troponin I < 0.02 Microbiology Data (last 24 hrs): 06/27/19 16:50 Nasopharnyx Influenza Type A Antigen Screen - Final 06/27/19 16:50 Nasopharnyx Influenza Type B Antigen Screen - Final Assessment and Plan - Problems (Diagnosis) (1) Acute on chronic systolic CHF (congestive heart failure) Current Visit: Yes Status: Acute (2) Upper respiratory infection Current Visit: Yes Status: Acute (3) Chronic kidney disease, stage 3 Current Visit: Yes Status: Chronic (4) Coronary arteriosclerosis Current Visit: No Status: Chronic (5) Diabetes Onset Date: 10/31/15 Current Visit: No Status: Chronic (6) Hypertension Current Visit: No Status: Chronic - Plan Place under observation telemetry Will treat with extra doses of IV lasix Monitor input and output. Monitor renal panel while receiving IV lasix Continue home medications-including amiodarone, Entresto, Brilinta and Lipitor. Insulin sliding scale and Levemir insulin for glucose management. Oxygen as needed. - Advance Directives Does patient have a Living Will: Yes Does patient have a Durable POA for Healthcare: No
[2019-06-27] MEDS ORDERED: INSULIN -REGULAR HUMAN 50 UNIT/0.5 ML ML ONE ×2 (18:43→21:54)
[2019-06-27] MEDS ORDERED: FUROSEMIDE 20 MG/ 2ML VIAL ONE (18:44)
[2019-06-27 18:56] LABS: Urine Blood NEGATIVE (NEG); Urine Glucose TRACE (NEG); Urine Protein NEGATIVE (NEG)
[2019-06-27] MEDS ORDERED: GUAIFENESIN/DM 5 ML UCUP PO PRN (20:11)
[2019-06-27] MEDS ORDERED: ALBUTEROL 2.5 MG/3 ML NEB SOL NEB PRN (21:03)
[2019-06-27] MEDS ORDERED: ACETAMINOPHEN 500 MG TAB PO PRN (21:03)
[2019-06-27] MEDS ORDERED: D50W 25 GM/50 ML SYRINGE/VIAL IV PRN (21:03)
[2019-06-27] MEDS ORDERED: GLUCAGON 1 MG/VIAL IM PRN (21:03)
[2019-06-27] MEDS ORDERED: INSULIN -REGULAR HUMAN 50 UNIT/0.5 ML ML SQ SCH (21:03)
[2019-06-27] MEDS ORDERED: ONDANSETRON 4 MG/2 ML VIAL IV PRN (21:03)
[2019-06-27 22:48] VITALS: BMI 32.1
[2019-06-28 06:38] LABS: Absolute Lymphocytes (CBC) 0.5 K/uL (0.7-4.9); Basophils % 0.1 % (0-1.3); Hematocrit 39.4 % (39.6-49.0); Lymphocytes % 5.5 % (15.3-44.8); MPV 7.7 fL (7.6-11.3); RBC Red Blood Cell Count 4.14 M/uL (4.33-5.43)
[2019-06-28 06:46] LABS: Magnesium 2.1 mg/dL (1.8-2.4); Phosphorus 3.3 mg/dL (2.5-4.9); Potassium 4.7 mmol/L (3.5-5.1)
[2019-06-28] MEDS ORDERED: INSULIN -REGULAR HUMAN 50 UNIT/0.5 ML ML SQ ONE ×2 (07:26→13:00)
[2019-06-28] MEDS: INSULIN -REGULAR HUMAN 50 UNIT/0.5 ML ML SQ SCH ×4 (07:30→21:04)
[2019-06-28 08:36] LABS: Blood Morphology Comment NOT SEEN (NOT SEEN); Platelet Estimate ADEQ
[2019-06-28] MEDS: ENOXAPARIN 30 MG/0.3 ML SQ SCH (08:45)
[2019-06-28] MEDS: FUROSEMIDE 40 MG/4 ML VIAL IV SCH ×2 (08:46→16:32)
[2019-06-28] MEDS ORDERED: INSULIN GLARGINE 100 UNITS/ML SQ ONE ×2 (09:00→12:50)
--- NOTE | 2019-06-28 10:57 | P.PN ---
Subjective Date of Service: 06/28/19 Chief Complaint: Shortness of breath Patient reports persistent nonproductive and some shortness of breath. He states the cough is nonproductive. He is not orthopneic. Physical Examination - Vital Signs Temperature: 98 F Blood Pressure: 135/65 Pulse: 81 Respirations: 20 Pulse Ox (%): 95 - Physical Exam General: Alert, In no apparent distress, Obese HEENT: Mucous membr. moist/pink Neck: Supple, JVD not distended Respiratory: Clear to auscultation bilaterally, Normal air movement Cardiovascular: No edema, Regular rate/rhythm, Normal S1 S2 Gastrointestinal: Soft and benign, No tenderness Musculoskeletal: No swelling Neurological: Normal speech, Normal strength at 5/5 x4 extr - Studies Laboratory Data (last 24 hrs) 06/27/19 16:50: PT 12.0, INR 1.02 06/27/19 16:50: WBC 7.6, Hgb 13.7, Hct 39.9, Plt Count 176 06/27/19 16:50: Sodium 133 L, Potassium 4.6, BUN 26 H, Creatinine 1.60 H, Glucose 305 H, Magnesium 2.2, Total Bilirubin 0.6, AST 27, ALT 46, Alkaline Phosphatase 61, Troponin I < 0.02 06/27/19 16:30: PT Cancelled, INR Cancelled 06/27/19 16:30: WBC Cancelled, Hgb Cancelled, Hct Cancelled, Plt Count Cancelled 06/27/19 16:30: Sodium Cancelled, Potassium Cancelled, BUN Cancelled, Creatinine Cancelled, Glucose Cancelled, Magnesium Cancelled, Total Bilirubin Cancelled, AST Cancelled, ALT Cancelled, Alkaline Phosphatase Cancelled Microbiology Data (last 24 hrs): 06/27/19 16:50 Nasopharnyx Influenza Type A Antigen Screen - Final 06/27/19 16:50 Nasopharnyx Influenza Type B Antigen Screen - Final Assessment And Plan - Current Problems (Diagnosis) (1) Acute on chronic systolic CHF (congestive heart failure) Current Visit: Yes Status: Acute (2) Upper respiratory infection Current Visit: Yes Status: Acute (3) Chronic kidney disease, stage 3 Current Visit: Yes Status: Chronic (4) Coronary arteriosclerosis Current Visit: No Status: Chronic (5) Diabetes Onset Date: 10/31/15 Current Visit: No Status: Chronic (6) Hypertension Current Visit: No Status: Chronic - Plan Continue IV lasix for 1 more day and transition to oral lasix Cough suppressant Bronchodilators. Monitor input and output. Creatinine trended up slightly today. Monitor renal panel while receiving IV lasix Continue home medications-including amiodarone, Entresto, Brilinta and Lipitor. Insulin sliding scale and Levemir insulin for glucose management. Oxygen as needed. Home oxygen evaluation
[2019-06-28] MEDS: guaiFENesin 100 MG/5 ML UCUP PO PRN ×2 (11:24→16:31)
[2019-06-28] MEDS ORDERED: GLUCAGON 1 MG/VIAL IM PRN (12:29)
[2019-06-28] MEDS ORDERED: D50W 25 GM/50 ML SYRINGE/VIAL IV PRN (12:29)
[2019-06-28] MEDS ORDERED: ZOLPIDEM TARTRATE 5 MG TABLET PO PRN (20:08)
[2019-06-29 06:08] LABS: Absolute Lymphocytes (CBC) 1.4 K/uL (0.7-4.9); Basophils % 0.7 % (0-1.3); Hematocrit 38.7 % (39.6-49.0); Lymphocytes % 12.5 % (15.3-44.8); MPV 7.3 fL (7.6-11.3)
[2019-06-29 06:22] LABS: Potassium 3.6 mmol/L (3.5-5.1)
[2019-06-29] MEDS: guaiFENesin 100 MG/5 ML UCUP PO PRN (06:54)
[2019-06-29] MEDS: INSULIN -REGULAR HUMAN 50 UNIT/0.5 ML ML SQ SCH ×2 (07:30→12:40)
--- NOTE | 2019-06-29 08:12 | EKG ---
Test Date: 2019-06-27 Test Time: 17:07:15 Supervisor [employer]: GINI MEASUREMENT RESULTS: Intervals: Rate: 60 NE: 194 QRSD: 110 QT: 460 QTc: 460 [place]: P: 48 NE: 194 QRS: -14 T: 100 INTERPRETIVE STATEMENTS: Electronic atrial pacemaker Cannot rule out Anterior infarct, age undetermined Abnormal ECG Compared to ECG 12/17/2018 17:14:01 Ventricular-paced complex(es) or rhythm no longer present T-wave abnormality no longer present Possible ischemia no longer present Prolonged QT interval no longer present Myocardial infarct finding still present Electronically Signed On 06-29-19 08:10:27 INFECTION CONTROL COORDINATOR by Pastor Cordoba
[2019-06-29] MEDS ORDERED: POTASSIUM 25 MEQ EFFERV TAB PO ONE (09:00)
[2019-06-29 09:16] VITALS: O2SAT 93
[2019-06-29] MEDS: ENOXAPARIN 30 MG/0.3 ML SQ SCH (10:14)
--- NOTE | 2019-06-29 11:43 | P.DS ---
Admission Date: 06/27/19 Discharge Date: 06/29/19 Disposition: DC HOME/HOME HEALTH CARE Discharge Condition: FAIR Reason for Admission: Shortness of breath Brief History of Present Illness: patient with hx of CHF low EF at 25% admitted for chf exacerbation Hospital Course: Patient was started on increased diuretics with IV lasix . His SOB improved . he has elevation in creatinine from 1.6 to 1.8 but later stabilized at 1.7 . His SOB has resolved now . he is saturating at room air well . his home dose of lasix was discontinued and he will be started on bumex now at 1 mg bid with added metolazone. he is advised to do low fluid intake and follow with his PCP in 1 week. he is started on kcl tabs Vital Signs/Physical Exam: Temp Pulse Resp BP Pulse Ox 97.4 F 71 16 123/62 94 06/29/19 08:00 06/29/19 08:00 06/29/19 08:00 06/29/19 08:00 06/29/19 08:00 General: Alert, In no apparent distress, Oriented x3 HEENT: Atraumatic, Normocephalic, PERRLA Neck: Supple, 2+ carotid pulse no bruit Respiratory: Clear to auscultation bilaterally, Normal air movement Cardiovascular: No edema, Normal pulses, Normal S1 S2 Gastrointestinal: Normal bowel sounds, Soft and benign Integumentary: No rashes, No breakdown Neurological: Normal speech, Normal tone Laboratory Data at Discharge: WBC 10.9 K/uL (4.3-10.9) 06/29/19 05:55 Hgb 13.5 g/dL (13.6-17.9) L 06/29/19 05:55 Hct 38.7 % (39.6-49.0) L 06/29/19 05:55 Plt Count 196 K/uL (152-406) 06/29/19 05:55 PT 12.0 SECONDS (9.5-12.5) 06/27/19 16:50 INR 1.02 06/27/19 16:50 Sodium 134 mmol/L (136-145) L 06/29/19 05:50 Potassium 3.6 mmol/L (3.5-5.1) 06/29/19 05:50 BUN 44 mg/dL (7-18) H 06/29/19 05:50 Creatinine 1.75 mg/dL (0.55-1.3) H 06/29/19 05:50 Glucose 135 mg/dL (74-106) H 06/29/19 05:50 Phosphorus 3.3 mg/dL (2.5-4.9) 06/28/19 05:44 Magnesium 2.1 mg/dL (1.8-2.4) 06/28/19 05:44 Total Bilirubin 0.6 mg/dL (0.2-1.0) 06/27/19 16:50 AST 27 U/L (15-37) 06/27/19 16:50 ALT 46 U/L (12-78) 06/27/19 16:50 Alkaline Phosphatase 61 U/L (45-117) 06/27/19 16:50 Troponin I < 0.02 ng/mL (0.0-0.045) 06/28/19 01:04 Home Medications: Bumetanide [Bumex] 1 mg PO BID #60 tablet 06/29/19 Metolazone [Zaroxolyn] 2.5 mg PO DAILY #30 tablet 06/29/19 Potassium Gluconate [Potassium] 99 mg PO BID 6AM 6PM #60 tablet 06/29/19 guaiFENesin [Robitussin 100MG/5ML*] 10 ml PO QID PRN #100 ml 06/29/19 New Medications: Bumetanide [Bumex] 1 mg PO BID #60 tablet guaiFENesin [Robitussin 100MG/5ML*] 10 ml PO QID PRN #100 ml PRN Reason: Cough Metolazone [Zaroxolyn] 2.5 mg PO DAILY #30 tablet Potassium Gluconate [Potassium] 99 mg PO BID 6AM 6PM #60 tablet Patient Discharge Instructions: -Limit fluid intake to less than 1800cc/day. - continue other home meds except lasix Diet: Low sodium Activity: Ad harshil Followup: Damari Sun MD [ACTIVE - CAN ADMIT] - Time spent managing pt's care (in minutes): 36
[2019-06-29 12:23] VITALS: BP 134/66; TEMP 97.2
== END 2019-06-29 13:25 | disposition home or self-care (01) ==
LOC: ER 15:29 → ERHOLD 18:26 → 2ND 20:36
PROVIDERS: ADMIT Internal Medicine; ATTEND Internal Medicine
DX: I50.23 Acute on chronic systolic (congestive) heart failure (principal); I13.0 Hypertensive heart and chronic kidney disease with heart failure and stage 1 through stage 4 chronic kidney disease, or unspecified chronic kidney disease; N18.3 Chronic kidney disease, stage 3 (moderate); E11.22 Type 2 diabetes mellitus with diabetic chronic kidney disease; J06.9 Acute upper respiratory infection, unspecified; I25.10 Atherosclerotic heart disease of native coronary artery without angina pectoris; E66.9 Obesity, unspecified; Z68.31 Body mass index [BMI] 31.0-31.9, adult; Z95.5 Presence of coronary angioplasty implant and graft; Z95.1 Presence of aortocoronary bypass graft
CPT/HCPCS: 96365; 93005; 87040 ×2; 85025 ×3; 80048 ×3; 36415 ×2; 83735 ×2; 82947 ×9; 84100; 85610; 80076; 81003; 84484 ×3; 83880; 87804 ×2; 71045; 94760 ×4; 96375; 99285; 96366; J1940 ×4; J1650 ×2; J0696; J2930; G0378 ×3; J1815; J7030